=== PATIENT | female | born 1950 | race Caucasian/White ===

== ENCOUNTER 2017-06-04 11:28 | Emergency (ER) | payer OTHER ==
[2017-06-04] MEDS ORDERED: LIDOCAINE 1% MPF 5 ML VIAL ONE (12:17)
[2017-06-04] MEDS ORDERED: TETANUS & DIPHTHERIA TOX,ADULT 0.5 ML VIAL ONE (12:18)
--- NOTE | 2017-06-04 12:42 | RAD REPORT ---
EXAM DESCRIPTION: RAD - Foot Right 3 View - 06/04/2017 12:28 pm CLINICAL HISTORY: Smash injury to toes COMPARISON: None. FINDINGS: Comminuted tuft fractures involving the distal first and second toe noted.
--- NOTE | 2017-06-04 14:50 | EDPHYS ---
Physician Documentation [facility] Name: Ana Victor Age: 67 yrs Sex: Female : 1950 Arrival Date: 06/04/2017 Time: 11:29 Bed 13 Private MD: Falguni Rashid H ED Physician Cece Hameed HPI: 06/04 14:20 This 67 yrs old Female presents to ER via Ambulatory with complaints of Right pm1 great toe injury. 14:20 The patient presents with a laceration, pain. The complaints affect the right first pm1 toe. Context: The problem was sustained at home, resulted from a heavy object falling, quartz slab. Onset: The symptoms/episode began/occurred just prior to arrival. Modifying factors: The symptoms are alleviated by pressure. Associated signs and symptoms: Pertinent positives: swelling, Pertinent negatives: calf tenderness. The patient has not experienced similar symptoms in the past. The patient has not recently seen a physician, the patient's primary care provider is Dr. Rashid. Historical: - Allergies: 11:32 Iodinated Contrast Media - IV Dye; tl3 - Immunization history:: Adult Immunizations up to date. - Social history:: Smoking status: . ROS: 14:20 MS/extremity: Positive for laceration pain, of the right first toe. pm1 14:20 Constitutional: Negative for fever, chills, and weight loss, Cardiovascular: Negative for chest pain, palpitations, and edema, Respiratory: Negative for shortness of breath, cough, wheezing, and pleuritic chest pain, Abdomen/GI: Negative for abdominal pain, nausea, vomiting, diarrhea, and constipation, Back: Negative for injury and pain. 14:20 Skin: Positive for laceration(s), of the right first toe. Exam: 14:20 Constitutional: This is a well developed, well nourished patient who is awake, alert, pm1 and in no acute distress. Chest/axilla: Normal chest wall appearance and motion. Nontender with no deformity. No lesions are appreciated. Cardiovascular: Regular rate and rhythm with a normal S1 and S2. No gallops, murmurs, or rubs. Normal PMI, no JVD. No pulse deficits. Respiratory: Lungs have equal breath sounds bilaterally, clear to auscultation and percussion. No rales, rhonchi or wheezes noted. No increased work of breathing, no retractions or nasal flaring. Back: No spinal tenderness. No costovertebral tenderness. Full range of motion. 14:20 Musculoskeletal/extremity: Extremities: grossly normal except: noted in the right first toe: tenderness, noted in the right second toe distal aspect, no nail injury: tenderness. 14:20 Skin: Appearance: normal except for affected area, injury, laceration(s), the wound is approximately 5 cm(s), with a depth of 0.5 cm(s), of the right first toe, 3 cm linear laceration across the dorsal aspect of right great toe just proximal to cuticle. 2 cm irregular laceration to right great toe planter distal aspect . 14:20 Neuro: Orientation: is normal, Motor: is normal, moves all fours, strength is normal, strength is 5/5 in all extremities, Sensation: is normal, no obvious gross deficits. Vital Signs: 11:32 BP 96 / 81; Pulse 80; Resp 18; Temp 97.8(O); Pulse Ox 100% on R/A; tl3 12:30 BP 128 / 91; Pulse 70; Resp 16 S; Pulse Ox 96% on R/A; Pain 5/10; jtb 13:30 BP 148 / 71; Pulse 69; Resp 16 S; Pulse Ox 98% on R/A; Pain 5/10; jtb 14:30 BP 156 / 71; Pulse 76; Resp 16 S; Pulse Ox 98% on R/A; Pain 0/10; jtb Laceration: 14:20 Wound Repair of 5cm ( 2.0in ) subcutaneous laceration to right first toe. Distal pm1 neuro/vascular/tendon intact. Anesthesia: Digital block administered with 2 mls of 1% lidocaine. Wound prep: Extensive cleansing by me, Wound irrigation by me, Wound explored extensively, Copious irrigation. Skin closed with 8 4-0 Prolene using simple sutures and sterile technique. Skin closed with 1-0 Prolene using nail bed secured with figure 8 suture. Dressed with 4x4's. Patient tolerated well. MDM: 11:47 Patient medically screened. pm1 14:24 Data reviewed: vital signs. Data interpreted: Pulse oximetry: on room air is 98 %. pm1 Interpretation: normal. Counseling: I had a detailed discussion with the patient and/or guardian regarding: the historical points, exam findings, and any diagnostic results supporting the discharge/admit diagnosis, radiology results, the need for outpatient follow up, to return to the emergency department if symptoms worsen or persist or if there are any questions or concerns that arise at home. 06/04 11:53 Order name: Foot Right 3 View XRAY pm1 06/04 12:44 Order name: RAD; Complete Time: 12:48 EDMS 06/04 11:53 Order name: Prolene, Sutures; Complete Time: 12:13 pm1 06/04 11:53 Order name: Dressing - Wound; Complete Time: 14:59 pm1 06/04 11:53 Order name: Gloves, Sterile; Complete Time: 12:13 pm1 06/04 11:53 Order name: Setup Suture Tray; Complete Time: 11:56 pm1 06/04 14:57 Order name: Post-op shoe; Complete Time: 14:59 pm1 Administered Medications: 12:04 Drug: Tetanus-Diphtheria Toxoid Adult 0.5 ml {3D Specialist: [employer]. Exp: jl7 12/16/2018. Lot #: [id number]. } Route: IM; Site: right deltoid; 14:36 Follow up: Response: No adverse reaction [facility] 14:00 Drug: Lidocaine (1 %) 5 ml {Note: Administered by Glenroy Brown NP.} Volume: 5 ml; jl7 Route: Infiltration; 14:36 Follow up: Response: No adverse reaction jl7 Disposition: 06/05 07:13 Co-signature as Attending Physician, Cece Hameed MD. ma2 Disposition: 06/04/17 14:27 Discharged to Home. Impression: Laceration without foreign body of right great toe with damage to nail, Nondisplaced fracture of distal phalanx of right great toe - distal tuft fracture, Nondisplaced fracture of distal phalanx of right lesser toe(s) - distal tuft fracture right 2nd toe. - Condition is Stable. - Discharge Instructions: Laceration Care, Adult, Nail Bed Laceration. - Prescriptions for Keflex 500 mg Oral Capsule - take 1 capsule by ORAL route every 12 hours for 10 days; 20 capsule. Tylenol- Codeine #3 300-30 mg Oral Tablet - take 2 tablets by ORAL route every 6 hours As needed; 20 tablet. Bactrim DS 800- 160 mg Oral Tablet - take 1 tablet by ORAL route every 12 hours for 10 days; 20 tablet. - Medication Reconciliation Form, Thank You Letter, Antibiotic Education, Prescription Opioid Use form. - Follow up: Emergency Department; When: As needed; Reason: Worsening of condition. Follow up: Falguni Rashid DO; When: 2 - 3 days; Reason: Wound Recheck, Recheck today's complaints, Continuance of care, Re-evaluation by your physician. Follow up: Derick Cox DPM; When: 2 - 3 days; Reason: Wound Recheck, Recheck today's complaints, Continuance of care, Re-evaluation by your physician. Follow up: Private Physician; When: 7 - 10 days; Reason: Wound Recheck, Staple/Suture removal. - Problem is new. - Symptoms have improved. Signatures: Dispatcher [employer] EDMS Glenroy Brown, [employer] TECHNICAL OFFICER pm1 Vivian Alegre RN RN jl7 Cece Hameed MD MD ma2 [place] Lovell RN RN tl3 Luis Alvarez j
--- NOTE | 2017-06-04 14:50 | ER ---
Nurse's Notes [facility] Name: Ana Victor Age: 67 yrs Sex: Female : 1950 Arrival Date: 06/04/2017 Time: 11:29 Bed 13 Private MD: Falguni Rashid H Diagnosis: Laceration without foreign body of right great toe with damage to nail;Nondisplaced fracture of distal phalanx of right great toe-distal tuft fracture;Nondisplaced fracture of distal phalanx of right lesser toe(s)-distal tuft fracture right 2nd toe Presentation: 06/04 11:30 Presenting complaint: Patient states: dropped 50 pound weight on right great toe, tl3 happened one hour ago. Transition of care: patient was not received from another setting of care. Onset of symptoms was June 04, 2017. 11:30 Method Of Arrival: Ambulatory tl3 11:30 Acuity: OPHELIA 4 tl3 14:37 Care prior to arrival: None. jl7 Triage Assessment: 11:32 General: Appears in no apparent distress. uncomfortable, well groomed, well developed, tl3 well nourished, Behavior is calm, cooperative, appropriate for age. Pain: Pain currently is 3 out of 10 on a pain scale. Historical: - Allergies: 11:32 Iodinated Contrast Media - IV Dye; tl3 - Immunization history:: Adult Immunizations up to date. - Social history:: Smoking status: . Screenin:45 Abuse screen: Denies threats or abuse. Denies injuries from another. Nutritional jtb screening: No deficits noted. Tuberculosis screening: No symptoms or risk factors identified. Fall Risk None identified. Assessment: 11:45 General: Appears in no apparent distress. uncomfortable, Behavior is calm, cooperative, jtb appropriate for age. Pain: Complains of pain in left first toe and Left first toenail Pain does not radiate. Pain currently is 4 out of 10 on a pain scale. at worst was 6 out of 10 on a pain scale. Quality of pain is described as aching, Pain began 2 hours ago. Is continuous. Neuro: Level of Consciousness is awake, alert, obeys commands, Oriented to person, place, time, situation. Cardiovascular: Patient's skin is warm and dry. Respiratory: Airway is patent Respiratory effort is even, unlabored, Respiratory pattern is regular, symmetrical. GI: No signs and/or symptoms were reported involving the gastrointestinal system. : No signs and/or symptoms were reported regarding the genitourinary system. EENT: No signs and/or symptoms were reported regarding the EENT system. Derm: Skin is pink, warm \T\ dry. Musculoskeletal: Reports having neuropathy in both feet. Injury Description: Laceration sustained to plantar aspect of left first toe and Left first toenail is 0.5 to 2.5 cm long, bleeding moderately. 12:36 Reassessment: No changes from previously documented assessment. Patient and/or family jtb updated on plan of care and expected duration. Pain level reassessed. Patient is alert, oriented x 3, equal unlabored respirations, skin warm/dry/pink. guest is at the bedside. 13:49 Reassessment: No changes from previously documented assessment. Patient and/or family jtb updated on plan of care and expected duration. Pain level reassessed. Patient is alert, oriented x 3, equal unlabored respirations, skin warm/dry/pink. 14:20 Reassessment: No changes from previously documented assessment. Patient and/or family jtb updated on plan of care and expected duration. Pain level reassessed. Patient is alert, oriented x 3, equal unlabored respirations, skin warm/dry/pink. Provider at the bedside performing laceration repair. Vital Signs: 11:32 BP 96 / 81; Pulse 80; Resp 18; Temp 97.8(O); Pulse Ox 100% on R/A; tl3 12:30 BP 128 / 91; Pulse 70; Resp 16 S; Pulse Ox 96% on R/A; Pain 5/10; jtb 13:30 BP 148 / 71; Pulse 69; Resp 16 S; Pulse Ox 98% on R/A; Pain 5/10; jtb 14:30 BP 156 / 71; Pulse 76; Resp 16 S; Pulse Ox 98% on R/A; Pain 0/10; jtb ED Course: 11:29 Patient arrived in ED. rg4 11:30 Falguni Rashid DO is Private Physician. rg4 11:31 Triage completed. tl3 11:45 Glenroy Brown NP is PHCP. pm1 11:45 Cece Hameed MD is Attending Physician. pm1 11:45 Patient has correct armband on for positive identification. Bed in low position. Call jtb light in reach. Side rails up X 1. Pulse ox on. NIBP on. 11:46 Vivian Alegre RN is Primary Nurse. jl7 14:27 Falguni Rashid DO is Referral Physician. pm1 14:28 Derick Cox DPM is Referral Physician. pm1 14:30 Assist provider with laceration repair on ball of left foot and Left first toenail that jtb was 2.5 cm. or less using sutures. Patient tolerated well. Patient did not have IV access during this emergency room visit. 14:36 Arm band placed on right wrist. jl7 Administered Medications: 12:04 Drug: Tetanus-Diphtheria Toxoid Adult 0.5 ml {Lacquer Sprayer: [employer]. Exp: jl7 12/16/2018. Lot #: [id number]. } Route: IM; Site: right deltoid; 14:36 Follow up: Response: No adverse reaction jl7 14:00 Drug: Lidocaine (1 %) 5 ml {Note: Administered by Glenroy Brown NP.} Volume: 5 ml; jl7 Route: Infiltration; 14:36 Follow up: Response: No adverse reaction jl7 Outcome: 14:27 Discharge ordered by MD. pm1 14:40 Discharged to home ambulatory. jtb 14:40 Condition: stable 14:40 Discharge instructions given to patient, Instructed on discharge instructions, follow up and referral plans. medication usage, wound care, Demonstrated understanding of instructions, follow-up care, medications, wound care, Prescriptions given X 3. 15:01 Attestation : I agree with everything documented by Luis Alvarez, Student Nurse. [facility] 15:02 Patient left the ED. jtb Signatures: Glenroy Brown NP DESIGN STUDIO CONSULTANT pm1 Ignacia Flores rg4 Vivian Alegre RN RN sharon7 [place] Lovell RN RN tl3 Luis Alvarez jedd Corrections: (The following items were deleted from the chart) 12:13 12:04 Tetanus-Diphtheria Toxoid Adult 0.5 ml IM in right deltoid Lacquer Sprayer: [employer] jl7 Biologic Lot: [id number] Exp: 07/30/2019 jl7 12:36 11:45 BP 128 / 91; Pulse 70bpm; Resp 16bpm; Spontaneous; Pulse Ox 96% RA; Pain 5/10; jtbjtb 14:36 14:00 Lidocaine (1 %) 5 ml 5 ml Infiltration 5 ml jl7 jl7
[2017-06-04 15:14] VITALS: TEMP 97.8
[2017-06-04 15:16] VITALS: BP 148/71; O2SAT 98
== END 2017-06-04 15:02 | disposition home or self-care (01) ==
LOC: ER 11:28
PROC: 0JQQ0ZZ Repair Right Foot Subcutaneous Tissue and Fascia, Open Approach (ICD-10-PCS; principal; 2017-06-04)
DX: S91.211A Laceration without foreign body of right great toe with damage to nail, initial encounter (principal); S92.424A Nondisplaced fracture of distal phalanx of right great toe, initial encounter for closed fracture; S92.534A Nondisplaced fracture of distal phalanx of right lesser toe(s), initial encounter for closed fracture; W22.8XXA Striking against or struck by other objects, initial encounter; Y93.9 Activity, unspecified; Y92.009 Unspecified place in unspecified non-institutional (private) residence as the place of occurrence of the external cause; Z91.041 Radiographic dye allergy status; Z23 Encounter for immunization
CPT/HCPCS: 90714; 99284

== ENCOUNTER 2018-02-28 15:31 | Emergency (ER) | payer OTHER ==
--- OUTSIDE RECORDS SUMMARY | 2018-02-28 15:37 | XMS REPORT | Continuity of Care Document ---
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[facility] PARALYSIS [address] [place] [address] SCAN Active 12/06/[address] [place] 7 PALSY, Active 12/06/19 [facility] DYSPHAGIA [address] [place] [address] SEPSIS Active 11/25/[address] LANCE Active 11/25/19 [facility] BILLING [address] [place] [address] SIALADENITIS Active 11/25/[address] Hep C w/o coma, Resolved Problem 05/09/2016 [facility], [place],[facility] Liver cirrhosis Active Problem 05/09/2016 [facility] Cirrhosis Resolved Problem 05/09/2016 [facility] Colon polyps Resolved Problem 05/09/2016 [facility] SIALOADENITIS, Active [facility] OTHER DISORDERS Active [facility] FACIAL NERVE [facility] DYSPHAGIA, Active UNSPECIFIED [place] DYSPHONIA Active 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 predniSONE 5 mg/5 20 mg, 20 mL, No Longer [place] mL oral solution Route: PEG, Active 2015 Medical Drug form: Center SOLN, Daily, Start date: 12/20/15 9:00:00 CDT, Duration: 1 doses or times, Stop date: 12/20/15 9:00:00 CDTNotes: (Same as: Liquid Pred.) Take with food. Prednisone 1 MG/ML 10 mg=10 mL, No Longer [place] Oral Solution PEG, Daily, X 1 Active 2015, # 10 mL, 0 Center Refill(s) ursodiol 300 mg 900 mg=3 cap, Active [facility] oral capsule PO, Daily, # 2016 Medical 120 cap, 3 Center Refill(s) levothyroxine 100 100 microgram=1 Active [place] mcg (0.1 mg) oral tab, PEG, 2015 Medical tablet Q630AM, # 30 Center tab, 3 Refill(s) Alprazolam 0.5 MG 0.5 mg=1 tab, Active [place] Oral Tablet [Xanax] PO, Bedtime, 2016 Medical PRN Sleep, X 14 Center day, # 14 tab, 0 Refill(s) valACYclovir 500 mg 1,000 mg=2 tab, Active [place] oral tablet PEG, Q12H, X 6 2015 Medical day, # 24 tab, Center 0 Refill(s) tramadol 50 mg=1 tab, Active [place] hydrochloride 50 MG PEG, Q12H, PRN 2016 Medical Oral Tablet Pain Score 1-3, Center X 30 day, # 60 tab, 0 Refill(s) propranolol 20 mg 20 mg=1 tab, Active [place] oral tablet PEG, Q12H, # 60 2016 Medical tab, 3 Center Refill(s) diphenhydrAMINE 50 50 mg=1 cap, Active [facility] mg oral capsule PO, TID, PRN 2016 Medical Itching, X 14 Center day, # 42 cap, 3 Refill(s) ocular lubricant 1 drp, Each Active [facility] solution Affected Eye, 2016 Medical QID, # 36 ea, 3 Center Refill(s) lansoprazole 3 30 mg=10 mL, Active [facility] mg/mL oral PEG, Before 2015 Medical suspension Breakfast, # 30 [place] mL, 3 Refill(s) OXcarbazepine 300 150 mg=2.5 mL, Active [facility] mg/5 mL oral PEG, BID, # 150 2015 Medical suspension mL, 3 Refill(s) [place] predniSONE 5 mg/5 30 mg, 30 mL, Inactive [facility] mL oral solution Route: PO, Drug 2015 Medical form: SOLN, [place] Daily, Start date: 12/19/15 9:00:00 CDT, Duration: 1 doses or times, Stop date: 12/19/15 9:00:00 CDTNotes: (Same as: Liquid Pred.) Take with food. Potassium Chloride 40 mEq, 30 mL, Inactive [place] 1.33 MEQ/ML Oral Route: PEG, 2015 Medical Solution Drug form: LIQ, [place] ONCE, Dosing Weight 68.182, kg, Start date: 12/19/15 5:26:00 CDT, Stop date: 12/19/15 5:26:00 CDTNotes: (Same as: Potassium Chloride) Famotidine 20 MG 20 mg, 2 tab, Inactive [facility] Oral Tablet Route: PO, Drug 2015 Medical form: TAB, [place] ONCE, Dosing Weight 68.182, kg, Priority: NOW, Start date: 12/18/15 15:57:00 CDT, Stop date: 12/18/15 15:57:00 CDTNotes: (Same as: Pepcid AC) Ursodeoxycholate 900 mg, 15 mL, No Longer [facility] Route: PEG, Active 2015 Medical Drug form: Center SUSP, Daily, Dosing Weight 68.182, kg, Start date: 12/18/15 9:00:00 CDT, Duration: 30 day, Stop date: 01/16/16 9:00:00 CDTNotes: Ursodil (actigall) 300mg caps #5. Refrigerate - Shake Well Before Use. Compounded Product - formulation not commercially available predniSONE 5 mg/5 40 mg, 40 mL, Inactive [facility] mL oral solution Route: PO, Drug 2015 Medical form: SOLN, [place] Daily, Start date: 12/18/15 9:00:00 CDT, Duration: 1 doses or times, Stop date: 12/18/15 9:00:00 CDTNotes: (Same as: Liquid Pred.) Take with food. prednisolone 60 mg, Route: No Longer [facility] PEG, Drug form: Active 2015 Medical SOLN, Daily, Center Dosing Weight 68.182, kg, Start date: 12/18/15 9:00:00 CDT, Stop date: 12/21/15 9:00:00 CDT lansoprazole 30 mg, 10 mL, No Longer [facility] Route: PEG, Active 2015 Medical Drug form: Center SUSP, Before Breakfast, Dosing Weight 68.182, kg, Start date: 12/18/15 7:30:00 CDT, Duration: 30 day, Stop date: 01/16/16 7:30:00 CDTNotes: Take 1 hour before or 2 hours after meal; Expires in 14 days. Shake well before use. (Same as:Prevacid) Compounded Product - formulation not commercially available levothyroxine 100 microgram, No Longer [facility] 1 tab, Route: Active 2015 Medical PEG, Drug form: Center TAB, Q630AM, Start date: 12/18/15 6:30:00 CDT, Duration: 30 day, Stop date: 01/16/16 6:30:00 CDTNotes: Take 1 hour before or 2 hours after meal; Enteral feeds may interefere with the absorption of this medication. (Same as:Levothroid, Synthroid) Propranolol 20 mg, 1 tab, No Longer [facility] Route: PEG, Active 2015 Medical Drug form: TAB, Center Q12H, Dosing Weight 68.182, kg, Start date: 12/17/15 21:00:00 CDT, Duration: 30 day, Stop date: 01/16/16 9:00:00 CDTNotes: Give with food. (Same as: Inderal) Trileptal 150 mg, 2.5 mL, No Longer [facility] Route: PEG, Active 2015 Medical Drug form: LIQ, Center BID, Dosing Weight 68.182, kg, Start date: 12/17/15 21:00:00 CDT, Duration: 30 day, Stop date: 01/16/16 9:00:00 CDTNotes: (Same as: Trileptal) Valtrex 1,000 mg, Inactive [place] Route: PO, Drug 2015 Medical form: TAB, Center Q12H, Dosing Weight 68.182, kg, Start date: 12/17/15 21:00:00 CDT, Stop date: 12/25/15 9:00:00 CDT Valtrex 1,000 mg, 2 No Longer [place] tab, Route: Active 2016 Medical PEG, Drug form: Center TAB, Q12H, Dosing Weight 68.182, kg, Start date: 12/17/15 20:00:00 CDT, Stop date: 01/16/16 8:00:00 CDTNotes: (Same As: Valtrex) predniSONE 5 mg/5 50 mg, 50 mL, Inactive [place] mL oral solution Route: PEG, 2015 Medical Drug form: Center SOLN, ONCE, Start date: 12/17/15 18:00:00 CDT, Stop date: 12/17/15 18:00:00 CDTNotes: (Same as: Liquid Pred.) Take with food. tramadol 50 mg, 1 tab, No Longer [place] hydrochloride 50 MG Route: PEG, Active 2015 Medical Oral Tablet Drug form: TAB, Center Q12H, Dosing Weight 68.182, kg, PRN Pain Score 1-3, Start date: 12/17/15 16:36:00 CDT, Duration: 30 day, Stop date: 01/16/16 16:35:00 CDTNotes: Not to exceed 400mg/day. (Same As: Ultram) Acetaminophen 325 1 tab, Route: No Longer [facility] MG / Hydrocodone PEG, Drug Form: Active 2016 Medical Bitartrate 5 MG TAB, Dosing Center Oral Tablet [[place]lin Weight 68.182, 5/325] kg, Q6H, PRN Pain Score 4-6, Start date: 12/17/15 16:35:00 CDT, Duration: 30 day, Stop date: 01/16/16 16:34:00 CDTNotes: (Same as: [place] 325/5) Do not exceed 4gm/day of acetaminophen. Neutra-Phos 2 pkt, Route: Inactive [facility] PEG, Drug Form: 2016 Medical PDR/REC, Dosing Center Weight 68.182, kg, ONCE, Start date: 12/17/15 16:33:00 CDT, Stop date: 12/17/15 16:33:00 CDTNotes: (Same as: Neutra-Phos) Each 1.25 gm pkt has 250mg phosphorous. Mix w/2.5oz water and stir. Zofran 4 mg, 2 mL, Inactive [facility] Route: IVP, 2015 Medical Drug form: INJ, Center Q8H, Dosing Weight 68.182, kg, PRN Nausea, Start date: 12/17/15 15:11:00 CDT, Duration: 30 day, Stop date: 01/16/16 15:10:00 CDTNotes: (Same as: Zofran) MEDICATION WASTE Product Size: 4 mg Product Wasted: ___ mg Ondansetron 4 mg, Route: Inactive [facility] IVP, ONCE, 2015 Medical Dosing Weight Center 68.182, kg, PRN Nausea & Vomiting, Start date: 12/17/15 10:54:00 CDT Naloxone 0.4 mg, Route: Inactive [facility] IVP, Q2MIN, 2015 Medical Dosing Weight Center 68.182, kg, PRN Narcotic Reversal, Start date: 12/17/15 10:54:00 CDT, Duration: 8 doses or times, Stop date: Limited # of times Labetalol 10 mg, Route: Inactive 12/16[facility] IVP, Q5Min, 2015 Medical Dosing Weight Center 68.182, kg, PRN Elevated BP, Start date: 12/17/15 10:54:00 CDT, Duration: 5 doses or times, Stop date: Limited # of times Morphine 2 mg, Route: Inactive 12/16[facility] IVP, Q5Min, 2015 Medical Dosing Weight Center 68.182, kg, PRN Pain Score 4-6, Start date: 12/17/15 10:54:00 CDT, Duration: 5 doses or times, Stop date: Limited # of times Hydralazine 10 mg, Route: Inactive 12/16[facility] IVP, Q20Min, 2016 Medical Dosing Weight Center 68.182, kg, PRN Elevated BP, Start date: 12/17/15 10:54:00 CDT, Duration: 2 doses or times, Stop date: Limited # of times Flumazenil 0.2 mg, Route: Inactive [facility] IVP, PRN, 2016 Medical Dosing Weight Center 68.182, kg, PRN Benzodiazepine Reversal, Initial dose, Start date: 12/17/15 10:54:00 CDT, Duration: 30 day, Stop date: 01/16/16 10:53:00 CDT Hydromorphone 0.5 mg, Route: Inactive [facility] IVP, Q5Min, 2015 Medical Dosing Weight Center 68.182, kg, PRN Pain Score 7-10, Start date: 12/17/15 10:54:00 CDT, Duration: 4 doses or times, Stop date: Limited # of times Neutra-Phos 2 pkt, Route: Inactive [facility] NG, Drug Form: 2016 Medical PDR/REC, Dosing Center Weight 68.182, kg, ONCE, NOW, Start date: 12/17/15 10:33:00 CDT, Stop date: 12/17/15 10:33:00 CDTNotes: (Same as: Neutra-Phos) Each 1.25 gm pkt has 250mg phosphorous. Mix w/2.5oz water and stir. potassium phosphate 30 mmol, Route: Inactive [facility] IVPB, ONCE, 2015 Medical Dosing Weight Center 68.182, kg, Priority: NOW, Start date: 12/17/15 9:56:00 CDT, Stop date: 12/17/15 9:56:00 CDT potassium chloride 40 mEq, 30 mL, Inactive [facility] Route: NG, Drug 2016 Medical form: LIQ, Center ONCE, Dosing Weight 68.182, kg, Priority: NOW, Start date: 12/17/15 9:33:00 CDT, Stop date: 12/17/15 9:33:00 CDTNotes: (Same as: Potassium Chloride) Potassium Chloride 40 mEq, 30 mL, Inactive [place] 1.33 MEQ/ML Oral Route: PO, Drug 2015 Medical Solution form: LIQ, Center ONCE, Dosing Weight 68.182, kg, via NGT, Start date: 12/14/15 18:53:00 CDT, Stop date: 12/14/15 18:53:00 CDTNotes: (Same as: Potassium Chloride) prednisolone 60 mg, 20 mL, No Longer [place] Route: NG, Drug Active 2015 Medical form: SOLN, Center Daily, Dosing Weight 68.182, kg, Start date: 12/14/15 9:00:00 CDT, Duration: 30 day, Stop date: 01/12/16 9:00:00 CDTNotes: (Same as: Prelone) With food. methylPREDNISolone 48 mg, 1.2 mL, No Longer [place] SODium SUCCinate Route: IV, Drug Active 2015 Medical form: INJ, Center Daily, Dosing Weight 68.182, kg, Start date: 12/13/15 13:00:00 CDT, Stop date: 12/17/15 9:00:00 CDTNotes: (Same as:Solu-MEDROL, A-Methapred) Trileptal 150 mg, 1 tab, No Longer [place] Route: PO, Drug Active 2015 Medical form: TAB, BID, Center Dosing Weight 68.182, kg, Start date: 12/13/15 9:00:00 CDT, Duration: 30 day, Stop date: 01/11/16 17:00:00 CDTNotes: Do not crush or chew. (Same as: Trileptal) iodixanol 100 mL, Route: No Longer [place] IVP, Drug Form: Active 2015 Medical SOLN, Dosing Center Weight 68.182, kg, ONCALL, STAT, Start date: 12/12/15 9:36:00 CDT, Duration: 1 doses or times, Dose=2.2ml/kg, Max [id number] -- "To be infused by Radiology Staff ONLY"Notes: (Same as: Ezra). WASTE: F/P - Black; E - Municipal Trash Bin Acyclovir 640 mg, Route: No Longer [place] IVPB, ABXQ8H, Active 2015 Medical Dosing Weight Center 68.182, kg, Start date: 12/11/15 18:00:00 CDT, Stop date: 01/10/16 10:00:00 CDT, CrCl > 50 mL / minNotes: (Same as: Zovirax) MEDICATION WASTE Product Size: 500 mg Product Wasted: ___ mg Azithromycin 500 mg, Route: No Longer [place] IVPB, Drug Active 2015 Medical form: PDR/INJ, Center [id number], Dosing Weight 68.182, kg, Start date: 12/11/15 18:00:00 CDT, Duration: 30 day, Stop date: 01/09/16 18:00:00 CDTNotes: (Same As: Zithromax IV) valacyclovir 1,000 mg, 2 Inactive [place] tab, Route: 2015 Medical Drug form: TAB, Center Q8H, Dosing Weight 68.182, kg, Start date: 12/11/15 16:09:00 CDT, Duration: 7 day, Stop date: 12/18/15 16:00:00 CDTNotes: (Same As: Valtrex) prednisolone 60 mg, 20 mL, No Longer [place] Route: NG, Drug Active 2015 Medical form: SOLN, [place] Daily, Dosing Weight 68.182, kg, Start date: 12/11/15 16:08:00 CDT, Duration: 7 day, Stop date: 12/18/15 9:00:00 CDTNotes: (Same as: Prelone) With food. albuterol 0.083% 2.49 mg, 3 mL, No Longer [place] inhalation solution Route: [facility], 2015 Medical Drug form: [place] SOLN, RBID, Start date: 12/10/15 13:29:00 CDT, Duration: 2 day, Stop date: 12/12/15 8:00:00 CDTNotes: SEE RT DOCUMENTATION (Same as: Proventil) Acetylcysteine 100 200 mg, 2 ml, No Longer [place] MG/ML Inhalant Route: [facility], Active 2015 Medical Solution Drug Form: [place] SOLN, Dosing Weight 68.182, kg, RBID, Start date: 12/10/15 13:28:00 CDT, Duration: 2 day, Stop date: 12/12/15 8:00:00 CDTNotes: WASTE: F/P - Black; E - Municipal Trash Bin Acetylcysteine 100 2 ml, Route: Inactive [place] MG/ML Inhalant NEB, Drug Form: 2015 Medical Solution SOLN, Dosing Center Weight 68.182, kg, RBID, NOW, Start date: 12/10/15 11:49:00 CDT, Duration: 2 day, Stop date: 12/12/15 8:00:00 CDT Propranolol 20 mg, 1 tab, No Longer [place] Route: PO, Drug Active 2015 Medical form: TAB, Center Q12H, Dosing Weight 68.182, kg, Start date: 12/10/15 9:00:00 CDT, Duration: 30 day, Stop date: 01/08/16 21:00:00 CDTNotes: Give with food. (Same as: Inderal) pantoprazole 40 mg, Route: No Longer [place] IVP, Drug form: Active 2015 Medical INJ, Before Center Breakfast, Dosing Weight 68.182, kg, Start date: 12/10/15 7:30:00 CDT, Duration: 30 day, Stop date: 01/08/16 7:30:00 CDTNotes: For IV push reconstitute with 10 ml 0.9% sodium chloride and push over 2 minutes. (Same as: Protonix) levothyroxine 50 microgram, No Longer [place] Route: IV, Drug Active 2015 Medical form: INJ, Center Q630AM, Start date: 12/10/15 6:30:00 CDT, Duration: 30 day, Stop date: 01/08/16 6:30:00 CDTNotes: (Same as: Synthroid) Reconstitute with 5ml of NS. Final concentration=2 0 micrograms/ml. Use immediately after reconstitution and discard remaining solution. Unasyn 3 gm, 1 ea, No Longer [place] Route: IVPB, Active 2015 Medical Drug form: Center PDR/INJ, ABXQ6H, Start date: 12/09/15 21:00:00 CDT, Duration: 30 day, Stop date: 01/08/16 15:00:00 CDTNotes: Dosing based on Ampicillin component (Same as: Unasyn) Acetaminophen 325 1 tab, Route: No Longer [place] MG / Hydrocodone PO, Drug Form: Active 2015 Medical Bitartrate 5 MG TAB, Dosing Center Oral Tablet [[place] Weight 68.182, 5/325] kg, Q6H, PRN Pain Score 4-6, Start date: 12/09/15 20:47:00 CDT, Duration: 30 day, Stop date: 01/08/16 20:46:00 CDTNotes: (Same as: [place] 325/5) Do not exceed 4gm/day of acetaminophen. Lacri-Lube 1 appl, Route: No Longer [place] Each Affected Active 2015 Medical Eye, QID, Drug Center form: OINT, PRN Dry Eyes, Start date: 12/09/15 15:53:00 CDT, Duration: 30 day, Stop date: 01/08/16 15:52:00 CDTNotes: (Same as: Duratears Naturale and Artificial Tears, Tears Again ) Ketorolac 15 mg, 1 mL, No Longer [facility] Route: IV, Drug Active 2015 Medical form: INJ, Q6H, Center Dosing Weight 68.182, kg, PRN Pain Score 4-6, Start date: 12/09/15 14:44:00 CDT, Duration: 4 day, Stop date: 12/13/15 14:43:00 CDTNotes: (Same as:Toradol) IV bolus must be given >15 seconds. Give IM administration slowly and deeply into the muscle. Not for use > 4 days. Diflucan 400 mg, 200 mL, No Longer [place] Route: IVPB, Active 2015 Medical Drug form: INJ, Center [id number], Start date: 12/09/15 14:30:00 CDT, Duration: 30 day, Stop date: 01/07/16 14:30:00 CDTNotes: (Same as: Diflucan) Benadryl 50 mg, 1 cap, No Longer [facility] Route: PO, Drug Active 2015 Medical form: CAP, TID, Center Dosing Weight 68.182, kg, PRN Itching, Start date: 12/09/15 13:28:00 CDT, Stop date: 01/08/16 13:27:00 CDTNotes: (Same as: Benadryl) Lubricant Eye Drops 1 drp, Route: No Longer [place] Each Affected Active 2015 Medical Eye, QID, Drug Center form: SOLN, Start date: 12/09/15 11:49:00 CDT, Duration: 30 day, Stop date: 01/08/16 13:00:00 CDT Naproxen 250 mg, 1 tab, Inactive [place] Route: PO, Drug 2015 Medical form: TAB, Center ONCE, Dosing Weight 68.182, kg, Start date: 12/09/15 0:24:00 CDT, Stop date: 12/09/15 0:24:00 CDTNotes: (Same as: Naprosyn) Take with food. Phenergan 12.5 mg, Route: Inactive [place] IVPB, Q6H, 2016 Medical Dosing Weight Center 68.182, kg, PRN Nausea & Vomiting, Priority: NOW, Start date: 12/08/15 20:33:00 CDT, Duration: 30 day, Stop date: 01/07/16 20:32:00 CDT Sodium Chloride 1,000 mL, Rate: Inactive [place] 0.9% IV 1000 mL 75 ml/hr, 2016 Medical Infuse over: Center 13.3 hr, Route: IV, Dosing Weight 68.182 kg, Total Volume: 1,000, Start date: 12/08/15 18:30:00 CDT, Duration: 30 day, Stop date: 01/07/16 18:29:00 CDT Zofran 4 mg, 2 mL, No Longer [place] Route: IVP, Active 2015 Medical Drug form: INJ, Center Q8H, Dosing Weight 68.182, kg, Priority: NOW, Start date: 12/08/15 8:28:00 CDT, Duration: 1 day, Stop date: 12/09/15 8:00:00 CDTNotes: (Same as: Zofran) MEDICATION WASTE Product Size: 4 mg Product Wasted: ___ mg Prochlorperazine 5 mg, 1 mL, No Longer [place] Route: IVP, Active 2015 Medical Drug form: INJ, Center Q6H, Dosing Weight 68.182, kg, PRN Nausea & Vomiting, Start date: 12/08/15 0:31:00 CDT, Duration: 30 day, Stop date: 01/07/16 0:30:00 CDT, ..Notes: (Same as: Compazine) Prochlorperazine 5 mg, 1 tab, No Longer [place] Route: PO, Drug Active 2015 Medical form: TAB, Q6H, Center Dosing Weight 68.182, kg, PRN Nausea & Vomiting, Start date: 12/07/15 23:17:00 CDT, Duration: 30 day, Stop date: 01/06/16 23:16:00 CDT, ..Notes: (Same as: Compazine) Diphenhydramine 1 appl, Route: No Longer [place] Hydrochloride 20 TOP, Q6H, Drug Active 2015 Medical MG/ML Topical Cream form: CRM, PRN Center [Benadryl] Allergic reaction, Start date: 12/07/15 14:00:00 CDT, Stop date: 01/06/16 12:00:00 CDT tramadol 50 mg, 1 tab, No Longer [place] hydrochloride 50 MG Route: PO, Drug Active 2015 Medical Oral Tablet form: TAB, Center Q12H, Dosing Weight 68.182, kg, PRN Pain Score 1-3, Start date: 12/07/15 9:08:00 CDT, Duration: 30 day, Stop date: 01/06/16 9:07:00 CDTNotes: Not to exceed 400mg/day. (Same As: Ultram) Tylenol 650 mg, Route: Inactive [place] PO, Drug form: 2015 Medical TAB, Q6H, Center Dosing Weight 68.182, kg, PRN For Temp > 100.4 F, Start date: 12/07/15 9:05:00 CDT, Duration: 30 day, Stop date: 01/06/16 9:04:00 CDT Ursodeoxycholate 900 mg, 3 cap, No Longer [place] Route: PO, Drug Active 2015 Medical form: CAP, Center Daily, Dosing Weight 68.182, kg, Start date: 12/07/15 9:00:00 CDT, Duration: 30 day, Stop date: 01/05/16 9:00:00 CDTNotes: (Same As: Actigall) Fluconazole 400 mg, 2 tab, No Longer [place] Route: PO, Drug Active 2015 Medical form: TAB, Center Daily, Dosing Weight 68.182, kg, Start date: 12/07/15 9:00:00 CDT, Duration: 9 day, Stop date: 12/15/15 9:00:00 CDTNotes: (Same as: Diflucan) Amoxicillin 875 MG 1 tab, Route: No Longer [place] / Clavulanate 125 PO, Drug Form: Active 2016 Medical MG Oral Tablet TAB, Dosing Center [Augmentin 875-mg] Weight 68.182, kg, Q12H, Start date: 12/07/15 9:00:00 CDT, Stop date: 12/15/15 21:00:00 CDTNotes: With food. (Same as: Augmentin 875) Streptococcus 0.5 mL, Route: Inactive [place] pneumoniae serotype IM, Drug Form: 2015 Medical 1 capsular antigen INJ, Daily, Center diphtheria [id number] Start date: protein conjugate 12/07/15 vaccine / 9:00:00 CDT, Streptococcus Duration: 1 pneumoniae serotype doses or times, 14 capsular antigen Stop date: diphtheria [id number] 12/07/15 protein conjugate 9:00:00 vaccine / CDTNotes: Streptococcus Lightly roll pneumoniae serotype vial (DO NOT 18C capsular SHAKE) before antigen d administration. (Same as: Prevnar 13) Thyroxine 100 microgram, No Longer [place] 1 tab, Route: Active 2015 Medical PO, Drug form: Center TAB, Q630AM, Dosing Weight 68.182, kg, Start date: 12/07/15 6:30:00 CDT, Duration: 30 day, Stop date: 01/05/16 6:30:00 CDTNotes: Take 1 hour before or 2 hours after meal; Enteral feeds may interefere with the absorption of this medication. (Same as:Levothroid, Synthroid) Lovenox 40 mg, 0.4 mL, No Longer [place] Route: SUB-Q, Active 2015 Medical Drug form: INJ, Center [id number], Dosing Weight 68.182, kg, Start date: 12/07/15 5:00:00 CDT, Duration: 30 day, Stop date: 01/05/16 5:00:00 CDTNotes: (Same as: Lovenox) Alprazolam 0.5 MG 0.5 mg, 1 tab, No Longer [place] Oral Tablet [Xanax] Route: PO, Drug Active 2015 Medical form: TAB, Center Bedtime, Dosing Weight 68.182, kg, PRN Sleep, Start date: 12/06/15 23:52:00 CDT, Duration: 30 day, Stop date: 01/05/16 23:51:00 CDTNotes: With food or milk (Same as: Xanax) sodium chloride 1,000 mL, Rate: No Longer [place] 0.9% 1000 ml INJ 150 ml/hr, Active 2015 Medical 1,000 mL Infuse over: Center 6.7 hr, Route: IV, Dosing Weight 68.182 kg, Total Volume: 1,000, Start date: 12/06/15 21:36:00 CDT, Stop date: 01/05/16 21:35:00 CDT Ondansetron 4 mg, 2 mL, No Longer [place] Route: IVP, Active 2015 Medical Drug form: INJ, Center Q6H, Dosing Weight 68.182, kg, PRN Nausea & Vomiting, Start date: 12/06/15 21:08:00 CDT, Duration: 30 day, Stop date: 01/05/16 21:07:00 CDTNotes: (Same as: Zofran) MEDICATION WASTE Product Size: 4 mg Product Wasted: 0mg Iohexol 95 mL, Route: Inactive [place] IVP, Drug Form: 2015 Medical SOLN, Dosing Center Weight 68.182, kg, ONCALL, STAT, Start date: 12/06/15 18:24:00 CDT, Duration: 1 doses or times, Dose=2.2ml/kg, Max [id number] -- "To be infused by Radiology Staff ONLY" Amoxicillin 875 MG 875 mg=1 tab, Active [place] / Clavulanate 125 PO, BID, X 10 2015 Medical MG Oral Tablet day, # 20 tab, Center [Augmentin 875-mg] 0 Refill(s) fluconazole 200 mg 400 mg=2 tab, Active [place] oral tablet PO, Daily, X 10 2015 day, # 20 tab, Center 0 Refill(s) Naproxen 250 mg, 1 tab, Inactive [place] Route: PO, Drug 2015 Medical form: TAB, BID, Center Dosing Weight 69.1, kg, PRN Pain Score 1-3, Start date: 12/01/15 12:11:00 CDT, Duration: 30 day, Stop date: 12/31/15 12:10:00 CDTNotes: (Same as: Naprosyn) Take with food. Ativan 1 mg, 0.5 mL, Inactive [place] Route: IVP, 2015 Medical Drug form: INJ, Center ONCE, Dosing Weight 69.1, kg, PRN Anxiety, Priority: STAT, Start date: 11/30/15 7:40:00 CDTNotes: (Same as: Ativan) vancomycin 1 gm, Route: No Longer [facility] IVPB, Drug Active 2015 Medical form: INJ, Center [id number], Start date: 11/30/15 0:00:00 CDT, Duration: 30 day, Stop date: 12/29/15 12:00:00 CDTNotes: TIME CRITICAL MEDICATION (Same As: Vancocin) Infusion rate 2001 mg: infuse over 2.5 hours MEDICATION WASTE Product Size: 1000 mg Product Wasted: ___ mg Ciprofloxacin 400 mg, 200 mL, No Longer [place] Route: IVPB, Active 2015 Medical Drug form: INJ, Center [id number], Dosing Weight 69.1, kg, Start date: 11/28/15 16:00:00 CDT, Duration: 30 day, Stop date: 12/28/15 4:00:00 CDTNotes: Do not refrigerate Iohexol 80 mL, Route: Inactive [facility] IVP, Drug Form: 2015 Medical SOLN, Dosing Center Weight 69.1, kg, ONCALL, STAT, Start date: 11/27/15 21:11:00 CDT, Duration: 1 doses or times, Dose=2.2ml/kg, Max [id number] -- "To be infused by Radiology Staff ONLY" Unasyn 3 gm, 1 ea, No Longer [place] Route: IVPB, Active 2015 Medical Drug form: Center PDR/INJ, [id number], Dosing Weight 69.1, kg, Start date: 11/27/15 20:00:00 CDT, Duration: 30 day, Stop date: 12/27/15 14:30:00 CDTNotes: Dosing based on Ampicillin component (Same as: Unasyn) vancomycin + sodium 1,250 mg, No Longer [place] chloride 0.9% INJ Route: IVPB, Active 2015 Medical 250 mL [id number], Start Center date: 11/27/15 18:00:00 CDT, Stop date: 12/27/15 11:00:00 CDTNotes: TIME CRITICAL MEDICATION (Same As: Vancocin) Infusion rate 2001 mg: infuse over 2.5 hours MEDICATION WASTE Product Size: 1000 mg Product Wasted: ___ mg Fluconazole 400 mg, 200 mL, No Longer [place] Route: IV, Drug Active 2015 Medical form: INJ, Center [id number], Dosing Weight 69.1, kg, Start date: 11/27/15 18:00:00 CDT, Duration: 30 day, Stop date: 12/26/15 18:00:00 CDTNotes: (Same as: Diflucan) Cleocin HCl 600 mg, 4 mL, Inactive [place] Route: IV, Drug 2015 Medical form: INJ, Center [id number], Start date: 11/27/15 16:00:00 CDT, Duration: 30 day, Stop date: 12/27/15 8:00:00 CDTNotes: (clindamycin 150 mg/1 ml (600 mg/4 ml VL) INJ) (Same As: Cleocin) Cipro 400 mg, 200 mL, Inactive [facility] Route: IV, Drug 2015 Medical form: INJ, Center [id number], Dosing Weight 69.1, kg, Start date: 11/27/15 16:00:00 CDT, Duration: 30 day, Stop date: 12/27/15 4:00:00 CDTNotes: Do not refrigerate sugammadex 200 mg, 2 mL, No Longer [place] Route: IV, Drug Active 2016 Medical form: SOLN, Center ONCALL, Start date: 11/27/15 11:00:00 CDT, Duration: 1 doses or times, Stop date: 11/28/15 0:00:00 CDTNotes: (Same as: Bridion) Hydromorphone 0.5 mg, Route: Inactive [facility] IVP, Q5Min, 2016 Medical Dosing Weight Center 69.1, kg, PRN Pain Score 7-10, Start date: 11/27/15 10:48:00 CDT, Duration: 4 doses or times, Stop date: Limited # of times Naloxone 0.4 mg, Route: Inactive [facility] IVP, Q2MIN, 2016 Medical Dosing Weight Center 69.1, kg, PRN Narcotic Reversal, Start date: 11/27/15 10:48:00 CDT, Duration: 8 doses or times, Stop date: Limited # of times Flumazenil 0.2 mg, Route: Inactive [facility] IVP, PRN, 2016 Medical Dosing Weight Center 69.1, kg, PRN Benzodiazepine Reversal, Initial dose, Start date: 11/27/15 10:48:00 CDT, Duration: 30 day, Stop date: 12/27/15 10:47:00 CDT Oxycodone 5 mg, Route: Inactive [facility] PO, Drug form: 2016 Medical TAB, Q4H, Center Dosing Weight 69.1, kg, PRN Pain Score 4-6, Start date: 11/27/15 10:48:00 CDT, Duration: 30 day, Stop date: 12/27/15 10:47:00 CDT Ondansetron 4 mg, Route: Inactive [facility] IVP, ONCE, 2016 Medical Dosing Weight Center 69.1, kg, PRN Nausea & Vomiting, Start date: 11/27/15 10:48:00 CDT 72 HR Scopolamine 1 patch, Route: No Longer [facility] 0.0139 MG/HR TOP, Drug Form: Active 2016 Medical Transdermal Patch [id number], Dosing Center Weight 69.1, kg, PRE OP, Start date: 11/27/15 10:00:00 CDT, Duration: 30 day, Stop date: 12/27/15 9:59:00 CDTNotes: Change patch every 72 hours (Same as: Transderm-Scop) vancomycin + sodium 750 mg, Route: Inactive [place] chloride 0.9% INJ IVPB, Drug 2015 Medical 250 mL form: INJ, Center [id number], Start date: 11/26/15 18:00:00 CDT, Duration: 30 day, Stop date: 12/26/15 6:00:00 CDTNotes: TIME CRITICAL MEDICATION (Same As: Vancocin) Infusion rate 2001 mg: infuse over 2.5 hours MEDICATION WASTE Product Size: 1000 mg Product Wasted: ___ mg vancomycin 1 gm, Route: Inactive [place] IVPB, Drug 2015 Medical form: INJ, Center [id number], Start date: 11/26/15 17:00:00 CDT, Duration: 30 day, Stop date: 12/26/15 5:00:00 CDTNotes: TIME CRITICAL MEDICATION (Same As: Vancocin) Infusion rate 2001 mg: infuse over 2.5 hours MEDICATION WASTE Product Size: 1000 mg Product Wasted: ___ mg Clindamycin 450 mg, Route: Inactive [place] PO, Q8H, Dosing 2015 Medical Weight 69.1, Center kg, Start date: 11/26/15 16:00:00 CDT, Duration: 30 day, Stop date: 12/26/15 8:00:00 CDT Cleocin HCl 450 mg, 3 cap, No Longer [facility] Route: PO, Drug Active 2015 Medical form: CAP, Center [id number], Start date: 11/26/15 12:00:00 CDT, Duration: 30 day, Stop date: 12/26/15 6:00:00 CDTNotes: (Same As: Cleocin) Fluconazole 100 mg, 50 mL, No Longer [facility] Route: IV, Drug Active 2015 Medical form: INJ, Center [id number], Dosing Weight 69.1, kg, Start date: 11/26/15 12:00:00 CDT, Stop date: 12/25/15 12:00:00 CDTNotes: (Same as: Diflucan) Do not refrigerate. Cipro 500 mg, 1 tab, No Longer [facility] Route: PO, Drug Active 2015 Medical form: TAB, Center [id number], Dosing Weight 69.1, kg, Start date: 11/26/15 12:00:00 CDT, Duration: 30 day, Stop date: 12/26/15 0:00:00 CDTNotes: May interfere w/enteral feedings - Take 1 hr before or 2 hrs after antacids, dairy pdt & minerals. On empty stomach. Alprazolam 0.5 MG 0.5 mg, 1 tab, No Longer [place] Oral Tablet [Xanax] Route: PO, Drug Active 2015 Medical form: TAB, BID, Center Dosing Weight 69.1, kg, PRN Anxiety, Start date: 11/26/15 9:42:00 CDT, Duration: 30 day, Stop date: 12/26/15 9:41:00 CDTNotes: With food or milk (Same as: Xanax) Ursodeoxycholate 900 mg, 3 cap, No Longer [facility] Route: PO, Drug Active 2015 Medical form: CAP, Center Daily, Dosing Weight 68.182, kg, Start date: 11/26/15 9:00:00 CDT, Duration: 30 day, Stop date: 12/25/15 9:00:00 CDTNotes: (Same As: Actigall) Nystatin [id number] 500,000 unit, 5 No Longer [place] UNT/ML Oral mL, Route: Active 2015 Medical Suspension S&SWALLOW, Drug Center form: SUSP, TID, Dosing Weight 68.182, kg, Start date: 11/26/15 9:00:00 CDT, Duration: 30 day, Stop date: 12/25/15 17:00:00 CDTNotes: (Same as:Mycostatin) Shake well. Alprazolam 0.5 MG 0.5 mg, 1 tab, Inactive [place] Oral Tablet [Xanax] Route: PO, Drug 2015 Medical form: TAB, Center Bedtime, Dosing Weight 69.1, kg, PRN Anxiety, Start date: 11/26/15 8:18:00 CDT, Duration: 30 day, Stop date: 12/26/15 8:17:00 CDTNotes: With food or milk (Same as: Xanax) heparin 5,000 unit, 1 No Longer [place] mL, Route: Active 2015 Medical SUB-Q, Drug Center form: INJ, Q8H, Dosing Weight 69.1, kg, Start date: 11/26/15 8:00:00 CDT, Duration: 30 day, Stop date: 12/26/15 0:00:00 CDTNotes: porcine heparin Dexamethasone 8 mg, 2 mL, No Longer [facility] Route: IVP, Active 2015 Medical Drug form: INJ, Center Q8H, Dosing Weight 69.1, kg, Start date: 11/26/15 8:00:00 CDT, Duration: 1 day, Stop date: 11/27/15 8:00:00 CDTNotes: Concentration: 4mg/ml Thyroxine 100 microgram, No Longer [facility] 1 tab, Route: Active 2015 Medical PO, Drug form: [place] TAB, [id number], Dosing Weight 68.182, kg, Start date: 11/26/15 6:30:00 CDT, Duration: 30 day, Stop date: 12/25/15 6:30:00 CDTNotes: Take 1 hour before or 2 hours after meal; Enteral feeds may interefere with the absorption of this medication. (Same as:Levothroid, Synthroid) Sodium Chloride 500 mL, 500 Inactive [place] 0.154 MEQ/ML ml/hr, Infuse 2015 Medical Injectable Solution Over: 1 hr, [place] Route: IV, 500, Drug form: INJ, ONCE, Priority: STAT, Dosing Weight 69.1 kg, Start date: 11/26/15 6:15:00 CDT, Duration: 1 doses or times, Stop date: 11/26/15 6:15:00 CDT Zosyn 3.375 gm, Inactive [facility] Route: IVPB, 2015 Medical Drug form: [place] PDR/INJ, [id number], Dosing Weight 68.182, kg, CrCl >=20 ml/min infuse over 4 hours, Start date: 11/26/15 4:00:00 CDT, Duration: 30 day, Stop date: 12/25/15 20:00:00 CDTNotes: (Same as: Zosyn) Dosing based on Piperacillin component MEDICATION WASTE Product Size: 3375 mg Product Wasted: __0_ mg Vancomycin 1,500 mg, 250 Inactive [place] mL, Route: 2016 Medical IVPB, Drug Center form: INJ, ONCE, Dosing Weight 69.1, kg, Start date: 11/26/15 3:27:00 CDT, Stop date: 11/26/15 3:27:00 CDTNotes: TIME CRITICAL MEDICATION Same as: Vancocin-NS (premixed) Infusion rate 2001 mg: infuse over 2.5 hours Morphine 2 mg, 1 mL, No Longer [place] Route: IVP, Active 2015 Medical Drug form: INJ, Center Q4H, Dosing Weight 69.1, kg, PRN Pain Score 7-10, Start date: 11/26/15 2:45:00 CDT, Duration: 30 day, Stop date: 12/26/15 2:44:00 CDTNotes: (Same as:MORPhine Sulfate) sodium chloride 1,000 mL, Rate: No Longer [place] 0.9% 1000 ml INJ 100 ml/hr, Active 2015 Medical 1,000 mL Infuse over: 10 Center hr, Route: IV, Dosing Weight 68.182 kg, Total Volume: 1,000, Start date: 11/26/15 2:05:00 CDT, Duration: 30 day, Stop date: 12/26/15 2:04:00 CDT Albuterol 0.833 3 ml, Route: No Longer [facility] MG/ML / Ipratropium NEB, Drug Form: Active 2015 Medical [place] 0.167 MG/ML SOLN, Dosing Center Inhalant Solution Weight 68.182, [DuoNeb] kg, PRN, PRN Respiratory Protocol, Start date: 11/26/15 1:21:00 CDT, Duration: 30 day, Stop date: 12/26/15 1:20:00 CDTNotes: (Same as: Duoneb) Hydroxyzine 25 mg, 1 tab, Inactive [place] Route: PO, Drug 2015 Medical form: TAB, QID, Center Dosing Weight 68.182, kg, PRN Anxiety, Start date: 11/26/15 0:39:00 CDT, Duration: 30 day, Stop date: 12/26/15 0:38:00 CDTNotes: (Same as: Atarax) Avoid alcohol. levothyroxine 100 100 microgram=1 Active [facility] mcg (0.1 mg) oral tab, PO, Daily, 2015 Medical tablet # 30 tab, 0 Center Refill(s) Alprazolam 0.5 MG 0.5 mg=1 tab, Active [facility] Oral Tablet [Xanax] PO, Bedtime, 0 2015 Medical Refill(s) [place] ursodiol 300 mg 900 mg=3 cap, Active [facility] oral capsule PO, Daily, 0 2015 Medical Refill(s) [place] Ondansetron 4 mg, 2 mL, No Longer [facility] Route: IVP, Active 2015 Medical Drug form: INJ, Center Q6H, Dosing Weight 68.182, kg, PRN Nausea & Vomiting, Start date: 11/26/15 0:32:00 CDT, Duration: 30 day, Stop date: 12/26/15 0:31:00 CDTNotes: (Same as: Zofran) MEDICATION WASTE Product Size: 4 mg Product Wasted: ___ mg Docusate 100 mg, 1 cap, No Longer [facility] Route: PO, Drug Active 2015 Medical form: CAP, BID, Center Dosing Weight 68.182, kg, PRN Constipation, Start date: 11/26/15 0:32:00 CDT, Duration: 30 day, Stop date: 12/26/15 0:31:00 CDTNotes: (Same as: Colace) (Do Not Crush) Alprazolam 0.5 MG 0.5 mg, 1 tab, Inactive [facility] Oral Tablet [Xanax] Route: PO, Drug 2015 Medical form: TAB, Center ONCE, Dosing Weight 68.182, kg, Start date: 11/26/15 0:28:00 CDT, Stop date: 11/26/15 0:28:00 CDTNotes: With food or milk (Same as: Xanax) Sodium Chloride 1,000 mL, 2,000 Inactive [facility] 0.154 MEQ/ML ml/hr, Infuse 2015 Medical Injectable Solution Over: 30 Center minutes, Route: IV, ONCE, Priority: STAT, Dosing Weight 68.182 kg, Start date: 11/25/15 20:21:00 CDT, Duration: 1 doses or times, Stop date: 11/25/15 20:21:00 CDT Allergies, Adverse Reactions, Alerts Substance Category Reaction Severity Reaction Status Date Comments Source type Reported Immunizations Immunization Date Given Site Status Last Updated Comments Source pneumococcal 12/09/2015 Not Given [address],[facility] Results Order Name Results Value Reference Date Interpretation Comments Source Range Esophagus Esophagus BA Patient Name: ROCIO CALDERÓN 04/23 - BA swallow swallow /2016 - [facility] function function : 1950; Age: 66 years Female video DX video DX MR: [id number] Read by: Jonah Leggett MD Dictated Date/time: 04/23/16 15:39 Electronically Signed by: Jonah Leggett MD 04/23/16 15:43 FINAL REPORT Study: Esophagus BA swallow function video DX Order Time: 04/23/2016 1:[address] Clinical Indication: Dysphagia. fl time 1 min, dose 1.47 mGy, dap .[address] Rg COMPARISON: None. TECHNIQUE: Fluoroscopic assistance was provided for the speech pathologist for modified barium swallow examination. Varying consistencies of barium were administered po. FINDINGS: Thin consistency barium: No aspiration or any significant laryngeal penetration. [place]ager consistency barium: No aspiration or any significant laryngeal penetration. Pudding coated barium: No aspiration or any significant laryngeal penetration. Barium with cracker preparation: No aspiration or any significant laryngeal penetration. With the thinner consistencies there is mild residual coating of the vallecula and piriform sinuses. IMPRESSION: 1. No aspiration or penetration. 2. Mild residual coating of the vallecula and piriform sinuses with the thinner consistencies. SL: [id number] Esophagus Esophagus BA Esophagus BA swallow function video DX Modified barium swallow: 02/25 - BA swallow swallow - [facility] function function video DX video DX CLINICAL HISTORY:Dysphagia, unspecified type(787.20)(R13.10), Vocal cord paralysis, unilateral complete(478.32)(J38.01) . Read by: Graeme Chong MD Dictated Date/time: 02/26/16 17:05 Electronically Signed by: Graeme Chong MD 02/26/16 17:07 FINAL REPORT TECHNIQUE: Fluoroscopic assistance was provided for the speech pathologist for modified barium swallow examination. Varying consistencies of barium were administered po. FINDINGS: No significant oral delay is noted with liquid barium and barium with solids. Trace laryngeal penetration is noted with nectar consistency barium but this was eliminated by double swallow technique. Laryngeal penetration is noted with thin consistency barium. No evidence for aspiration or any significant laryngeal penetration with pudding consistency barium and barium with cracker preparations. Please, see detailed report by speech pathologist, same date. IMPRESSION: Persistent laryngeal penetration with thin consistency barium. FT: 1.5 minutes SL: [id number] CHEM PANEL Magnesium 1.9 mg/dL 1.8 - 2.4 12/18 [facility] /2015 [facility] CHEM PANEL Phosphorus 2.4 mg/dL 2.5 - 4.5 12/[address] ELECTROLYT Chloride Lvl 102 meq/L 95 - 109 12/18 [facility]2015 [facility] ELECTROLYT Potassium 3.1 meq/L 3.5 - 5.1 12/18 [facility] ELECTROLYT CO2 30 meq/L 24 - 32 12/[address] ELECTROLYT Calcium Lvl 8.3 mg/dL 8.5 - 10.5 12/[address] ELECTROLYT eGFR 97 12/18 Result Comment: The eGFR is calculated using the CKD-EPI formula. In most young, healthy individuals the eGFR will be >90 mL/ min/1.73m2. The eGFR declines with age. An eGFR of 60-89 may be normal in [facility] ES mL/min/1. some populations, particularly the elderly, for whom the CKD-EPI formula has not been extensively validated. Use of the eGFR is not recommended in the following populations: [address] Individuals with unstable creatinine concentrations, including patients and those with serious co-morbid conditions. Patients with extremes in muscle mass or diet. The data above are obtained from the National Kidney Disease Education Program (NKDEP) which additionally recommends that when the eGFR is used in patients with extremes of body mass index for purposes of drug dosing, the eGFR should be multiplied by the estimated BMI. ELECTROLYT Creatinine 0.57 mg/dL 0.50 - 12/18 [facility] Lvl 1.40 [facility] ELECTROLYT Sodium Lvl 141 meq/L 135 - 145 12/18 [facility] ELECTROLYT Glucose Lvl 104 mg/dL 70 - 99 12/18 [facility] ELECTROLYT BUN 5 mg/dL 7 - 22 12/18 [facility] ELECTROLYT AGAP 12.1 meq/L 10.0 - 12/18 [facility] ES 20.0 [facility] HEMATOLOGY RBC 4.35 M/CMM 4.20 - 12/18 5.40 [facility] HEMATOLOGY MCH 33.6 pg 27.0 - 12/18 31.0 [facility] HEMATOLOGY MCV 100.0 fL 80.0 - 12/18 98.0 [facility] HEMATOLOGY Hct 43.5 % 36.0 - 12/18 48.0 [facility] HEMATOLOGY Hgb 14.6 g/dL 12.0 - 12/18 16.0 [facility] HEMATOLOGY RDW 13.9 % 11.5 - 12/18 14. [facility] HEMATOLOGY MCHC 33.6 g/dL 32.0 - 12/18 36.0 [facility] HEMATOLOGY MPV 12.4 fL 7.4 - 10.4 12/18 [facility] HEMATOLOGY Platelet 154 K/CMM 133 - 450 12/18 [facility] HEMATOLOGY WBC 9.8 K/CMM 3.7 - 10.4 12/18 [facility] HEMATOLOGY Segs 63.8 % 45.0 - 12/18 75.0 [facility] HEMATOLOGY Segs-Bands # 6.3 K/CMM 1.5 - 8.1 12/18 [facility] HEMATOLOGY Monocytes 17.9 % 2.0 - 12.0 12/18 [facility] HEMATOLOGY Lymphocytes 17.2 % 20.0 - 12/18 40.0 [facility] HEMATOLOGY Basophils 0.2 % 0.0 - 1.0 12/18 [facility] HEMATOLOGY Eosinophils 0.9 % 0.0 - 4.0 12/18 [facility] HEMATOLOGY Eosinophils 0.1 K/CMM 0.0 - 0.5 12/18 # [facility] HEMATOLOGY Monocytes # 1.8 K/CMM 0.0 - 0.8 12/18 [facility] HEMATOLOGY Lymphocytes 1.7 K/CMM 1.0 - 5.5 12/18 [facility] # [facility] PARATHYROI Ca Norm WB 1.14 1.05 - 12/18 [facility] D PROFILE mMol/L 1. [facility] PARATHYROI Ca Ion WB 1.11 1. - 12/18 [facility] D PROFILE mMol/L 1. [facility] ANEMIA Folate Lvl 5.4 ng/mL >=3.0 12/17 [facility] STUDY ng/mL [facility] ANEMIA Vitamin B12 809 pg/mL 254 - 1320 12/17 [facility] STUDY l [facility] CHEM PANEL Phosphorus 2.6 mg/dL 2.5 - 4.5 12/17 [facility] CHEM PANEL Magnesium 1.9 mg/dL 1.8 - 2.4 12/17 [facility] ELECTROLYT AGAP 15.9 meq/L 10.0 - 12/17 [facility] . [facility] ELECTROLYT eGFR 89 12/17 Result Comment: The eGFR is calculated using the CKD-EPI formula. In most young, healthy individuals the eGFR will be >90 mL/ min/1.73m2. The eGFR declines with age. An eGFR of 60-89 may be normal in [facility] mL/min/1. some populations, particularly the elderly, for whom the CKD-EPI formula has not been extensively validated. Use of the eGFR is not recommended in the following populations: [address] Individuals with unstable creatinine concentrations, including patients and those with serious co-morbid conditions. Patients with extremes in muscle mass or diet. The data above are obtained from the National Kidney Disease Education Program (NKDEP) which additionally recommends that when the eGFR is used in patients with extremes of body mass index for purposes of drug dosing, the eGFR should be multiplied by the estimated BMI. ELECTROLYT Chloride Lvl 101 meq/L 95 - 109 12/17 [facility] ELECTROLYT Glucose Lvl 115 mg/dL 70 - 99 12/17 [facility] ELECTROLYT BUN 5 mg/dL 7 - 22 12/17 [facility] ELECTROLYT Creatinine 0.71 mg/dL 0.50 - 12/17 [facility] Lvl 1.40 /2016 [facility] ELECTROLYT Calcium Lvl 8.2 mg/dL 8.5 - 10.5 12/17 [facility] ELECTROLYT Potassium 3.9 meq/L 3.5 - 5.1 12/17 Result [facility] Lvl /2015 Comment: [facility] Slightly Hemolyzed. ELECTROLYT Sodium Lvl 141 meq/L 135 - 145 12/17 [facility] ELECTROLYT CO2 28 meq/L 24 - 32 12/17 [facility] HEMATOLOGY Monocytes # 0.8 K/CMM 0.0 - 0.8 12/17 [facility] HEMATOLOGY Large Plt Moderate None [facility]en 12[facility]18[facility]15 5:48 AM[facility] HEMATOLOGY Eosinophils 0.1 % 0.0 - 4.0 12/17 [facility] HEMATOLOGY Lymphocytes 0.6 K/CMM 1.0 - 5.5 12/17 [facility] HEMATOLOGY Segs-Bands # 8.3 K/CMM 1.5 - 8.1 12/17 [facility] HEMATOLOGY Basophils 0.2 % 0.0 - 1.0 12/17 [facility] HEMATOLOGY RBC Morph Normal 12/17 [facility] (12/18/15 5:48 AM) [place] HEMATOLOGY Monocytes 8.0 % 2.0 - 12.0 12/17 [facility] HEMATOLOGY Lymphocytes 6.3 % 20.0 - 12/17 40.0 [facility] HEMATOLOGY Segs 85.4 % 45.0 - 12/17 [facility] 75.0 [facility] HEMATOLOGY MPV 12.4 fL 7.4 - 10.4 12/17 [facility] HEMATOLOGY Platelet 149 K/CMM 133 - 450 12/17 [facility] HEMATOLOGY Hgb 15.5 g/dL 12.0 - 12/17 [facility] 16.0 [facility] HEMATOLOGY RBC 4.60 M/CMM 4.20 - 12/17 [place] 5.40 [facility] HEMATOLOGY WBC 9.7 K/CMM 3.7 - 10.4 12/17 [facility] HEMATOLOGY RDW 14.8 % 11.5 - 12/17 [facility] 14. [facility] HEMATOLOGY Hct 45.5 % 36.0 - 12/17 [facility] 48.0 [facility] HEMATOLOGY MCV 98.9 fL 80.0 - 12/17 [facility] 98.0 [facility] HEMATOLOGY MCH 33.8 pg 27.0 - 12/17 [facility] 31.0 [facility] HEMATOLOGY MCHC 34.1 g/dL 32.0 - 12/17 36.0 [facility] PARATHYROI Ca Ion WB 1.03 1. - 12/17 [facility] D PROFILE mMol/L 1. [facility] PARATHYROI Ca Norm WB 1.05 1. - 12/17 [facility] D PROFILE mMol/L 1. [facility] CHEM PANEL Phosphorus 2.1 mg/dL 2.5 - 4.5 12/16 [facility] CHEM PANEL Magnesium 2.1 mg/dL 1.8 - 2.4 12/16 [facility] [facility] CHEM PANEL A/G Ratio 0.7 0.7 - 1.6 12/16 [facility] CHEM PANEL Globulin 3.6 g/dL 2.7 - 4.2 12/16 [facility] CHEM PANEL B/C Ratio 11 6 - 25 12/16 [facility] CHEM PANEL AGAP 12.3 meq/L 10.0 - 12/16 [facility] 20. [facility] CHEM PANEL eGFR 93 12/16 Result Comment: The eGFR is calculated using the CKD-EPI formula. In most young, healthy individuals the eGFR will be >90 mL/ min/1.73m2. The eGFR declines with age. An eGFR of 60-89 may be normal in [facility] mL/min/1.7 some populations, particularly the elderly, for whom the CKD-EPI formula has not been extensively validated. Use of the eGFR is not recommended in the following populations: [address] Individuals with unstable creatinine concentrations, including patients and those with serious co-morbid conditions. Patients with extremes in muscle mass or diet. The data above are obtained from the National Kidney Disease Education Program (NKDEP) which additionally recommends that when the eGFR is used in patients with extremes of body mass index for purposes of drug dosing, the eGFR should be multiplied by the estimated BMI. CHEM PANEL Glucose Lvl 95 mg/dL 70 - 99 12/16 [facility] CHEM PANEL BUN 7 mg/dL 7 - 22 12/16 [facility] CHEM PANEL CO2 28 meq/L 24 - 32 12/16 [facility] CHEM PANEL Chloride Lvl 105 meq/L 95 - 109 12/16 [facility] CHEM PANEL Sodium Lvl 142 meq/L 135 - 145 12/16 [facility] CHEM PANEL Creatinine 0.64 mg/dL 0.50 - 12/16 [facility] Lvl 1.40 [facility] CHEM PANEL Potassium 3.3 meq/L 3.5 - 5.1 12/16 [facility] CHEM PANEL Calcium Lvl 8.3 mg/dL 8.5 - 10.5 12/16 [facility] CHEM PANEL AST 33 unit/L 0 - 37 12/16 [facility] CHEM PANEL Albumin Lvl 2.5 g/dL 3.5 - 5.0 12/16 [facility] CHEM PANEL Total 6.1 g/dL 6.4 - 8.4 12/16 [facility] CHEM PANEL ALT 38 unit/L 0 - 65 12/16 [facility] CHEM PANEL Bili Total 0.4 mg/dL 0.2 - 1.3 12/16 [facility] CHEM PANEL Alk Phos 104 unit/L 39 - 136 12/16 [facility] HEMATOLOGY Segs-Bands # 7.5 K/CMM 1.5 - 8.1 12/16 [facility] HEMATOLOGY Basophils 0.3 % 0.0 - 1.0 12/16 [facility] HEMATOLOGY Monocytes # 1.2 K/CMM 0.0 - 0.8 12/16 [facility] HEMATOLOGY Lymphocytes 1.5 K/CMM 1.0 - 5.5 12/16 [facility] HEMATOLOGY Eosinophils 0.8 % 0.0 - 4.0 12/16 [facility] HEMATOLOGY Lymphocytes 14.2 % 20.0 - 12/16 [place] 40.0 [facility] HEMATOLOGY Monocytes 11.9 % 2.0 - 12.0 12/16 [facility] HEMATOLOGY Segs 72.8 % 45.0 - 12/16 [place] 75.0 [facility] HEMATOLOGY Macrocyte 1+ None Seen 12/16 [facility] (12/17/15 6:48 AM) HEMATOLOGY Eosinophils 0.1 K/CMM 0.0 - 0.5 12/16 [facility] # /2015 [facility] HEMATOLOGY PT 15.2 s 12.0 - 12/16 [facility] 14.7 /2015 [facility] HEMATOLOGY INR 1.17 0.85 - 12/16 [facility] 1.17 /2015 [facility] HEMATOLOGY PTT 24.6 s 22.9 - 12/16 [facility] 35.8 /2015 [facility] HEMATOLOGY RBC 4.43 M/CMM 4.20 - 12/16 [facility] 5.40 /2015 [facility] HEMATOLOGY Hct 44.5 % 36.0 - 12/16 [facility] 48.0 /2015 [facility] HEMATOLOGY Hgb 15.0 g/dL 12.0 - 12/16 16.0 [facility] HEMATOLOGY MCH 33.9 pg 27.0 - 12/16 [facility] 31.0 [facility] HEMATOLOGY MCV 100.4 fL 80.0 - 12/16 [facility] 98.0 /2015 [facility] HEMATOLOGY MCHC 33.7 g/dL 32.0 - 12/16 [facility] 36.0 /2015 [facility] HEMATOLOGY RDW 14.5 % 11.5 - 12/16 [facility] 14.5 [facility] HEMATOLOGY WBC 10.3 K/CMM 3.7 - 10.4 12/16 [facility] HEMATOLOGY MPV 12.2 fL 7.4 - 10.4 12/16 [facility] HEMATOLOGY Platelet 172 K/CMM 133 - 450 12/16 [facility] Esophagus Esophagus BA EXAM: FLUOROSCOPY MODIFIED BARIUM SWALLOW 12/15 - [facility] BA swallow swallow - Medical function function This report was dictated by a Duty Manager/ Fellow. I have personally reviewed the images as Center video DX video DX well as the Resident's interpretation and agree with the findings. DATE: 12/16/2015 at 0908 hours Read by: Shun Ye MD Resident: Shun Ye MD Dictated Date/time: 12/16/15 10:01 Electronically Signed by: Carlos Rivers MD 12/16/15 12:27 FINAL REPORT INDICATION: Dysphagia. ADDITIONAL INFORMATION: None. COMPARISON: 12/10/2015 at 0855 hours TECHNIQUE: Oral barium contrast of thin, nectar, and pudding consistency was given to the patient with teaspoon and sips from a cup. The patient completed 3 second bolus hold prior to swallowing. FLUOROSCOPY TIME: 138 seconds ACCUMULATED SKIN DOSE: 4.05 mGy DISCUSSION: Deep penetration with aspiration was seen with nectar, thin, and pudding consistency barium. Severe residue seen in the vallecula and piriforms with pudding consistency barium. Patient was unable to clear the residue with cough. IMPRESSION: 1. Deep penetration and aspiration with all consistencies of barium. 2. Please also see detailed chart note by speech pathology. IMMUNOLOGY Varicella null <=0.8 AI 12/12 [facility] IgG /2015 [facility] Abdomen AP Abdomen AP EXAM: XR ABDOMEN 1 VIEW 12/12 - [facility] DX DX /2015 - [facility] DATE: 12/13/2015 9:25 PM CDT Read by: Joel Dalton MD Dictated Date/time: 12/14/15 09:20 Electronically Signed by: Joel Dalton MD 12/14/15 09:21 FINAL REPORT INDICATION: Tube placement/removal/reposition COMPARISON: 12/11/2015 TECHNIQUE: Single AP view of the abdomen. 1 image obtained. FINDINGS: Lines and tubes: Nasogastric tube side port and tip project over the proximal stomach. Lower thorax: Unremarkable where visualized. Bowel: Nonobstructive bowel gas pattern. Contrast material seen in the colon. Solid organs: No abnormal mass or organomegaly seen. Calcifications: No abnormal calcifications found. Bones: No acute abnormality. IMPRESSION: 1. Tubes, as above. 2. Nonobstructive bowel gas pattern. BODY Segs CSF 7 % 0 - 6 12/12 [facility] /2015 [facility] BODY Monocyte CSF 2 % 15 - 45 12/12 [facility] /2016 [facility] BODY Lymph CSF 91 % 40 - 80 12/12 [facility] /2015 [facility] BODY WBC CSF 30 /mm3 0 - 53 12/12 [facility] /2015 [facility] BODY RBC CSF 10 /mm3 0 - 03 12/12 [facility] /2016 [facility] BODY Supernat CSF Colorless Colorless 12/12 [facility] FLUIDS /2015 Medical (12/13/15 3:38 PM) Center BODY Color CSF Colorless Colorless 12/12 [facility] /2015 [facility] (12/13/15 3:38 PM) Center BODY Tube Num CSF 4 12/12 [facility] FLUIDS [facility] BODY Clarity CSF Clear Clear 12/12 [facility] FLUIDS Medical (12/13/15 3:38 PM) [facility] CHEM PANEL HSV 1 IgM NEGATIVE 12/12 [facility] CHEM PANEL HSV 2 IgM POSITIVE 12/12 Result Comment: REFERENCE RANGE: NEGATIVE Medical The IFA procedure for measuring IgM antibodies to [facility] HSV 1 and HSV 2 detects both type-common and type- specific HSV antibodies. Thus, IgM reactivity to both HSV 1 and HSV 2 may represent crossreactive HSV antibodies rather than exposure to both HSV 1 and HSV 2. This test was developed and its analytical performance characteristics have been determined by [employer]. It has not been cleared or approved by FDA. This assay has been validated pursuant to the CLIA regulations and is used for clinical purposes. Test Performed at: [facility] [address] [place] [phone] Vangie Malagon MD CHEM PANEL HSV 2 IgM 1:20 12/12 Result Comment: REFERENCE RANGE: <1:20 [facility] Ttr Medical Test Performed at: [facility] [address] [place] [phone] Vangie Malagon MD FUNGAL - Histoplasma NONE 12/12 Result Comment: REF. RANGE: NONE DETECTED [facility] SEROLOGY Ag DETECTED INTERPRETATION: NEGATIVE [facility] TESTING PERFORMED AT [facility] IMMUNOLOGY Aspergillus NEGATIVE 12/12 Result Comment: REFERENCE RANGE: NEGATIVE [facility] fumigatus Medical INTERPRETIVE CRITERIA: Center Negative: Antibody not detected Positive: Antibody detected A positive result is represented by 1 or more precipitin bands, and may indicate fungus ball, allergic bronchopulmonary aspergillosis (KARLEY) or invasive aspergillosis. Generally, the appearance of 3-4 bands indicates either fungus ball or KARLEY. Test Performed at: [facility] [address] [place] [phone] Vangie Malagon MD IMMUNOLOGY Aspergillus NEGATIVE 12/12 [facility] flavus [facility] IMMUNOLOGY Aspergillus NEGATIVE 12/12 [facility] niger [facility] IMMUNOLOGY IgG Lvl 1030 mg/dL 694 - 1618 12/12 [facility] IMMUNOLOGY SCL- 70 Ab null <=0.9 AI 12/12 [facility] IMMUNOLOGY HSV 2 IgG 0.9 AI <=0.8 AI 12/12 [facility] IMMUNOLOGY HSV 1 IgG null <=0.8 AI 12/12 [facility] BODY Protein CSF 32 mg/dL 15 - 45 12/11 [facility] FLUIDS /2015 [facility] BODY Glucose CSF 77 mg/dL 45 - 80 12/11 [facility] FLUIDS [facility] IMMUNOLOGY Source CEREBROSPI 12/11 [facility] FLUID [facility] IMMUNOLOGY VZV PCR NOT 12/11 Result Comment: REFERENCE RANGE: NOT DETECTED [facility] DETECTED [facility] This test was developed and its analytical Center performance characteristics have been determined by [employer]. It has not been cleared or approved by FDA. This assay has been validated pursuant to the CLIA regulations and is used for clinical purposes. Test Performed at: [facility] [address] [place] [phone] Vangie Malagon MD IMMUNOLOGY Source CEREBROSPI 12/11 [facility] FLUID [facility] IMMUNOLOGY EBV PCR Ql NOT 12/11 Result Comment: REFERENCE RANGE: NOT DETECTED [facility] DETECTED [facility] This test was developed and its analytical Center performance characteristics have been determined by [employer]. It has not been cleared or approved by the U.S. Food and Drug Administration. The FDA has determined that such clearance or approval is not necessary. This assay has been validated pursuant to the CLIA regulations and is used for clinical purposes. Test Performed at: [facility] [address] [place] [phone] Vangie Malagon MD IMMUNOLOGY IgG Lvl CSF 3.0 mg/dL 2.0 - 4.0 12/11 [facility] IMMUNOLOGY Description The gel 12/11 [facility] CSF demonstrat [facility] appropriat e resolution of the main protein bands. The gamma region shows continuous distributi on of proteins both in the CSF and in the serum. No oligoclona l bands are detected. IMMUNOLOGY PE Interp CSF 12/[address] [facility] protein /2015 [facility] electropho Center resis did not reveal evidence of an oligoclona l process in the [employer]. The CSF IgG index is within the reference range indicating that there is no elevation in intracereb ral IgG synthesis. There is also no evidence of increased permeabili ty of the blood brain barrier based on the CSF/serum albumin ratio.The electronic medical record has been reviewed for relevant history.I have personally reviewed the test results and concur with the resident's interpreta tion.CPT: 47523-FS IMMUNOLOGY IgG (CPE) 1000 mg/dL 694 - 1618 12/11 [facility] IMMUNOLOGY IgG Lvl CSF 3.0 mg/dL 2.0 - 4.0 12/11 [facility] IMMUNOLOGY IgG Index 0.7 mg/dL 0.3 - 0.7 12/11 [facility] IMMUNOLOGY Alb (CPE) 2800.0 3400.0 - 12/11 [place] mg/dL 5000. [facility] IMMUNOLOGY Alb CSF 12.2 mg/dL 14.0 - 12/11 [facility] (CPE) 25.0 [facility] MOLECULAR HSV 2 by PCR Negative 2 Negative 12/11 Result Comment: This sample was NON DETECTED or BELOW THE LOWER LIMITS OF DETECTION [facility] for HSV 1/2 DNA by real-time PCR using hybridization probe and Medical (12/12/15 5:00 PM) melting curve analysis. [facility] MOLECULAR HSV 1 by PCR Negative 1 Negative 12/11 Result Comment: This sample was NON DETECTED or BELOW THE LOWER LIMITS OF DETECTION [facility] for HSV 1/2 DNA by real-time PCR using hybridization probe and Medical (12/12/15 5:00 PM) melting curve analysis. [facility] MOLECULAR Source HSV Cerebral 12/11 [facility] DIAGNOSTIC Spinal /2015 [facility] Fluid [facility] Spine Spine lumbar EXAM: Lumbar Puncture with fluoroscopic guidance. - [facility] lumbar puncture w - Medical puncture w fluoro DX This report was dictated by a Duty Manager /Fellow. I have personally reviewed the images as Center fluoro DX well as the Resident's interpretation and agree with the findings. DATE: 12/11/2015 5:39 PM CDT Read by: Jonah Beckett MD Resident: Jonah Beckett MD Dictated Date/time: 12/12/15 16:52 Electronically Signed by: Moisés Robertson 12/13/15 12:00 FINAL REPORT INDICATION: Concern for central nervous system infection. TECHNIQUE Informed consent was obtained from the patient. Following the time out procedure, the lower back was prepped and draped in sterile fashion. Under fluoroscopic guidance and with the patient in the prone position a 24 gauge spinal Nahun needle was advanced into the thecal sac at the L2-L3 level. A total amount of 10 mL of clear spinal fluid was collected. COMPLICATIONS: None FINDINGS: The opening pressure was less than 10 cm water in the prone position. FLUOROSCOPY TIME: 6 seconds with a DAP of 0.2500 Gycm2 IMPRESSION: 1. Successful LP. 2. Clear CSF. 3. Opening pressure less than 10 cm of water prone. FUNGAL - Crypto Ag Negative Negative 12/11 [facility] SEROLOGY CSF /2015 Medical (12/12/15 10:38 AM) [facility] Neck soft Neck soft EXAM: CT NECK WITH CONTRAST 12/11 - [facility] tissue w tissue w - [facility] contrast contrast CT This report was dictated by a Duty Manager /Fellow. I have personally reviewed the images as [facility] CT well as the Resident's interpretation and agree with the findings. DATE: 12/12/2015 at 1050 hrs. Read by: Usman Anthony MD Resident: Usman Anthony MD Dictated Date/time: 12/12/15 11:18 Electronically Signed by: Charo Spear 12/13/15 16:07 FINAL REPORT INDICATION: Left tongue base and pharyngeal lesion on follow up. COMPARISON: Previous CT neck with contrast dated 12/06/2015. TECHNIQUE: Axial CT images of the neck were obtained after intravenous contrast. Reformatted images in the sagittal and coronal plane were included. IV contrast: 74.8 ml of Omnipaque 350 DLP: 742 mGy-cm FINDINGS: There is significant reduction of the mucosal thickening and enhancement in the tongue base on the left, the palatine tonsil and the aryepiglottic fold. The remaining nasopharynx, oropharynx and oral c avity are normal. The larynx, hypopharynx and thyroid gland are normal. The salivary glands including the parotid and submandibular glands are normal. Imaged portions of the paranasal sinuses and mastoid air cells are clear. Imaged portions of the brain and orbits are unremarkable. No pathologically enlarged lymph nodes are identified. Osseous structures are normal. The lung apices are clear. IMPRESSION: Significant reduction of the mucosal thickening and enhancement in the tongue base on the left, the palatine tonsil and the aryepiglottic fold as compared to the previous CT dated 12/06/2015. No new significant finding has appeared. IMMUNOLOGY Treponemal Non Reactive Non 12/11 [facility] Scr Reactive Medical *NA* Center (12/11/15 11:15 PM) IMMUNOLOGY HSV 2 IgG 0.7 AI <=0.8 AI 12/11 [facility] IMMUNOLOGY HSV 1 IgG null <=0.8 AI 12/11 [facility] MOLECULAR CMV PCR Qnt null 12/11 [facility] DIAGNOSTIC (log) [facility] MOLECULAR CMV PCR Qnt Not Detected 12/11 [facility] DIAGNOSTIC /2015 [facility] (12/11/15 11:15 PM) Center MOLECULAR EBV PCR Qnt null 12/11 [facility] DIAGNOSTIC (log) [facility] MOLECULAR EBV PCR Qnt Not Detected 12/11 [facility] DIAGNOSTIC [facility] (12/11/15 11:15 PM) [facility] Abdomen AP Abdomen AP EXAM: XR ABDOMEN 1 VIEW 12/10 - [facility] DX DX /2015 - [facility] DATE: 12/11/2015 1:14 PM CDT Read by: Joel Dalton MD Dictated Date/time: 12/11/15 15:12 Electronically Signed by: Joel Dalton MD 12/11/15 15:13 FINAL REPORT INDICATION: Tube placement/removal/reposition ADDITIONAL INFORMATION: None. COMPARISON: None. TECHNIQUE: Limited AP view of the abdomen for tube placement assessment. Number of images: 1 FINDINGS: Transesophageal feeding tube: None. Transesophageal suction tube: Side port and tip project over the gastric cardia and fundus respectively. Other tubes, lines and hardware: None. Contrast material seen in the colon. IMPRESSION: 1. Tube positions as above. ANEMIA Ferritin Lvl 88 ng/mL 5 - 204 12/10 [facility] STUDY [facility] ANEMIA % Satur Fe 31 % 12 - 57 12/10 [facility] STUDY /2015 [facility] ANEMIA UIBC 198 ug/dl 110 - 370 12/10 [facility] ANEMIA TIBC 288 ug/dl 228 - 428 12/10 [facility] STUDY /2015 [facility] ANEMIA Iron 90 ug/dl 30 - 160 12/10 [facility] /2015 [facility] TUMOR AFP TM 1.4 ng/mL 0.0 - 11.0 12/10 [facility] Brain w/wo Brain w/wo EXAM: MRI OF THE BRAIN WITH AND WITHOUT CONTRAST - [facility] contrast contrast MRI /2016 - Medical MRI EXAM: MRI OF THE IAC WITH AND WITHOUT CONTRAST This report was dictated by a Duty Manager/Fellow. I have personally reviewed the images as Center well as the Resident's interpretation and agree with the findings. Read by: Vidhya Child MD Resident: Vidhya Child MD Dictated Date/time: 12/11/15 08:10 DATE: 12/10/2015 at 1841 hours Electronically Signed by: Bubba Benito MD 12/12/15 08:45 FINAL REPORT CLINICAL HISTORY: Left facial weakness TECHNIQUE: MRI OF THE BRAIN WITH AND WITHOUT CONTRAST: Multiplanar multisequence MRI of the brain was performed before and after administration of intravenous contrast. MRI OF THE IAC WITH AND WITHOUT CONTRAST: Heavily T2-weighted high- resolution axial images as well as axial and coronal pre- and postcontrast T1- weighted images were obtained through the IAC. Contrast: 10cc Dotarem COMPARISON: MRI brain without contrast 12/07/2015 FINDINGS: RIGHT TEMPORAL BONE AND MEMBRANOUS LABYRINTH: The internal auditory canal is normal in size. There is minimal enhancement of the geniculate ganglion. The cochlea is normally formed. The vestibule is nor aruna formed. The semicircular canals appear unremarkable. There is no enlargement of the endolymphatic duct sac. The middle ear cavities and mastoid air cells are normally aerated. LEFT TEMPORAL BONE AND MEMBRANOUS LABYRINTH: The internal auditory canal is normal in size. Contrast enhancement at the geniculate ganglion extends proximally into the distal intracanalicular segment of the facial nerve in the IAC (series 14, image 8 and series 15, image 18). The cochlea is normally formed. The vestibule is normally formed. The semicircular canals appear unremarkable. There is no enla rgement of the endolymphatic duct sac. The middle ear cavities and mastoid air cells are normally aerated. BRAIN: Diffusion-weighted images do not demonstrate any evidence of abnormal restricted diffusion to suggest acute infarct. Scattered and confluent T2 hyperintensities in the pablo radiata, centrum semiovale and extending into the amanda are nonspecific but likely reflect sequela of chronic microvascular ischemic change. 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 There is no mass effect or midline shift. No evidence of intracranial hemorrhage is seen. Ventricles are normal in size and configuration. No pathological extra- axial fluid collection is identified. Cerebral sulci and basal cisterns are well preserved. There is poor contrast enhancement intracranially due to technical factors. Postcontrast images reveal no abnormal parenchymal or leptomeningeal enhancement. Normal signal voids are maintained in the visualized major intracranial vasculatures. Visualized paranasal sinuses are clear. Visualized orbits appear grossly unremarkable. IMPRESSION: 1. Subtle enhancement of the left facial nerve in the distal IAC, labyrinthine segment. 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 2. Otherwise no definite acute intracranial abnormality. Int Int Auditory EXAM: MRI OF THE BRAIN WITH AND WITHOUT CONTRAST 12/09 - [place] Auditory Canal w/ - Medical Canal w/wo contrast MRI EXAM: MRI OF THE IAC WITH AND WITHOUT CONTRAST This report was dictated by a Duty Manager/Fellow. I have personally reviewed the images as Center contrast well as the Resident's interpretation and agree with the findings. MRI Read by: Vidhya Child MD Resident: Vidhya Child MD Dictated Date/time: 12/11/15 08:10 DATE: 12/10/2015 at 1841 hours Electronically Signed by: Bubba Benito MD 12/12/15 08:45 FINAL REPORT CLINICAL HISTORY: Left facial weakness TECHNIQUE: MRI OF THE BRAIN WITH AND WITHOUT CONTRAST: Multiplanar multisequence MRI of the brain was performed before and after administration of intravenous contrast. MRI OF THE IAC WITH AND WITHOUT CONTRAST: Heavily T2-weighted high- resolution axial images as well as axial and coronal pre- and postcontrast T1- weighted images were obtained through the IAC. Contrast: 10cc Dotarem COMPARISON: MRI brain without contrast 12/07/2015 FINDINGS: RIGHT TEMPORAL BONE AND MEMBRANOUS LABYRINTH: The internal auditory canal is normal in size. There is minimal enhancement of the geniculate ganglion. The cochlea is normally formed. The vestibule is nor aruna formed. The semicircular canals appear unremarkable. There is no enlargement of the endolymphatic duct sac. The middle ear cavities and mastoid air cells are normally aerated. LEFT TEMPORAL BONE AND MEMBRANOUS LABYRINTH: The internal auditory canal is normal in size. Contrast enhancement at the geniculate ganglion extends proximally into the distal intracanalicular segment of the facial nerve in the IAC (series 14, image 8 and series 15, image 18). The cochlea is normally formed. The vestibule is normally formed. The semicircular canals appear unremarkable. There is no enla rgement of the endolymphatic duct sac. The middle ear cavities and mastoid air cells are normally aerated. BRAIN: Diffusion-weighted images do not demonstrate any evidence of abnormal restricted diffusion to suggest acute infarct. Scattered and confluent T2 hyperintensities in the pablo radiata, centrum semiovale and extending into the amanda are nonspecific but likely reflect sequela of chronic microvascular ischemic change. 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 There is no mass effect or midline shift. No evidence of intracranial hemorrhage is seen. Ventricles are normal in size and configuration. No pathological extra- axial fluid collection is identified. Cerebral sulci and basal cisterns are well preserved. There is poor contrast enhancement intracranially due to technical factors. Postcontrast images reveal no abnormal parenchymal or leptomeningeal enhancement. Normal signal voids are maintained in the visualized major intracranial vasculatures. Visualized paranasal sinuses are clear. Visualized orbits appear grossly unremarkable. IMPRESSION: 1. Subtle enhancement of the left facial nerve in the distal IAC, labyrinthine segment. 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 2. Otherwise no definite acute intracranial abnormality. HEMATOLOGY Macrocyte 1+ None Seen 12/09 [facility] *ABN* [place] (12/10/15 5:47 AM) IMMUNOLOGY PRODUCTION GENERALIST Ab 0.5 AI <=0.9 AI 12/09 [facility] IMMUNOLOGY Sm Ab null <=0.9 AI 12/09 [facility] IMMUNOLOGY JANET Interp Pattern 12/09 [facility]led[facility] Center toplasmic staining present IMMUNOLOGY JANET Titer 1:40 Negative 12/09 [facility] *ABN* [place] (12/10/15 5:47 AM) IMMUNOLOGY C-ANCA Negative Negative 12/09 [facility] (12/10/15 5:47 AM) Center IMMUNOLOGY P-ANCA Negative Negative 12/09 [facility] (12/10/15 5:47 AM) Center IMMUNOLOGY C4 29 mg/dL 16 - 47 12/09 [facility] IMMUNOLOGY C3 112 mg/dL 88 - 201 12/09 [facility] IMMUNOLOGY SS-B (La) Ab null <=0.9 AI 12/09 [facility] IMMUNOLOGY SS-A (Ro) Ab 0.8 AI <=0.9 AI 12/09 [facility] IMMUNOLOGY DNA Ab (DS) Negative Negative 12/09 [facility] (12/10/15 5:47 AM) [place] IMMUNOLOGY JANET Positive Negative 12/09 [facility] (12/10/15 5:47 AM) IMMUNOLOGY JANET Positive Negative 12/09 [facility] (12/10/15 5:47 AM) IMMUNOLOGY AMA Ab Titer 1:40 Negative 12/09 [facility] (12/10/15 5:47 AM) IMMUNOLOGY SMA Screen Negative Negative 12/09 [facility] (12/10/15 5:47 AM) [place] IMMUNOLOGY AMA Ab Scr Positive Negative 12/09 [facility] (12/10/15 5:47 AM) IMMUNOLOGY IgG Lvl 1060 mg/dL 694 - 1618 12/09 [facility] IMMUNOLOGY PRODUCTION GENERALIST Ab 0.5 AI <=0.9 AI 12/09 [facility] IMMUNOLOGY Sm Ab null <=0.9 AI 12/09 [facility] SPECIAL ALL 27 unit/L 8 - 52 12/09 [facility] CHEMISTRY [facility] Esophagus Esophagus BA EXAM: FLUOROSCOPY MODIFIED BARIUM SWALLOW 12/09 - [facility] swallow swallow - Medical function function This report was dictated by a Duty Manager/ Fellow. I have personally reviewed the images as Center video DX video DX well as the Resident's interpretation and agree with the findings. DATE: 12/10/2015 at 0855 hours Read by: Edwar Mustafa MD Resident: Edwar Mustafa MD Dictated Date/time: 12/10/15 13:14 Electronically Signed by: Gloria Waite MD 12/10/15 17:26 FINAL REPORT INDICATION: Feeding intolerance. ADDITIONAL INFORMATION: History of left-sided vocal cord paralysis. COMPARISON: None. TECHNIQUE: Oral barium contrast of differing consistencies was given to the patient to assess swallowing mechanism. The study was performed in conjunction with speech pathology. FLUOROSCOPY TIME: 1 minute and 56 seconds SKIN DOSE: 3.95 mGy DISCUSSION: The patient was given barium contrast of different consistencies. Thin barium: Deep penetration and symptomatic aspiration was seen with contrast given by spoon repeatedly. Aspiration was again seen with the patient' s chin tucked and with the patient's head turned to the left. [place] barium: Asymptomatic aspiration was seen with contrast given by spoon. Aspiration was again seen with the patient's chin tuck and when patient' s head turned to the left. Pudding barium: Severe residue to the valleculae was seen, but there was no penetration or aspiration. IMPRESSION: 1. Deep penetration and symptomatic aspiration with thin barium 2. Asymptomatic aspiration with nectar barium. Please see detailed chart note by speech pathology for further clinical treatment recommendations. Liver w Liver w EXAM: US LIVER WITH LIVER VESSELS DOPPLER 12/08 - [facility] Liver Liver /2015 - Medical vessels vessels This report was dictated by a Duty Manager/ Fellow. I have personally reviewed the images as Center Doppler US Doppler US well as the Resident's interpretation and agree with the findings. DATE: 12/09/2015 4:49 PM CDT Read by: Alejo Little MD Resident: Alejo Little MD Dictated Date/time: 12/10/15 08:30 Electronically Signed by: Jonah Macias MD 12/10/15 10:44 FINAL REPORT INDICATION: 65-year-old woman with cirrhosis and vomiting. COMPARISON: CT neck/chest with contrast from an outside facility on 2015. TECHNIQUE: Multiplanar grayscale, color Doppler and spectral Doppler ultrasound of the liver. FINDINGS: Liver: Craniocaudal length: 14.0 cm. Echogenicity: Coarsened Surface nodularity: Nodular, in keeping with cirrhosis. Mass (size and location): None. Hepatic and portal vasculature: Hepatic artery: Patent with antegrade pulsatile flow. Resistive index: 0.9 Portal veins: Patent with normal hepatopetal monophasic flow. Hepatic veins: Patent with normal hepatofugal multiphasic flow. Splenic artery: Not clearly identified. Splenic vein: Not clearly identified. Bile ducts: Common bile duct diameter: 0.5 cm. Intrahepatic ducts: Normal. Gallbladder: Gallstones: Few. Gallbladder sludge: None. Gallbladder wall: 0.2 cm. Pericholecystic fluid: None. Sonographic Lee sign: Absent. Pancreas: Head and uncinate process: Normal. Body and tail: Not seen. Spleen: Status post splenectomy. Aorta/IVC: The visible portions are normal. Ascites: Trace. IMPRESSION: 1. Cirrhotic liver with trace ascites. No Doppler/flow abnormalities. 2. Cholelithiasis without evidence of acute cholecystitis. 3. Status post splenectomy. ANEMIA Vitamin B12 1132 pg/mL 254 - 1320 12/07 [facility] STUDY Lvl /2015 [facility] ANEMIA Vitamin B12 1171 pg/mL 254 - 1320 12/06 [facility] /2015 [facility] ANEMIA Folate Lvl 10.8 ng/mL >=3.0 12/06 [facility] ng/mL /2015 [facility] HEMATOLOGY Sed Rate 52 mm/h 0 - 20 12/06 [facility]2015 [facility] CHEM PANEL Alk Phos 134 unit/L 39 - 136 12/[address] CHEM PANEL Bili Total 0.6 mg/dL 0.2 - 1.3 12/[address] CHEM PANEL B/C Ratio 17 6 - 25 12/[address] CHEM PANEL A/G Ratio 0.6 0.7 - 1.6 12/[address] CHEM PANEL Globulin 4.5 g/dL 2.7 - 4.2 12/[address] CHEM PANEL AST 26 unit/L 0 - 37 12/[address] CHEM PANEL Albumin Lvl 2.8 g/dL 3.5 - 5.0 12/[address] CHEM PANEL ALT 22 unit/L 0 - 65 12/[address] CHEM PANEL Total 7.3 g/dL 6.4 - 8.4 12/06 [facility] Protein [facility] IMMUNOLOGY Hep Bs Ag Negative Negative 12/06 [facility] (12/07/15 3:56 AM) [place] IMMUNOLOGY Hep C Ab Negative [facility] [place] (12/07/15 3:56 AM) IMMUNOLOGY Hep A IgM Negative Negative 12/06 [facility] [place] (12/07/15 3:56 AM) IMMUNOLOGY Hep B Core Negative Negative 12/06 [facility] IgM /2015 [facility] [place] (12/07/15 3:56 AM) Brain wo Brain wo EXAM: MRI BRAIN WITHOUT CONTRAST 12/06 - [facility] contrast contrast MRI /2016 [facility] DATE: 12/07/2015 07:00 AM CDT Read by: Charo Spear Dictated Date/time: 12/07/15 08:47 Electronically Signed by: Charo Spear 12/07/15 08:58 FINAL REPORT INDICATION: Weakness COMPARISON: Brain CT dated 12/06/2015 TECHNIQUE: Multiplanar, multisequence MRI of the brain without contrast. IV contrast: None. FINDINGS: Diffusion-weighted images fail demonstrate any recent ischemic change. Multiple areas of high T2 signal in the periventricular and subcortical white matter, consistent with chronic microvascular ischemic changes are identified. There are no hemosiderin deposits in the gradient echo images. The vascular flow voids are normal. The ventricles are normal in size. The peripheral sulci are slightly prominent as a result of volume loss, expected for the patient's age. IMPRESSION: 1. No acute infarct or hemorrhage. 2. Microvascular ischemic changes and volume loss. HEMATOLOGY Eosinophils 0.2 K/CMM 0.0 - 0.5 12/06 [facility]2016 [facility] CHEM PANEL Lactic Acid 1.2 mmol/L 0.5 - 2.2 12/[address] HEMATOLOGY Macrocyte 1+ None Seen 12/05 [facility] /[address] [place], [place] [address]ABN* Center (12/06/15 6:30 PM) HEMATOLOGY Basophils # 0.1 K/CMM 0.0 - 0.2 12/[address] Brain wo Brain wo EXAM: CT BRAIN WITHOUT CONTRAST 12/05 [facility] contrast contrast CT /2015 - [facility] CT [place] DATE: 12/06/2015 Read by: Lit Garnett MD Dictated Date/time: 12/06/15 19:53 Electronically Signed by: Lit Garnett MD 12/06/15 19:58 FINAL REPORT INDICATION: Cranial nerve palsy/palsies COMPARISON: None available TECHNIQUE: Routine axial images of the brain were obtained. IV contrast: None DISCUSSION: No edema, mass lesion, or extra-axial collection is shown. There is no hemorrhage or recent large territory ischemia. There are chronic microvascular ischemic changes in the periventricular/deep white m atter. Mild diffuse cortical volume loss with bifrontal preponderance is unremarkable for the patient's stated chronologic age. The ventricles and basal cisterns are normal. The ventricles and basal cisterns are normal. The mastoid air cells, visible paranasal sinuses, and right orbital globe are unremarkable. The left orbital globe is aphakic. IMPRESSION: No acute intracranial abnormality. No hemorrhage, mass lesion, or extra- axial collection shown Chest w Chest w EXAM: CT CHEST WITH CONTRAST 12/05 [facility] contrast contrast CT /2015 - [facility] CT Center DATE: 12/06/2015 Read by: Danica Murillo MD Dictated Date/time: 12/07/15 07:20 Electronically Signed by: Danica Murillo MD 12/07/15 07:41 FINAL REPORT INDICATION: Mass TECHNIQUE: Volumetric CT acquisition of the chest, following intravenous contrast. Axial, sagittal and coronal reconstructions. Axial MIP images were reformatted at the scanner workstation. IV Contrast: 140 mL of Omnipaque 350. DLP: 2642 mGy-cm COMPARISON: Outside chest CT dated 11/25/2015 FINDINGS: The esophagus is distended mostly with fluid throughout its intrathoracic course this may make the patient prone to aspiration. Lines and Tubes: None. Heart and Great Vessels: Despite a left antecubital vein injection of contrast, there are numerous collaterals about the left shoulder and anterior chest wall before we see reconstitution of the left brachiocephalic vein. Cardiothoracic ratio measures 11.7/25 cm. There is no pericardial effusion. There is mild atherosclerotic calcification of the thoracic aorta. Lymph Nodes: There is a 7 mm anterior diaphragmatic node on axial image 146 which is unchanged since November 24. No hilar, mediastinal, axillary or internal mammary lymphadenopathy. Lungs: Linear atelectasis is noted in the right middle lobe, left upper lobe, and right lower lobe. 3 tiny adjacent nodules are noted peripherally in the left upper lobe on axial image 65, sagittal images 190 -- 192. There is enhancing linear atelectasis in the left upper lobe hugging the left side of the mediastinum unchanged since November [address] Linear and groundglass opacities are noted in the basilar segments of the left lower lobe new since 11 days ago and likely representing gravity dependent atelectasis in this supine patient. Trachea and central bronchi are unremarkable. Pleura: No significant pleural effusion. No pneumothorax. . Abdomen: There is a nodular left lobe of the liver suspicious for cirrhosis. The gallbladder is dilated. No spleen is identified. Bones and Soft Tissues: Mild degenerative changes of the thoracic spine are noted with osteophytes. No destructive skeletal lesion identified. IMPRESSION: 1. The esophagus is distended mostly with fluid throughout its intrathoracic course this may make the patient prone to aspiration. 2. numerous collaterals about the left shoulder and anterior chest wall before we see reconstitution of the left brachiocephalic vein. 3. Mild atherosclerotic calcification of the thoracic aorta. 4. A 7 mm anterior diaphragmatic node on axial image 146 which is unchanged since November 24. 5. Three tiny adjacent nodules are noted peripherally in the left upper lobe on axial image 65, sagittal images 190 -- 192. Unchanged from 11/25/2015. Serial chest CT follow-up is recommended to ensure stability. 6. There is enhancing linear atelectasis in the left upper lobe hugging the left side of the mediastinum unchanged since November [address] 7. A nodular left lobe of the liver suspicious for cirrhosis. The gallbladder is dilated. No spleen is identified. This agrees with the preliminary report issued by the regional vice president life sales process control supervisor when this examination was performed, Dr. Amparo Craig. Neck soft Neck soft EXAM: CT OF THE NECK WITH CONTRAST 12/05 - [facility] tissue w tissue - [facility] contrast contrast CT Center CT DATE: 12/06/2015 6:18 PM CDT Read by: Elmer Allen MD Dictated Date/time: 12/06/15 22:32 Electronically Signed by: Elmer Allen MD 12/06/15 22:53 FINAL REPORT INDICATION: Mass COMPARISON: 11/27/2015, MRI with and without contrast 11/30/2015. TECHNIQUE: Axial images of the neck were obtained after intravenous contrast. Reformatted images in the sagittal and coronal plane were included. IV contrast: 140 cc of Omnipaque 350. DLP: 1796 mGy-cm. FINDINGS: There is mucosal thickening and mild enhancement within the pharyngeal mucosal space beginning at the level of the palatine tonsil extending into the left tongue base, and along the left aryepiglottic f old with partial effacement of the left piriform sinus. These findings are similar to the MRI study of 6 days earlier, and by biopsy is an infectious process. There are no other intrinsic abnormalities of the upper aerodigestive tract. There are no neck masses or lymphadenopathy. The salivary glands including the parotid and submandibular glands are normal. The thyroid gland is normal. There is some fluid layering dependently within the thoracic esophagus. Imaged portions of the paranasal sinuses and mastoid air cells are clear. Imaged portions of the brain are unremarkable. A prosthetic lens is noted within the left lobe consistent with prior cataract surgery. Osseous structures are normal. Atherosclerotic calcification is noted within the bilateral carotid bulbs without hemodynamically significant stenosis. The lung apices are clear. IMPRESSION: 1. Mucosal thickening and enhancement involving the left tongue base, palatine tonsil, left aryepiglottic fold and piriform sinus, similar to the prior MRI and CT studies. This lesion is concerning for a possible neoplasm however biopsy has been performed and has confirmed an infectious process. 2. Air-fluid level within the esophagus, possible GE reflux. Resident preliminary report by Dr. Amparo Craig: -Mucosal enhancement of the left larynx, the piriform sinus and extending into the palatine tonsil, in keeping with the findings from prior MRI. This ag ain can be infectious/inflammatory. Please correlate with exam. Air fluid level in the esophagus indicates that the patient may have reflux and be at high risk for aspiration. -Carotid bulb calcifications. TOXICOLOGY Vanco Tr 15.3 ug/ml 11/30 [facility] TOXICOLOGY Vanco Tr TND 1130 11/30 [facility] ELECTROLYT AGAP 10.8 meq/L 10.0 - 11/29 [facility] 20.0 [facility] ELECTROLYT Calcium Lvl 7.7 mg/dL 8.5 - 10.5 11/29 [facility] ELECTROLYT CO2 24 meq/L 24 - 32 11/29 [facility] ELECTROLYT eGFR 95 11/29 Result Comment: The eGFR is calculated using the CKD-EPI formula. In most young, healthy individuals the eGFR will be >90 mL/ min/1.73m2. The eGFR declines with age. An eGFR of 60-89 may be normal in [facility] mL/min/1. /2015 some populations, particularly the elderly, for whom the CKD-EPI formula has not been extensively validated. Use of the eGFR is not recommended in the following populations: [place] [address] Center Individuals with unstable creatinine concentrations, including patients and those with serious co-morbid conditions. Patients with extremes in muscle mass or diet. The data above are obtained from the National Kidney Disease Education Program (NKDEP) which additionally recommends that when the eGFR is used in patients with extremes of body mass index for purposes of drug dosing, the eGFR should be multiplied by the estimated BMI. ELECTROLYT Chloride Lvl 107 meq/L 95 - 109 11/29 [facility] ELECTROLYT Potassium 3.8 meq/L 3.5 - 5.1 11/29 [facility] Lvl [facility] ELECTROLYT Sodium Lvl 138 meq/L 135 - 145 11/29 [facility] ELECTROLYT Creatinine 0.61 mg/dL 0.50 - 11/29 [facility] Lvl 1.40 [facility] ELECTROLYT BUN 10 mg/dL 7 - 22 11/29 [facility] ELECTROLYT Glucose Lvl 83 mg/dL 70 - 99 11/29 [facility] HEMATOLOGY RDW 13.8 % 11.5 - 11/29 [facility] 14.5 [facility] HEMATOLOGY MCHC 34.0 g/dL 32.0 - 11/29 [facility] 36.0 [facility] HEMATOLOGY Hct 44.7 % 36.0 - 11/29 [place] 48.0 [facility] HEMATOLOGY MCH 33.4 pg 27.0 - 11/29 [place] 31.0 [facility] HEMATOLOGY MCV 98.0 fL 80.0 - 11/29 [facility] 98.0 /2015 [facility] HEMATOLOGY MPV 9.4 fL 7.4 - 10.4 11/29 [facility] HEMATOLOGY Platelet 260 K/CMM 133 - 450 11/29 [facility] HEMATOLOGY RBC 4.56 M/CMM 4.20 - 09 [place] 5.40 [facility] HEMATOLOGY Hgb 15.2 g/dL 12.0 - 11/29 [place] 16.0 [facility] HEMATOLOGY WBC 11.0 K/CMM 3.7 - 10.4 11/29 [facility] HEMATOLOGY Eosinophils 0.2 K/CMM 0.0 - 0.5 11/29 [place] # /2015 [facility] HEMATOLOGY Basophils # 0.1 K/CMM 0.0 - 0.2 11/29 [facility] HEMATOLOGY Segs-Bands # 6.2 K/CMM 1.5 - 8.1 11/29 [facility] HEMATOLOGY Monocytes # 1.9 K/CMM 0.0 - 0.8 11/29 [facility] HEMATOLOGY Lymphocytes 2.5 K/CMM 1.0 - 5.5 11/29 [facility] # [facility] HEMATOLOGY Segs 57.0 % 45.0 - 11/29 75.0 /2015 [facility] HEMATOLOGY Lymphocytes 23.2 % 20.0 - 11/29 [facility] 40.0 [facility] HEMATOLOGY Basophils 0.7 % 0.0 - 1.0 11/29 [facility] HEMATOLOGY Monocytes 17.4 % 2.0 - 12.0 11/29 [facility] HEMATOLOGY Eosinophils 1.7 % 0.0 - 4.0 11/29 [facility] Neck w/wo Neck w/wo EXAM: MRI OF THE NECK WITH CONTRAST 11/29 - [facility] contrast contrast - [facility] DATE: 11/29/2015 9:37 PM CDT Read by: Luke Rojas MD Dictated Date/time: 11/30/15 12:07 Electronically Signed by: Luke Rojas MD 11/30/15 12:28 FINAL REPORT INDICATION: Mass. COMPARISON: CT neck 11/27/2015 TECHNIQUE: Multiplanar imaging of the neck was obtained before and after the intravenous administration of gadolinium. FINDINGS: Limited motion degraded exam. Redemonstration of T2 hyperintense lesion involving the left aspect of the larynx resulting in thickening of the left aryepiglottic fold and prominence of the left paraglot tic space with associated enhancement on postcontrast sequences. There is T2 hyperintensity involving the left aspect of the base of tongue as well as left palatine tonsil including the uvula with assoc iated enhancement. Redemonstration of scattered left-sided left level 2-4 lymph nodes may be reactive. IMPRESSION: Limited motion degraded exam. T2 hyperintensity involving the left aspect of the larynx resulting in thickening of the left vocal cords, left aryepiglottic fold and left paraglottic space with extension superiorly into the left palatine tonsil and left tongue base including the uvula. The findings are overall concerning for underlying infectious process. Continued imaging follow-up to resolution is re commended to rule out possible underlying lesion. TOXICOLOGY Vanco Tr TND 1100 11/28 [facility] TOXICOLOGY Vanco Tr 23.9 ug/ml 11/28 [facility] HEMATOLOGY Hct 45.8 % 36.0 - 11/28 [place] 48.0 /2015 [facility] HEMATOLOGY MCV 99.4 fL 80.0 - 11/28 98.0 /2015 [facility] HEMATOLOGY Hgb 15.5 g/dL 12.0 - 11/28 [place] 16.0 /2015 [facility] HEMATOLOGY RBC 4.61 M/CMM 4.20 - 11/28 [place] 5.40 /2015 [facility] HEMATOLOGY WBC 11.3 K/CMM 3.7 - 10.4 11/28 [facility] HEMATOLOGY MPV 10.0 fL 7.4 - 10.4 11/28 [facility] HEMATOLOGY Platelet 247 K/CMM 133 - 450 11/28 [facility] HEMATOLOGY RDW 14.1 % 11.5 - 11/28 14.5 [facility] HEMATOLOGY MCHC 33.9 g/dL 32.0 - 11/28 36.0 [facility] HEMATOLOGY MCH 33.7 pg 27.0 - 11/28 31.0 [facility] HEMATOLOGY Lymphocytes 18.5 % 20.0 - 11/28 [place] 40.0 [facility] HEMATOLOGY Eosinophils 0.1 % 0.0 - 4.0 11/28 [facility] HEMATOLOGY Monocytes 12.7 % 2.0 - 12.0 11/28 [facility] HEMATOLOGY Basophils 0.3 % 0.0 - 1.0 11/28 [facility] HEMATOLOGY Segs-Bands # 7.7 K/CMM 1.5 - 8.1 11/28 [facility] HEMATOLOGY Monocytes # 1.4 K/CMM 0.0 - 0.8 11/28 [facility] HEMATOLOGY Lymphocytes 2.1 K/CMM 1.0 - 5.5 11/28 [place] # /2015 [facility] HEMATOLOGY Segs 68.4 % 45.0 - 11/28 [facility] 75.0 [facility] Ext Upper Ext Upper Correction: Exam is of the left upper extremity 11/27 - [facility] Venous Venous /2015 - Medical Doppler Doppler EXAM: US RIGHT UPPER EXTREMITY VENOUS DOPPLER This report was dictated by a Duty Manager/Fellow. I have personally reviewed the images as Center Unilat US Unilat US well as the Resident's interpretation and agree with the findings. Read by: Rodri Cervantes MD Resident: Rodri Cervantes MD Dictated Date/time: 11/29/15 09:43 DATE: 11/28/2015 3:48 PM CDT Electronically Signed by: Urban Black MD 11/29/15 10:07 FINAL REPORT - - INDICATION: Pain and swelling Read by: Urban Black MD Dictated Date/time: 11/29/15 07:43 ADDITIONAL INFORMATION: None. Electronically Signed by: Urban Black MD 11/29/15 07:44 FINAL REPORT COMPARISON: None. TECHNIQUE: Multiplanar grayscale, color Doppler and spectral Doppler ultrasound of the upper extremity veins. DISCUSSION: Right Upper Extremity Veins: Internal Jugular: Patent. Subclavian: Patent. Axillary: Patent. Brachial: Patent. Basilic: Patent. Cephalic: Patent. IMPRESSION: 1. Normal. No deep venous thrombosis (DVT). TOXICOLOGY Vanco Tr TND 2300 11/27 [facility] TOXICOLOGY Vanco Tr 10.4 ug/ml 11/27 Result Comment: [facility] Moderately Hemolyzed. CHEM PANEL Calcium Lvl 8.1 mg/dL 8.5 - 10.5 11/27 2015 [facility] CHEM PANEL CO2 25 meq/L 24 - 32 11/27 2015 [facility] CHEM PANEL Chloride Lvl 110 meq/L 95 - 109 11/27 [facility]2015 [facility] CHEM PANEL Potassium 3.8 meq/L 3.5 - 5.1 11/27 [facility] [place] [facility] CHEM PANEL eGFR 93 11/27 Result Comment: The eGFR is calculated using the CKD-EPI formula. In most young, healthy individuals the eGFR will be >90 mL/ min/1.73m2. The eGFR declines with age. An eGFR of 60-89 may be normal in [facility] mL/min/1. some populations, particularly the elderly, for whom the CKD-EPI formula has not been extensively validated. Use of the eGFR is not recommended in the following populations: [address] Individuals with unstable creatinine concentrations, including patients and those with serious co-morbid conditions. Patients with extremes in muscle mass or diet. The data above are obtained from the National Kidney Disease Education Program (NKDEP) which additionally recommends that when the eGFR is used in patients with extremes of body mass index for purposes of drug dosing, the eGFR should be multiplied by the estimated BMI. CHEM PANEL BUN 21 mg/dL 7 - 22 11/27 [facility] CHEM PANEL Sodium Lvl 144 meq/L 135 - 145 11/27 [facility] CHEM PANEL Creatinine 0.66 mg/dL 0.50 - 09 [place] Lvl 1.40 [facility] CHEM PANEL Glucose Lvl 115 mg/dL 70 - 99 09 [facility] CHEM PANEL AGAP 12.8 meq/L 10.0 - 09 [place] 20.0 [facility] HEMATOLOGY MPV 9.9 fL 7.4 - 10.4 11/27 [facility] HEMATOLOGY Platelet 242 K/CMM 133 - 450 11/27 [facility] HEMATOLOGY RDW 13.5 % 11.5 - 09 14.5 [facility] HEMATOLOGY MCH 33.0 pg 27.0 - 11/27 31.0 [facility] HEMATOLOGY MCHC 33.2 g/dL 32.0 - 11/27 [place] 36.0 [facility] HEMATOLOGY MCV 99.2 fL 80.0 - 11/27 [facility] 98.0 /2015 [facility] HEMATOLOGY Hct 42.9 % 36.0 - 11/27 48.0 [facility] HEMATOLOGY RBC 4.33 M/CMM 4.20 - 09 [place] 5.40 [facility] HEMATOLOGY Hgb 14.3 g/dL 12.0 - 11/27 16.0 [facility] HEMATOLOGY WBC 16.9 K/CMM 3.7 - 10.4 11/27 [facility] HEMATOLOGY Lymphocytes 1.5 K/CMM 1.0 - 5.5 11/27 [place] # /2015 [facility] HEMATOLOGY Basophils # 0.1 K/CMM 0.0 - 0.2 11/27 [facility] HEMATOLOGY Monocytes # 1.7 K/CMM 0.0 - 0.8 11/27 [facility] HEMATOLOGY Segs-Bands # 13.7 K/CMM 1.5 - 8.1 11/27 [facility] HEMATOLOGY Monocytes 10.0 % 2.0 - 12.0 11/27 [facility] HEMATOLOGY Segs 80.7 % 45.0 - 11/27 [facility] 75.0 [facility] HEMATOLOGY Basophils 0.4 % 0.0 - 1.0 11/27 [facility] HEMATOLOGY Lymphocytes 8.9 % 20.0 - 11/27 [facility] 40.0 [facility] Neck soft Neck soft EXAM: CT NECK WITH CONTRAST 11/26 - [facility] tissue w tissue - [facility] contrast contrast CT Center CT DATE: 11/27/2015 5:26 PM CDT Read by: Luke Rojas MD Dictated Date/time: 11/28/15 08:00 Electronically Signed by: Luke Rojas MD 11/28/15 08:15 FINAL REPORT INDICATION: 65 years old Female patient with of Dysphagia. 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 TECHNIQUE: Axial CT images of the neck were obtained after intravenous contrast. Reformatted images in the sagittal and coronal plane were included. FINDINGS: There is prominence of the left aryepiglottic fold compared to the right and mild fullness of the left periepiglottic space. There is partial effacement of the left piriform sinus. Streak metallic artifact from dental fillings limit evaluation of oral cavity and left aspect of the face. The parotid and submandibular glands are unremarkable. No enlarged neck lymphadenopathy is identified. Dense calcification of the origins of bilateral internal carotid arteries and carotid bulbs resulting in about 50% stenosis at the origins of bilateral ICAs. Prior left lens extraction surgery. Visualized paranasal sinuses are clear. No mastoid effusion is identified. Limited views of the intracranial contents are unremarkable. There is asymmetric hypertroph y of the left skeletal muscles compared to the right. Small airspace opacity in the right lung apex. IMPRESSION: 1. Asymmetric prominence of the left aryepiglottic folds and left paraglottic space may represent residual disease however underlying mass/ malignancy cannot be ruled out. No residual abscess or infectio n is seen in the region of submandibular area or oral cavity. However evaluation of oral cavity is limited due to streak metallic artifact from dental filling. MRI of the neck with contrast is recommend ed for better evaluation to rule out laryngeal cancer. 2. Dense calcific atherosclerotic disease at the origins of bilateral internal carotid arteries resulting in at least 50% stenosis. 3. Small airspace opacity at the right lung apex may represent infectious/ inflammatory changes. CT thorax is recommended for better evaluation. IMMUNOLOGY HIV 1/2 Ab Negative Negative 11/26 [facility] (11/27/15 2:22 PM) CHEM PANEL eGFR 94 11/26 Result Comment: The eGFR is calculated using the CKD-EPI formula. In most young, healthy individuals the eGFR will be >90 mL/ min/1.73m2. The eGFR declines with age. An eGFR of 60-89 may be normal in [facility] mL/min/1. some populations, particularly the elderly, for whom the CKD-EPI formula has not been extensively validated. Use of the eGFR is not recommended in the following populations: [address] Individuals with unstable creatinine concentrations, including patients and those with serious co-morbid conditions. Patients with extremes in muscle mass or diet. The data above are obtained from the National Kidney Disease Education Program (NKDEP) which additionally recommends that when the eGFR is used in patients with extremes of body mass index for purposes of drug dosing, the eGFR should be multiplied by the estimated BMI. CHEM PANEL Chloride Lvl 110 meq/L 95 - 109 11/26 [facility] CHEM PANEL CO2 24 meq/L 24 - 32 11/[address] CHEM PANEL Calcium Lvl 8.6 mg/dL 8.5 - 10.5 11/[address] CHEM PANEL Creatinine 0.62 mg/dL 0.50 - 11/26 [facility] 1.40 [facility] CHEM PANEL Sodium Lvl 142 meq/L 135 - 145 11/26 [facility]2015 [facility] CHEM PANEL Potassium 3.8 meq/L 3.5 - 5.1 11/26 [facility] CHEM PANEL Glucose Lvl 139 mg/dL 70 - 99 11/26 [facility]2015 [facility] CHEM PANEL BUN 13 mg/dL 7 - 22 11/26 [facility]2015 [facility] CHEM PANEL AGAP 11.8 meq/L 10.0 - 11/26 [facility] .0 [facility] CHEM PANEL Magnesium 2.1 mg/dL 1.8 - 2.4 11/26 [facility]2015 [facility] CHEM PANEL Phosphorus 3.2 mg/dL 2.5 - 4.5 11/26 [facility]2015 [facility] CHEM PANEL Lactic Acid 1.4 mMol/L 0.5 - 2.2 11/25 [facility] Lvl /2015 [facility] CHEM PANEL Lactic Acid 2.5 mMol/L 0.5 - 2.2 11/25 [facility] Lvl /2015 [facility] HEMATOLOGY Eosinophils 0.9 % 0.0 - 4.0 11/25 [place] /2015 [facility] HEMATOLOGY Basophils # 0.1 K/CMM 0.0 - 0.2 11/25 /2015 [facility] HEMATOLOGY Eosinophils 0.1 K/CMM 0.0 - 0.5 11/25 [facility] # /2015 [facility] TOXICOLOGY Vanco Lvl 3.8 ug/ml 11/25 [facility] /2015 [facility] Chest 2 Chest 2 EXAM: XR CHEST 2 VIEWS 11/25 - [facility] views DX views DX - [facility] This report was dictated by a Duty Manager/Fellow. I have personally reviewed the images as Center well as the Resident's interpretation and agree with the findings. DATE: 11/26/2015 1:13 AM CDT Read by: Deep Gibson (Fellow) Resident: Deep Gibson (Fellow) Dictated Date/time: 11/26/15 08:37 Electronically Signed by: Verito Fields MD 11/26/15 11:19 FINAL REPORT INDICATION: Coughing COMPARISON: Outside CT and radiograph from 11/25/2015 FINDINGS: The cardiomediastinal silhouette is not enlarged. While evaluation is limited given semi-erect positioning, no distinct pneumothorax is identified. Aortic atherosclerotic changes are present. Ill-defin ed opacity partially obscures the left heart border. Costophrenic sulci are sharp. IMPRESSION: Ill-defined opacity partially during the left heart border corresponds with lingular atelectasis on outside CT. Superimposed infectious process not excluded. BLOOD BANK ABO/Rh O POS 11/25 [facility] RESULTS /2015 [facility] BLOOD BANK Antibody Negative 11/25 [facility] RESULTS [facility] (11/25/15 8:24 PM) Center CHEM PANEL Lactic Acid 3.5 mMol/L 0.5 - 2.2 11/25 [facility] Lvl /2015 [facility] HEMATOLOGY PT 14.9 s 12.0 - 11/25 [place] 14.7 /2015 [facility] HEMATOLOGY INR 1.14 0.85 - 11/25 [facility] 1.17 2016 [facility] HEMATOLOGY PTT 27.7 s 22.9 - 09 [facility] 35.8 /2016 [facility] Vital Signs Vital Sign Value Date Comments Source BMI Calculated 19.81 05/06/2016 [facility] Weight 59.091 05/06/2016 [facility] Height 172.72 cm 05/06/2016 [facility] Systolic (mm Hg) 143 05/06/2016 [facility] Diastolic (mm Hg) 67 05/06/2016 [facility] Heart Rate 63 05/06/2016 [facility] Temperature Oral (F) 98 F 12/19/2015 [facility] Respitory Rate 18 12/19/2015 [facility] Heart Rate 69 12/19/2015 [facility] Systolic (mm Hg) 129 12/19/2015 [facility] Diastolic (mm Hg) 72 12/19/2015 [facility] [place] [facility] Heart Rate 60 12/19/2015 [facility] Temperature Oral (F) 98.2 F 12/19/2015 [facility] [place] [facility] Respitory Rate 18 12/19/2015 [facility] [place] [facility] Systolic (mm Hg) 138 12/19/2015 [facility] Diastolic (mm Hg) 75 12/19/2015 [facility] [place] [facility] Systolic (mm Hg) 106 12/19/2015 [facility] Diastolic (mm Hg) 78 12/19/2015 [facility] Respitory Rate 18 12/19/2015 [facility] Heart Rate 63 12/19/2015 [facility] Temperature Oral (F) 97.9 F 12/19/2015 [facility] Weight 68.182 12/07/2015 [facility] Height 172.72 cm 12/07/2015 [facility] BMI Calculated 22.86 12/07/2015 [facility] [place] [facility] Weight 68.182 12/06/2015 [facility] BMI Calculated 22.86 12/06/2015 [facility] Height 172.72 cm 12/06/2015 [facility] Temperature Oral (F) 98.2 F 12/01/2015 [facility] Heart Rate 76 12/01/2015 [facility] Respitory Rate 18 12/01/2015 [facility] [place] [facility] Systolic (mm Hg) 133 12/01/2015 [facility] Diastolic (mm Hg) 78 12/01/2015 [facility] [place] [facility] Respitory Rate 18 12/01/2015 [facility] [place] [facility] Systolic (mm Hg) 112 12/01/2015 [facility] [place] [facility] Diastolic (mm Hg) 75 12/01/2015 [facility] [place] [facility] Heart Rate 91 12/01/2015 [facility] [place] [facility] Temperature Oral (F) 98.1 F 12/01/2015 [facility] [place] [facility] Heart Rate 78 12/01/2015 [facility] [place] [facility] Temperature Oral (F) 98.2 F 12/01/2015 [facility] [place] [facility] Systolic (mm Hg) 125 12/01/2015 [facility] [place] [facility] Diastolic (mm Hg) 72 12/01/2015 [facility] [place] [facility] Respitory Rate 18 12/01/2015 [facility] [place] [facility] Height 172.72 cm 11/28/2015 [facility] [place] [facility] BMI Calculated 23.16 11/28/2015 [facility] Weight 69.1 11/28/2015 [facility] [place] [facility] Height 172.72 cm 11/27/2015 [facility] [place] [facility] Weight 69.1 11/27/2015 [facility] Weight 69.1 11/26/2015 [facility] Height 172.72 cm 11/26/2015 [facility] [place] [facility] BMI Calculated 23.16 11/26/2015 [facility] BMI Calculated 22.86 11/26/2015 [facility] Encounters Location Location Encounter Encounter Reason Attending ADM DC Status Source Details Type Number For Provider Date Date Visit [facility] [id number] Andrea 11/25 11/30 [facility] Alexander /2015 [facility] Inpatient [id number] Myla 12/05 12/18 [facility] Delma /2015 [facility] Outpatient [id number] Michelle 02/19 02/20 [facility] Bud Lucas /2015 [facility] Outpatient [id number] Michelle 02/25 02/26 Bud Lance /2015 [facility] OP Therapy [id number] Michelle 03/05 03/21 [facility] Therapy [id number] Michelle 03/26 04/25 [facility] Outpatient [id number] Michelle 04/23 04/24 Bud Lucas /[address] [facility] Bedded [id number] Michelle 05/06 05/06 [facility] Outpatient /2016 [facility] Procedures Procedure Code Date Perfomer Comments Source Spinal puncture, [address]67 12/12/2015 [id number] [facility] Biopsy of vocal [id number] [facility] Splenectomy [id number] [facility] Appendectomy [id number] [facility] Biopsy of vocal [id number] [facility] Splenectomy [id number] [facility] Appendectomy [id number] [facility] Biopsy of vocal [id number] [facility] Splenectomy [id number] [facility]
--- OUTSIDE RECORDS SUMMARY | 2018-02-28 15:39 | XMS REPORT | Summary of Care ---
:1950 Author Organization [facility] Address [address], [place] [address]- Encounter HQ Isra_april(FIN) [id number] Date(s): 02/20/16 - 02/20/16 [facility] [address], [place] [address]- [place] Discharge Disposition: Home or Self Care Attending Physician: Michelle Lucas MD Referring Physician: Michelle Lucas MD Vital Signs No data available for this section Problem List Condition Effective Dates Status Health Status Informant Hep C w/o coma, chronic(Confirmed) Resolved Liver cirrhosis(Confirmed) Active Cirrhosis(Confirmed) Resolved Colon polyps(Confirmed) Resolved Allergies, Adverse Reactions, Alerts Substance Reaction Severity Status NKDA Active Medications No data available for this section Results No data available for this section Immunizations Not Given Vaccine Date Status Refusal Reason pneumococcal 13-valent vaccine 12/09/15 Not Given Patient Refuses Procedures Procedure Date Related Diagnosis Body Site Appendectomy Biopsy of vocal cord Splenectomy Social History Social History Type Response Smoking Status Current every day smoker; Type: Cigarettes; Exposure to Tobacco Smoke None; Cigarette Smoking Last 365 Days Yes; Reg Smoking Cessation Counseling Yes Assessment and Plan No data available for this section
--- OUTSIDE RECORDS SUMMARY | 2018-02-28 15:39 | XMS REPORT | Summary of Care ---
:1950 Author Organization [facility] Address [address] [place], [place] [address]- Encounter HQ Isra_april(RONDA) [id number] Date(s): 02/26/16 - 02/26/16 [facility] [address] [place] [address]- Discharge Disposition: Home or Self Care Attending [...]
--- OUTSIDE RECORDS SUMMARY | 2018-02-28 15:39 | XMS REPORT | Summary of Care ---
:1950 Author Organization [facility] Encounter HQ Isra_april(RONDA) [id number] Date(s): 03/05/16 - 03/21/16 [facility] Discharge Disposition: Home or Self Care Attending Physician: Michelle Lucas MD Vital Signs No [...]
--- OUTSIDE RECORDS SUMMARY | 2018-02-28 15:39 | XMS REPORT | Summary of Care ---
:1950 Author Organization [facility] Address [address] [place], [place] [address]- Encounter HQ Isra_april(RONDA) [id number] Date(s): 04/23/16 - 04/23/16 [facility] [address] [place] [address]- Discharge Disposition: Home or Self Care Attending [...]
--- OUTSIDE RECORDS SUMMARY | 2018-02-28 15:39 | XMS REPORT | Summary of Care ---
:1950 Author Organization [facility] Address [address], [place] [address]- Encounter HQ Isra_april(FIN) [id number] Date(s): 05/06/16 - 05/06/16 [facility] [address] [place], [place] [address]- [place] Discharge Disposition: Home or Self Care Attending Physician: Michelle Lucas MD Referring Physician: Michelle Lucas MD Vital Signs Most recent to oldest [Reference Range]: 1 Height 172.72 cm (05/06/16 8:56 AM) Blood Pressure [90-140/60-90 mmHg] 143/67 mmHg *HI* (05/06/16 8:10 AM) Peripheral Pulse Rate [60-100 bpm] 63 bpm (05/06/16 8:10 AM) Weight 59.091 kg (05/06/16 8:56 AM) Body Mass Index 19.81 m2 (05/06/16 8:56 AM) Problem List Condition Effective Dates Status Health [...]
--- OUTSIDE RECORDS SUMMARY | 2018-02-28 15:39 | XMS REPORT | Summary of Care ---
:1950 Author Organization [facility] Address [address] [place], [place] [address]- Encounter HQ Encntr_alias(RONDA) [id number] Date(s): 11/25/15 - 12/01/15 [facility] [address] [place] [address] Professional Services provided by [facility] [place] [address]- Discharge Disposition: Home or Self Care Attending Physician: Andrea Munoz MD Admitting Physician: Andrea Munoz MD Vital Signs Most recent to oldest 1 2 3 [Reference Range]: Height 172.72 cm 172.72 cm 172.72 cm (11/28/15 12:01 PM) (11/27/15 5:31 PM) (11/26/15 3:27 AM) Temperature Oral [96.4-99.1 98.2 DegF 98.1 DegF 98.2 DegF DegF] (12/01/15 11:33 AM) (12/01/15 8:32 AM) (12/01/15 5:14 AM) Blood Pressure [90-140/60-90 133/78 mmHg 112/75 mmHg 125/72 mmHg mmHg] (12/01/15 11:33 AM) (12/01/15 8:32 AM) (12/01/15 5:14 AM) Respiratory Rate [14-20 BRMIN] 18 BRMIN 18 BRMIN 18 BRMIN (12/01/15 11:33 AM) (12/01/15 8:32 AM) (12/01/15 5:14 AM) Peripheral Pulse Rate [60-100 76 bpm 91 bpm 78 bpm bpm] (12/01/15 11:33 AM) (12/01/15 8:32 AM) (12/01/15 5:14 AM) Weight 69.1 kg 69.1 kg 69.1 kg (11/28/15 12:01 PM) (11/27/15 5:31 PM) (11/26/15 3:27 AM) Body Mass Index 23.16 m2 23.16 m2 22.86 m2 (11/28/15 12:01 PM) (11/26/15 2:28 AM) (11/25/15 8:10 PM) Problem List Condition Effective Dates Status Health Status Informant Cirrhosis(Confirmed) Resolved Colon polyps(Confirmed) Resolved Allergies, Adverse Reactions, Alerts No data available for this section Medications ANES flumazenil 0.2 mg, Route: IVP, PRN, Dosing Weight 69.1, kg, PRN Benzodiazepine Reversal, Initial dose, Start date: 11/27/15 10:48:00 CDT, Duration: 30 day, Stop date: 10:47:00 CDT Start Date: 11/27/15 Stop Date: 11/27/15 Status: DiscontinuedANES HYDROmorphone 0.5 mg, Route: IVP, Q5Min, Dosing Weight 69.1, kg, PRN Pain Score 7-10, Start date: 11/27/15 10:48:00 CDT, Duration: 4 doses or times, Stop date: Limited # of times Start Date: 11/27/15 Stop Date: 11/27/15 Status: DiscontinuedANES naloxone 0.4 mg, Route: IVP, Q2MIN, Dosing Weight 69.1, kg, PRN Narcotic Reversal, Start date: 11/27/15 10:48:00 CDT, Duration: 8 doses or times, Stop date: Limited # of times Start Date: 11/27/15 Stop Date: 11/27/15 Status: DiscontinuedANES ondansetron 4 mg, Route: IVP, ONCE, Dosing Weight 69.1, kg, PRN Nausea & Vomiting, Start date: 11/27/15 10:48:00 CDT Start Date: 11/27/15 Stop Date: 11/27/15 Status: CompletedANES oxyCODONE 5 mg, Route: PO, Drug form: TAB, Q4H, Dosing Weight 69.1, kg, PRN Pain Score 4-6 , Start date: 11/27/15 10:48:00 CDT, Duration: 30 day, Stop date: 12/27/15 10:47 :00 CDT Start Date: 11/27/15 Stop Date: 11/27/15 Status: DiscontinuedAtivan 1 mg, 0.5 mL, Route: IVP, Drug form: INJ, ONCE, Dosing Weight 69.1, kg, PRN Anxiety, Priority: STAT,Start date: 11/30/15 7:40:00 CDT Notes: (Same as: Ativan) Start Date: 11/30/15 Stop Date: 11/30/15 Status: CompletedAugmentin 875 mg oral tablet 875 mg=1 tab, PO, BID, X 10 day, # 20 tab, 0 Refill(s) Start Date: 12/01/15 Stop Date: 12/11/15 Status: OrderedCipro 400 mg, 200 mL, Route: IV, Drug form: INJ, [id number], Dosing Weight 69.1, kg, Start date: 11/27/15 16:00:00 CDT, Duration: 30 day, Stop date: 12/27/15 4:00: 00 CDT Notes: Do not refrigerate Start Date: 11/27/15 Stop Date: 11/27/15 Status: DiscontinuedCipro 500 mg, 1 tab, Route: PO, Drug form: TAB, [id number], Dosing Weight 69.1, kg, Start date: 11/26/15 12:00:00 CDT, Duration: 30 day, Stop date: 12/26/15 0:00: 00 CDT Notes: May interfere w/enteral feedings - Take 1 hr before or 2 hrs after antacids, dairy pdt & minerals. On empty stomach. Start Date: 11/26/15 Stop Date: 11/27/15 Status: Discontinuedciprofloxacin 400 mg, 200 mL, Route: IVPB, Drug form: INJ, [id number], Dosing Weight 69.1, kg, Start date: 11/28/15 16:00:00 CDT, Duration: 30 day, Stop date: 12/28/15 4:00: 00 CDT Notes: Do not refrigerate Start Date: 11/28/15 Stop Date: 11/29/15 Status: DiscontinuedCleocin HCl 450 mg, 3 cap, Route: PO, Drug form: CAP, [id number], Start date: 11/26/15 12:00:00 CDT, Duration: 30 day, Stop date: 12/26/15 6:00:00 CDT Notes: (Same As: Cleocin) Start Date: 11/26/15 Stop Date: 11/27/15 Status: DiscontinuedCleocin HCl 600 mg, 4 mL, Route: IV, Drug form: INJ, [id number], Start date: 11/27/15 16:00:00 CDT, Duration: 30 day, Stop date: 12/27/15 8:00:00 CDT Notes: (clindamycin 150 mg/1 ml (600 mg/4 ml VL) INJ) (Same As: Cleocin) Start Date: 11/27/15 Stop Date: 11/27/15 Status: Discontinuedclindamycin 450 mg, Route: PO, Q8H, Dosing Weight 69.1, kg, Start date: 11/26/15 16:00:00 CDT, Duration: 30 day,Stop date: 12/26/15 8:00:00 CDT Start Date: 11/26/15 Stop Date: 11/26/15 Status: Canceleddexamethasone 8 mg, 2 mL, Route: IVP, Drug form: INJ, Q8H, Dosing Weight 69.1, kg, Start date : 11/26/15 8:00:00 CDT, Duration: 1 day, Stop date: 11/27/15 8:00:00 CDT Notes: Concentration: 4mg/ml Start Date: 11/26/15 Stop Date: 11/27/15 Status: Completeddocusate 100 mg, 1 cap, Route: PO, Drug form: CAP, BID, Dosing Weight 68.182, kg, PRN Constipation, Start date: 11/26/15 0:32:00 CDT, Duration: 30 day, Stop date: 09/04 0:31:00 CDT Notes: (Same as: Colace) (Do Not Crush) Start Date: 11/26/15 Stop Date: 12/01/15 Status: DiscontinuedDuoNeb inhalation solution 3 ml, Route: NEB, Drug Form: SOLN, Dosing Weight 68.182, kg, PRN, PRN Respiratory Protocol, Start date: 11/26/15 1:21:00 CDT, Duration: 30 day, Stop date: 12/26/15 1:20:00 CDT Notes: (Same as: Duoneb) Start Date: 11/26/15 Stop Date: 12/01/15 Status: Discontinuedfluconazole 400 mg, 200 mL, Route: IV, Drug form: INJ, [id number], Dosing Weight 69.1, kg, Start date: 11/27/15 18:00:00 CDT, Duration: 30 day, Stop date: 12/26/15 18:00: 00 CDT Notes: (Same as: Diflucan) Start Date: 11/27/15 Stop Date: 12/01/15 Status: Discontinuedfluconazole 100 mg, 50 mL, Route: IV, Drug form: INJ, [id number], Dosing Weight 69.1, kg, Start date: 11/26/15 12:00:00 CDT, Stop date: 12/25/15 12:00:00 CDT Notes: (Same as: Diflucan) Do not refrigerate. Start Date: 11/26/15 Stop Date: 11/27/15 Status: Discontinuedfluconazole 200 mg oral tablet 400 mg=2 tab, PO, Daily, X 10 day, # 20 tab, 0 Refill(s) Start Date: 12/01/15 Stop Date: 12/11/15 Status: Orderedheparin 5,000 unit, 1 mL, Route: SUB-Q, Drug form: INJ, Q8H, Dosing Weight 69.1, kg, Start date: 11/26/15 8:00:00 CDT, Duration: 30 day, Stop date: 12/26/15 0:00:00 CDT Notes: porcine heparin Start Date: 11/26/15 Stop Date: 12/01/15 Status: DiscontinuedhydrOXYzine 25 mg, 1 tab, Route: PO, Drug form: TAB, QID, Dosing Weight 68.182, kg, PRN Anxiety, Start date: 11/26/15 0:39:00 CDT, Duration: 30 day, Stop date: 0:38:00 CDT Notes: (Same as: Atarax) Avoid alcohol. Start Date: 11/26/15 Stop Date: 11/26/15 Status: Discontinuedlevothyroxine 100 microgram, 1 tab, Route: PO, Drug form: TAB, [id number], Dosing Weight 68.182, kg, Start date: 11/26/15 6:30:00 CDT, Duration: 30 day, Stop date: 12/25/15 6:30 :00 CDT Notes: Take 1 hour before or 2 hours after meal; Enteral feeds may interefere with the absorption ofthis medication. (Same as:Levothroid, Synthroid) Start Date: 11/26/15 Stop Date: 12/01/15 Status: Discontinuedlevothyroxine 100 mcg (0.1 mg) oral tablet 100 microgram=1 tab, PO, Daily, # 30 tab, 0 Refill(s) Start Date: 11/26/15 Status: Orderedmorphine Sulfate 2 mg, 1 mL, Route: IVP, Drug form: INJ, Q4H, Dosing Weight 69.1, kg, PRN Pain Score 7-10, Start date: 11/26/15 2:45:00 CDT, Duration: 30 day, Stop date: 12/25 2:44:00 CDT Notes: (Same as:MORPhine Sulfate) Start Date: 11/26/15 Stop Date: 12/01/15 Status: Discontinuednaproxen 250 mg, 1 tab, Route: PO, Drug form: TAB, BID, Dosing Weight 69.1, kg, PRN Pain Score 1-3, Start date: 12/01/15 12:11:00 CDT, Duration: 30 day, Stop date: 12/30 12:10:00 CDT Notes: (Same as: Naprosyn) Take with food. Start Date: 12/01/15 Stop Date: 12/01/15 Status: DiscontinuedNS (Bolus) IV 500 mL, 500 ml/hr, Infuse Over: 1 hr, Route: IV, 500, Drug form: INJ, ONCE, Priority: STAT, Dosing Weight 69.1 kg, Start date: 11/26/15 6:15:00 CDT, Duration: 1 doses or times, Stop date: 11/26/15 6:15:00 CDT Start Date: 11/26/15 Stop Date: 11/26/15 Status: Completednystatin 100,000 units/mL oral suspension 500,000 unit, 5 mL, Route: S&SWALLOW, Drug form: SUSP, TID, Dosing Weight 68.182, kg, Start date: 11/26/15 9:00:00 CDT, Duration: 30 day, Stop date: 12/24 17:00:00 CDT Notes: (Same as:Mycostatin) Shake well. Start Date: 11/26/15 Stop Date: 11/29/15 Status: Discontinuednystatin 100,000 units/mL oral suspension 500,000 unit, Route: S&SPIT, Drug form: SUSP, TID, Dosing Weight 68.182, kg , Start date: 11/26/15 9:00:00 CDT, Duration: 30 day, Stop date: 12/25/15 17:00: 00 CDT Start Date: 11/26/15 Stop Date: 11/26/15 Status: CanceledOmnipaque 350mg/ml 80 mL, Route: IVP, Drug Form: SOLN, Dosing Weight 69.1, kg, ONCALL, STAT, Start date: 11/27/15 21:11:00 CDT, Duration: 1 doses or times, Dose=2.2ml/kg, Max lbdr=712pd -- "To be infused by Radiology Staff ONLY" Start Date: 11/27/15 Stop Date: 11/27/15 Status: Completedondansetron 4 mg, 2 mL, Route: IVP, Drug form: INJ, Q6H, Dosing Weight 68.182, kg, PRN Nausea & Vomiting, Start date: 11/26/15 0:32:00 CDT, Duration: 30 day, Stop date: 12/26/15 0:31:00 CDT Notes: (Same as: Nancy) MEDICATION WASTE Product Size: 4 mgProduct Wasted: ___ mg Start Date: 11/26/15 Stop Date: 12/01/15 Status: Discontinuedscopolamine 1.5 mg transdermal film 1 patch, Route: TOP, Drug Form: ERFILM, Dosing Weight 69.1, kg, PRE OP, Start date: 11/27/15 10:00:00 CDT, Duration: 30 day, Stop date: 12/27/15 9:59:00 CDT Notes: Change patch every 72 hours (Same as: Transderm-Scop) Start Date: 11/27/15 Stop Date: 12/01/15 Status: DiscontinuedSodium Chloride 0.9% (Bolus) IV 1,000 mL, 2,000 ml/hr, Infuse Over: 30 minutes, Route: IV, ONCE, Priority: STAT , Dosing Weight 68.182 kg, Start date: 11/25/15 20:21:00 CDT, Duration: 1 doses or times, Stop date: 11/25/15 20:21:00 CDT Start Date: 11/25/15 Stop Date: 11/25/15 Status: Completedsodium chloride 0.9% 1000 ml INJ 1,000 mL 1,000 mL, Rate: 100 ml/hr, Infuse over: 10 hr, Route: IV, Dosing Weight 68.182 kg, Total Volume: 1,000, Start date: 11/26/15 2:05:00 CDT, Duration: 30 day, Stop date: 12/26/15 2:04:00 CDT Start Date: 11/26/15 Stop Date: 12/01/15 Status: Discontinuedsodium chloride 0.9% 1000 ml INJ 1,000 mL 1,000 mL, Rate: 75 ml/hr, Infuse over: 13.3 hr, Route: IV, Dosing Weight 68.182 kg, Total Volume: 1,000, Priority: STAT, Start date: 11/25/15 20:21:00 CDT, Duration: 1 doses or times, Stop date: 11/26/15 9:38:00 CDT Start Date: 11/25/15 Stop Date: 11/26/15 Status: Completedsugammadex 200 mg, 2 mL, Route: IV, Drug form: SOLN ONCKATE, Start date: 11/27/15 11:00:00 CDT, Duration: 1 doses or times, Stop date: 11/28/15 0:00:00 CDT Notes: (Same as: Bridion) Start Date: 11/27/15 Stop Date: 12/01/15 Status: DiscontinuedUnasyn 3 gm, 1 ea, Route: IVPB, Drug form: PDR/INJ, [id number], Dosing Weight 69.1, kg, Start date: 11/27/15 20:00:00 CDT, Duration: 30 day, Stop date: 12/27/15 14:30: 00 CDT Notes: Dosing based on Ampicillin component (Same as: Unasyn) Start Date: 11/27/15 Stop Date: 12/01/15 Status: Discontinuedursodiol 900 mg, 3 cap, Route: PO, Drug form: CAP, Daily, Dosing Weight 68.182, kg, Start date: 11/26/15 9:00:00 CDT, Duration: 30 day, Stop date: 12/25/15 9:00:00 CDT Notes: (Same As: Actigall) Start Date: 11/26/15 Stop Date: 12/01/15 Status: Discontinuedursodiol 300 mg oral capsule 900 mg=3 cap, PO, Daily, 0 Refill(s) Start Date: 11/26/15 Status: Orderedvancomycin 1 gm, Route: IVPB, Drug form: INJ, [id number], Start date: 11/26/15 17:00:00 CDT, Duration: 30 day, Stop date: 12/26/15 5:00:00 CDT Notes: TIME CRITICAL MEDICATION(Same As: Vancocin)Infusion rate< 1000 mg: infuse over 1 [id number] - 1500 mg: infuse over 1.5 [id number] - 2000 mg: infuse over 2 hours> 2001 mg: infuse over 2.5 hours MEDICATION WASTE Product Size: 1000 mgProduct Wasted: ___ mg Start Date: 11/26/15 Stop Date: 11/26/15 Status: Canceledvancomycin 1,500 mg, 250 mL, Route: IVPB, Drug form: INJ, ONCE, Dosing Weight 69.1, kg, Start date: 11/26/15 3:27:00 CDT, Stop date: 11/26/15 3:27:00 CDT Notes: TIME CRITICAL MEDICATIONSame as: Vancocin-NS (premixed)Infusion rate< 1000 mg: infuse over1 [id number] - 1500 mg: infuse over 1.5 [id number] - 2000 mg: infuse over 2 hours> 2001 mg: infuse over 2.5 hours Start Date: 11/26/15 Stop Date: 11/26/15 Status: Completedvancomycin 1 gm, Route: IVPB, Drug form: INJ, [id number], Start date: 11/30/15 0:00:00 CDT, Duration: 30 day, Stopdate: 12/29/15 12:00:00 CDT Notes: TIME CRITICAL MEDICATION(Same As: Vancocin)Infusion rate< 1000 mg: infuse over 1 [id number] - 1500 mg: infuse over 1.5 [id number] - 2000 mg: infuse over 2 hours> 2001 mg: infuse over 2.5 hours MEDICATION WASTE Product Size: 1000 mgProduct Wasted: ___ mg Start Date: 11/30/15 Stop Date: 12/01/15 Status: Discontinuedvancomycin + sodium chloride 0.9% INJ 250 mL 750 mg, Route: IVPB, Drug form: INJ, [id number], Start date: 11/26/15 18:00:00 CDT , Duration: 30 day, Stop date: 12/26/15 6:00:00 CDT Notes: TIME CRITICAL MEDICATION(Same As: Vancocin)Infusion rate< 1000 mg: infuse over 1 [id number] - 1500 mg: infuse over 1.5 hoursVancomycin FOR IV SET [id number] - 2000 mg: infuse over 2 hours> 2001 mg: infuse over 2.5 hours MEDICATION WASTE Product Size: 1000 mgProduct Wasted: ___ mg Start Date: 11/26/15 Stop Date: 11/26/15 Status: Canceledvancomycin + sodium chloride 0.9% INJ 250 mL 1,250 mg, Route: IVPB, [id number], Start date: 11/27/15 18:00:00 CDT, Stop date: 11:00:00 CDT Notes: TIME CRITICAL MEDICATION(Same As: Vancocin)Infusion rate< 1000 mg: infuse over 1 [id number] - 1500 mg: infuse over 1.5 hoursVancomycin FOR IV SET [id number] - 2000 mg: infuse over 2 hours> 2001 mg: infuse over 2.5 hours MEDICATION WASTE Product Size: 1000 mgProduct Wasted: ___ mg Start Date: 11/27/15 Stop Date: 11/29/15 Status: DiscontinuedXanax 0.5 mg oral tablet 0.5 mg, 1 tab, Route: PO, Drug form: TAB, BID, Dosing Weight 69.1, kg, PRN Anxiety, Start date: 11/26/15 9:42:00 CDT, Duration: 30 day, Stop date: 9:41:00 CDT Notes: With food or milk(Same as: Xanax) Start Date: 11/26/15 Stop Date: 12/01/15 Status: DiscontinuedXanax 0.5 mg oral tablet 0.5 mg, 1 tab, Route: PO, Drug form: TAB, Bedtime, Dosing Weight 69.1, kg, PRN Anxiety, Start date: 11/26/15 8:18:00 CDT, Duration: 30 day, Stop date: 8:17:00 CDT Notes: With food or milk(Same as: Xanax) Start Date: 11/26/15 Stop Date: 11/26/15 Status: DiscontinuedXanax 0.5 mg oral tablet 0.5 mg, 1 tab, Route: PO, Drug form: TAB, ONCE, Dosing Weight 68.182, kg, Start date: 11/26/15 0:28:00 CDT, Stop date: 11/26/15 0:28:00 CDT Notes: With food or milk(Same as: Xanax) Start Date: 11/26/15 Stop Date: 11/26/15 Status: CompletedXanax 0.5 mg oral tablet 0.5 mg=1 tab, PO, Bedtime, 0 Refill(s) Start Date: 11/26/15 Status: OrderedZosyn 3.375 gm, Route: IVPB, Drug form: PDR/INJ, [id number], Dosing Weight 68.182, kg, CrCl >=20 ml/min infuse over 4 hours, Start date: 11/26/15 4:00:00 CDT, Duration : 30 day, Stop date: 12/25/15 20:00:00 CDT Notes: (Same as: Zosyn)Dosing based on Piperacillin component MEDICATION WASTE Product Size: 3375 mgProduct Wasted: __0_ mg Start Date: 11/26/15 Stop Date: 11/26/15 Status: Discontinued Results BLOOD BANK RESULTS Most recent to oldest [Reference Range]: 1 2 3 ABO/Rh O POS *Unknown* (11/25/15 8:24 PM) Antibody Scrn Negative (11/25/15 8:24 PM) ELECTROLYTES Most recent to oldest 1 2 3 [Reference Range]: Sodium Lvl [135-145 mEq/L] 138 mEq/L 144 mEq/L 142 mEq/L (11/30/15 4:47 AM) (11/28/15 5:27 AM) (11/27/15 4:11 AM) Potassium Lvl [3.5-5.1 mEq/L] 3.8 mEq/L 3.8 mEq/L 3.8 mEq/L (11/30/15 4:47 AM) (11/28/15 5:27 AM) (11/27/15 4:11 AM) Chloride Lvl [95-109 mEq/L] 107 mEq/L 110 mEq/L 110 mEq/L (11/30/15 4:47 AM) *HI* *HI* (11/28/15 5:27 AM) (11/27/15 4:11 AM) CO2 [24-32 mEq/L] 24 mEq/L 25 mEq/L 24 mEq/L (11/30/15 4:47 AM) (11/28/15 5:27 AM) (11/27/15 4:11 AM) AGAP [10.0-20.0 mEq/L] 10.8 mEq/L 12.8 mEq/L 11.8 mEq/L (11/30/15 4:47 AM) (11/28/15 5:27 AM) (11/27/15 4:11 AM) CHEM PANEL Most recent to oldest 1 2 3 [Reference Range]: Creatinine Lvl [0.50-1.40 0.61 mg/dL 0.66 mg/dL 0.62 mg/dL mg/dL] (11/30/15 4:47 AM) (11/28/15 5:27 AM) (11/27/15 4:11 AM) eGFR 95 mL/min/1.73m2 1 93 mL/min/1.73m2 2 94 mL/min/1.73m2 3 *NA* *NA* *NA* (11/30/15 4:47 AM) (11/28/15 5:27 AM) (11/27/15 4:11 AM) BUN [7-22 mg/dL] 10 mg/dL 21 mg/dL 13 mg/dL (11/30/15 4:47 AM) (11/28/15 5:27 AM) (11/27/15 4:11 AM) Glucose Lvl [70-99 mg/dL] 83 mg/dL 115 mg/dL 139 mg/dL (11/30/15 4:47 AM) *HI* *HI* (11/28/15 5:27 AM) (11/27/15 4:11 AM) Calcium Lvl [8.5-10.5 mg/dL] 7.7 mg/dL 8.1 mg/dL 8.6 mg/dL *LOW* *LOW* (11/27/15 4:11 AM) (11/30/15 4:47 AM) (11/28/15 5:27 AM) Phosphorus [2.5-4.5 mg/dL] 3.2 mg/dL (11/27/15 4:11 AM) Magnesium Lvl [1.8-2.4 2.1 mg/dL mg/dL] (11/27/15 4:11 AM) Lactic Acid Lvl [0.5-2.2 1.4 mMol/L 2.5 mMol/L 3.5 mMol/L mMol/L] (11/26/15 12:43 PM) *HI* *HI* (11/26/15 4:28 AM) (11/25/15 8:24 PM) 1Result Comment: The eGFR is calculated using the CKD-EPI formula. In most young , healthy individualsthe eGFR will be >90 mL/min/1.73m2. The eGFR declines with age. An eGFR of 60-89 may be normal in some populations, particularly the elderly, for whom the CKD-EPI formula has not been extensively validated. Use of the eGFR is not recommended in the following populations: Individuals with unstable creatinine concentrations, including patients and those with serious co-morbid conditions. Patients with extremes in muscle mass or diet. The data above are obtained from the National Kid[employer] Disease Education Program ( NK[employer]) which additionally recommends that when the eGFR is used in patients with extremes of body mass index for purposesof drug dosing, the eGFR should be multiplied by the estimated BMI.2Result Comment: The eGFR is calculated using the CKD-EPI formula. In most young, healthy individualsthe eGFR will be >90 mL/ min/1.73m2. The eGFR declines with age. An eGFR of 60-89 may be normal in some populations, particularly the elderly, for whom the CKD-EPI formula has not been extensively validated. Use of the eGFR is not recommended in the following populations: Individuals with unstable creatinine concentrations, including patients and those with serious co-morbid conditions. Patients with extremes in muscle mass or diet. The data above are obtained from the National Kid[employer] Disease Education Program ( NKDEP) which additionally recommends that when the eGFR is used in patients with extremes of body mass index for purposesof drug dosing, the eGFR should be multiplied by the estimated BMI.3Result Comment: The eGFR is calculated using the CKD-EPI formula. In most young, healthy individualsthe eGFR will be >90 mL/ min/1.73m2. The eGFR declines with age. An eGFR of 60-89 may be normal in some populations, particularly the elderly, for whom the CKD-EPI formula has not been extensively validated. Use of the eGFR is not recommended in the following populations: Individuals with unstable creatinine concentrations, including patients and those with serious co-morbid conditions. Patients with extremes in muscle mass or diet. The data above are obtained from the National Kidney Disease Education Program ( NKDEP) which additionally recommends that when the eGFR is used in patients with extremes of body mass index for purposesof drug dosing, the eGFR should be multiplied by the estimated BMI.TOXICOLOGY Most recent to oldest 1 2 3 [Reference Range]: Vanco Tr TND 1130 1100 2300 *NA* *NA* *NA* (12/01/15 12:12 PM) (11/29/15 10:22 AM) (11/28/15 12:04 PM) Vanco Lvl 3.8 ug/ml *NA* (11/26/15 4:28 AM) Vanco Tr 15.3 ug/ml 23.9 ug/ml 10.4 ug/ml 1 *NA* *NA* *NA* (12/01/15 12:12 PM) (11/29/15 10:22 AM) (11/28/15 12:04 PM) 1Result Comment: Specimen Moderately Hemolyzed.IMMUNOLOGY Most recent to oldest [Reference Range]: 1 2 3 HIV 1/2 Ab [Negative] Negative *NA* (11/27/15 2:22 PM) HEMATOLOGY Most recent to oldest 1 2 3 [Reference Range]: WBC [3.7-10.4 K/CMM] 11.0 K/CMM 11.3 K/CMM 16.9 K/CMM *HI* *HI* *HI* (11/30/15 4:47 AM) (11/29/15 5:44 AM) (11/28/15 5:27 AM) RBC [4.20-5.40 M/CMM] 4.56 M/CMM 4.61 M/CMM 4.33 M/CMM (11/30/15 4:47 AM) (11/29/15 5:44 AM) (11/28/15 5:27 AM) Hgb [12.0-16.0 g/dL] 15.2 g/dL 15.5 g/dL 14.3 g/dL (11/30/15 4:47 AM) (11/29/15 5:44 AM) (11/28/15 5:27 AM) Hct [36.0-48.0 %] 44.7 % 45.8 % 42.9 % (11/30/15 4:47 AM) (11/29/15 5:44 AM) (11/28/15 5:27 AM) MCV [80.0-98.0 fL] 98.0 fL 99.4 fL 99.2 fL (11/30/15 4:47 AM) *HI* *HI* (11/29/15 5:44 AM) (11/28/15 5:27 AM) MCH [27.0-31.0 pg] 33.4 pg 33.7 pg 33.0 pg *HI* *HI* *HI* (11/30/15 4:47 AM) (11/29/15 5:44 AM) (11/28/15 5:27 AM) MCHC [32.0-36.0 g/dL] 34.0 g/dL 33.9 g/dL 33.2 g/dL (11/30/15 4:47 AM) (11/29/15 5:44 AM) (11/28/15 5:27 AM) RDW [11.5-14.5 %] 13.8 % 14.1 % 13.5 % (11/30/15 4:47 AM) (11/29/15 5:44 AM) (11/28/15 5:27 AM) Platelet [133-450 K/CMM] 260 K/CMM 247 K/CMM 242 K/CMM (11/30/15 4:47 AM) (11/29/15 5:44 AM) (11/28/15 5:27 AM) MPV [7.4-10.4 fL] 9.4 fL 10.0 fL 9.9 fL (11/30/15 4:47 AM) (11/29/15 5:44 AM) (11/28/15 5:27 AM) Segs [45.0-75.0 %] 57.0 % 68.4 % 80.7 % (11/30/15 4:47 AM) (11/29/15 5:44 AM) *HI* (11/28/15 5:27 AM) Lymphocytes [20.0-40.0 %] 23.2 % 18.5 % 8.9 % (11/30/15 4:47 AM) *LOW* *LOW* (11/29/15 5:44 AM) (11/28/15 5:27 AM) Monocytes [2.0-12.0 %] 17.4 % 12.7 % 10.0 % *HI* *HI* (11/28/15 5:27 AM) (11/30/15 4:47 AM) (11/29/15 5:44 AM) Eosinophils [0.0-4.0 %] 1.7 % 0.1 % 0.9 % (11/30/15 4:47 AM) (11/29/15 5:44 AM) (11/26/15 4:28 AM) Basophils [0.0-1.0 %] 0.7 % 0.3 % 0.4 % (11/30/15 4:47 AM) (11/29/15 5:44 AM) (11/28/15 5:27 AM) Segs-Bands # [1.5-8.1 K/CMM] 6.2 K/CMM 7.7 K/CMM 13.7 K/CMM (11/30/15 4:47 AM) (11/29/15 5:44 AM) *HI* (11/28/15 5:27 AM) Lymphocytes # [1.0-5.5 K/CMM] 2.5 K/CMM 2.1 K/CMM 1.5 K/CMM (11/30/15 4:47 AM) (11/29/15 5:44 AM) (11/28/15 5:27 AM) Monocytes # [0.0-0.8 K/CMM] 1.9 K/CMM 1.4 K/CMM 1.7 K/CMM *HI* *HI* *HI* (11/30/15 4:47 AM) (11/29/15 5:44 AM) (11/28/15 5:27 AM) Eosinophils # [0.0-0.5 K/CMM] 0.2 K/CMM 0.1 K/CMM (11/30/15 4:47 AM) (11/26/15 4:28 AM) Basophils # [0.0-0.2 K/CMM] 0.1 K/CMM 0.1 K/CMM 0.1 K/CMM (11/30/15 4:47 AM) (11/28/15 5:27 AM) (11/26/15 4:28 AM) PT [12.0-14.7 seconds] 14.9 seconds *HI* (11/25/15 8:24 PM) INR [0.85-1.17] 1.14 (11/25/15 8:24 PM) PTT [22.9-35.8 seconds] 27.7 seconds (11/25/15 8:24 PM) Immunizations No data available for this section Procedures No data available for this section Social History Social History Type Response Smoking Status Current every day smoker; Type: Cigarettes; Exposure to Tobacco Smoke None; Cigarette Smoking Last 365 Days Yes; Reg Smoking Cessation Counseling Yes Assessment and Plan Extracted from: Title: Team C Discharge Summary Author: Shakira Oliva MD Date: 12/01/15 Patient: ROCIO CALDERÓN Age: 65 years Sex: Female : 1950 Associated Diagnoses: None Author: Shakira Oliva MD Results Review General results Labs (Last four charted values) WBC H 11.0 (NOV 29) H 11.3 (SEP 09) H 16.9 (NOV 08) 7.4 (NOV 07) Hgb 15.2 (NOV 10) 15.5 (NOV 09) 14.3 (NOV 08) 15.4 (NOV 26) Hct 44.7 (NOV 10) 45.8 (NOV 09) 42.9 (NOV 08) 45.1 (NOV 07) Plt 260 (SEP 10) 247 (NOV 09) 242 (NOV 08) 195 (NOV 07) Na 138 (NOV 10) 144 (NOV 08) 142 (NOV 07) 137 (NOV 06) K 3.8 (NOV 10) 3.8 (NOV 08) 3.8 (NOV 07) 4.8 (NOV 06) CO2 24 (NOV 29) 25 (NOV 08) 24 (NOV 26) 24 (NOV 25) Cl 107 (NOV 10) H 110 (NOV 08) H 110 (NOV 07) 106 (NOV 06) Cr 0.61 (NOV 10) 0.66 (NOV 08) 0.62 (NOV 26) 0.79 (NOV 25) BUN 10 (NOV 29) 21 (NOV 27) 13 (NOV 26) 10 (NOV 06) Glucose Random 83 (NOV 10) H 115 (NOV 08) H 139 (NOV 07) H 108 (NOV 06) Mg 2.1 (NOV 26) Phos 3.2 (NOV 26) Ca L 7.7 (NOV 29) L 8.1 (NOV 27) 8.6 (NOV 26) L 8.4 (NOV 06) PT H 14.9 (NOV 24) INR 1.14 (NOV 24) PTT 27.7 (NOV 24) Discharge Information Admit Date: 11/25/2015 Discharge Date: 12/01/2015 Admit Diagnosis: Miller's Angina Discharge Diagnosis: Submandibulitis, Parotitis, Oral Thrush, Dysphagia Discharge Attending: Dr. Pepito Valentine Procedures: Laryngoscopy x 2 Consulted Teams: ENT, ID Discharge Diet: Adult Regular, as tolerated Discharge Activity: As Tolerated Discharge Medications: Resume home medications. Fluconazole 400 mg daily, Augmentin 875 mg BID, both for 10 more days. Please see discharge medication reconciliation for full list. Hospital Course: Ms. Calderón is a 65 yo woman with PMH of autoimmune cirrhosis, hypothyroidism, anxiety, and colon polyps who presented from OSH with complaints of throat pain , here for left parotitis and submandibulitis. She was transfered from OSH after concern for Miller's Angina as the patient was found to have significant laryngeal edema and oral thrush with inspiratory stridor. Patient reported a feels like a sinu s headache that began on 11/17 for which she called her PCP, who prescribed a z- pack. Patient failed to improve after a few days and went to the [facility] ED where she was "hydrated" with IVF and sent h ome. On the AM prior to arrival she reported sweats and a loss of appetite and sleep for 4 days. She reported sore throat but no difficulty with swallowing. Her pain was reduced to 2/10 but had been 10/ 10 previously. She reported thrush of 2-3 days duration with generalized facial pain. She reported generalized anxiety, cough and a feeling as though her nose is "stuffy". On arrival, ENT evaluated the patient in the ED via laryngoscopy and concluded she had significant oral thrush with concern for malignancy due to left vocal cord immobliziation. They noted that primaril y the left side was edematous, erythematous and coated in thrush. At this time they recommended nystatin swish and swallow with further evaluation after resolution of the thrush. A second laryngoscopy w as performed as her thursh improved and laryngoscopy was concerning for a pseudomembranous plaque that bled when scraped, which concerned ENT for diphtheria. At that time, ENT also performed tissue biop sy and requested the patient follow up outpatient with them 1 week post- biopsy. ID was consulted and at that time unconcerned for diphtheria, the culture of which was ultimately negative. She was starte d on a broad regimen of fluconazole, vancomycin, Unasyn and continued on nystatin swish and swallow. 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 Cultures from the tissue biopsy returned concerning for Staph nonaureus and alpha Streptococci and ID felt that this would be well-managed on a PO regimen of fluconazole and augmentin, as seen above. At the time of discharge, full biopsy results were not yet back and the patient was advised again to follow up with ENT. During her admission she also struggled with PO intake and was evaluated repeatedly by speech pathology. She was advanced slowly to the dysphagia diet, at which time the team and the patient agreed to t ry a regular adult diet as these foods were more appealing than the ones available on the dysphagia and liquid diets. The patient was able to tolerate solid PO intake prior to discharge. Physical Examination VS/Measurements Vital Signs (last 24 hrs) Last Charted Temp Oral 98.2 DegF (NOV 30:33) Heart Rate Peripheral 76 bpm (NOV 30:) Resp Rate 18 BRMIN (NOV 30:) SBP 133 mmHg (NOV 30:) DBP 78 mmHg (NOV 30:) SpO2 94 % (NOV 30 11:41) Gen: sitting in bed, alert and oriented x3 HEENT: normocephalic, atraumatic, no conjunctival injection noted, moist mucosal membranes, erythema and swelling of the left tonsil, hoarseness Neck: soft, no LAD CV: regular rate, regular rhythm, no murmur/gallop/rub Pulm: CTAB, no wheezing/rales/rhonchi, intermittent inspiratory upper airway sounds Abd: soft, nontender, nondistended, normal bowel sounds throughout Ext: no LE edema Neuro: AAOX3, communicates appropriately, CN II-XII grossly intact Integument: small red macules with vesicles about 3mm in diameter on the abdomen Psych: generally cooperative though anxious, conversational Addendum by Pepito Srinivasan MD on TEACHING ATTENDING ATTESTATION STATEMENT: I have examined this patient and obtained the history and performed a physical examination. I have evaluated the objective data and determined the assessment a 12/01/2015 17:57 nd plan. I have seen this patient with Dr. Oliva, medicine resident and discussed in detail. I agree with her summary of the hospital course and discharge plan outlined in the progress note and discharge note. Pepito Valentine MD Medicine Teaching Service Attending Extracted from: Title: ID Progress Note Author: Karley Edward DO Date: 12/01/15 Patient: ROCIO CALDERÓN Age: 65 years Sex: Female : 1950 Associated Diagnoses: None Author: Karley Edward DO Subjective Ms. Calderón states she is doing fairly well this AM and reports no acute events overnight. She denies any fever, chills, chest pain, SOB, nausea, vomiting. She notes some mild dysphagia and odynophagia but much improved. Health Status Allergies: No allergies have been recorded. Objective Meds Scheduled Meds (6):ampicillin-sulbactam (Unasyn), fluconazole, heparin, levothyroxine, ursodiol, vancomycin Unscheduled Meds (2):scopolamine (scopolamine 1.5 mg transdermal film), sugammadex PRN Meds (6):ALPRAZOLam (Xanax 0.5 mg oral tablet), albuterol-ipratropium ( DuoNeb inhalation solution), docusate, morphine Sulfate, naproxen, ondansetron One Time Meds: None Continuous Infusions (1):sodium chloride 0.9% 1000 ml INJ 1,000 mL I&O Input/Output Record In Out Bal 11/30 24hr Tot 0 0 0 11/29 24hr Tot 200 0 200 VS/Measurements Vital Signs (last 24 hrs) Last Charted Temp Oral 98.2 DegF (NOV 30:) Heart Rate Peripheral 76 bpm (NOV 30:) Resp Rate 18 BRMIN (NOV 30:) SBP 133 mmHg (NOV 30:) DBP 78 mmHg (NOV 30:) SpO2 94 % (NOV 30:41) General: No acute distress, awake, alert Eye: Extraocular movements are intact, Normal conjunctiva. HENT: Oral mucosa is moist, no exudates visualzied. Fullness in left submandibular area slightly tender to palpation. Respiratory: Lungs are clear to auscultation, no increased respiratory effort. Cardiovascular: Normal rate, Regular rhythm, No murmurs, rubs or gallops appreciated. Gastrointestinal: Soft, Non-tender, Non-distended, Normal bowel sounds, Vertical surgical scar on abdomen. Musculoskeletal: moving all extremities appropriately, no swelling of extremities noted Neurologic: oriented to person, place, and time. CN II-XII grossly intact. following commands. Psychiatric: Cooperative, Appropriate mood & affect. Review / Management Results review: Labs (Last four charted values) WBC H 11.0 (NOV 10) H 11.3 (NOV 09) H 16.9 (NOV 08) 7.4 (NOV 07) Hgb 15.2 (NOV 10) 15.5 (NOV 09) 14.3 (NOV 08) 15.4 (NOV 07) Hct 44.7 (NOV 10) 45.8 (NOV 09) 42.9 (NOV 08) 45.1 (NOV 07) Plt 260 (SEP 10) 247 (SEP 09) 242 (SEP 08) 195 (NOV 07) Na 138 (SEP 10) 144 (SEP 08) 142 (NOV 07) 137 (NOV 06) K 3.8 (NOV 10) 3.8 (NOV 08) 3.8 (NOV 07) 4.8 (NOV 06) CO2 24 (NOV 10) 25 (NOV 08) 24 (NOV 07) 24 (NOV 06) Cl 107 (NOV 10) H 110 (NOV 08) H 110 (NOV 26) 106 (NOV 25) Cr 0.61 (NOV 10) 0.66 (NOV 08) 0.62 (NOV 26) 0.79 (NOV 06) BUN 10 (NOV 10) 21 (NOV 08) 13 (NOV 07) 10 (NOV 06) Glucose Random 83 (NOV 10) H 115 (NOV 08) H 139 (NOV 26) H 108 (NOV 06) Mg 2.1 (NOV 26) Phos 3.2 (NOV 26) Ca L 7.7 (NOV 29) L 8.1 (NOV 08) 8.6 (NOV 26) L 8.4 (NOV 25) PT H 14.9 (NOV 24) INR 1.14 (NOV 24) PTT 27.7 (NOV 24) . Antibiotics Unasyn 11/26-current Fluconazole 11/26-current Vancomycin 11/24-current Ciprofloxacin- received 11/25 and 11/27 Microbiology Labs Culture Respiratory of Sputum: Staph species not aureus, alpha strep not enterococcus 11/27/15 Fungal culture with stain: positive, showing rare yeast 11/27/15 AFB culture: pending 11/25/15 Blood cultures x 2: negative HIV 1/2 ab:negative Impression and Plan 65 yo woman with PMH of autoimmune cirrhosis, hypothyroidism, anxiety and colon polyps who was admitted on 11/25/15 from OSH because of worsening left jaw swelling and sore throat symptoms and concern for Bertin angina. ID was consulted because of concern for possible Diptheria and evaluation of infectious process. -Tonsillar phlegmon with possible underlying malignancy -MRI demonstrated confirmed infectious process in left submandibular region. Underlying malignancy still a possiblity, ENT biopsy of lesion path is pending. -Cultures and imaging review, recommend discontinuing unasyn and vancomycin. Patient can be discharged on Augmentin 875mg po BID and Fluconazole 400mg po daily for 10 more days. She will need f/u with ENT within this next week. The patient was seen and examined with Dr. Menendez who is in agreement with the above assessment and plan. ID will sign off, please call with any questions. Addendum by Eric Menendez MD on I have seen and evaluated this patient on 02/[address] Karley Edward, with whose note and plan I concur. 12/01/2015 17:01 Culture did not reveal Staphyloccocus aureus. So unlikely she needs MRSA coverage. will dc vancomycin. We will switch to oral fluconazole and augmentin. Since she still has redness and pain in her neck area, we will continue total of 14 days therapy. NO obvious abscess on CT scan/MRI. She needs follow up with ENT for pathology results, and resolution of symptoms. Eric Menendez Infectious diseases attending #[id number] Extracted from: Title: Clinical Document Author: Nguyen Cowart MD Date: Dermatology Consult Note: Patient Room: [place] [address], 3C ROCIO CALDERÓN 65y (: 1950) F Attending: Andrea Munoz MD Service: Nephrology DATE OF CONSULT: 11/28/15 REFERRING PHYSICIAN: see above CONSULTING PHYSICIAN: Dr. Nguyen Cowart PGY [address] Joanne Martinez REASON FOR CONSULTATION: rash on body CHIEF COMPLAINT: spots on my body HISTORY OF PRESENT ILLNESS: Ms. Calderón is a 65 yo woman with PMH of autoimmune cirrhosis, hypothyroidism, anxiety and colon polyps who presented from an outside hospital with complaints of throat pain concerning at OSH of Bertin's angina. Patient reports sinus headache that began on Wednesday (11/17) for which she called her PCP, who prescribed a z-pack. Patient failed to improve after a few days and went to an outside ED and was given IVF and sent home. On the AM prior to arrival she reported sweats, loss of appetite generalized facial pain. She then presented to OSH ED where CT was performed prompting transfer to [facility]. In the ED, patient was tachycardic to the 110s and hypoxic requiring 4L oxygen. She has been placed on IV antimicrobials and is improving. We are consulted for an eruption on the trunk that the patient reports she first noticed two days ago. They appeared as completely asx ( no itching or pain ) red spots on the chest, abdomen, and back. Molly holder has never had anything like this before. She did not have this rash prior to entering the hospital. They have not used any treatment for these lesions. PMH Cirrhosis Colon polyps Hypothyroidism Anxiety PSH No qualifying data available Social Hx Tobacco Details: Use: Current every day smoker. Type: Cigarettes. Tobacco smoke exposure: None. Did the Patient Smoke Cigarettes Anytime During the Last 365 Days? Yes. Cessation Counseling Provided? Yes. 0.5 PPD for last 50 y denies current alcohol/drug use lives alone in [facility] with 2 dogs. 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 Allergies (0) Active Reaction Medications (15) Active Scheduled Meds (7): 11/27/15 ampicillin-sulbactam (Unasyn) 3 gm IVPB [id number] 11/27/15 fluconazole 400 mg IV [id number] 100 ml/hr 11/26/15 heparin 5,000 unit SUB-Q Q8H 11/26/15 levothyroxine 100 microgram PO Q630AM 11/26/15 nystatin (nystatin 100,000 units/mL oral suspension) 500,000 unit S& SWALLOW TID 11/26/15 ursodiol 900 mg PO Daily 11/27/15 vancomycin + sodium chloride 0.9% INJ 250 mL 1,250 mg IVPB [id number] 166.67 ml/hr Unscheduled Meds (2): 11/27/15 scopolamine (scopolamine 1.5 mg transdermal film) 1 patch TOP PRE OP 11/27/15 sugammadex 200 mg IV ONCALL PRN Meds (5): 11/26/15 ALPRAZOLam (Xanax 0.5 mg oral tablet) 0.5 mg PO BID 11/26/15 albuterol-ipratropium (DuoNeb inhalation solution) 3 ml NEB PRN 11/26/15 docusate 100 mg PO BID 11/26/15 morphine Sulfate 2 mg IVP Q4H 11/26/15 ondansetron 4 mg IVP Q6H One Time Meds: None Continuous Infusions (1): 11/26/15 sodium chloride 0.9% 1000 ml INJ 1,000 mL 1,000 mL 100 ml/hr REVIEW OF SYSTEMS: pertinent positives and negatives as per HPI. Otherwise 12 point ROS is negative. PHYSICAL EXAMINATION: Vital Signs - Reviewed Vitals Tmp(F) Pulse BP RR SpO2 FIO2 11/27 13:34 97.9 79 117/73 16 --- 3.0L/m 11/27 08:38 98.1 88 135/74 16 98 3.0L/m 11/27 03:34 97.4 84 114/60 16 93 3.0L/m 11/27 00:17 98.3 87 122/71 16 93 3.0L/m 11/26 22:11 ---- --- ----- -- 93 3.0L/m 24 Hr Tmax: 98.3F (36.83c) at 11/27 00:17 Vital Signs are the last 5 in the past 48 hours. Date Wt(kg) Wt(lb) Ht(cm) Ht(in) Method 11/27 69.10 152.02 172.72 68.00 Measured 11/26 69.10 152.02 172.72 68.00 ----- 11/25 69.10 152.02 172.72 68.00 Measured 11/24 (initial) 68.18 150.00 172.72 68.00 Estimated General- no acute distress; alert and oriented x 3 Skin: Across the chest, abdomen and back there are scattered erythematous pustules and papules. Remainder of skin exam within normal limits. DATA: 24hr Labs 11/[address] 10.4 11/27 0527 Glucose Lvl 115 H BUN 21 Creatinine Lvl 0.66 Sodium Lvl 144 Potassium Lvl 3.8 Chloride Lvl 110 H CO2 25 AGAP 12.8 Calcium Lvl 8.1 L eGFR 93 WBC 16.9 H RBC 4.33 Hgb 14.3 Hct 42.9 MCV 99.2 H MCH 33.0 H MCHC 33.2 RDW 13.5 Platelet 242 MPV 9.9 Segs 80.7 H Monocytes 10.0 Lymphocytes 8.9 L Basophils 0.4 Segs-Bands # 13.7 H Lymphocytes # 1.5 Monocytes # 1.7 H Basophils # 0.1 11/26 1422 HIV 1/2 Ab Negative ASSESSMENT AND PLAN: Acute Bacterial Folliculitis of the trunk: - Exam most consistent with an acute bacterial folliculitis of the trunk given pustules on exam and its asymptomatic nature. - We do not believe that this is related to her underlying throat infection and is common in hospitalized patients as they are in conditions with increased bed time, heat, occlusion, sweating, etc. - This should clear completely on its own once she is discharged. - If treatment is desired we would recommend Clindamycin 1 % topical lotion to be applied to affected areas once daily. - If clinic picture is to jean-pierre francisco please contact us and we would be happy to re evaluate. Thank you for the consult. Nguyen Cowart PGY- 3 Dermatology ATTENDING STATEMENT: I have seen and examined the patient with the resident. I have reviewed the history, physical exam, and assessment and plan, and I agree with there above. The patient s presentation is most consisten t with folliculitis. Will treat as above. The patient can follow-up as an outpatient if needed. Continue treatment with systemic antibiotics for ENT issues. Joanne Martinez MD Extracted from: Title: Clinical Document Author: Shakira Oliva MD Date: 11/26/15 Team C History and Physical [facility] Completed: Nov, 03: 59 by Shakira Oliva MD RM: [id number], 3CP ROCIO CALDERÓN 65y (: 1950) F Attending: Andrea Munoz MD Service: Nephrology Reason for Admission: SIALADENITIS Working DRG: None Documented Code status: Full Code [Ordered] Current diet: liquid Isolation: None Documented Allergies: None Documented CC "my throat hurts" HPI Ms. Calderón is a 65 yo woman with PMH of autoimmune cirrhosis, hypothyroidism, anxiety and colon polyps who presents from OSH with complaints of throat pain concerning at OSH of Bertin's angina. Patient r eports a feels like a sinus headache that began on Wednesday (11/17) for which she called her PCP, who prescribed a z-pack. Patient failed to improve after a few days and went to [facility] ED where she was "hydrated" with IVF and sent home. On the AM prior to arrival she reported sweats and a loss of appetite and sleep for 4 days. She reported sore throat but no difficulty with swallowing. Her pain wa s reduced to 2/10 but had been 10/10 previously. She reports thrush of 2-3 days duration with generalized facial pain. She reports generalized anxiety, cough and a feeling as though her nose is "stuffy" . She reports she presented to [facility] ED where CT was performed prompting transfer to [facility]. In the ED, patient was tachycardic to the 110s and hypoxic requiring 4L oxygen. OMFS was consulted and recommended ENT consult for further evalutation. ENT performed flexible laryngoscopy and was concer new for malignancy given a true left vocal cord immpbility and significant thrust and edema throughout the left tonsil, hypophayrnx and larynx. Patient was admitted for further treatment and evaluation. There was no further concern for Bertin's angina. Upon exam the patient was very nervous and requested xanax. ROS: Gen: +fatigue, -weakness HEENT: +thrush, -vision changes, -rhinorrhea Resp: +cough, -dyspnea Cardio: -palpitation, -chest pain MSK: +facial pain and swelling; elsewhere:-swelling, -pain GI: -N/V, -abdominal pain : -dysuria, -urinary frequency Skin: -rash, -itch Lymph: -lymphadenopathy End: -thirst, -heat/cold intolerance Psych: -mood changes PMH Cirrhosis Colon polyps Hypothyroidism Anxiety PSH No qualifying data available Social Hx Tobacco Details: Use: Current every day smoker. Type: Cigarettes. Tobacco smoke exposure: None. Did the Patient Smoke Cigarettes Anytime During the Last 365 Days? Yes. Cessation Counseling Provided? Yes. 0.5 PPD for last 50 y denies current alcohol/drug use lives alone in [facility] with 2 dogs. 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 Hx No qualifying data available states family problem include "old age" Medication List ursodiol 900 mg daily xanax 0.5 mg PO qBedtime levothyroxine 100 mg qd OBJECTIVE Gen: sitting in bed, alert and oriented x3, very shaky and tremulous, repeatedly requests dilaudid for anxiety HEENT: normocephalic, atraumatic, no conjunctival injection noted, moist mucosal membranes, significant thrush throughout tongue and palatal surfaces with evidence of erythema in the posterior oropharyn x; tender to palpation in the region of the left submandibular and parotid glands Neck: soft, no LAD CV: tachycardic, regular rhythm, no murmur/gallop/rub Pulm: CTAB, no wheezing/rales/rhonchi, no audible stridor Abd: soft, nontender, nondistended, normal bowel sounds throughout Ext: no LE edema Neuro: AAOX3, communicates appropriately, CN II-XII grossly intact Psych: generally cooperative though anxious, conversational 24hr Labs 11/25 2023 Glucose Lvl 162 H BUN 13 Creatinine Lvl 1.12 Sodium Lvl 139 Potassium Lvl 3.4 L Chloride Lvl 104 CO2 24 AGAP 14.4 Calcium Lvl 8.0 L eGFR 51 Lactic Acid Lvl 3.5 H WBC 7.9 RBC 4.80 Hgb 16.3 H Hct 48.0 MCV 99.9 H MCH 33.9 H MCHC 34.0 RDW 13.2 Platelet 179 MPV 10.0 Segs 61.4 Monocytes 18.6 H Lymphocytes 19.1 L Eosinophils 0.3 Basophils 0.6 Segs-Bands # 4.8 Lymphocytes # 1.5 Monocytes # 1.5 H PTT 27.7 PT 14.9 H INR 1.14 [place] still necessary (Yes/No): Line still necessary (Yes/No): Vitals Tmp(F) Pulse BP RR SpO2 FIO2 11/25 03:34 99.6 98 148/84 18 94 2.0L/m 11/25 01:38 99.6 91 149/89 18 94 2.0L/m 11/24 23:47 98.2 107 150/83 18 96 2.0L/m 11/24 22:50 ---- 93 161/77 18 97 2.0L/m 11/24 21:51 ---- 103 121/72 17 91 --- 24 Hr Tmax: 99.6F (37.56c) at 11/25 03:34 Vital Signs are the last 5 in the past 48 hours. Date Wt(kg) Wt(lb) Ht(cm) Ht(in) Method 11/25 69.10 152.02 172.72 68.00 Measured 11/24 (initial) 68.18 150.00 172.72 68.00 Estimated I&O Record In Out Bal 11/24 24hr Tot 1000 0 1000 11/23 24hr Tot 0 0 0 Medications (14) Active Scheduled Meds (5): 11/26/15 dexamethasone 8 mg IVP Q8H 11/26/15 levothyroxine 100 microgram PO Q630AM 11/26/15 nystatin (nystatin 100,000 units/mL oral suspension) 500,000 unit S& SWALLOW TID 11/26/15 piperacillin-tazobactam (Zosyn) 3.375 gm IVPB [id number] 11/26/15 ursodiol 900 mg PO Daily Unscheduled Meds: None PRN Meds (5): 11/26/15 albuterol-ipratropium (DuoNeb inhalation solution) 3 ml NEB PRN 11/26/15 docusate 100 mg PO BID 11/26/15 hydrOXYzine 25 mg PO QID 11/26/15 morphine Sulfate 2 mg IVP Q4H 11/26/15 ondansetron 4 mg IVP Q6H One Time Meds (3): 11/26/15 (Completed) ALPRAZOLam (Xanax 0.5 mg oral tablet) 0.5 mg PO ONCE 11/25/15 (Completed) Sodium Chloride 0.9% IV (Sodium Chloride 0.9% (Bolus) IV ) 1,000 mL IV ONCE 2,000 ml/hr 11/26/15 (Ordered) vancomycin 1,500 mg IVPB ONCE 166.67 ml/hr Continuous Infusions (1): 11/26/15 sodium chloride 0.9% 1000 ml INJ 1,000 mL 1,000 mL 100 ml/hr ASSESSMENT & PLAN Ms. Calderón is a 65 yo woman with PMH of autoimmune cirrhosis, hypothyroidism, anxiety and colon polyps who presents from OSH with complaints of throat pain concerning at OSH of Bertin's angina now though t to be concerning for malignancy with left parotitis and submandibulitis. #Left Parotitis and Submandibulitis -started on vancomycin and zosyn as ENT recommends both gram positive and negative coverage -ENT following, recommend aggressive hydration, pain control, sialogogues -flexible laryngyscopy in ED showed white plaque and edema extending from left tonsil to left hypopharynx and larynx with immobility or hypomobility of left TVF and laryngeal edema, airway patent and intubatable -pain control with 2mg morphine q4h PRN #Laryngeal Edema with Hypoxia -currently on 4L NC -patient intubatable per laryngoscopy -will monitor closely for clinical signs of respiratory distress as per ENT -ENT recommends 8 mg dexamethasone q8h #Diffuse Thrush, primarily left-sided -primarily left-sided thrush into the larynx -continue Nystatin swish and swallow as per ENT rec -this will need to be further resolved prior to repeat endoscopy to evaluate the possible mass #Hypothyroidism -will continue home dose of levothyroxine -pending TSH with reflex T4 #AI Cirrhosis -complicates pain management as patient is hesitant to take NSAIDs -continue to monitor -continue home ursodiol #Anxiety -PRN hydroxyzine Diet: Liquid Code: Full DVT PPx: heparin 5000 q8h Dispo: pending repeat endoscopy evaluation and possible malignancy evaluation Shakira Oliva MD PGY-1 [facility] Internal Medicine MSO#[id number] ATTENDING NOTE I saw and examined this complex patient with multiple medical problems on 2015, reviewed the laboratory and radiographic data, and agree with this note. Andrea Munoz MD, FACP, FASN, FCCM
--- OUTSIDE RECORDS SUMMARY | 2018-02-28 15:39 | XMS REPORT | Summary of Care ---
:1950 Author Organization [facility] Encounter HQ Isra_april(RONDA) [id number] Date(s): 03/26/16 - 04/24/16 [facility] Discharge Disposition: Home or Self Care [...]
--- OUTSIDE RECORDS SUMMARY | 2018-02-28 15:39 | XMS REPORT | Summary of Care ---
:1950 Author Organization [facility] Address [address], [place] [address]- Encounter HQ Isra_april(FIN) [phone] Date(s): 12/06/15 - 12/19/15 [facility] [address] [place] [address] Professional Services provided by [facility] [place] [address]- Discharge Disposition: Home or Self Care Attending Physician: Myla Nguyễn MD Admitting Physician: Myla Nguyễn MD Vital Signs Most recent to oldest 1 2 3 [Reference Range]: Height 172.72 cm 172.72 cm (12/06/15 9:45 PM) (12/06/15 2:01 PM) Temperature Oral [96.4-99.1 98 DegF 98.2 DegF 97.9 DegF DegF] (12/19/15 12:21 PM) (12/19/15 7:35 AM) (12/19/15 3:55 AM) Blood Pressure [90-140/60-90 129/72 mmHg 138/75 mmHg 106/78 mmHg mmHg] (12/19/15 12:21 PM) (12/19/15 7:35 AM) (12/19/15 3:55 AM) Respiratory Rate [14-20 BRMIN] 18 BRMIN 18 BRMIN 18 BRMIN (12/19/15 12:21 PM) (12/19/15 7:35 AM) (12/19/15 3:55 AM) Peripheral Pulse Rate [60-100 69 bpm 60 bpm 63 bpm bpm] (12/19/15 12:21 PM) (12/19/15 7:35 AM) (12/19/15 3:55 AM) Weight 68.182 kg 68.182 kg (12/06/15 9:45 PM) (12/06/15 2:01 PM) Body Mass Index 22.86 m2 22.86 m2 (12/06/15 9:45 PM) (12/06/15 2:01 PM) Problem List Condition Effective Dates Status Health Status Informant Hep C w/o coma, chronic(Confirmed) Resolved Liver cirrhosis(Confirmed) Active Cirrhosis(Confirmed) Resolved Colon polyps(Confirmed) Resolved Allergies, Adverse Reactions, Alerts Substance Reaction Severity Status NKDA Active Medications acetylcysteine 10% inhalation solution 2 ml, Route: NEB, Drug Form: SOLN, Dosing Weight 68.182, kg, RBID, NOW, Start date: 12/10/15 11:49:00 CDT, Duration: 2 day, Stop date: 12/12/15 8:00:00 CDT Start Date: 12/10/15 Stop Date: 12/10/15 Status: Discontinuedacetylcysteine 10% inhalation solution 200 mg, 2 ml, Route: NEB, Drug Form: SOLN, Dosing Weight 68.182, kg, RBID, Start date: 12/10/15 13:28:00 CDT, Duration: 2 day, Stop date: 12/12/15 8:00:00 CDT Notes: WASTE: F/P - Black; E - Municipal Trash Bin Start Date: 12/10/15 Stop Date: 12/12/15 Status: Completedacyclovir + sodium chloride 0.9% INJ 100 mL 640 mg, Route: IVPB, [id number], Dosing Weight 68.182, kg, Start date: 12/11/15 18: 00:00 CDT, Stop date:01/10/16 10:00:00 CDT, CrCl > 50 mL / min Notes: (Same as: Zovirax) MEDICATION WASTE Product Size: 500 mgProduct Wasted: ___ mg Start Date: 12/11/15 Stop Date: 12/17/15 Status: Discontinuedalbuterol 0.083% inhalation solution 2.49 mg, 3 mL, Route: NEB, Drug form: SOLN, RBID, Start date: 12/10/15 13:29:00 CDT, Duration: 2 day, Stop date: 12/12/15 8:00:00 CDT Notes: SEE RT DOCUMENTATION (Same as: Redd) Start Date: 12/10/15 Stop Date: 12/12/15 Status: CompletedANES flumazenil 0.2 mg, Route: IVP, PRN, Dosing Weight 68.182, kg, PRN Benzodiazepine Reversal, Initial dose, Start date: 12/17/15 10:54:00 CDT, Duration: 30 day, Stop date: 10:53:00 CDT Start Date: 12/17/15 Stop Date: 12/17/15 Status: DiscontinuedANES hydrALAZINE 10 mg, Route: IVP, Q20Min, Dosing Weight 68.182, kg, PRN Elevated BP, Start date : 12/17/15 10:54:00 CDT, Duration: 2 doses or times, Stop date: Limited # of times Start Date: 12/17/15 Stop Date: 12/17/15 Status: DiscontinuedANES HYDROmorphone 0.5 mg, Route: IVP, Q5Min, Dosing Weight 68.182, kg, PRN Pain Score 7-10, Start date: 12/17/15 10:54:00 CDT, Duration: 4 doses or times, Stop date: Limited # of times Start Date: 12/17/15 Stop Date: 12/17/15 Status: DiscontinuedANES labetalol 10 mg, Route: IVP, Q5Min, Dosing Weight 68.182, kg, PRN Elevated BP, Start date : 12/17/15 10:54:00 CDT, Duration: 5 doses or times, Stop date: Limited # of times Start Date: 12/17/15 Stop Date: 12/17/15 Status: DiscontinuedANES morphine Sulfate 2 mg, Route: IVP, Q5Min, Dosing Weight 68.182, kg, PRN Pain Score 4-6, Start date: 12/17/15 10:54:00CDT, Duration: 5 doses or times, Stop date: Limited # of times Start Date: 12/17/15 Stop Date: 12/17/15 Status: DiscontinuedANES naloxone 0.4 mg, Route: IVP, Q2MIN, Dosing Weight 68.182, kg, PRN Narcotic Reversal, Start date: 12/17/15 10:54:00 CDT, Duration: 8 doses or times, Stop date: Limited # of times Start Date: 12/17/15 Stop Date: 12/17/15 Status: DiscontinuedANES ondansetron 4 mg, Route: IVP, ONCE, Dosing Weight 68.182, kg, PRN Nausea & Vomiting, Start date: 12/17/15 10:54:00 CDT Start Date: 12/17/15 Stop Date: 12/17/15 Status: DiscontinuedAugmentin 875 mg oral tablet 1 tab, Route: PO, Drug Form: TAB, Dosing Weight 68.182, kg, Q12H, Start date: 9:00:00 CDT, Stop date: 12/15/15 21:00:00 CDT Notes: With food.(Same as: Augmentin 875) Start Date: 12/07/15 Stop Date: 12/09/15 Status: Discontinuedazithromycin 500 mg, Route: IVPB, Drug form: PDR/INJ, [id number], Dosing Weight 68.182, kg, Start date: 12/11/15 18:00:00 CDT, Duration: 30 day, Stop date: 01/09/16 18:00: 00 CDT Notes: (Same As: Zithromax IV) Start Date: 12/11/15 Stop Date: 12/13/15 Status: DiscontinuedBenadryl 50 mg, 1 cap, Route: PO, Drug form: CAP, TID, Dosing Weight 68.182, kg, PRN Itching, Start date: 12/09/15 13:28:00 CDT, Stop date: 01/08/16 13:27:00 CDT Notes: (Same as: Benadryl) Start Date: 12/09/15 Stop Date: 12/19/15 Status: DiscontinuedBenadryl Maximum Strength 2% topical cream 1 appl, Route: TOP, Q6H, Drug form: CRM, PRN Allergic reaction, Start date: 14:00:00 CDT, Stop date: 01/06/16 12:00:00 CDT Start Date: 12/07/15 Stop Date: 12/19/15 Status: DiscontinuedDiflucan 400 mg, 200 mL, Route: IVPB, Drug form: INJ, [id number], Start date: 12/09/15 14:30 :00 CDT, Duration: 30 day, Stop date: 01/07/16 14:30:00 CDT Notes: (Same as: Diflucan) Start Date: 12/09/15 Stop Date: 12/17/15 Status: DiscontinueddiphenhydrAMINE 50 mg oral capsule 50 mg=1 cap, PO, TID, PRN Itching, X 14 day, # 42 cap, 3 Refill(s) Start Date: 12/19/15 Stop Date: 02/13/16 Status: Orderedfamotidine 20 mg oral tablet 20 mg, 2 tab, Route: PO, Drug form: TAB, ONCE, Dosing Weight 68.182, kg, Priority: NOW, Start date: 12/18/15 15:57:00 CDT, Stop date: 12/18/15 15:57:00 CDT Notes: (Same as: Pepcid AC) Start Date: 12/18/15 Stop Date: 12/18/15 Status: Completedfluconazole 400 mg, 2 tab, Route: PO, Drug form: TAB, Daily, Dosing Weight 68.182, kg, Start date: 12/07/15 9:00:00 CDT, Duration: 9 day, Stop date: 12/15/15 9:00:00 CDT Notes: (Same as: Diflucan) Start Date: 12/07/15 Stop Date: 12/09/15 Status: DiscontinuedketOROLAC 15 mg, 1 mL, Route: IV, Drug form: INJ, Q6H, Dosing Weight 68.182, kg, PRN Pain Score 4-6, Start date: 12/09/15 14:44:00 CDT, Duration: 4 day, Stop date: 14:43:00 CDT Notes: (Same as:Toradol) IV bolus must be given >15 seconds. Give IM administration slowly and deeply into the muscle. Not for use > 4 days. Start Date: 12/09/15 Stop Date: 12/13/15 Status: CompletedLacri-Lube 1 appl, Route: Each Affected Eye, QID, Drug form: OINT, PRN Dry Eyes, Start date : 12/09/15 15:53:00 CDT, Duration: 30 day, Stop date: 01/08/16 15:52:00 CDT Notes: (Same as: Duratears Naturale and Artificial Tears, Tears Again ) Start Date: 12/09/15 Stop Date: 12/19/15 Status: Discontinuedlansoprazole 30 mg, 10 mL, Route: PEG, Drug form: SUSP, Before Breakfast, Dosing Weight 68.182, kg, Start date: 12/18/15 7:30:00 CDT, Duration: 30 day, Stop date: 01/15 7:30:00 CDT Notes: Take 1 hour before or 2 hours after meal; Expires in 14 days. Shake well before use. (Same as:Prevacid) Compounded Product - formulation not commercially available Start Date: 12/18/15 Stop Date: 12/19/15 Status: Discontinuedlansoprazole 3 mg/mL oral suspension 30 mg=10 mL, PEG, Before Breakfast, # 30 mL, 3 Refill(s) Start Date: 12/19/15 Status: Orderedlevothyroxine 100 microgram, 1 tab, Route: PO, Drug form: TAB, Q630AM, Dosing Weight 68.182, kg, Start date: 12/07/15 6:30:00 CDT, Duration: 30 day, Stop date: 01/05/16 6:30 :00 CDT Notes: Take 1 hour before or 2 hours after meal; Enteral feeds may interefere with the absorption ofthis medication. (Same as:Levothroid, Synthroid) Start Date: 12/07/15 Stop Date: 12/09/15 Status: Discontinuedlevothyroxine 50 microgram, Route: IV, Drug form: INJ, Q630AM, Start date: 12/10/15 6:30:00 CDT, Duration: 30 day,Stop date: 01/08/16 6:30:00 CDT Notes: (Same as: Synthroid)Reconstitute with 5ml of NS. Final concentration=20 micrograms/ml. Use immediately after reconstitution and discard remaining solution. Start Date: 12/10/15 Stop Date: 12/17/15 Status: Discontinuedlevothyroxine 100 microgram, 1 tab, Route: PEG, Drug form: TAB, Q630AM, Start date: 12/18/15 6 :30:00 CDT, Duration: 30 day, Stop date: 01/16/16 6:30:00 CDT Notes: Take 1 hour before or 2 hours after meal; Enteral feeds may interefere with the absorption ofthis medication. (Same as:Levothroid, Synthroid) Start Date: 12/18/15 Stop Date: 12/19/15 Status: Discontinuedlevothyroxine 100 mcg (0.1 mg) oral tablet 100 microgram=1 tab, PEG, Q630AM, # 30 tab, 3 Refill(s) Start Date: 12/19/15 Status: OrderedLovenox 40 mg, 0.4 mL, Route: SUB-Q, Drug form: INJ, [id number], Dosing Weight 68.182, kg , Start date: 12/07/15 5:00:00 CDT, Duration: 30 day, Stop date: 01/05/16 5:00: 00 CDT Notes: (Same as: Lovenox) Start Date: 12/07/15 Stop Date: 12/19/15 Status: DiscontinuedLubricant Eye Drops 1 drp, Route: Each Affected Eye, QID, Drug form: SOLN, Start date: 12/09/15 11: 49:00 CDT, Duration: 30 day, Stop date: 01/08/16 13:00:00 CDT Start Date: 12/09/15 Stop Date: 12/19/15 Status: DiscontinuedmethylPREDNISolone SODium SUCCinate 48 mg, 1.2 mL, Route: IV, Drug form: INJ, Daily, Dosing Weight 68.182, kg, Start date: 12/13/15 13:00:00 CDT, Stop date: 12/17/15 9:00:00 CDT Notes: (Same as:Solu-MEDROL, A-Methapred) Start Date: 12/13/15 Stop Date: 12/15/15 Status: Discontinuednaproxen 250 mg, 1 tab, Route: PO, Drug form: TAB, ONCE, Dosing Weight 68.182, kg, Start date: 12/09/15 0:24:00 CDT, Stop date: 12/09/15 0:24:00 CDT Notes: (Same as: Naprosyn) Take with food. Start Date: 12/09/15 Stop Date: 12/09/15 Status: CompletedNeutra-Phos 2 pkt, Route: NG, Drug Form: PDR/REC, Dosing Weight 68.182, kg, ONCE, NOW, Start date: 12/17/15 10:33:00 CDT, Stop date: 12/17/15 10:33:00 CDT Notes: (Same as: Neutra-Phos) Each 1.25 gm pkt has 250mg phosphorous. Mix w/ 2.5oz water and stir. Start Date: 12/17/15 Stop Date: 12/17/15 Status: DiscontinuedNeutra-Phos 2 pkt, Route: PEG, Drug Form: PDR/REC, Dosing Weight 68.182, kg, ONCE, Start date: 12/17/15 16:33:00CDT, Stop date: 12/17/15 16:33:00 CDT Notes: (Same as: Neutra-Phos) Each 1.25 gm pkt has 250mg phosphorous. Mix w/ 2.5oz water and stir. Start Date: 12/17/15 Stop Date: 12/17/15 Status: CompletedNorco 5/325 oral tablet 1 tab, Route: PEG, Drug Form: TAB, Dosing Weight 68.182, kg, Q6H, PRN Pain Score 4-6, Start date: 12/17/15 16:35:00 CDT, Duration: 30 day, Stop date: 01/15 16:34:00 CDT Notes: (Same as: Elizabeth 325/5) Do not exceed 4gm/day of acetaminophen. Start Date: 12/17/15 Stop Date: 12/19/15 Status: DiscontinuedNorco 5/325 oral tablet 1 tab, Route: PO, Drug Form: TAB, Dosing Weight 68.182, kg, Q6H, PRN Pain Score 4-6, Start date: 12/09/15 20:47:00 CDT, Duration: 30 day, Stop date: 01/08/16 20 :46:00 CDT Notes: (Same as: Elizabeth 325/5) Do not exceed 4gm/day of acetaminophen. Start Date: 12/09/15 Stop Date: 12/17/15 Status: Discontinuedocular lubricant solution 1 drp, Each Affected Eye, QID, # 36 ea, 3 Refill(s) Start Date: 12/19/15 Status: OrderedOmnipaque 350mg/ml 95 mL, Route: IVP, Drug Form: SOLN, Dosing Weight 68.182, kg, ONCALL, STAT, Start date: 12/06/15 18:24:00 CDT, Duration: 1 doses or times, Dose=2.2ml/kg, Max [id number]=[id number] -- "To be infused by Radiology Staff ONLY" Start Date: 12/06/15 Stop Date: 12/06/15 Status: Completedondansetron 4 mg, 2 mL, Route: IVP, Drug form: INJ, Q6H, Dosing Weight 68.182, kg, PRN Nausea & Vomiting, Start date: 12/06/15 21:08:00 CDT, Duration: 30 day, Stop date: 01/05/16 21:07:00 CDT Notes: (Same as: Zofran) MEDICATION WASTE Product Size: 4 mgProduct Wasted: 0mg Start Date: 12/06/15 Stop Date: 12/08/15 Status: DiscontinuedOXcarbazepine 300 mg/5 mL oral suspension 150 mg=2.5 mL, PEG, BID, # 150 mL, 3 Refill(s) Start Date: 12/19/15 Status: Orderedpantoprazole 40 mg, Route: IVP, Drug form: INJ, Before Breakfast, Dosing Weight 68.182, kg, Start date: 12/10/15 7:30:00 CDT, Duration: 30 day, Stop date: 01/08/16 7:30:00 CDT Notes: For IV push reconstitute with 10 ml 0.9% sodium chloride and push over 2 minutes. (Same as: Protonix) Start Date: 12/10/15 Stop Date: 12/17/15 Status: DiscontinuedPhenergan 12.5 mg, Route: IVPB, Q6H, Dosing Weight 68.182, kg, PRN Nausea & Vomiting, Priority: NOW, Startdate: 12/08/15 20:33:00 CDT, Duration: 30 day, Stop date: 20:32:00 CDT Start Date: 12/08/15 Stop Date: 12/08/15 Status: Discontinuedpneumococcal 13-valent vaccine 0.5 mL, Route: IM, Drug Form: INJ, Daily, Start date: 12/07/15 9:00:00 CDT, Duration: 1 doses or times, Stop date: 12/07/15 9:00:00 CDT Notes: Lightly roll vial (DO NOT SHAKE) before administration. (Same as: Prevnar 13) Start Date: 12/07/15 Stop Date: 12/07/15 Status: Completedpotassium chloride 40 mEq, 30 mL, Route: NG, Drug form: LIQ, ONCE, Dosing Weight 68.182, kg, Priority: NOW, Start date:12/17/15 9:33:00 CDT, Stop date: 12/17/15 9:33:00 CDT Notes: (Same as: Potassium Chloride) Start Date: 12/17/15 Stop Date: 12/17/15 Status: Completedpotassium chloride 20 mEq/15 mL oral liquid 40 mEq, 30 mL, Route: PO, Drug form: LIQ, ONCE, Dosing Weight 68.182, kg, via NGT, Start date: 12/14/15 18:53:00 CDT, Stop date: 12/14/15 18:53:00 CDT Notes: (Same as: Potassium Chloride) Start Date: 12/14/15 Stop Date: 12/14/15 Status: Completedpotassium chloride 20 mEq/15 mL oral liquid 40 mEq, 30 mL, Route: PEG, Drug form: LIQ, ONCE, Dosing Weight 68.182, kg, Start date: 12/19/15 5:26:00 CDT, Stop date: 12/19/15 5:26:00 CDT Notes: (Same as: Potassium Chloride) Start Date: 12/19/15 Stop Date: 12/19/15 Status: Completedpotassium phosphate 30 mmol, Route: IVPB, ONCE, Dosing Weight 68.182, kg, Priority: NOW, Start date : 12/17/15 9:56:00 CDT, Stop date: 12/17/15 9:56:00 CDT Start Date: 12/17/15 Stop Date: 12/17/15 Status: DiscontinuedprednisoLONE 60 mg, 20 mL, Route: NG, Drug form: SOLN, Daily, Dosing Weight 68.182, kg, Start date: 12/14/15 9:00:00 CDT, Duration: 30 day, Stop date: 01/12/16 9:00:00 CDT Notes: (Same as: Prelone) With food. Start Date: 12/14/15 Stop Date: 12/17/15 Status: DiscontinuedprednisoLONE 60 mg, 20 mL, Route: NG, Drug form: SOLN, Daily, Dosing Weight 68.182, kg, Start date: 12/11/15 16:08:00 CDT, Duration: 7 day, Stop date: 12/18/15 9:00:00 CDT Notes: (Same as: Prelone) With food. Start Date: 12/11/15 Stop Date: 12/16/15 Status: DiscontinuedprednisoLONE 60 mg, Route: PEG, Drug form: SOLN, Daily, Dosing Weight 68.182, kg, Start date : 12/18/15 9:00:00 CDT, Stop date: 12/21/15 9:00:00 CDT Start Date: 12/18/15 Stop Date: 12/17/15 Status: DeletedpredniSONE 5 mg/5 mL oral solution 50 mg, 50 mL, Route: PEG, Drug form: SOLN, ONCE, Start date: 12/17/15 18:00:00 CDT, Stop date: 12/17/15 18:00:00 CDT Notes: (Same as: Liquid Pred.) Take with food. Start Date: 12/17/15 Stop Date: 12/17/15 Status: CompletedpredniSONE 5 mg/5 mL oral solution 10 mg, 10 mL, Route: PEG, Drug form: SOLN, Daily, Start date: 12/21/15 9:00:00 CDT, Duration: 1 doses or times, Stop date: 12/21/15 9:00:00 CDT Notes: (Same as: Liquid Pred.) Take with food. Start Date: 12/21/15 Stop Date: 12/19/15 Status: CanceledpredniSONE 5 mg/5 mL oral solution 40 mg, 40 mL, Route: PO, Drug form: SOLN, Daily, Start date: 12/18/15 9:00:00 CDT, Duration: 1 dosesor times, Stop date: 12/18/15 9:00:00 CDT Notes: (Same as: Liquid Pred.) Take with food. Start Date: 12/18/15 Stop Date: 12/18/15 Status: CompletedpredniSONE 5 mg/5 mL oral solution 20 mg, 20 mL, Route: PEG, Drug form: SOLN, Daily, Start date: 12/20/15 9:00:00 CDT, Duration: 1 doses or times, Stop date: 12/20/15 9:00:00 CDT Notes: (Same as: Liquid Pred.) Take with food. Start Date: 12/20/15 Stop Date: 12/19/15 Status: CanceledpredniSONE 5 mg/5 mL oral solution 30 mg, 30 mL, Route: PO, Drug form: SOLN, Daily, Start date: 12/19/15 9:00:00 CDT, Duration: 1 dosesor times, Stop date: 12/19/15 9:00:00 CDT Notes: (Same as: Liquid Pred.) Take with food. Start Date: 12/19/15 Stop Date: 12/19/15 Status: CompletedpredniSONE 5 mg/5 mL oral solution 10 mg=10 mL, PEG, Daily, X 1 day, # 10 mL, 0 Refill(s) Start Date: 12/19/15 Stop Date: 12/20/15 Status: CompletedpredniSONE 5 mg/5 mL oral solution 20 mg=20 mL, PEG, Daily, X 1 day, # 20 mL, 0 Refill(s) Start Date: 12/19/15 Stop Date: 12/20/15 Status: Completedprochlorperazine 5 mg, 1 tab, Route: PO, Drug form: TAB, Q6H, Dosing Weight 68.182, kg, PRN Nausea & Vomiting, Start date: 12/07/15 23:17:00 CDT, Duration: 30 day, Stop date: 01/06/16 23:16:00 CDT, .. Notes: (Same as: Compazine) Start Date: 12/07/15 Stop Date: 12/08/15 Status: Discontinuedprochlorperazine 5 mg, 1 mL, Route: IVP, Drug form: INJ, Q6H, Dosing Weight 68.182, kg, PRN Nausea & Vomiting, Start date: 12/08/15 0:31:00 CDT, Duration: 30 day, Stop date: 01/07/16 0:30:00 CDT, .. Notes: (Same as: Compazine) Start Date: 12/08/15 Stop Date: 12/19/15 Status: Discontinuedpropranolol 20 mg, 1 tab, Route: PEG, Drug form: TAB, Q12H, Dosing Weight 68.182, kg, Start date: 12/17/15 21:00:00 CDT, Duration: 30 day, Stop date: 01/16/16 9:00:00 CDT Notes: Give with food.(Same as: Inderal) Start Date: 12/17/15 Stop Date: 12/19/15 Status: Discontinuedpropranolol 20 mg, 1 tab, Route: PO, Drug form: TAB, Q12H, Dosing Weight 68.182, kg, Start date: 12/10/15 9:00:00 CDT, Duration: 30 day, Stop date: 01/08/16 21:00:00 CDT Notes: Give with food.(Same as: Inderal) Start Date: 12/10/15 Stop Date: 12/17/15 Status: Discontinuedpropranolol 20 mg oral tablet 20 mg=1 tab, PEG, Q12H, # 60 tab, 3 Refill(s) Start Date: 12/19/15 Status: Orderedsodium chloride 0.9% 1000 ml INJ 1,000 mL 1,000 mL, Rate: 150 ml/hr, Infuse over: 6.7 hr, Route: IV, Dosing Weight 68.182 kg, Total Volume: 1,000, Start date: 12/06/15 21:36:00 CDT, Stop date: 01/05/16 21:35:00 CDT Start Date: 12/06/15 Stop Date: 12/19/15 Status: DiscontinuedSodium Chloride 0.9% IV 1000 mL 1,000 mL, Rate: 75 ml/hr, Infuse over: 13.3 hr, Route: IV, Dosing Weight 68.182 kg, Total Volume: 1,000, Start date: 12/08/15 18:30:00 CDT, Duration: 30 day, Stop date: 01/07/16 18:29:00 CDT Start Date: 12/08/15 Stop Date: 12/08/15 Status: Discontinuedtramadol 50 mg oral tablet 50 mg, 1 tab, Route: PEG, Drug form: TAB, Q12H, Dosing Weight 68.182, kg, PRN Pain Score 1-3, Start date: 12/17/15 16:36:00 CDT, Duration: 30 day, Stop date: 01/16/16 16:35:00 CDT Notes: Not to exceed 400mg/day. (Same As: Ultram) Start Date: 12/17/15 Stop Date: 12/19/15 Status: Discontinuedtramadol 50 mg oral tablet 50 mg=1 tab, PEG, Q12H, PRN Pain Score 1-3, X 30 day, # 60 tab, 0 Refill(s) Start Date: 12/19/15 Stop Date: 01/18/16 Status: Orderedtramadol 50 mg oral tablet 50 mg, 1 tab, Route: PO, Drug form: TAB, Q12H, Dosing Weight 68.182, kg, PRN Pain Score 1-3, Start date: 12/07/15 9:08:00 CDT, Duration: 30 day, Stop date: 01/06/16 9:07:00 CDT Notes: Not to exceed 400mg/day. (Same As: Ultram) Start Date: 12/07/15 Stop Date: 12/17/15 Status: DiscontinuedTrileptal 150 mg, 2.5 mL, Route: PEG, Drug form: LIQ, BID, Dosing Weight 68.182, kg, Start date: 12/17/15 21:00:00 CDT, Duration: 30 day, Stop date: 01/16/16 9:00: 00 CDT Notes: (Same as: Trileptal) Start Date: 12/17/15 Stop Date: 12/19/15 Status: DiscontinuedTrileptal 150 mg, 1 tab, Route: PO, Drug form: TAB, BID, Dosing Weight 68.182, kg, Start date: 12/13/15 9:00:00 CDT, Duration: 30 day, Stop date: 01/11/16 17:00:00 CDT Notes: Do not crush or chew.(Same as: Trileptal) Start Date: 12/13/15 Stop Date: 12/17/15 Status: DiscontinuedTylenol 650 mg, Route: PO, Drug form: TAB, Q6H, Dosing Weight 68.182, kg, PRN For Temp > 100.4 F, Start date: 12/07/15 9:05:00 CDT, Duration: 30 day, Stop date: 9:04:00 CDT Start Date: 12/07/15 Stop Date: 12/07/15 Status: DiscontinuedUnasyn 3 gm, 1 ea, Route: IVPB, Drug form: PDR/INJ, ABXQ6H, Start date: 12/09/15 21:00: 00 CDT, Duration: 30day, Stop date: 01/08/16 15:00:00 CDT Notes: Dosing based on Ampicillin component (Same as: Unasyn) Start Date: 12/09/15 Stop Date: 12/17/15 Status: Discontinuedursodiol 900 mg, 15 mL, Route: PEG, Drug form: SUSP, Daily, Dosing Weight 68.182, kg, Start date: 12/18/15 9:00:00 CDT, Duration: 30 day, Stop date: 01/16/16 9:00:00 CDT Notes: Ursodil (actigall) 300mg caps #5. Refrigerate - Shake Well Before Use. Compounded Product - formulation not commercially available Start Date: 12/18/15 Stop Date: 12/19/15 Status: Discontinuedursodiol 900 mg, 3 cap, Route: PO, Drug form: CAP, Daily, Dosing Weight 68.182, kg, Start date: 12/07/15 9:00:00 CDT, Duration: 30 day, Stop date: 01/05/16 9:00:00 CDT Notes: (Same As: Actigall) Start Date: 12/07/15 Stop Date: 12/17/15 Status: Discontinuedursodiol 300 mg oral capsule 900 mg=3 cap, PO, Daily, # 120 cap, 3 Refill(s) Start Date: 12/19/15 Status: OrderedvalACYclovir 1,000 mg, 2 tab, Route: NG, Drug form: TAB, Q8H, Dosing Weight 68.182, kg, Start date: 12/11/15 16:09:00 CDT, Duration: 7 day, Stop date: 12/18/15 16:00: 00 CDT Notes: (Same As: Valtrex) Start Date: 12/11/15 Stop Date: 12/11/15 Status: DiscontinuedvalACYclovir 500 mg oral tablet 1,000 mg=2 tab, PEG, Q12H, X 6 day, # 24 tab, 0 Refill(s) Start Date: 12/19/15 Stop Date: 12/25/15 Status: OrderedValtrex 1,000 mg, 2 tab, Route: PEG, Drug form: TAB, Q12H, Dosing Weight 68.182, kg, Start date: 12/17/15 20:00:00 CDT, Stop date: 01/16/16 8:00:00 CDT Notes: (Same As: Valtrex) Start Date: 12/17/15 Stop Date: 12/19/15 Status: DiscontinuedValtrex 1,000 mg, Route: PO, Drug form: TAB, Q12H, Dosing Weight 68.182, kg, Start date : 12/17/15 21:00:00 CDT, Stop date: 12/25/15 9:00:00 CDT Start Date: 12/17/15 Stop Date: 12/17/15 Status: CanceledVisipaque 320mg/ml 100 mL, Route: IVP, Drug Form: SOLN, Dosing Weight 68.182, kg, ONCALL, STAT, Start date: 12/12/15 9:36:00 CDT, Duration: 1 doses or times, Dose=2.2ml/kg, Max waxx=[id number] -- "To be infused by Radiology Staff ONLY" Notes: (Same as: Visipaque).WASTE: F/P - Black; E - Municipal Trash Bin Start Date: 12/12/15 Stop Date: 12/19/15 Status: DiscontinuedXanax 0.5 mg oral tablet 0.5 mg, 1 tab, Route: PO, Drug form: TAB, Bedtime, Dosing Weight 68.182, kg, PRN Sleep, Start date: 12/06/15 23:52:00 CDT, Duration: 30 day, Stop date: 01/04 23:51:00 CDT Notes: With food or milk(Same as: Xanax) Start Date: 12/06/15 Stop Date: 12/19/15 Status: DiscontinuedXanax 0.5 mg oral tablet 0.5 mg=1 tab, PO, Bedtime, PRN Sleep, X 14 day, # 14 tab, 0 Refill(s) Start Date: 12/19/15 Stop Date: 01/02/16 Status: OrderedZofran 4 mg, 2 mL, Route: IVP, Drug form: INJ, Q8H, Dosing Weight 68.182, kg, Priority : NOW, Start date: 12/08/15 8:28:00 CDT, Duration: 1 day, Stop date: 12/09/15 8: 00:00 CDT Notes: (Same as: Zofran) MEDICATION WASTE Product Size: 4 mgProduct Wasted: ___ mg Start Date: 12/08/15 Stop Date: 12/09/15 Status: CompletedZofran 4 mg, 2 mL, Route: IVP, Drug form: INJ, Q8H, Dosing Weight 68.182, kg, PRN Nausea, Start date: 12/17/15 15:11:00 CDT, Duration: 30 day, Stop date: 15:10:00 CDT Notes: (Same as: Zofran) MEDICATION WASTE Product Size: 4 mgProduct Wasted: ___ mg Start Date: 12/17/15 Stop Date: 12/17/15 Status: Discontinued Results ELECTROLYTES Most recent to oldest 1 2 3 [Reference Range]: Sodium Lvl [135-145 mEq/L] 141 mEq/L 141 mEq/L 142 mEq/L (12/19/15 3:46 AM) (12/18/15 5:48 AM) (12/17/15 6:48 AM) Potassium Lvl [3.5-5.1 3.1 mEq/L 3.9 mEq/L 1 3.3 mEq/L mEq/L] *LOW* (12/18/15 5:48 AM) *LOW* (12/19/15 3:46 AM) (12/17/15 6:48 AM) Chloride Lvl [95-109 mEq/L] 102 mEq/L 101 mEq/L 105 mEq/L (12/19/15 3:46 AM) (12/18/15 5:48 AM) (12/17/15 6:48 AM) CO2 [24-32 mEq/L] 30 mEq/L 28 mEq/L 28 mEq/L (12/19/15 3:46 AM) (12/18/15 5:48 AM) (12/17/15 6:48 AM) AGAP [10.0-20.0 mEq/L] 12.1 mEq/L 15.9 mEq/L 12.3 mEq/L (12/19/15 3:46 AM) (12/18/15 5:48 AM) (12/17/15 6:48 AM) 1Result Comment: Specimen Slightly Hemolyzed.CHEM PANEL Most recent to oldest 1 2 3 [Reference Range]: Creatinine Lvl [0.50-1.40 0.57 mg/dL 0.71 mg/dL 0.64 mg/dL mg/dL] (12/19/15 3:46 AM) (12/18/15 5:48 AM) (12/17/15 6:48 AM) eGFR 97 mL/min/1.73m2 1 89 mL/min/1.73m2 2 93 mL/min/1.73m2 3 *NA* *NA* *NA* (12/19/15 3:46 AM) (12/18/15 5:48 AM) (12/17/15 6:48 AM) BUN [7-22 mg/dL] 5 mg/dL 5 mg/dL 7 mg/dL *LOW* *LOW* (12/17/15 6:48 AM) (12/19/15 3:46 AM) (12/18/15 5:48 AM) B/C Ratio [6-25] 11 17 (12/17/15 6:48 AM) (12/07/15 3:56 AM) Glucose Lvl [70-99 mg/dL] 104 mg/dL 115 mg/dL 95 mg/dL *HI* *HI* (12/17/15 6:48 AM) (12/19/15 3:46 AM) (12/18/15 5:48 AM) Total Protein [6.4-8.4 6.1 g/dL 7.3 g/dL g/dL] *LOW* (12/07/15 3:56 AM) (12/17/15 6:48 AM) Albumin Lvl [3.5-5.0 g/dL] 2.5 g/dL 2.8 g/dL *LOW* *LOW* (12/17/15 6:48 AM) (12/07/15 3:56 AM) Globulin [2.7-4.2 g/dL] 3.6 g/dL 4.5 g/dL (12/17/15 6:48 AM) *HI* (12/07/15 3:56 AM) A/G Ratio [0.7-1.6] 0.7 0.6 (12/17/15 6:48 AM) *LOW* (12/07/15 3:56 AM) Calcium Lvl [8.5-10.5 8.3 mg/dL 8.2 mg/dL 8.3 mg/dL mg/dL] *LOW* *LOW* *LOW* (12/19/15 3:46 AM) (12/18/15 5:48 AM) (12/17/15 6:48 AM) Phosphorus [2.5-4.5 mg/dL] 2.4 mg/dL 2.6 mg/dL 2.1 mg/dL *LOW* (12/18/15 5:48 AM) *LOW* (12/19/15 3:46 AM) (12/17/15 6:48 AM) Magnesium Lvl [1.8-2.4 1.9 mg/dL 1.9 mg/dL 2.1 mg/dL mg/dL] (12/19/15 3:46 AM) (12/18/15 5:48 AM) (12/17/15 6:48 AM) ALT [0-65 unit/L] 38 unit/L 22 unit/L (12/17/15 6:48 AM) (12/07/15 3:56 AM) AST [0-37 unit/L] 33 unit/L 26 unit/L (12/17/15 6:48 AM) (12/07/15 3:56 AM) Alk Phos [39-136 unit/L] 104 unit/L 134 unit/L (12/17/15 6:48 AM) (12/07/15 3:56 AM) Bili Total [0.2-1.3 mg/dL] 0.4 mg/dL 0.6 mg/dL (12/17/15 6:48 AM) (12/07/15 3:56 AM) Lactic Acid WB [0.5-2.2 1.2 mmol/L mmol/L] (12/06/15 6:30 PM) HSV 1 IgM NEGATIVE *NA* (12/13/15 12:12 PM) HSV 2 IgM POSITIVE 4 *ABN* (12/13/15 12:12 PM) HSV 2 IgM Ttr 1:20 5 *HI* (12/13/15 12:12 PM) 1Result Comment: The eGFR is calculated [...] eGFR should be multiplied by the estimated BMI.4Result Comment: REFERENCE RANGE: NEGATIVE The IFA procedure for measuring IgM antibodies to HSV 1 and HSV 2 detects both type-common and type- specific HSV antibodies. Thus, IgM reactivity to both HSV 1 and HSV 2 may represent crossreactive HSV antibodies rather than exposure to both HSV 1 and HSV 2. This test was developed and its analytical performance characteristics have been determined by [facility]. It has not been cleared or approved by FDA. This assay has been validated pursuant to the CLIA regulations and is used for clinical purposes. Test Performed at: [facility]. [id number] [place] [phone] H Aslheigh Malagon [id number] Comment: REFERENCE RANGE: <1:20 Test Performed at: [facility]. [address] [place] [phone] H Ashleigh Malagon MDSPECIAL CHEMISTRY Most recent to oldest [Reference Range]: 1 2 3 ALL [8-52 unit/L] 27 unit/L (12/10/15 5:47 AM) ANEMIA STUDY Most recent to oldest 1 2 3 [Reference Range]: Iron [30-160 ug/dl] 90 ug/dl (12/11/15 1:14 AM) Ferritin Lvl [5-204 ng/mL] 88 ng/mL (12/11/15 1:14 AM) % Satur Fe [12-57 %] 31 % (12/11/15 1:14 AM) UIBC [110-370 ug/dl] 198 ug/dl (12/11/15 1:14 AM) Vitamin B12 Lvl [254-1320 809 pg/mL 1132 pg/mL 1171 pg/mL pg/mL] (12/18/15 7:45 AM) (12/08/15 2:24 AM) (12/07/15 4:42 AM) Folate Lvl [>=3.0 ng/mL] 5.4 ng/mL 10.8 ng/mL (12/18/15 7:45 AM) (12/07/15 4:42 AM) TIBC [228-428 ug/dl] 288 ug/dl (12/11/15 1:14 AM) PARATHYROID PROFILE Most recent to oldest [Reference Range]: 1 2 3 Ca Ion WB [1.05-1.25 mMol/L] 1.11 mMol/L 1.03 mMol/L (12/19/15 3:46 AM) *LOW* (12/18/15 5:48 AM) Ca Norm WB [1.05-1.25 mMol/L] 1.14 mMol/L 1.05 mMol/L (12/19/15 3:46 AM) (12/18/15 5:48 AM) BODY FLUIDS Most recent to oldest [Reference Range]: 1 2 3 Glucose CSF [45-80 mg/dL] 77 mg/dL (12/12/15 5:00 PM) Protein CSF [15-45 mg/dL] 32 mg/dL (12/12/15 5:00 PM) Tube Num CSF 4 *NA* (12/13/15 3:38 PM) Color CSF [Colorless] Colorless (12/13/15 3:38 PM) Clarity CSF [Clear] Clear (12/13/15 3:38 PM) Supernat CSF [Colorless] Colorless (12/13/15 3:38 PM) RBC CSF [0-0 /mm3] 10 /mm3 *HI* (12/13/15 3:38 PM) WBC CSF [0-5 /mm3] 30 /mm3 *HI* (12/13/15 3:38 PM) Segs CSF [0-6 %] 7 % *HI* (12/13/15 3:38 PM) Lymph CSF [40-80 %] 91 % *HI* (12/13/15 3:38 PM) Monocyte CSF [15-45 %] 2 % *LOW* (12/13/15 3:38 PM) IMMUNOLOGY Most recent to oldest 1 2 3 [Reference Range]: Treponemal Scr [Non Reactive] Non Reactive *NA* (12/11/15 11:15 PM) JANET [Negative] Positive Positive *ABN* *ABN* (12/10/15 5:47 AM) (12/10/15 5:47 AM) JANET Titer [Negative] 1:40 *ABN* (12/10/15 5:47 AM) JANET Interp Pattern appears speckled Cytoplasmic staining present *NA* (12/10/15 5:47 AM) C3 Complement [88-201 mg/dL] 112 mg/dL (12/10/15 5:47 AM) C4 Complement [16-47 mg/dL] 29 mg/dL (12/10/15 5:47 AM) DNA Ab (DS) [Negative] Negative (12/10/15 5:47 AM) Sm Ab [<=0.9 AI] <0.2 AI <0.2 AI (12/10/15 5:47 AM) (12/10/15 5:47 AM) INFORMATION OPERATOR Ab [<=0.9 AI] 0.5 AI 0.5 AI (12/10/15 5:47 AM) (12/10/15 5:47 AM) SS-A (Ro) Ab [<=0.9 AI] 0.8 AI (12/10/15 5:47 AM) SS-B (La) Ab [<=0.9 AI] <0.2 AI (12/10/15 5:47 AM) SCL- 70 Ab [<=0.9 AI] <0.2 AI (12/13/15 12:12 PM) AMA Ab Scr [Negative] Positive *ABN* (12/10/15 5:47 AM) AMA Ab Titer [Negative] 1:40 *ABN* (12/10/15 5:47 AM) SMA Screen [Negative] Negative (12/10/15 5:47 AM) C-ANCA [Negative] Negative (12/10/15 5:47 AM) P-ANCA [Negative] Negative (12/10/15 5:47 AM) IgG Lvl [694-1618 mg/dL] 1030 mg/dL 1060 mg/dL (12/13/15 12:12 PM) (12/10/15 5:47 AM) Varicella IgG [<=0.8 AI] >8.0 AI *HI* (12/13/15 5:18 PM) VZV PCR NOT DETECTED 1 *NA* (12/12/15 5:00 PM) Source CEREBROSPINAL FLUID CEREBROSPINAL FLUID *NA* *NA* (12/12/15 5:00 PM) (12/12/15 5:00 PM) EBV PCR Ql NOT DETECTED 2 *NA* (12/12/15 5:00 PM) HSV 1 IgG [<=0.8 AI] >8.0 AI >8.0 AI *HI* *HI* (12/13/15 12:12 PM) (12/11/15 11:15 PM) HSV 2 IgG [<=0.8 AI] 0.9 AI 0.7 AI *HI* (12/11/15 11:15 PM) (12/13/15 12:12 PM) Hep Bs Ag [Negative] Negative (12/07/15 3:56 AM) Hep B Core IgM [Negative] Negative *NA* (12/07/15 3:56 AM) Hep A IgM [Negative] Negative *NA* (12/07/15 3:56 AM) Hep C Ab Negative *NA* (12/07/15 3:56 AM) IgG Lvl CSF [2.0-4.0 mg/dL] 3.0 mg/dL 3.0 mg/dL (12/12/15 5:00 PM) (12/12/15 5:00 PM) IgG (CPE) [694-1618 mg/dL] 1000 mg/dL (12/12/15 5:00 PM) Alb CSF (CPE) [14.0-25.0 12.2 mg/dL mg/dL] *LOW* (12/12/15 5:00 PM) Alb (CPE) [3400.0-5000.0 2800.0 mg/dL mg/dL] *LOW* (12/12/15 5:00 PM) IgG Index [0.3-0.7 mg/dL] 0.7 mg/dL (12/12/15 5:00 PM) PE Interp CSF CSF protein electrophoresis did not reveal evidence of an oligoclonal process in the ORDER DETAILER. The CSF IgG index is within the reference range indicating that there is no elevation in intracerebral IgG synt hesis. There is also no evidence of increased permeability of the blood brain barrier based on the CSF/serum albumin ratio. The electronic medical record has been reviewed for relevant history. I have personally reviewed the test results and concur with the resident's interpretation. CPT: 29571-VM *NA* (12/12/15 5:00 PM) Description CSF The gel demonstrates appropriate resolution of the main protein bands. The gamma region shows continuous distribution of proteins both in the CSF and in the serum. No oligoclonal bands are detected. *NA* (12/12/15 5:00 PM) Aspergillus flavus NEGATIVE *NA* (12/13/15 12:12 PM) Aspergillus fumigatus NEGATIVE 3 *NA* (12/13/15 12:12 PM) Aspergillus niger NEGATIVE *NA* (12/13/15 12:12 PM) 1Result Comment: REFERENCE RANGE: NOT DETECTED This test was developed and its analytical performance characteristics have been determined by [facility]. It has not been cleared or approved by FDA. This assay has been validated pursuant to the CLIA regulations and is used for clinical purposes. Test Performed at: [facility]. [address] [place] [phone] Ashleigh Malagon MD2Result Comment: REFERENCE RANGE: NOT DETECTED This test was developed and its analytical performance characteristics have been determined by [facility]. It has not been cleared or approved by the U.S. Food and Drug Administration. The FDA has determined that such clearance or approval is not necessary. This assay has been validated pursuant to the CLIA regulations and is used for clinical purposes. Test Performed at: [facility]. [address] [place] [phone] Vangie Malagon MD3Result Comment: REFERENCE RANGE: NEGATIVE INTERPRETIVE CRITERIA: Negative: Antibody not detected Positive: Antibody detected A positive result is represented by 1 or more precipitin bands, and may indicate fungus ball, allergic bronchopulmonary aspergillosis (KARLEY) or invasive aspergillosis. Generally, the appearance of 3-4 bands indicates either fungus ball or KARLEY. Test Performed at: [facility]. [address] [place] [phone] Vangie Malagon MDHEMATOLOGY Most recent to oldest 1 2 3 [Reference Range]: WBC [3.7-10.4 K/CMM] 9.8 K/CMM 9.7 K/CMM 10.3 K/CMM (12/19/15 3:46 AM) (12/18/15 5:48 AM) (12/17/15 6:48 AM) RBC [4.20-5.40 M/CMM] 4.35 M/CMM 4.60 M/CMM 4.43 M/CMM (12/19/15 3:46 AM) (12/18/15 5:48 AM) (12/17/15 6:48 AM) Hgb [12.0-16.0 g/dL] 14.6 g/dL 15.5 g/dL 15.0 g/dL (12/19/15 3:46 AM) (12/18/15 5:48 AM) (12/17/15 6:48 AM) Hct [36.0-48.0 %] 43.5 % 45.5 % 44.5 % (12/19/15 3:46 AM) (12/18/15 5:48 AM) (12/17/15 6:48 AM) MCV [80.0-98.0 fL] 100.0 fL 98.9 fL 100.4 fL *HI* *HI* *HI* (12/19/15 3:46 AM) (12/18/15 5:48 AM) (12/17/15 6:48 AM) MCH [27.0-31.0 pg] 33.6 pg 33.8 pg 33.9 pg *HI* *HI* *HI* (12/19/15 3:46 AM) (12/18/15 5:48 AM) (12/17/15 6:48 AM) MCHC [32.0-36.0 g/dL] 33.6 g/dL 34.1 g/dL 33.7 g/dL (12/19/15 3:46 AM) (12/18/15 5:48 AM) (12/17/15 6:48 AM) RDW [11.5-14.5 %] 13.9 % 14.8 % 14.5 % (12/19/15 3:46 AM) *HI* (12/17/15 6:48 AM) (12/18/15 5:48 AM) Platelet [133-450 K/CMM] 154 K/CMM 149 K/CMM 172 K/CMM (12/19/15 3:46 AM) (12/18/15 5:48 AM) (12/17/15 6:48 AM) MPV [7.4-10.4 fL] 12.4 fL 12.4 fL 12.2 fL *HI* *HI* *HI* (12/19/15 3:46 AM) (12/18/15 5:48 AM) (12/17/15 6:48 AM) Segs [45.0-75.0 %] 63.8 % 85.4 % 72.8 % (12/19/15 3:46 AM) *HI* (12/17/15 6:48 AM) (12/18/15 5:48 AM) Lymphocytes [20.0-40.0 %] 17.2 % 6.3 % 14.2 % *LOW* *LOW* *LOW* (12/19/15 3:46 AM) (12/18/15 5:48 AM) (12/17/15 6:48 AM) Monocytes [2.0-12.0 %] 17.9 % 8.0 % 11.9 % *HI* (12/18/15 5:48 AM) (12/17/15 6:48 AM) (12/19/15 3:46 AM) Eosinophils [0.0-4.0 %] 0.9 % 0.1 % 0.8 % (12/19/15 3:46 AM) (12/18/15 5:48 AM) (12/17/15 6:48 AM) Basophils [0.0-1.0 %] 0.2 % 0.2 % 0.3 % (12/19/15 3:46 AM) (12/18/15 5:48 AM) (12/17/15 6:48 AM) Segs-Bands # [1.5-8.1 K/CMM] 6.3 K/CMM 8.3 K/CMM 7.5 K/CMM (12/19/15 3:46 AM) *HI* (12/17/15 6:48 AM) (12/18/15 5:48 AM) Lymphocytes # [1.0-5.5 1.7 K/CMM 0.6 K/CMM 1.5 K/CMM K/CMM] (12/19/15 3:46 AM) *LOW* (12/17/15 6:48 AM) (12/18/15 5:48 AM) Monocytes # [0.0-0.8 K/CMM] 1.8 K/CMM 0.8 K/CMM 1.2 K/CMM *HI* (12/18/15 5:48 AM) *HI* (12/19/15 3:46 AM) (12/17/15 6:48 AM) Eosinophils # [0.0-0.5 0.1 K/CMM 0.1 K/CMM 0.2 K/CMM K/CMM] (12/19/15 3:46 AM) (12/17/15 6:48 AM) (12/06/15 8:00 PM) Basophils # [0.0-0.2 K/CMM] 0.1 K/CMM (12/06/15 6:30 PM) RBC Morph Normal (12/18/15 5:48 AM) Macrocyte [None Seen] 1+ 1+ 1+ *ABN* *ABN* *ABN* (12/17/15 6:48 AM) (12/10/15 5:47 AM) (12/06/15 6:30 PM) Large Plt [None Seen] Moderate *ABN* (12/18/15 5:48 AM) Sed Rate [0-20 mm/hr] 52 mm/hr *HI* (12/07/15 4:42 AM) PT [12.0-14.7 seconds] 15.2 seconds *HI* (12/17/15 6:48 AM) INR [0.85-1.17] 1.17 (12/17/15 6:48 AM) PTT [22.9-35.8 seconds] 24.6 seconds (12/17/15 6:48 AM) TUMOR MARKERS Most recent to oldest [Reference Range]: 1 2 3 AFP TM [0.0-11.0 ng/mL] 1.4 ng/mL (12/11/15 1:14 AM) MOLECULAR DIAGNOSTIC Most recent to oldest [Reference Range]: 1 2 3 Source HSV Cerebral Spinal Fluid *NA* (12/12/15 5:00 PM) HSV 1 by PCR [Negative] Negative 1 (12/12/15 5:00 PM) HSV 2 by PCR [Negative] Negative 2 (12/12/15 5:00 PM) CMV PCR Qnt Not Detected (12/11/15 11:15 PM) CMV PCR Qnt (log) <2.4 log *NA* (12/11/15 11:15 PM) EBV PCR Qnt Not Detected (12/11/15 11:15 PM) EBV PCR Qnt (log) <2.8 log *NA* (12/11/15 11:15 PM) 1Result Comment: This sample was NON DETECTED or BELOW THE LOWER LIMITS OF DETECTION for HSV 1/2 DNA by real-time PCR using hybridization probe and melting curve analysis.2Result Comment: This sample was NON DETECTED or BELOW THE LOWER LIMITS OF DETECTION for HSV 1/2 DNA by real-time PCR using hybridization probe and melting curve analysis.FUNGAL - SEROLOGY Most recent to oldest [Reference Range]: 1 2 3 Histoplasma Ag NONE DETECTED 1 *NA* (12/13/15 12:12 PM) Crypto Ag CSF [Negative] Negative (12/12/15 10:38 AM) 1Result Comment: REF. RANGE: NONE DETECTED INTERPRETATION: NEGATIVE TESTING PERFORMED AT [facility]. Immunizations Not Given Vaccine Date Status Refusal Reason pneumococcal 13-valent vaccine 12/09/15 Not Given Patient Refuses Procedures Procedure Date Related Diagnosis Body Site Spinal puncture, lumbar, diagnostic 12/12/15 Appendectomy Biopsy of vocal cord Splenectomy Social History Social History Type Response Smoking Status Current every day smoker; Type: Cigarettes; Exposure to Tobacco Smoke None; Cigarette Smoking Last 365 Days Yes; Reg Smoking Cessation Counseling Yes Assessment and Plan Extracted from: Title: Medicine Discharge Summary Author: Anna Lin MD Date: 12/19/15 Patient: ANA CALDERÓN Age: 65 years Sex: Female : 1950 Associated Diagnoses: None Author: Anna Lin MD Basic Information Admit information Admission Day: 12/06/2015 Discharge Day: 12/19/2015 Attending: Dr. Nguyễn Initial Diagnosis: facial palsy,pharyngitis, cirrhosis Discharge Diagnosis: Left supraglottic phlegmon, L facila hdz's palsy, cirrhosis Consult service: GI, Hepatology, ENT, Rheumatology, PTOT, ID. Subjective Hospital Course: Ms Ana Calderón is a 65 yo with PMH of autoimmune cirrhosis, hypothroidism, anxiety and colon polyps presenting from ENT clinic for decreased PO, difficulty swallowing,and new left sided facial droop. S angely discharge on 11/30 patient states she has not regained the ability to tolerate PO. She attempts to eat solids and liquids, however vomits her food up shortly after. Able to take her prescribed medic ations. Feels the food is stuck in her throat. Also patient states she is requiring help walking, feeling center of gravity is off and weakness. At appointment today was the first time patient and rizwanlauren staples noticed L facial droop. +hoarse voice new, +L ear pain on/off x4 days, L brow pain, +L lower face swelling. Denied fever, chills, odynophagia, cough, rhinorrhea, chest pain, SOB, difficulty breathing , change in vision, change in hearing, vertigo, dizziness. At appointment endoscopy showed Endoscopy with immobile mass on L vocal folds, mass on left sided fullness of L A-E fold and aretenoid tower an d edematous arytenoid. Previously she had weakness and mucosal thickening of the L oropharynx and hypopharynx, was biopsied and found to be inflammatory and infectious, biopsy was taken previously in OR and no malignant mass was found. Cultures grew Lito Of note patient recently discharged from [facility] on 11/30 for throat pain and decreased PO concerned for Bertin's angina. Patient had laryngeal edema and oral thrush. ENT evaluation via laryngoscopy showed o ral thrush, L vocal cord immobilization. Repeat laryngoscopy showed pseudomembranous plaque that bled when scraped. Clx from tissue bx grow Staph nonaureas and alpha strep. Patient slowly advanced durin g past admission on the dyspjagoa diet and tolerate solid PO prior to d/c. Patient d/c with fluconazole and augmentin 875 x 14 days with ENT f/u. Patient has history of hepatitis C cirrhosis (unknown treatment), and 22 pack year smoking history (0.5 ppd x [address] head and CT chest negative for any acute process, CT neck shows mucosal thicke christiano indicative of infectious process. Per ENT consult:''patient with two cranial nerve neuropathies, L FN weakness (new onset) and L VC paralysis, recommend workup per primary however may consider neur ology or rheumatology workup as this does not seem to be 2/2 an intracranial mass and patient has a history of autoimmune hepatitis''. GI consulted for dysphagia and odynophagia: CT chest and neck shows air-fluid level in the esophagus. Concern for intrinsic obstruction vs extrinsic compression. No source of dysphagia. However, patient did have esophageal and gastric varices with stigmata of recent bleeding from gastric varices, Recommed hepatology consult. Hepatology consulted, Patient refused liver protocol MRI at this time states that she wants her hepatic work up done outpatient. She only liked to focus on her chief complaint of the neuropathy. CT head and CT chest negative for any acute process, rheuma was consulted to consider IV steroids for multiple cranial neuropathies. ID consulted: Differential is broad but from an infectious standpoint, need to rule out specifically HSV, CMV, syphilis, Mycoplasma, and lyme disease. HIV neg on 11/26. Biopsy from mass on 12/04 negative f or malignancy, consistent with infection. Previous cultures grew Lito albicans, Staph not aureus, Strep not Enterococcusso, so with possible Dx of Left supraglottic phlegmon they recommended to glen nuing Unasyn 3g IV q6 and Fluconazole 400mg IV q24. Rheumatology consulted'' to rule out autoimmune process in the setting of dysphagia and other autoimmune processes. Uncertain to whether patient has true diagnosis of PBC. Will discuss with hepatology. History and physical exam is not alarming for ongoing autoimmune disease. Serologies currently negative.'' After abx therapy her symptoms improved. She failed swallow test so PEG was placed for her and since she did not want to do more work up inpatient, we will discharge her home with home health. She will f/u as an out/pt. Her pharyngitis is resolved. She needs to f/u with neuro and GI/Hepatology out/pt. Inpatients she was on ABX: Unasyn, acyclovir, fluconazole and valtrex. Review of Systems Constitutional: No weight loss, fever, chills, has weakness and fatigue. HEENT: Eyes: No visual loss, blurred vision, double vision or yellow sclerae. Ears, Nose, Throat: No hearing loss, sneezing, congestion, runny nose or sore throat. Skin: No rash or itching. Cardiovascular: No chest pain, chest pressure or chest discomfort. No palpitations or edema. Respiratory: No shortness of breath, has cough and sputum Gastrointestinal: No anorexia, nausea, vomiting or diarrhea. No abdominal pain or blood. Genitourinary: No burning on urination. No hematuria. Neurological: No headache, dizziness, syncope, paralysis, ataxia, numbness or tingling in the extremities. No change in bowel or bladder control. Musculoskeletal: No muscle, back pain, joint pain or stiffness. Hematologic: No anemia, bleeding or bruising. Lymphatics: No enlarged nodes. No history of splenectomy. Psychiatry: No history of depression or anxiety. Endocrinologic: No reports of sweating, cold or heat intolerance. No polyuria or polydipsia. Health Status Allergies: Allergic Reactions (Selected) Severity Not Documented NKDA- No reactions were documented. Objective Intake and Output I/O Intake Output Balance 12/19/2015 7a-3p 307.50 500.00 -192.50 3p-11p 0.00 0.00 0.00 As of 16:48 11p-7a 0.00 0.00 0.00 Totals 307.50 500.00 -192.50 12/18/2015 7a-3p 167.50 300.00 -132.50 3p-11p 353.50 0.00 353.50 11p-7a 30.00 0.00 30.00 Totals 551.00 300.00 251.00 12/17/2015 7a-3p 773.33 0.00 773.33 3p-11p 1410.17 0.00 1410.17 11p-7a 1200.00 0.00 1200.00 Totals 3383.50 0.00 3383.50 VS/Measurements Vital Signs (last 24 hrs) Last Charted Temp Oral 98 DegF (DEC 18 12:21) Heart Rate Peripheral 69 bpm (DEC 18 12:21) Resp Rate 18 BRMIN (DEC 18 12:) SBP 129 mmHg (DEC 18 12:21) DBP 72 mmHg (DEC 18 12:21) SpO2 98 % (DEC 18 12:) General: Alert and oriented, No acute distress. Eye: Pupils are equal, round and reactive to light, Extraocular movements are intact, Normal conjunctiva, Vision unchanged. HENT: Normocephalic, Tympanic membranes are clear, Normal hearing, No pharyngeal erythema, left sided asymmetry, hoarse voice. Neck: Supple, Non-tender, No carotid bruit, No jugular venous distention, No lymphadenopathy. Respiratory: Lungs are clear to auscultation, Respirations are non-labored, Breath sounds are equal, Symmetrical chest wall expansion, No chest wall tenderness. Cardiovascular: Normal rate, Regular rhythm, No murmur, No gallop, Good pulses equal in all extremities, Normal peripheral perfusion, No edema. Gastrointestinal: Soft, Non-tender, Non-distended, Normal bowel sounds, No organomegaly, PEG is placed w/o redness around it . Musculoskeletal Normal range of motion. Normal strength. No tenderness. No swelling. No deformity. Normal gait. Integumentary: Warm, Dry, No rash. Neurologic: Alert, Oriented, Normal sensory, Normal motor function, No focal deficits. Psychiatric: Cooperative. Review / Management Results review: Labs (Last four charted values) WBC 9.8 (DEC 18) 9.7 (DEC 17) 10.3 (DEC 16) 5.5 (DEC 09) Hgb 14.6 (DEC 18) 15.5 (DEC 17) 15.0 (DEC 16) 14.0 (DEC 09) Hct 43.5 (DEC 18) 45.5 (DEC 17) 44.5 (DEC 16) 42.9 (DEC 09) Plt 154 (DEC 18) 149 (DEC 17) 172 (DEC 16) 257 (DEC 09) Na 141 (DEC 18) 141 (DEC 17) 142 (DEC 16) 142 (DEC 13) K L 3.1 (DEC 18) 3.9 (DEC 17) L 3.3 (DEC 16) L 3.3 (DEC 13) CO2 30 (DEC 18) 28 (DEC 17) 28 (DEC 16) 25 (DEC 13) Cl 102 (DEC 18) 101 (DEC 17) 105 (DEC 16) 108 (DEC 13) Cr 0.57 (DEC 18) 0.71 (DEC 17) 0.64 (DEC 16) L 0.46 (DEC 13) BUN L 5 (DEC 18) L 5 (DEC 17) 7 (DEC 16) 12 (DEC 13) Glucose Random H 104 (DEC 18) H 115 (DEC 17) 95 (DEC 16) H 121 (DEC 13) Mg 1.9 (DEC 18) 1.9 (DEC 17) 2.1 (DEC 16) Phos L 2.4 (DEC 18) 2.6 (DEC 17) L 2.1 (DEC 16) Ca L 8.3 (DEC 18) L 8.2 (DEC 17) L 8.3 (DEC 16) L 7.4 (DEC 13 ) PT H 15.2 (DEC 16) INR 1.17 (DEC 16) PTT 24.6 (DEC 16) . Laboratory Results Reviewed labs -HSV 1 IGM neg, HSV 2 IGM pos. titr:1:20 -SCl 70 <0.2 -VZV AB IGG>8H PCR neg, EBV neg, Aspergillus neg, histoplasma neg, cryptococcal neg Imagings: Tonsil, left, biopsy:1- Hyperkeratosis, parakeratosis, with acute and chronic inflammation and bacterial colonization 2-Special stains of PAS/Fungus and AFB negative for organisms Supraglottic, left, biopsy: 1-Squamous mucosa and submucosa with abscess formation, necrosis and granulation tissue. 2-Special stains of PAS/Fungus and AFB negative for organisms CT- Neck 12-06-15:1. Mucosal thickening and enhancement involving the left tongue base, palatine tonsil, left aryepiglottic fold and piriform sinus, similar to the prior MRI and CT studies. This lesion i s concerning for a possible neoplasm however biopsy has been performed and has confirmed an infectious process. 2. Air-fluid level within the esophagus, possible GE reflux. MRI Brain 12-06-15: 1. No acute infarct or hemorrhage.2. Microvascular ischemic changes and volume loss. MRI neck 11-30-15:Limited motion degraded exam. T2 hyperintensity involving the left aspect of the larynx resulting in thickening of the left vocal cords, left aryepiglottic fold and left paraglottic spa ce with extension superiorly into the left palatine tonsil and left tongue base including the uvula. The findings are overall concerning for underlying infectious process. Continued imaging follow-up to resolution is recommended to rule out possible underlying lesion. ABD U/S: IMPRESSION: 1. Cirrhotic liver with trace ascites. No Doppler/flow abnormalities. 2. Cholelithiasis without evidence of acute cholecystitis. 3. Status post splenectomy. Impression and Plan Discharge Plan: -GI: need to follow-up with Dr. Cade as outpatient whenever discharged -ENT: PT NEEDS TO F/u with Dr. Lucas, [place] ENT, 2 weeks after D/C [id number] Please call ENT team with questions. Diet: TF as instructed to pt. Activity: as tolerated. SHE NEEDS TO BE ON TUBE FEED FOR AT LEAST 6 MONTHS. Addendum by Myla Nguyễn MD on I have seen and examined the patient with the Medicine Team and I agree with the above findings and plans. 12/19/2015 19:15 Sandor Nguyễn MD Attending Extracted from: Title: Medicine Progress Note Author: Anna Lin MD Date: 12/18/15 Patient: ANA CALDERÓN Age: 65 years Sex: Female : 1950 Associated Diagnoses: None Author: Anna Lin MD Basic Information Admit information: Admission Day: 12/06/2015. Subjective No acute events overnight. No complaints except cough and sputum. She also still gets heartburn occasionally. BM X1 last night. She valentina complains of burning pain on her left side of face. Review of Systems Constitutional: No weight loss, fever, chills, has weakness and fatigue. HEENT: Eyes: No visual loss, blurred vision, double vision or yellow sclerae. Ears, Nose, Throat: No hearing loss, sneezing, congestion, runny nose or sore throat. Skin: No rash or itching. Cardiovascular: No chest pain, chest pressure or chest discomfort. No palpitations or edema. Respiratory: No shortness of breath, has cough and sputum Gastrointestinal: No anorexia, nausea, vomiting or diarrhea. No abdominal pain or blood. Genitourinary: No burning on urination. No hematuria. Neurological: No headache, dizziness, syncope, paralysis, ataxia, numbness or tingling in the extremities. No change in bowel or bladder control. Musculoskeletal: No muscle, back pain, joint pain or stiffness. Hematologic: No anemia, bleeding or bruising. Lymphatics: No enlarged nodes. No history of splenectomy. Psychiatry: No history of depression or anxiety. Endocrinologic: No reports of sweating, cold or heat intolerance. No polyuria or polydipsia. Health Status Allergies: Allergic Reactions (Selected) Severity Not Documented NKDA- No reactions were documented. Objective Intake and Output I/O Intake Output Balance 12/18/2015 7a-3p 167.50 300.00 -132.50 3p-11p 353.50 0.00 353.50 As of 22:47 11p-7a 0.00 0.00 0.00 Totals 521.00 300.00 221.00 12/17/2015 7a-3p 773.33 0.00 773.33 3p-11p 1410.17 0.00 1410.17 11p-7a 1200.00 0.00 1200.00 Totals 3383.50 0.00 3383.50 12/16/2015 7a-3p 196.67 0.00 196.67 3p-11p 1133.33 360.00 773.33 11p-7a 1460.00 675.00 785.00 Totals 2790.00 1035.00 1755.00 VS/Measurements Vital Signs (last 24 hrs) Last Charted Temp Oral 98.0 DegF (DEC 17 20:40) Heart Rate Peripheral 60 bpm (DEC 17:40) Resp Rate 18 BRMIN (DEC 17:40) SBP H 157mmHg (DEC 17:40) DBP 75 mmHg (DEC 17:40) SpO2 95 % (DEC 17:40) General: Alert and oriented, No acute distress. Eye: Pupils are equal, round and reactive to light, Extraocular movements are intact, Normal conjunctiva, Vision unchanged. HENT: Normocephalic, Tympanic membranes are clear, Normal hearing, No pharyngeal erythema, left sided asymmetry, hoarse voice. Neck: Supple, Non-tender, No carotid bruit, No jugular venous distention, No lymphadenopathy. Respiratory: Lungs are clear to auscultation, Respirations are non-labored, Breath sounds are equal, Symmetrical chest wall expansion, No chest wall tenderness. Cardiovascular: Normal rate, Regular rhythm, No murmur, No gallop, Good pulses equal in all extremities, Normal peripheral perfusion, No edema. Gastrointestinal: Soft, Non-tender, Non-distended, Normal bowel sounds, No organomegaly, PEG is placed w/o redness around it . Musculoskeletal Normal range of motion. Normal strength. No tenderness. No swelling. No deformity. Normal gait. Integumentary: Warm, Dry, No rash. Neurologic: Alert, Oriented, Normal sensory, Normal motor function, No focal deficits. Psychiatric: Cooperative. Review / Management Results review: Labs (Last four charted values) WBC 9.7 (DEC 17) 10.3 (DEC 16) 5.5 (NOV 20) 5.6 (SEP 16) Hgb 15.5 (DEC 17) 15.0 (DEC 16) 14.0 (NOV 20) L 10.1 (NOV 16) Hct 45.5 (DEC 17) 44.5 (DEC 16) 42.9 (NOV 20) L 30.0 (SEP 16) Plt 149 (DEC 17) 172 (DEC 16) 257 (NOV 20) 196 (NOV 16) Na 141 (DEC 17) 142 (DEC 16) 142 (DEC 13) 142 (DEC 09) K 3.9 (DEC 17) L 3.3 (DEC 16) L 3.3 (DEC 13) 4.2 (DEC 09) CO2 28 (DEC 17) 28 (DEC 16) 25 (DEC 13) L 21 (DEC 09) Cl 101 (DEC 17) 105 (DEC 16) 108 (DEC 13) 108 (DEC 09) Cr 0.71 (DEC 17) 0.64 (DEC 16) L 0.46 (DEC 13) 0.81 (DEC 09) BUN L 5 (DEC 17) 7 (DEC 16) 12 (DEC 13) 13 (DEC 09) Glucose Random H 115 (DEC 17) 95 (DEC 16) H 121 (DEC 13) H 114 (DEC 09) Mg 1.9 (DEC 17) 2.1 (DEC 16) Phos 2.6 (DEC 17) L 2.1 (DEC 16) Ca L 8.2 (DEC 17) L 8.3 (DEC 16) L 7.4 (DEC 13) L 8.3 (DEC 09 ) PT H 15.2 (DEC 16) INR 1.17 (DEC 16) PTT 24.6 (DEC 16) . Laboratory Results Reviewed labs Impression and Plan Ms Ana Calderón is a 65 yo with PMH of autoimmune cirrhosis, hypothyroidism, anxiety and colon polyps presenting from ENT clinic for decreased PO, difficulty swallowing,and new left sided facial droop. Neurology, ID, and ENT following. PEG is placed yesterday. TF started today x4/ day. She tolerated well. If she eats three meals w/o any issue will be discharged tomorrow. 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 vs less likely ischemic event given negative MRI - 12/05 CT head r/o acute intracranial defect, 12/06 MRI head no acute infarct - MRI brain stem/IAC -- L Hdz's Palsy - pending serum ALL level, Lyme Ab, Mycoplasma IgG and IgM, HSV-1 and HSV-2 IgG , VZV IgG - Negative work-up include: JANET, DsDNA, Anti Ro/La, ANCA, C3/C4, treponema -still on Valtrex 1gr BID per ID since she got the PEG, prednisone 60mg also needs to be tapered today per neuro. - HSV IgG >8.0, postive mycoplasma IgG; VZV IgG >8.0. - LP CSF viral serologies negative (HSV PCR, VZV PCR, and EBV PCR). - Rheum c/s (12/12): unlikely GPA or vasculitis, no indication to assume autoimmune disorder -f/u neuro recom. she should f/u with neuro clinic after DC #Thrush-improved - DCed Fluconazole-completed course #Pharyngitis-improved -DCed Unasyn (D7) and Azithromycin-completed course #Mild to moderate oropharyngeal dysphagia - 12/05 CT neck and chest shows air fluid level in esophagus indicating that patient may have reflux and be at high risk for aspiration, mucosal enchancement of the left larynx, piriform sinus, and palatine tonsil - 11/26 bx L tonsil: chronic bacterial colonization, hyperkeratosis, L supraglottic bx with necrosis and granulation tissue - MBS on 12/09: failed. PEG was placed on TF, she needs to get TF for at least 6 months - 12/09/2015 EGD shows Grade 2 esophageal varices, gastric varices, portal hypertensive gastropathy. - Patient improved with mucomyst to decrease secretions. #Autoimmune cirrhosis - Continue patient home Urosdiol 900 mg PO, propranolol 20 BID PO - +Anti-SM, titers 1:40 - Viral hepatitis panel negative - Liver US: nodular liver, patent vessels - Patient refused liver protocol MRI at this time states that she wants her hepatic work up done outpatient. She would only like to focus on her chief complaint of the neuropath. #Gastric and esophageal varices - 12/08 EGD confirms with stigmata of recent bleeding, patient taking propranolol unknown dose chronically - Will require banding procedures outpatient. - Hepatology following. - Will follow-up with Dr. Cade as outpatient whenever discharged. #Hypothyroidism -Levothryoxine 50 mcg IV switched to 100mcg PO as she now has PEG -likely 2/2 sick thyroid syndrom -TSH follow up after discharge - Will need Endocrine follow up as out/pt. Ppx: Lovenox 40 mg subq q24 Diet: startedTF Dispo: Can go home tomorrow if she tolerates TF X3 SHE NEEDS TO BE ON TUBE FEED FOR AT LEAST 6 MONTHS. Addendum by Myla Nguyễn MD on I have seen and examined the patient with the Medicine Team and I agree with the above findings and plans. 12/19/2015 10:06 Sandor Nguyễn MD Attending Extracted from: Title: Rheumatology Consult Note Author: Elena Calderón MD Date: Patient: ANA CALDERÓN Age: 65 years Sex: Female : 1950 Associated Diagnoses: None Author: Elena Calderón MD Basic Information Source of history: Self. Present at bedside: Family member. History limitation: None. Chief Complaint "Throat pain" History of Present Illness 65 yo female with pmh of autoimmune cirrhosis, hypothyroidism, anxiety and colon polyps presenting for readmission after admission(11/25) for dysphagia and L learngeal paralysis presenting again (12/05) for decreased PO intake, dysphagia and new L facial droop. During previous admission patient was evaluated extensively by ENT and found to have oral thrush, biopsies significant for staph vs. can dida infection and imaging also suggestive of infectious process. Patient was discharged on antibiotics and instructed to follow up with ENT outpatient. On she was sent from clinic for decreased PO intake and new onset facial droop. She has since been evaluated by ENT, Neurology, Hepatology, Gastroenterology and Infectious Disease.MRI brain w/wo contrast reported to have Lt geniculate body enhanc ement suggestive of Hdz's Palsy and multiple paraventricular white matter changes. Biopsy of her pharynx were negative for malignancy, significant for infection. EGD on 12/08 significant for esophageal and gastric varices, being medically managed. She was placed on prednisone for management of bells palsy. She is currently receiving antibiotics for L supraglottic phlegmon per ID. Review of Systems Constitutional: No fever, No chills, No sweats, No weakness. Eye: Negative. Ear/Nose/Mouth/Throat: Negative except as documented in history of present illness. Respiratory: Negative. Cardiovascular: Negative. Gastrointestinal: Negative. Genitourinary: Negative. Hematology/Lymphatics: Negative. Endocrine: Negative. Immunologic: Negative. Musculoskeletal: denies Raynauds, No joint pain, No decreased range of motion. Integumentary: No rash, No pruritus, No abrasions. Neurologic: Alert and oriented X4, No abnormal balance, No confusion, No numbness. Psychiatric: Negative. Health Status Allergies: Allergic Reactions (All) Severity Not Documented NKDA- No reactions were documented., Allergies (1) Active Reaction NKDA None Documented Current medications: (Selected) Inpatient Medications Ordered Benadryl Maximum Strength 2% topical cream: 1 appl, TOP, Q6H, PRN: Allergic reaction Benadryl: 50 mg, 1 cap, PO, TID, PRN: Itching Diflucan: 400 mg, 200 mL, 100 ml/hr, IVPB, [id number] Lacri-Lube: 1 appl, Each Affected Eye, QID, PRN: Dry Eyes Lovenox: 40 mg, 0.4 mL, SUB-Q, [id number] Lubricant Eye Drops: 1 drp, Each Affected Eye, QID Elizabeth 5/325 oral tablet: 1 tab, PO, Q6H, PRN: Pain Score 4-6 Trileptal: 150 mg, 1 tab, PO, BID Unasyn: 3 gm, 1 ea, IVPB, [id number] Visipaque 320mg/ml: 100 mL, IVP, ONCALL Xanax 0.5 mg oral tablet: 0.5 mg, 1 tab, PO, Bedtime, PRN: Sleep acyclovir + sodium chloride 0.9% INJ 100 mL: 640 mg, 100 ml/hr, IVPB, [id number] azithromycin: 500 mg, IVPB, [id number] ketOROLAC: 15 mg, 1 mL, IV, Q6H, PRN: Pain Score 4-6 levothyroxine: 50 microgram, IV, Q630AM methylPREDNISolone SODium SUCCinate: 48 mg, 1.2 mL, IV, Daily pantoprazole: 40 mg, IVP, Before Breakfast prochlorperazine: 5 mg, 1 mL, IVP, Q6H, PRN: Nausea & Vomiting propranolol: 20 mg, 1 tab, PO, Q12H sodium chloride 0.9% 1000 ml INJ 1,000 mL: 150 ml/hr, IV, Stop: 01/05/16 21:35: 00 CDT tramadol 50 mg oral tablet: 50 mg, 1 tab, PO, Q12H, PRN: Pain Score 1-3 ursodiol: 900 mg, 3 cap, PO, Daily Suspended prednisoLONE: 60 mg, 20 mL, NG, Daily Documented Medications Suspended Xanax 0.5 mg oral tablet: 0.5 mg, 1 tab, PO, Bedtime, 0 Refill(s) levothyroxine 100 mcg (0.1 mg) oral tablet: 100 microgram, 1 tab, PO, Daily, 30 tab, 0 Refill(s) ursodiol 300 mg oral capsule: 900 mg, 3 cap, PO, Daily, 0 Refill(s), Medications (22) Active Scheduled: (13) acyclovir INJ + sodium chloride 0.9% INJ 100 mL 640 mg, IVPB, [id number] ampicillin-sulbactam 3gm INJ VL 3 gm 1 ea, IVPB, ABXQ6H azithromycin 500 mg INJ VL 500 mg, IVPB, [id number] enoxaparin 40 mg/0.4 ml INJ 40 mg 0.4 mL, SUB-Q, [id number] fluconazole 400mg/200ml NS premix INJ 400 mg 200 mL, IVPB, [id number] iodixanol 320 mg/ml 100 ml btl 100 mL, IVP, ONCALL levothyroxine 100 microgram INJ VL 50 microgram, IV, Q630AM methylPREDNISolone SOD SUCC 40mg INJ 48 mg 1.2 mL, IV, Daily OXcarbazepine 150 mg TAB 150 mg 1 tab, PO, BID pantoprazole 40 mg INJ 40 mg, IVP, Before Breakfast propranolol 20 mg TAB 20 mg 1 tab, PO, Q12H Tears Naturale 15 ml oph SOLN 1 drp, Each Affected Eye, QID ursodiol 300 mg CAP 900 mg 3 cap, PO, Daily Continuous: (1) sodium chloride 0.9% 1000 ml INJ 1,000 mL 1,000 mL, IV, 150 ml/hr PRN: (8) acetaminophen-hydrocodone 325mg-5mg tab 1 tab, PO, Q6H ALPRAZolam 0.5 mg TAB 0.5 mg 1 tab, PO, Bedtime diphenhydrAMINE 2% TOP CRM 30 gm 1 appl, TOP, Q6H diphenhydrAMINE 50 mg CAP 50 mg 1 cap, PO, TID ketOROLAC 15 mg/1 ml INJ VL 15 mg 1 mL, IV, Q6H ocular lubricant ointment 3.5 gm 1 appl, Each Affected Eye, QID prochlorperazine 10 mg/2 ml VL INJ 5 mg 1 mL, IVP, Q6H traMADol 50 mg TAB 50 mg 1 tab, PO, Q12H Problem list: All Problems Liver cirrhosis / SNOMED CT 07668775 / Confirmed, Active Problems (1) Liver cirrhosis Histories Past Medical History: Active Liver cirrhosis (36865483) Resolved Cirrhosis (81120868): Resolved. Colon polyps (650930365): Resolved. Hep C w/o coma, chronic (398828571): Resolved. Family History: Family history reviewed. , No family history of autoimmune disease; Father with arthritis, brother with adenocarcinoma of the stomach Procedure history: Biopsy of vocal cord (9227820044). Appendectomy (064483590). Splenectomy (215213675). Social History Social & Psychosocial Habits Tobacco 12/06/2015 Use: Current every day smoker Type: Cigarettes Exposure to Tobacco Smoke None Cigarette Smoking Last 365 Days Yes Reg Smoking Cessation Counseling Yes . Physical Examination VS/Measurements Vital Signs (last 24 hrs) Last Charted Temp Oral 98.0 DegF (DEC 12 07:28) Heart Rate Peripheral 71 bpm (DEC 12:) Resp Rate 18 BRMIN (DEC 12:) SBP 113 mmHg (DEC 12:28) DBP 71 mmHg (DEC 12:) SpO2 96 % (DEC 12:) General: Alert and oriented, No acute distress. Eye: Normal conjunctiva, Vision unchanged. HENT: dry mucosa, thrush, Left sided facial droop. Neck: Supple, Non-tender, No thyromegaly. Respiratory: Lungs are clear to auscultation, Respirations are non-labored, Breath sounds are equal. Cardiovascular: Normal rate, Regular rhythm, No murmur, No gallop, Good pulses equal in all extremities. Gastrointestinal: Soft, Non-tender, Normal bowel sounds. Musculoskeletal Normal range of motion. Normal strength. No tenderness. No swelling. No deformity. Integumentary: Warm, Dry, No rash, skin thinning. Neurologic: Alert, Oriented, Normal sensory, Normal motor function, Hoarse. Cognition and Speech: Oriented, Speech clear and coherent. Psychiatric: Cooperative, Appropriate mood & affect. Review / Management Results review: Labs (Last four charted values) WBC 5.5 (SEP 20) 5.6 (SEP 16) 9.8 (SEP 16) Hgb 14.0 (SEP 20) L 10.1 (SEP 16) H 17.2 (SEP 16) Hct 42.9 (SEP 20) L 30.0 (SEP 16) H 51.7 (SEP 16) Plt 257 (SEP 20) 196 (SEP 16) 373 (SEP 16) Na 142 (SEP 20) 139 (SEP 17) 137 (SEP 16) K 4.2 (SEP 20) 3.7 (SEP 17) 4.5 (SEP 16) CO2 L 21 (SEP 20) 24 (SEP 17) 25 (SEP 16) Cl 108 (SEP 20) 103 (SEP 17) 100 (SEP 16) Cr 0.81 (SEP 20) 0.75 (SEP 17) 0.87 (SEP 16) BUN 13 (SEP 20) 13 (SEP 17) 14 (SEP 16) Glucose Random H 114 (NOV 20) 73 (SEP 17) 87 (SEP 16) Ca L 8.3 (SEP 20) 9.1 (SEP 17) 9.4 (SEP 16) . JANET Positive A [2] JANET TITER 1:40 A ANTI-DS-DNA Negative ANTI-MITOCHONDRIAL AB Positive A ANTI-MITOCHONDRIAL AB TITER 1:40 A ANTI-SMOOTH MUSCLE AB Negative C-ANCA Negative P-ANCA Negative 1,060 Impression and Plan Ms Ana Calderón is a 65 yo with PMH of autoimmune cirrhosis, hypothyroidism, anxiety and colon polyps presenting from ENT clinic for decreased PO, difficulty swallowing,and new left sided facial droop. Rheumatology consult to rule out autoimmune process in the setting of dysphagia and other autoimmune processes. Uncertain to whether patient has true diagnosis of PBC. Will discuss with hepatology. Hist ory and physical exam is not alarming for ongoing autoimmune disease. Serologies currently negative. Awaiting Anti Scl-70. Recommend UA, UPCr to evaluate renal function. Also recommend CD4 count. HIV AB negative but patient could be in window period of acute HIV infection. We will continue to see the patient and leave recommendations as needed. Elena Calderón PGY1 [id number] Addendum by Maritza Brown I evaluated the patient with Dr. Calderón on 12/13/15. We were consulted to evaluate to rule out the possibility of an autoimmune disorder causing her current presentation. Her JANET was documented as being kennedy Ocasio MD on 12/13/2015 20:32 ositive but it is actually negative (cut-off for positivity 1:80). No indication that this presentationc could be consistent with GPA or other vasculitis. We agree with repeat biopsy now that she has been treated for infection. No indication to suspect an autoimmune disorder causing her symptoms at this point. Maritza Sinclair MD Biomedical Engineering Technician Division of Rheumatology Extracted from: Title: Team A General Admission H&P Author: Karina Jarrell MD Date: 12/06/15 Patient: ANA CALDERÓN Age: 65 years Sex: Female : 1950 Associated Diagnoses: None Author: Karina Jarrell MD Chief Complaint 12/06/2015 14:01 pt reports she has had difficulty swallowing for the past 3 weeks mena sent pt for eval and ct and to be followed by ent pt denies difficulty breathing hx: cirrhosis autoimmun e scope done in office showed clear of infection but vocal cord not moving History of Present Illness Ms Ana Calderón is a 65 yo with PMH of autoimmune cirrhosis, hypothroidism, anxiety and colon polyps presenting from ENT clinic for decreased PO, difficulty swallowing,and new left sided facial droop. S angely discharge on 11/30 patient states she has not regained the ability to tolerate PO. She attempts to eat solids and liquids, however vomits her food up shortly after. Able to take her prescribed medic ations. Feels the food is stuck in her throat. Also patient states she is requiring help walking, feeling center of gravity is off and weakness. At appointment today was the first time patient and gabriela staples noticed L facial droop. +hoarse voice new, +L ear pain on/off x4 days, L brow pain, +L lower face swelling. Denies fever, chills, odynophagia, cough, rhinorrhea, chest pain, SOB, difficulty breathing , change in vision, change in hearing, vertigo, dizziness. At appointment endoscopy showed Endoscopy with immobile mass on L vocal folds, mass on left sided fullness of L A-E fold and aretenoid tower and edematous arytenoid. Of note patient recently discharged from [facility] on 11/30 for throat pain and decreased PO concerned for Bertin's angina. Patient had laryngeal edema and oral thrush. ENT evaluation via laryngoscopy showed o ral thrush, L vocal cord immobilization. Repeat laryngoscopy showed pseudomembranous plaque that bled when scraped. Clx from tissue bx grow Staph nonaureas and alpha strep. Patient slowly advanced durin g past admission on the dyspjagoa diet and tolerate solid PO prior to d/c. Patient d/c with fluconazole and augmentin 875 x 14 days with ENT f/u. Patient has history of hepatitis C cirrhosis (unknown treatment), and 22 pack year smoking history (0.5 ppd x 45 years) Review of Systems Constitutional: Weakness, No fever, No chills, No sweats. Eye: No recent visual problem, No blurring, No double vision, No visual disturbances. Ear/Nose/Mouth/Throat: Nasal congestion, Sore throat, No decreased hearing. Ear pain: Left. Respiratory: No shortness of breath, No cough, No wheezing. Cardiovascular: No chest pain, No syncope. Gastrointestinal: Vomiting, No nausea, No diarrhea, No constipation, No heartburn, No abdominal pain. Genitourinary: No dysuria, No hematuria. Endocrine: No excessive thirst, No polyuria, No cold intolerance. Musculoskeletal: Neck pain, No back pain, No muscle pain, No decreased range of motion. Integumentary: No rash. Neurologic: Abnormal balance, Headache, No numbness, No tingling. Health Status Allergies: Allergic Reactions (All) Severity Not Documented NKDA- No reactions were documented. , Allergies (1) Active Reaction NKDA None Documented Current medications: (Selected) Inpatient Medications Ordered Augmentin 875 mg oral tablet: 1 tab, PO, BID fluconazole: 400 mg, 2 tab, PO, Daily levothyroxine: 100 microgram, 1 tab, PO, Q630AM ondansetron: 4 mg, 2 mL, IVP, Q6H, PRN: Nausea & Vomiting pneumococcal 13-valent vaccine: 0.5 mL, IM, Daily sodium chloride 0.9% 1000 ml INJ 1,000 mL: 100 ml/hr, IV, Stop: 01/05/16 21:35: 00 CDT ursodiol: 900 mg, 3 cap, PO, Daily Prescriptions Suspended Augmentin 875 mg oral tablet: 875 mg, 1 tab, PO, BID, for 10 day, 20 tab, 0 Refill(s) fluconazole 200 mg oral tablet: 400 mg, 2 tab, PO, Daily, for 10 day, 20 tab, 0 Refill(s) Documented Medications Suspended Xanax 0.5 mg oral tablet: 0.5 mg, 1 tab, PO, Bedtime, 0 Refill(s) levothyroxine 100 mcg (0.1 mg) oral tablet: 100 microgram, 1 tab, PO, Daily, 30 tab, 0 Refill(s) ursodiol 300 mg oral capsule: 900 mg, 3 cap, PO, Daily, 0 Refill(s) , Medications (7) Active Scheduled: (5) amoxicillin-clavulanate 875-125 mg TAB 1 tab, PO, BID fluconazole 200 mg TAB 400 mg 2 tab, PO, Daily levothyroxine 100 microgram TAB 100 microgram 1 tab, PO, Q630AM pneumococcal 13-valent conjugate vaccine SUSP 0.5 mL, IM, Daily ursodiol 300 mg CAP 900 mg 3 cap, PO, Daily Continuous: (1) sodium chloride 0.9% 1000 ml INJ 1,000 mL 1,000 mL, IV, 100 ml/hr PRN: (1) ondansetron 4 mg/2ml INJ VL 4 mg 2 mL, IVP, Q6H Problem list: No qualifying data available Histories Past Medical History: Resolved Cirrhosis (15377456): Resolved. Colon polyps (757970296): Resolved. Hep C w/o coma, chronic (098103714): Resolved. Family History: No family history items have been selected or recorded. Procedure history: Biopsy of vocal cord (5447400128). Appendectomy (037315365). Splenectomy (605894271). Social History Social & Psychosocial Habits Tobacco 12/06/2015 Use: Current every day smoker Type: Cigarettes Exposure to Tobacco Smoke None Cigarette Smoking Last 365 Days Yes Reg Smoking Cessation Counseling Yes . Physical Examination VS/Measurements Measurements from flowsheet : Measurements 12/06/2015 22:06 Heparin Dosing Weight (kg) 68.18 12/06/2015 21:45 Height 172.72 cm Height Collection Method Stated Weight 68.182 kg Dosing Weight Difference Percent 0 % Dosing Weight Collection Method Measured Body Surface Area 1.8087 m2 Body Mass Index 22.86 m2 12/06/2015 14:10 Heparin Dosing Weight (kg) 68.18 12/06/2015 14:01 Height 172.72 cm Height Collection Method Stated Weight 68.182 kg Dosing Weight Difference Percent -1.329 % Dosing Weight Collection Method Estimated Body Surface Area 1.8087 m2 Body Mass Index 22.86 m2 , Vital Signs (last 24 hrs) Last Charted Temp Oral 97.7 DegF (DEC 05 22:45) Heart Rate Apical 70 bpm (DEC 05:45) Resp Rate 15 BRMIN (DEC 05:45) SBP 137 mmHg (DEC 05:45) DBP 73 mmHg (DEC 05:45) SpO2 94 % (DEC 05:45) Weight 68.182 kg (DEC 05:45) Height 172.72 cm (DEC 05:45) BMI 22.86 (DEC 05:45) General: Alert and oriented, No acute distress. Eye: Pupils are equal, round and reactive to light, Extraocular movements are intact, Normal conjunctiva. HENT: L ear non bulging, non erythematous, NTTP, clear middle ear effusion, L parotid TTP, L facial swelling. Neck: Supple. Respiratory: Lungs are clear to auscultation, Respirations are non-labored, Breath sounds are equal, Symmetrical chest wall expansion. Cardiovascular: Normal rate, Regular rhythm. Gastrointestinal: Soft, Non-tender, hypoactive bowel sounds. Musculoskeletal No swelling. UE, LE strength 5/5. Neurologic: Alert, Oriented, Normal sensory, L CN7 unable to close eye, L facial droop, other CN intact bilaterally, +rhomberg R side deviation, unable to stand independently, 3+ patellar reflex bilate rally, negative heel to qiu, negative finger to nose. Cognition and Speech: Oriented, Speech clear and coherent, hoarse voice. Review / Management Results review: Labs (Last four charted values) WBC 5.6 (NOV 16) 9.8 (NOV 16) Hgb L 10.1 (NOV 16) H 17.2 (NOV 16) Hct L 30.0 (NOV 16) H 51.7 (SEP 16) Plt 196 (SEP 16) 373 (SEP 16) Na 137 (SEP 16) K 4.5 (SEP 16) CO2 25 (NOV 16) Cl 100 (NOV 16) Cr 0.87 (NOV 16) BUN 14 (NOV 16) Glucose Random 87 (DEC 05) Ca 9.4 (DEC 05) . Impression and Plan Ms Ana Calderón is a 65 yo with PMH of autoimmune (Hep C?) cirrhosis, hypothyroidism, anxiety and colon polyps presenting from ENT clinic for decreased PO, difficulty swallowing,and new left sided facial droop. # L facial palsy -ddx L CN7 LMN impingement, stroke, Hdz's palsy, -12/05 CT head r/o acute intracranial defect - will discuss Rheum envolvment # Ataxia -new onset -pending B12 and folate for possible posterior column involvement -pending MRI brain w/o contrast #Dysphagia - 12/05 CT neck and chest shows air fluid level in esophagus indicating that patient may have reflux and be at high risk for aspiration, mucosal enchancement of the left larynx, piriform sinus, and palatine tonsil - 11/26 bx L tonsil: chronic bacterial colonization, hyperkeratosis, L supraglottic bx with necrosis and granulation tissue - continue patient's fluconazole 400 mg and augmentin 875 mg Day 08/02 for previous lito and bacterial infection - ENT on board - patient NPO -Pending speech evaluation -Pending Barium Swalling -Pending Modified Barium swallow -pending formal read for CT head, neck, and chest # Cirrhosis -continue patient home Urosdiol 900 mg -pending Hepatitis panel #Hypothyroidism -continue patient home Synthroid 100 mcg qAM Ppx: lovenox 40 mg subq q24 Diet: liquid Dispo: pending evaluations and ENT clearance Addendum by Myla Nguyễn MD on I have seen and examined the patient with the Medicine Team and I agree with the above findings and plans. 12/07/2015 07:23 Sandor Nguyễn MD Attending
--- OUTSIDE RECORDS SUMMARY | 2018-02-28 15:40 | XMS REPORT | Summary of Care ---
:1950 Author Name MICHELLE BROUSSARD M.D. Address Unavailable Unavailable , Care Team Providers Name Role Phone MICHELLE BROUSSARD M.D. 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, 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 Dysphagia, unspecified type (787.20, R13.10) Status: Active Dysphonia (784.42, R49.0) Status: Active Pharyngeal dysphagia (787.23, R13.13) Status: Active Vocal cord paralysis, unilateral complete (478.32, J38.01) Status: Active Medications Name Dates Details Xanax 0.5 MG Oral Tablet Refills: 0 Active Levothyroxine Sodium 100 MCG Oral Tablet Refills: 0 Active Ursodiol 300 MG Oral Capsule Refills: 0 Active Zolpidem Tartrate 10 MG Oral Tablet Refills: 0 Active Propranolol HCl - 10 MG Oral Tablet Refills: 0 Active Ipratropium Cascade 0.03 % Nasal Solution USE 2 SPRAYS IN EACH NOSTRIL 2-3 TIMES DAILY. Quantity: 90.0 Refills: 3 MICHELLE BROUSSARD M.D. Start : 20-Feb-2016 Active Cymbalta CPEP Refills: 0 Active PredniSONE TABS Refills: 0 Active Allergies and Adverse Reactions Name Dates Details No Known Allergies (Allergy) Status: Active Past Medical History Name Dates Details History of Liver dysfunction (573.9, K76.89) Status: Resolved Procedures Procedure Dates Details History of Colon Surgery Completed History of Appendectomy Completed History of Repair Of Splenic Rupture Completed Immunization Name Dates Details Immunizations not documented Family History Name Dates Details No pertinent family history (V49.89, Z78.9) Status: Active Name Dates Details No pertinent family history (V49.89, Z78.9) Status: Active Social History Name Dates Details - Status: Name Dates Details Never smoker Vital Signs Date Test Result Details [id number] BP Systolic 106 mm[Hg] Status: Comments: Location: RUE; Position: Sitting BP Diastolic 74 mm[Hg] Status: Comments: Location: RUE; Position: Sitting Height 68 in Status: Weight 145.25 lb Status: Body Mass Index Calculated 22.09 kg/m2 Status: Body Surface Area Calculated 1.78 m2 Status: Temperature 96.8 f Status: Comments: Method: Oral Heart Rate 86 /min Status: Comments: Quality: Normal Results Date Description Value Details Results not documented Plan of Care Name Dates Details Planned Observations Planned Goals not documented Interventions Provided PlanEndoscopy todayHer glottic closure is very good. 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 On: 06-Dec-2015 13:00 Encounter Diagnosis: Problem not documented Appointment; CANDELARIO PRADO M.D. On: 27-Dec-2015 14:30 Encounter Diagnosis: Problem not documented Appointment; MIHCELLE BROUSSARD M.D. On: 29-Jan-2016 15:00 Encounter Diagnosis: Problem not documented Appointment; DANICA HARTLEY M.D. On: 05-Feb-2016 10:00 Encounter Diagnosis: Problem not documented Appointment; MICHELLE BROUSSARD M.D. On: 26-Feb-2016 10:30 Encounter Diagnosis: Problem not documented Appointment; MICHELLE BROUSSARD M.D. On: 23-Jun-2016 10:00 Encounter Diagnosis: Problem not documented Appointment; DANICA HARTLEY M.D. On: 30-Jun-2016 15:00 Encounter Diagnosis: Problem not documented Appointment; MICHELLE BROUSSARD M.D. On: 28-Sep-2016 13:00 Encounter Diagnosis: Problem not documented Appointment; MICHELLE BROUSSARD M.D. On: 30-Aug-2017 14:00 Encounter Diagnosis: Problem not documented
[2018-02-28] MEDS ORDERED: HYDROCODONE/APAP 5/325 MG TAB ONE (16:16)
[2018-02-28 16:41] LABS: Urine Bacteria 20-50 /HPF (<20); Urine RBC <5 /HPF (NONE SEEN)
[2018-02-28 16:42] LABS: Urine Blood NEGATIVE (NEG); Urine Glucose NEGATIVE (NEG); Urine Protein NEGATIVE (NEG); Urine pH 6.5 (5.0-7.0)
[2018-02-28 16:42] LABS: Urine Culture Reflex Order REFLEXED; Urine Mucus 2+ /HPF (NONE SEEN)
--- NOTE | 2018-02-28 17:13 | RAD REPORT ---
EXAM DESCRIPTION: RAD - Shoulder Left 2 View - 02/28/2018 5:08 pm CLINICAL HISTORY: PAIN Fall, pain and swelling. COMPARISON: No comparisons FINDINGS: Oblique lucency is seen in the distal left clavicle suspicious for a nondisplaced fracture . No dislocation evident. IMPRESSION: Nondisplaced distal left clavicle fracture suspected.
--- NOTE | 2018-02-28 17:13 | RAD REPORT ---
EXAM DESCRIPTION: RAD - Hip Right 2 View - 02/28/2018 5:06 pm CLINICAL HISTORY: PAIN Fall, pain. COMPARISON: No comparisons FINDINGS: No fracture or dislocation right hip is seen. No radiographic finding to indicate AVN. Barrie gical clips are present in the right lower quadrant.
--- NOTE | 2018-02-28 17:23 | EDPHYS ---
Physician Documentation [facility] Name: Ana Victor Age: 67 yrs Sex: Female : 1950 Arrival Date: 02/28/2018 Time: 15:39 Bed 11 Private MD: Falguni Rashid H ED Physician Ernesto Wallace HPI: 02/28 16:04 This 67 yrs old Female presents to ER via Ambulatory with complaints of Fall kav Injury, Shoulder Pain. 16:04 Details of fall: The patient fell from an upright position, while walking. Onset: The kav symptoms/episode began/occurred acutely, 3 day(s) ago. Associated injuries: The patient sustained anterior aspect of left shoulder, ecchymosis, swelling, right hip, ecchymosis. 16:04 Patient reports that she tripped and fell while using her walker approximately 3 days kav ago. The left anterior shoulder with ecchymosis and tenderness with palpation and mild swelling. The right hip with ecchymosis with full active range of motion. Patient reports pain with movement of extremities rated at 6/10.. Historical: - Allergies: 15:51 Iodinated Contrast Media - IV Dye; hj - Home Meds: 16:32 Acetaminophen Oral [Active]; alprazolam 2 mg Oral tab 1 tab twice a day [Active]; rv Alprazolam Oral [Active]; ipratropium bromide inhalation [Active]; levothyroxine 100 mcg tab 1 tab once daily [Active]; levothyroxine 150 mcg tab 1 tab once daily [Active]; Lyrica Oral [Active]; Omeprazole Oral [Active]; Prednisone Oral [Active]; propranolol 10 mg Oral tab 1 tab twice a day [Active]; ursodiol 300 mg Oral cap 3 times per day [Active]; - PMHx: 15:51 bells palsy; Cirrhosis; dysphonia; Hypothyroidism; hj 16:32 lansoprazole; oxcarbazepine oral suspension 300mg / 5 mL; promethazine- codeine 6.25-10 rv mg/ 5 mL oral syrup; propanolol 20 mg tab BID; ursodiol 300 mg captake 3 caps my mouth daily; - PSHx: 15:51 colon; Appendectomy; hj 16:32 Unable to obtain; rv - Immunization history:: Adult Immunizations up to date. - Social history:: Smoking status: Patient/guardian denies using tobacco, Patient/guardian denies using alcohol. - Ebola Screening: : Patient negative for fever greater than or equal to 101.5 degrees Fahrenheit, and additional compatible Ebola Virus Disease symptoms Patient denies exposure to infectious person Patient denies travel to an Ebola-affected area in the 21 days before illness onset. - Family history:: not pertinent. - Hospitalizations: : No recent hospitalization is reported. - History obtained from: caregiver. ROS: 16:04 Constitutional: Negative for fever, chills, and weight loss, Eyes: Negative for injury, kav pain, redness, and discharge, ENT: Negative for injury, pain, and discharge, Neck: Negative for injury, pain, and swelling, Cardiovascular: Negative for chest pain, palpitations, and edema, Respiratory: Negative for shortness of breath, cough, wheezing, and pleuritic chest pain, Abdomen/GI: Negative for abdominal pain, nausea, vomiting, diarrhea, and constipation, Back: Negative for injury and pain, : Negative for injury, bleeding, discharge, and swelling, Skin: Negative for injury, rash, and discoloration, Neuro: Negative for headache, weakness, numbness, tingling, and seizure, Psych: Negative for depression, anxiety, suicide ideation, homicidal ideation, and hallucinations, Allergy/Immunology: Negative for hives, rash, and allergies, Endocrine: Negative for neck swelling, polydipsia, polyuria, polyphagia, and marked weight changes, Hematologic/Lymphatic: Negative for swollen nodes, abnormal bleeding, and unusual bruising. 16:04 MS/extremity: Positive for ecchymosis, pain, swelling, Negative for injury or acute deformity, paresthesias, tingling, warmth. Exam: 16:04 Constitutional: This is a well developed, well nourished patient who is awake, alert, kav and in no acute distress. Head/Face: Normocephalic, atraumatic. Eyes: Pupils equal round and reactive to light, extra-ocular motions intact. Lids and lashes normal. Conjunctiva and sclera are non-icteric and not injected. Cornea within normal limits. Periorbital areas with no swelling, redness, or edema. ENT: Nares patent. No nasal discharge, no septal abnormalities noted. Tympanic membranes are normal and external auditory canals are clear. Oropharynx with no redness, swelling, or masses, exudates, or evidence of obstruction, uvula midline. Mucous membranes moist. Neck: Trachea midline, no thyromegaly or masses palpated, and no cervical lymphadenopathy. Supple, full range of motion without nuchal rigidity, or vertebral point tenderness. No Meningismus. Chest/axilla: Normal chest wall appearance and motion. Nontender with no deformity. No lesions are appreciated. Cardiovascular: Regular rate and rhythm with a normal S1 and S2. No gallops, murmurs, or rubs. Normal PMI, no JVD. No pulse deficits. Respiratory: Lungs have equal breath sounds bilaterally, clear to auscultation and percussion. No rales, rhonchi or wheezes noted. No increased work of breathing, no retractions or nasal flaring. Abdomen/GI: Soft, non-tender, with normal bowel sounds. No distension or tympany. No guarding or rebound. No evidence of tenderness throughout. Back: No spinal tenderness. No costovertebral tenderness. Full range of motion. Skin: Warm, dry with normal turgor. Normal color with no rashes, no lesions, and no evidence of cellulitis. Neuro: Awake and alert, GCS 15, oriented to person, place, time, and situation. Cranial nerves II-XII grossly intact. Motor strength 5/5 in all extremities. Sensory grossly intact. Cerebellar exam normal. Normal gait. Psych: Awake, alert, with orientation to person, place and time. Behavior, mood, and affect are within normal limits. 16:04 Musculoskeletal/extremity: Extremities: noted in the anterior aspect of left shoulder: ecchymosis, pain, swelling, ROM: full active range of motion, in all extremities, full passive range of motion, in all extremities, Circulation is intact in all extremities. Pulses: Perfusion: the patient is normally perfused throughout, pink, warm, noted to have brisk capillary refill, Perfusion: the extremity is normally perfused throughout, pink, warm, with brisk capillary refill, Sensation intact. Joints: the left shoulder displays Weight bearing: can bear weight with assistance only, uses walker, Tendon exam: specific tendon testing normal through active and passive range of motion DVT Exam: No signs of deep vein thrombosis. Calves: are non-tender. Vital Signs: 15:52 BP 124 / 87; Pulse 71; Resp 18; Temp 97.5(TE); Pulse Ox 98% on R/A; Weight 67.13 kg; hj Height 5 ft. 8 in. (172.72 cm); Pain 11/29; 15:52 Body Mass Index 22.50 (67.13 kg, 172.72 cm) hj MDM: 15:57 Medical screening is not applicable. kav 16:04 Data reviewed: vital signs, nurses notes. kav 17:20 Differential diagnosis: fracture, strain. kav 17:20 Data reviewed: radiologic studies, plain films. kav 17:24 Counseling: I had a detailed discussion with the patient and/or guardian regarding: the [facility] historical points, exam findings, and any diagnostic results supporting the discharge/admit diagnosis, radiology results, the need for outpatient follow up. 02/28 16:21 Order name: Urine Microscopic Only; Complete Time: 17:17 02/28 16:23 Order name: Urine Dipstick--Ancillary (enter results) 02/28 16:03 Order name: Shoulder Left (2 View) XRAY; Complete Time: 17:17 [facility] 02/28 16:03 Order name: Hip Right 2 View XRAY; Complete Time: 17:17 [facility] 02/28 16:24 Order name: Urine Dipstick-Ancillary; Complete Time: 17:13 [facility] 02/28 16:43 Order name: Urine Culture [facility] 02/28 16:03 Order name: Urine Dipstick-Ancillary (obtain specimen); Complete Time: 16:29 ka 02/28 17:23 Order name: Sling; Complete Time: 17:42 kav Administered Medications: 16:15 Drug: [place] 5 mg-325 mg 1 tabs Route: PO; rv 17:42 Follow up: Response: No adverse reaction; Pain is decreased iw Disposition: 18:09 Co-signature as Attending Physician, Ernesto Wallace MD. rn Disposition: 02/28/18 17:22 Discharged to Home. Impression: Fracture of clavicle. - Condition is Stable. - Discharge Instructions: Clavicle Fracture. - Prescriptions for Tramadol 50 mg Oral Tablet - take 1 tablet by ORAL route every 8 hours as needed; 12 tablet. - Medication Reconciliation Form, Thank You Letter form. - Follow up: Amarjit Pillai MD; When: 5 - 6 days; Reason: Recheck today's complaints, Continuance of care, Re-evaluation by your physician. - Problem is new. - Symptoms have improved. Signatures: Dispatcher [employer] Cheri Wiely, PAPER GUILLOTINE OPERATOR PAPER GUILLOTINE OPERATOR Ashly Hassan RN RN iw Ernesto Wallace MD MD rn Joaquin, Henry, RN RN hj Eugenio Alaniz RN RN rv Corrections: (The following items were deleted from the chart) 17:43 17:22 02/28/2018 17:22 Discharged to Home. Impression: Fracture of clavicle. Condition iw is Stable. Forms are Medication Reconciliation Form, Thank You Letter, Antibiotic Education, Prescription Opioid Use. Follow up: Amarjit Pillai; When: 5 - 6 days; Reason: Recheck today's complaints, Continuance of care, Re-evaluation by your physician. Problem is new. Symptoms have improved. kav
--- NOTE | 2018-02-28 17:23 | ER ---
Nurse's Notes [facility] Name: Ana Victor Age: 67 yrs Sex: Female : 1950 Arrival Date: 02/28/2018 Time: 15:39 Bed 11 Private MD: Falguni Rashid H Diagnosis: Fracture of clavicle Presentation: 02/28 15:48 Presenting complaint: Patient states: i tripped and fell Wednesday at the porch and hurt R hj hip and L shoulder, hit my head; denies LOC;. Transition of care: patient was not received from another setting of care. Onset of symptoms was February 28, 2018. Risk Assessment: Do you want to hurt yourself or someone else? Patient reports no desire to harm self or others. Initial Sepsis Screen: Does the patient meet any 2 criteria? No. Patient's initial sepsis screen is negative. Does the patient have a suspected source of infection? No. Patient's initial sepsis screen is negative. Care prior to arrival: None. 15:48 Method Of Arrival: Ambulatory 15:48 Acuity: OPHELIA 4 hj Triage Assessment: 15:51 General: Appears in no apparent distress. uncomfortable, Behavior is calm, cooperative, hj appropriate for age. Pain: Complains of pain in R hip and L shoulder. Historical: - Allergies: 15:51 Iodinated Contrast Media - IV Dye; hj - Home Meds: 16:32 Acetaminophen Oral [Active]; alprazolam 2 mg Oral tab 1 tab twice a day [Active]; rv Alprazolam Oral [Active]; ipratropium bromide inhalation [Active]; levothyroxine 100 mcg tab 1 tab once daily [Active]; levothyroxine 150 mcg tab 1 tab once daily [Active]; Lyrica Oral [Active]; Omeprazole Oral [Active]; Prednisone Oral [Active]; propranolol 10 mg Oral tab 1 tab twice a day [Active]; ursodiol 300 mg Oral cap 3 times per day [Active]; - PMHx: 15:51 bells palsy; Cirrhosis; dysphonia; Hypothyroidism; hj 16:32 lansoprazole; oxcarbazepine oral suspension 300mg / 5 mL; promethazine- codeine 6.25-10 rv mg/ 5 mL oral syrup; propanolol 20 mg tab BID; ursodiol 300 mg captake 3 caps my mouth daily; - PSHx: 15:51 colon; Appendectomy; hj 16:32 Unable to obtain; rv - Immunization history:: Adult Immunizations up to date. - Social history:: Smoking status: Patient/guardian denies using tobacco, Patient/guardian denies using alcohol. - Ebola Screening: : Patient negative for fever greater than or equal to 101.5 degrees Fahrenheit, and additional compatible Ebola Virus Disease symptoms Patient denies exposure to infectious person Patient denies travel to an Ebola-affected area in the 21 days before illness onset. - Family history:: not pertinent. - Hospitalizations: : No recent hospitalization is reported. - History obtained from: caregiver. Screenin:51 Abuse screen: Denies threats or abuse. Denies injuries from another. Nutritional hj screening: No deficits noted. Tuberculosis screening: No symptoms or risk factors identified. Fall Risk None identified. Assessment: 16:30 General: Appears in no apparent distress. uncomfortable, Behavior is calm, cooperative. rv Pain: Complains of pain in left shoulder and right hip. Neuro: Level of Consciousness is awake, alert, obeys commands, Oriented to person, place, time, situation. Cardiovascular: Capillary refill < 3 seconds. Respiratory: Airway is patent. GI: No signs and/or symptoms were reported involving the gastrointestinal system. : No signs and/or symptoms were reported regarding the genitourinary system. EENT: No signs and/or symptoms were reported regarding the EENT system. Derm: Bruising that is dark purple, on left shoulder. Musculoskeletal: Reports pain in left shoulder and right hip. Vital Signs: 15:52 BP 124 / 87; Pulse 71; Resp 18; Temp 97.5(TE); Pulse Ox 98% on R/A; Weight 67.13 kg; hj Height 5 ft. 8 in. (172.72 cm); Pain 9/10; 15:52 Body Mass Index 22.50 (67.13 kg, 172.72 cm) ED Course: 15:39 Patient arrived in ED. as 15:39 Falguni Rashid DO is Private Physician. as 15:50 Triage completed. hj 15:52 Arm band placed on right wrist. hj 15:52 Patient has correct armband on for positive identification. Bed in low position. Call light in reach. Side rails up X 1. Adult w/ patient. 15:57 [facility] kav 15:57 Ernesto Wallace MD is Attending Physician. kav 16:29 Urine Microscopic Only Sent. rv 16:29 Urine Dipstick--Ancillary (enter results) Sent. rv 16:30 Urine Dipstick-Ancillary Sent. rv 17:09 Shoulder Left (2 View) XRAY In Process Unspecified. EDMS 17:09 Hip Right 2 View XRAY In Process Unspecified. EDMS 17:16 Ashly Acosta, RN is Primary Nurse. iw 17:22 Amarjit Pillai MD is Referral Physician. kav 17:43 No provider procedures requiring assistance completed. Patient did not have IV access iw during this emergency room visit. Administered Medications: 16:15 Drug: [place] 5 mg-325 mg 1 tabs Route: PO; rv 17:42 Follow up: Response: No adverse reaction; Pain is decreased iw Outcome: 17:22 Discharge ordered by MD. kav 17:42 Discharged to home via wheelchair, with family. iw 17:42 Condition: good 17:42 Discharge instructions given to patient, Instructed on discharge instructions, follow up and referral plans. Demonstrated understanding of instructions, follow-up care, medications, Prescriptions given X 1. 17:43 Patient left the ED. iw Signatures: Dispatcher [employer] EDLA Cheri Marie FNP FLOOR LAYER TILESparkle Mims as Ashly Acosta, RN ANDRADE iw Andrés Holden RN RN Eugenio Alaniz RN RN rv
[2018-02-28 17:47] VITALS: BP 124/87; TEMP 97.5; O2SAT 98
== END 2018-02-28 17:43 | disposition home or self-care (01) ==
LOC: ER 15:31
DX: S42.035A Nondisplaced fracture of lateral end of left clavicle, initial encounter for closed fracture (principal); W01.0XXA Fall on same level from slipping, tripping and stumbling without subsequent striking against object, initial encounter; Y93.01 Activity, walking, marching and hiking; Y92.9 Unspecified place or not applicable; Z91.041 Radiographic dye allergy status; E03.9 Hypothyroidism, unspecified; K74.60 Unspecified cirrhosis of liver
CPT/HCPCS: 81003; 81015; 87086; 87088; 99284

== ENCOUNTER 2018-03-08 14:06 | Emergency (ER) | payer OTHER ==
--- OUTSIDE RECORDS SUMMARY | 2018-03-08 14:14 | XMS REPORT | Continuity of Care Document ---
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 [facility] PARALYSIS [address] [place] [address] SCAN Active 12/06/[address] CN 7 PALSY, Active 12/06/19 [facility] DYSPHAGIA [address] [place] [address] SEPSIS Active 11/25/[address] LANCE Active 11/25/19 [facility] BILLING [address] [place] [address] SIALADENITIS Active 11/25/[address] Hep C w/o coma, Resolved Problem 05/09/2016 [facility], [place],[facility] Liver cirrhosis Active Problem 05/09/2016 [facility] Cirrhosis Resolved Problem 05/09/2016 [facility] Colon polyps Resolved Problem 05/09/2016 [facility] SIALOADENITIS, Active 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 predniSONE 5 mg/5 20 mg, 20 mL, No Longer [place] mL oral solution Route: PEG, Active 2015 Medical Drug form: Center SOLN, Daily, Start date: 12/20/15 9:00:00 CDT, Duration: 1 doses or times, Stop date: 12/20/15 9:00:00 CDTNotes: (Same as: Liquid Pred.) Take with food. Prednisone 1 MG/ML 10 mg=10 mL, No Longer [place] Oral Solution PEG, Daily, X 1 Active 2015, # 10 mL, 0 Center Refill(s) ursodiol 300 mg 900 mg=3 cap, Active [facility] oral capsule PO, Daily, # 2016 Medical 120 cap, 3 Center Refill(s) levothyroxine 100 100 microgram=1 Active [place] mcg (0.1 mg) oral tab, PEG, 2015 Medical tablet Q630AM, # 30 Center tab, 3 Refill(s) Alprazolam 0.5 MG 0.5 mg=1 tab, Active [place] Oral Tablet [Xanax] PO, Bedtime, 2016 Medical PRN Sleep, X 14 Center day, # 14 tab, 0 Refill(s) valACYclovir 500 mg 1,000 mg=2 tab, Active [place] oral tablet PEG, Q12H, X 6 2015 Medical day, # 24 tab, Center 0 Refill(s) tramadol 50 mg=1 tab, Active [place] hydrochloride 50 MG PEG, Q12H, PRN 2016 Medical Oral Tablet Pain Score 1-3, Center X 30 day, # 60 tab, 0 Refill(s) propranolol 20 mg 20 mg=1 tab, Active [place] oral tablet PEG, Q12H, # 60 2016 Medical tab, 3 Center Refill(s) diphenhydrAMINE 50 50 mg=1 cap, Active [facility] mg oral capsule PO, TID, PRN 2016 Medical Itching, X 14 Center day, # 42 cap, 3 Refill(s) ocular lubricant 1 drp, Each Active [facility] solution Affected Eye, 2016 Medical QID, # 36 ea, 3 Center Refill(s) lansoprazole 3 30 mg=10 mL, Active [facility] mg/mL oral PEG, Before 2015 Medical suspension Breakfast, # 30 [place] mL, 3 Refill(s) OXcarbazepine 300 150 mg=2.5 mL, Active [facility] mg/5 mL oral PEG, BID, # 150 2015 Medical suspension mL, 3 Refill(s) [place] predniSONE 5 mg/5 30 mg, 30 mL, Inactive [facility] mL oral solution Route: PO, Drug 2015 Medical form: SOLN, [place] Daily, Start date: 12/19/15 9:00:00 CDT, Duration: 1 doses or times, Stop date: 12/19/15 9:00:00 CDTNotes: (Same as: Liquid Pred.) Take with food. Potassium Chloride 40 mEq, 30 mL, Inactive [place] 1.33 MEQ/ML Oral Route: PEG, 2015 Medical Solution Drug form: LIQ, [place] ONCE, Dosing Weight 68.182, kg, Start date: 12/19/15 5:26:00 CDT, Stop date: 12/19/15 5:26:00 CDTNotes: (Same as: Potassium Chloride) Famotidine 20 MG 20 mg, 2 tab, Inactive [facility] Oral Tablet Route: PO, Drug 2015 Medical form: TAB, [place] ONCE, Dosing Weight 68.182, kg, Priority: NOW, Start date: 12/18/15 15:57:00 CDT, Stop date: 12/18/15 15:57:00 CDTNotes: (Same as: Pepcid AC) Ursodeoxycholate 900 mg, 15 mL, No Longer [facility] Route: PEG, Active 2015 Medical Drug form: Center SUSP, Daily, Dosing Weight 68.182, kg, Start date: 12/18/15 9:00:00 CDT, Duration: 30 day, Stop date: 01/16/16 9:00:00 CDTNotes: Ursodil (actigall) 300mg caps #5. Refrigerate - Shake Well Before Use. Compounded Product - formulation not commercially available predniSONE 5 mg/5 40 mg, 40 mL, Inactive [facility] mL oral solution Route: PO, Drug 2015 Medical form: SOLN, [place] Daily, Start date: 12/18/15 9:00:00 CDT, Duration: 1 doses or times, Stop date: 12/18/15 9:00:00 CDTNotes: (Same as: Liquid Pred.) Take with food. prednisolone 60 mg, Route: No Longer [facility] PEG, Drug form: Active 2015 Medical SOLN, Daily, Center Dosing Weight 68.182, kg, Start date: 12/18/15 9:00:00 CDT, Stop date: 12/21/15 9:00:00 CDT lansoprazole 30 mg, 10 mL, No Longer [facility] Route: PEG, Active 2015 Medical Drug form: Center SUSP, Before Breakfast, Dosing Weight 68.182, kg, Start date: 12/18/15 7:30:00 CDT, Duration: 30 day, Stop date: 01/16/16 7:30:00 CDTNotes: Take 1 hour before or 2 hours after meal; Expires in 14 days. Shake well before use. (Same as:Prevacid) Compounded Product - formulation not commercially available levothyroxine 100 microgram, No Longer [facility] 1 tab, Route: Active 2015 Medical PEG, Drug form: Center TAB, Q630AM, Start date: 12/18/15 6:30:00 CDT, Duration: 30 day, Stop date: 01/16/16 6:30:00 CDTNotes: Take 1 hour before or 2 hours after meal; Enteral feeds may interefere with the absorption of this medication. (Same as:Levothroid, Synthroid) Propranolol 20 mg, 1 tab, No Longer [facility] Route: PEG, Active 2015 Medical Drug form: TAB, Center Q12H, Dosing Weight 68.182, kg, Start date: 12/17/15 21:00:00 CDT, Duration: 30 day, Stop date: 01/16/16 9:00:00 CDTNotes: Give with food. (Same as: Inderal) Trileptal 150 mg, 2.5 mL, No Longer [facility] Route: PEG, Active 2015 Medical Drug form: LIQ, Center BID, Dosing Weight 68.182, kg, Start date: 12/17/15 21:00:00 CDT, Duration: 30 day, Stop date: 01/16/16 9:00:00 CDTNotes: (Same as: Trileptal) Valtrex 1,000 mg, Inactive [place] Route: PO, Drug 2015 Medical form: TAB, [...] 5 mg/5 50 mg, 50 mL, Inactive [place] mL oral solution Route: PEG, 2015 Medical Drug form: Center SOLN, ONCE, Start date: 12/17/15 18:00:00 CDT, Stop date: 12/17/15 18:00:00 CDTNotes: (Same as: Liquid Pred.) Take with food. tramadol 50 mg, 1 tab, No Longer [place] hydrochloride 50 MG Route: PEG, Active 2015 Medical Oral Tablet Drug form: TAB, Center Q12H, Dosing Weight 68.182, kg, PRN Pain Score 1-3, Start date: 12/17/15 16:36:00 CDT, Duration: 30 day, Stop date: 01/16/16 16:35:00 CDTNotes: Not to exceed 400mg/day. (Same As: Ultram) Acetaminophen 325 1 tab, Route: No Longer [facility] MG / Hydrocodone PEG, Drug Form: Active 2016 Medical Bitartrate 5 MG TAB, Dosing Center Oral Tablet [Fossil Weight 68.182, 5/325] kg, Q6H, PRN Pain Score 4-6, Start date: 12/17/15 16:35:00 CDT, Duration: 30 day, Stop date: 01/16/16 16:34:00 CDTNotes: (Same as: Fossil 325/5) Do not exceed 4gm/day of acetaminophen. Neutra-Phos 2 pkt, Route: Inactive [facility] PEG, Drug Form: 2016 Medical PDR/REC, Dosing Center Weight 68.182, kg, ONCE, Start date: 12/17/15 16:33:00 CDT, Stop date: 12/17/15 16:33:00 CDTNotes: (Same as: Neutra-Phos) Each 1.25 gm pkt has 250mg phosphorous. Mix w/2.5oz water and stir. Zofran 4 mg, 2 mL, Inactive [facility] Route: IVP, 2015 Medical Drug form: INJ, Center Q8H, Dosing Weight 68.182, kg, PRN Nausea, Start date: 12/17/15 15:11:00 CDT, Duration: 30 day, Stop date: 01/16/16 15:10:00 CDTNotes: (Same as: Zofran) MEDICATION WASTE Product Size: 4 mg Product Wasted: ___ mg Ondansetron 4 mg, Route: Inactive [facility] IVP, ONCE, 2015 Medical Dosing Weight Center 68.182, kg, PRN Nausea & Vomiting, Start date: 12/17/15 10:54:00 CDT Naloxone 0.4 mg, Route: Inactive [facility] IVP, Q2MIN, 2015 Medical Dosing Weight Center 68.182, kg, PRN Narcotic Reversal, Start date: 12/17/15 10:54:00 CDT, Duration: 8 doses or times, Stop date: Limited # of times Labetalol 10 mg, Route: Inactive 12/16[facility] IVP, Q5Min, 2015 Medical Dosing Weight Center 68.182, kg, PRN Elevated BP, Start date: 12/17/15 10:54:00 CDT, Duration: 5 doses or times, Stop date: Limited # of times Morphine 2 mg, Route: Inactive 12/16[facility] IVP, Q5Min, 2015 Medical Dosing Weight Center 68.182, kg, PRN Pain Score 4-6, Start date: 12/17/15 10:54:00 CDT, Duration: 5 doses or times, Stop date: Limited # of times Hydralazine 10 mg, Route: Inactive 12/16[facility] IVP, Q20Min, 2016 Medical Dosing Weight Center 68.182, kg, PRN Elevated BP, Start date: 12/17/15 10:54:00 CDT, Duration: 2 doses or times, Stop date: Limited # of times Flumazenil 0.2 mg, Route: Inactive [facility] IVP, PRN, 2016 Medical Dosing Weight Center 68.182, kg, PRN Benzodiazepine Reversal, Initial dose, Start date: 12/17/15 10:54:00 CDT, Duration: 30 day, Stop date: 01/16/16 10:53:00 CDT Hydromorphone 0.5 mg, Route: Inactive [facility] IVP, Q5Min, 2015 Medical Dosing Weight Center 68.182, kg, PRN Pain Score 7-10, Start date: 12/17/15 10:54:00 CDT, Duration: 4 doses or times, Stop date: Limited # of times Neutra-Phos 2 pkt, Route: Inactive [facility] NG, Drug Form: 2016 Medical PDR/REC, Dosing Center Weight 68.182, kg, ONCE, NOW, Start date: 12/17/15 10:33:00 CDT, Stop date: 12/17/15 10:33:00 CDTNotes: (Same as: Neutra-Phos) Each 1.25 gm pkt has 250mg phosphorous. Mix w/2.5oz water and stir. potassium phosphate 30 mmol, Route: Inactive [facility] IVPB, ONCE, 2015 Medical Dosing Weight Center 68.182, kg, Priority: NOW, Start date: 12/17/15 9:56:00 CDT, Stop date: 12/17/15 9:56:00 CDT potassium chloride 40 mEq, 30 mL, Inactive [facility] Route: NG, Drug 2016 Medical form: LIQ, Center ONCE, Dosing Weight 68.182, kg, Priority: NOW, Start date: 12/17/15 9:33:00 CDT, Stop date: 12/17/15 9:33:00 CDTNotes: (Same as: Potassium Chloride) Potassium Chloride 40 mEq, 30 mL, Inactive [place] 1.33 MEQ/ML Oral Route: PO, Drug 2015 Medical Solution form: LIQ, Center ONCE, Dosing Weight 68.182, kg, via NGT, Start date: 12/14/15 18:53:00 CDT, Stop date: 12/14/15 18:53:00 CDTNotes: (Same as: Potassium Chloride) prednisolone 60 mg, 20 mL, No Longer [place] Route: NG, Drug Active 2015 Medical form: SOLN, Center Daily, Dosing Weight 68.182, kg, Start date: 12/14/15 9:00:00 CDT, Duration: 30 day, Stop date: 01/12/16 9:00:00 CDTNotes: (Same as: Prelone) With food. methylPREDNISolone 48 mg, 1.2 mL, No Longer [place] SODium SUCCinate Route: IV, Drug Active 2015 Medical form: INJ, Center Daily, Dosing Weight 68.182, kg, Start date: 12/13/15 13:00:00 CDT, Stop date: 12/17/15 9:00:00 CDTNotes: (Same as:Solu-MEDROL, A-Methapred) Trileptal 150 mg, 1 tab, No Longer [place] Route: PO, Drug Active 2015 Medical form: TAB, BID, Center Dosing Weight 68.182, kg, Start date: 12/13/15 9:00:00 CDT, Duration: 30 day, Stop date: 01/11/16 17:00:00 CDTNotes: Do not crush or chew. (Same as: Trileptal) iodixanol 100 mL, Route: No Longer [place] IVP, Drug Form: Active 2015 Medical SOLN, Dosing Center Weight 68.182, kg, ONCALL, STAT, Start date: 12/12/15 9:36:00 CDT, Duration: 1 doses or times, Dose=2.2ml/kg, Max [id number]=[id number] -- "To be infused by Radiology Staff ONLY"Notes: (Same as: Ezra). WASTE: F/P - Black; E - [employer] Acyclovir 640 mg, Route: No Longer [place] IVPB, ABXQ8H, Active 2015 Medical Dosing Weight Center 68.182, kg, Start date: 12/11/15 18:00:00 CDT, Stop date: 01/10/16 10:00:00 CDT, CrCl > 50 mL / minNotes: (Same as: Zovirax) MEDICATION WASTE Product Size: 500 mg Product Wasted: ___ mg Azithromycin 500 mg, Route: No Longer [place] IVPB, Drug Active 2015 Medical form: PDR/INJ, Center [id number], Dosing Weight 68.182, kg, Start date: 12/11/15 18:00:00 CDT, Duration: 30 day, Stop date: 01/09/16 18:00:00 CDTNotes: (Same As: Zithromax IV) valacyclovir 1,000 mg, 2 Inactive [place] tab, Route: 2015 Medical Drug form: TAB, Center Q8H, Dosing Weight 68.182, kg, Start date: 12/11/15 16:09:00 CDT, Duration: 7 day, Stop date: 12/18/15 16:00:00 CDTNotes: (Same As: Valtrex) prednisolone 60 mg, 20 mL, No Longer [place] Route: NG, Drug Active 2015 Medical form: SOLN, [place] Daily, Dosing Weight 68.182, kg, Start date: 12/11/15 16:08:00 CDT, Duration: 7 day, Stop date: 12/18/15 9:00:00 CDTNotes: (Same as: Prelone) With food. albuterol 0.083% 2.49 mg, 3 mL, No Longer [place] inhalation solution Route: [facility] [place], 2015 Medical Drug form: [place] SOLN, RBID, Start date: 12/10/15 13:29:00 CDT, Duration: 2 day, Stop date: 12/12/15 8:00:00 CDTNotes: SEE RT DOCUMENTATION (Same as: Proventil) Acetylcysteine 100 200 mg, 2 ml, No Longer [place] MG/ML Inhalant Route: [facility] [place], Active 2015 Medical Solution Drug Form: [place] SOLN, Dosing Weight 68.182, kg, RBID, Start date: 12/10/15 13:28:00 CDT, Duration: 2 day, Stop date: 12/12/15 8:00:00 CDTNotes: WASTE: F/P - Black; E - [facility] Acetylcysteine 100 2 ml, Route: Inactive [place] MG/ML Inhalant NEB, Drug Form: 2015 Medical Solution SOLN, Dosing Center Weight 68.182, kg, RBID, NOW, Start date: 12/10/15 11:49:00 CDT, Duration: 2 day, Stop date: 12/12/15 8:00:00 CDT Propranolol 20 mg, 1 tab, No Longer [place] Route: PO, Drug Active 2015 Medical form: TAB, Center Q12H, Dosing Weight 68.182, kg, Start date: 12/10/15 9:00:00 CDT, Duration: 30 day, Stop date: 01/08/16 21:00:00 CDTNotes: Give with food. (Same as: Inderal) pantoprazole 40 mg, Route: No Longer [place] IVP, Drug form: Active 2015 Medical INJ, Before Center Breakfast, Dosing Weight 68.182, kg, Start date: 12/10/15 7:30:00 CDT, Duration: 30 day, Stop date: 01/08/16 7:30:00 CDTNotes: For IV push reconstitute with 10 ml 0.9% sodium chloride and push over 2 minutes. (Same as: Protonix) levothyroxine 50 microgram, No Longer [place] Route: IV, Drug Active 2015 Medical form: INJ, Center Q630AM, Start date: 12/10/15 6:30:00 CDT, Duration: 30 day, Stop date: 01/08/16 6:30:00 CDTNotes: (Same as: Synthroid) Reconstitute with 5ml of NS. Final concentration=2 0 micrograms/ml. Use immediately after reconstitution and discard remaining solution. Unasyn 3 gm, 1 ea, No Longer [place] Route: IVPB, Active 2015 Medical Drug form: Center PDR/INJ, ABXQ6H, Start date: 12/09/15 21:00:00 CDT, Duration: 30 day, Stop date: 01/08/16 15:00:00 CDTNotes: Dosing based on Ampicillin component (Same as: Unasyn) Acetaminophen 325 1 tab, Route: No Longer [place] MG / Hydrocodone PO, Drug Form: Active 2015 Medical Bitartrate 5 MG TAB, Dosing Center Oral Tablet [Fossil Weight 68.182, 5/325] kg, Q6H, PRN Pain Score 4-6, Start date: 12/09/15 20:47:00 CDT, Duration: 30 day, Stop date: 01/08/16 20:46:00 CDTNotes: (Same as: Fossil 325/5) Do not exceed 4gm/day of acetaminophen. Lacri-Lube 1 appl, Route: No Longer [place] Each Affected Active 2015 Medical Eye, QID, Drug Center form: OINT, PRN Dry Eyes, Start date: 12/09/15 15:53:00 CDT, Duration: 30 day, Stop date: 01/08/16 15:52:00 CDTNotes: (Same as: Duratears Naturale and Artificial Tears, Tears Again ) Ketorolac 15 mg, 1 mL, No Longer [facility] Route: IV, Drug Active 2015 Medical form: INJ, Q6H, Center Dosing Weight 68.182, kg, PRN Pain Score 4-6, Start date: 12/09/15 14:44:00 CDT, Duration: 4 day, Stop date: 12/13/15 14:43:00 CDTNotes: (Same as:Toradol) IV bolus must be given >15 seconds. Give IM administration slowly and deeply into the muscle. Not for use > 4 days. Diflucan 400 mg, 200 mL, No Longer [place] Route: IVPB, Active 2015 Medical Drug form: INJ, Center [id number], Start date: 12/09/15 14:30:00 CDT, Duration: 30 day, Stop date: 01/07/16 14:30:00 CDTNotes: (Same as: Diflucan) Benadryl 50 mg, 1 cap, No Longer [facility] Route: PO, Drug Active 2015 Medical form: CAP, TID, Center Dosing Weight 68.182, kg, PRN Itching, Start date: 12/09/15 13:28:00 CDT, Stop date: 01/08/16 13:27:00 CDTNotes: (Same as: Benadryl) Lubricant Eye Drops 1 drp, Route: No Longer [place] Each Affected Active 2015 Medical Eye, QID, Drug Center form: SOLN, Start date: 12/09/15 11:49:00 CDT, Duration: 30 day, Stop date: 01/08/16 13:00:00 CDT Naproxen 250 mg, 1 tab, Inactive [place] Route: PO, Drug 2015 Medical form: TAB, Center ONCE, Dosing Weight 68.182, kg, Start date: 12/09/15 0:24:00 CDT, Stop date: 12/09/15 0:24:00 CDTNotes: (Same as: Naprosyn) Take with food. Phenergan 12.5 mg, Route: Inactive [place] IVPB, Q6H, 2016 Medical Dosing Weight Center 68.182, kg, PRN Nausea & Vomiting, Priority: NOW, Start date: 12/08/15 20:33:00 CDT, Duration: 30 day, Stop date: 01/07/16 20:32:00 CDT Sodium Chloride 1,000 mL, Rate: Inactive [place] 0.9% IV 1000 mL 75 ml/hr, 2016 Medical Infuse over: Center 13.3 hr, Route: IV, Dosing Weight 68.182 kg, Total Volume: 1,000, Start date: 12/08/15 18:30:00 CDT, Duration: 30 day, Stop date: 01/07/16 18:29:00 CDT Zofran 4 mg, 2 mL, No Longer [place] Route: IVP, Active 2015 Medical Drug form: INJ, Center Q8H, Dosing Weight 68.182, kg, Priority: NOW, Start date: 12/08/15 8:28:00 CDT, Duration: 1 day, Stop date: 12/09/15 8:00:00 CDTNotes: (Same as: Zofran) MEDICATION WASTE Product Size: 4 mg Product Wasted: ___ mg Prochlorperazine 5 mg, 1 mL, No Longer [place] Route: IVP, Active 2015 Medical Drug form: [...] Ursodeoxycholate 900 mg, 3 cap, No Longer [place] Route: PO, Drug Active 2015 Medical form: CAP, Center Daily, Dosing Weight 68.182, kg, Start date: 12/07/15 9:00:00 CDT, Duration: 30 day, Stop date: 01/05/16 9:00:00 CDTNotes: (Same As: Actigall) Fluconazole 400 mg, 2 tab, No Longer [place] Route: PO, Drug Active 2015 Medical form: TAB, Center Daily, Dosing Weight 68.182, kg, Start date: 12/07/15 9:00:00 CDT, Duration: 9 day, Stop date: 12/15/15 9:00:00 CDTNotes: (Same as: Diflucan) Amoxicillin 875 MG 1 tab, Route: No Longer [place] / Clavulanate 125 PO, Drug Form: Active 2016 Medical MG Oral Tablet TAB, Dosing Center [Augmentin 875-mg] Weight 68.182, kg, Q12H, Start date: 12/07/15 9:00:00 CDT, Stop date: 12/15/15 21:00:00 CDTNotes: With food. (Same as: Augmentin 875) Streptococcus 0.5 mL, Route: Inactive [place] pneumoniae serotype IM, Drug Form: 2015 Medical 1 capsular antigen INJ, Daily, Center diphtheria [id number] Start date: protein conjugate 12/07/15 vaccine / 9:00:00 CDT, Streptococcus Duration: 1 pneumoniae serotype doses or times, 14 capsular antigen Stop date: diphtheria [id number] 12/07/15 protein conjugate 9:00:00 vaccine / CDTNotes: Streptococcus Lightly roll pneumoniae serotype vial (DO NOT 18C capsular SHAKE) before antigen d administration. (Same as: Prevnar 13) Thyroxine 100 microgram, No Longer [place] 1 tab, Route: Active 2015 Medical PO, Drug form: Center TAB, Q630AM, Dosing Weight 68.182, kg, Start date: 12/07/15 6:30:00 CDT, Duration: 30 day, Stop date: 01/05/16 6:30:00 CDTNotes: Take 1 hour before or 2 hours after meal; Enteral feeds may interefere with the absorption of this medication. (Same as:Levothroid, Synthroid) Lovenox 40 mg, 0.4 mL, No Longer [place] Route: SUB-Q, Active 2015 Medical Drug form: INJ, Center [id number], Dosing Weight 68.182, kg, Start date: 12/07/15 5:00:00 CDT, Duration: 30 day, Stop date: 01/05/16 5:00:00 CDTNotes: (Same as: Lovenox) Alprazolam 0.5 MG 0.5 mg, 1 tab, No Longer [place] Oral Tablet [Xanax] Route: PO, Drug Active 2015 Medical form: TAB, Center Bedtime, Dosing Weight 68.182, kg, PRN Sleep, Start date: 12/06/15 23:52:00 CDT, Duration: 30 day, Stop date: 01/05/16 23:51:00 CDTNotes: With food or milk (Same as: Xanax) sodium chloride 1,000 mL, Rate: No Longer [place] 0.9% 1000 ml INJ 150 ml/hr, Active 2015 Medical 1,000 mL Infuse over: Center 6.7 hr, Route: IV, Dosing Weight 68.182 kg, Total Volume: 1,000, Start date: 12/06/15 21:36:00 CDT, Stop date: 01/05/16 21:35:00 CDT Ondansetron 4 mg, 2 mL, No Longer [place] Route: IVP, Active 2015 Medical Drug form: INJ, Center Q6H, Dosing Weight 68.182, kg, PRN Nausea & Vomiting, Start date: 12/06/15 21:08:00 CDT, Duration: 30 day, Stop date: 01/05/16 21:07:00 CDTNotes: (Same as: Zofran) MEDICATION WASTE Product Size: 4 mg Product Wasted: 0mg Iohexol 95 mL, Route: Inactive [place] IVP, Drug Form: 2015 Medical SOLN, Dosing Center Weight 68.182, kg, ONCALL, STAT, Start date: 12/06/15 18:24:00 CDT, Duration: 1 doses or times, Dose=2.2ml/kg, Max [id number] -- "To be infused by Radiology Staff ONLY" Amoxicillin 875 MG 875 mg=1 tab, Active [place] / Clavulanate 125 PO, BID, X 10 2015 Medical MG Oral Tablet day, # 20 tab, Center [Augmentin 875-mg] 0 Refill(s) fluconazole 200 mg 400 mg=2 tab, Active [place] oral tablet PO, Daily, X 10 2015 day, # 20 tab, Center 0 Refill(s) Naproxen 250 mg, 1 tab, Inactive [place] Route: PO, Drug 2015 Medical form: TAB, BID, Center Dosing Weight 69.1, kg, PRN Pain Score 1-3, Start date: 12/01/15 12:11:00 CDT, Duration: 30 day, Stop date: 12/31/15 12:10:00 CDTNotes: (Same as: Naprosyn) Take with food. Ativan 1 mg, 0.5 mL, Inactive [place] Route: IVP, 2015 Medical Drug form: INJ, Center ONCE, Dosing Weight 69.1, kg, PRN Anxiety, Priority: STAT, Start date: 11/30/15 7:40:00 CDTNotes: (Same as: Ativan) vancomycin 1 gm, Route: No Longer [facility] IVPB, Drug Active 2015 Medical form: INJ, Center [id number], Start date: 11/30/15 0:00:00 CDT, Duration: 30 day, Stop date: 12/29/15 12:00:00 CDTNotes: TIME CRITICAL MEDICATION (Same As: Vancocin) Infusion rate 2001 mg: infuse over 2.5 hours MEDICATION WASTE Product Size: 1000 mg Product Wasted: ___ mg Ciprofloxacin 400 mg, 200 mL, No Longer [place] Route: IVPB, Active 2015 Medical Drug form: INJ, Center [id number], Dosing Weight 69.1, kg, Start date: 11/28/15 16:00:00 CDT, Duration: 30 day, Stop date: 12/28/15 4:00:00 CDTNotes: Do not refrigerate Iohexol 80 mL, Route: Inactive [facility] IVP, Drug Form: 2015 Medical SOLN, Dosing Center Weight 69.1, kg, ONCALL, STAT, Start date: 11/27/15 21:11:00 CDT, Duration: 1 doses or times, Dose=2.2ml/kg, Max [id number] -- "To be infused by Radiology Staff ONLY" Unasyn 3 gm, 1 ea, No Longer [place] Route: IVPB, Active 2015 Medical Drug form: Center PDR/INJ, [id number], Dosing Weight 69.1, kg, Start date: 11/27/15 20:00:00 CDT, Duration: 30 day, Stop date: 12/27/15 14:30:00 CDTNotes: Dosing based on Ampicillin component (Same as: Unasyn) vancomycin + sodium 1,250 mg, No Longer [place] chloride 0.9% INJ Route: IVPB, Active 2015 Medical 250 mL [id number], Start Center date: 11/27/15 18:00:00 CDT, Stop date: 12/27/15 11:00:00 CDTNotes: TIME CRITICAL MEDICATION (Same As: Vancocin) Infusion rate 2001 mg: infuse over 2.5 hours MEDICATION WASTE Product Size: 1000 mg Product Wasted: ___ mg Fluconazole 400 mg, 200 mL, No Longer [place] Route: IV, Drug Active 2015 Medical form: INJ, Center [id number], Dosing Weight 69.1, kg, Start date: 11/27/15 18:00:00 CDT, Duration: 30 day, Stop date: 12/26/15 18:00:00 CDTNotes: (Same as: Diflucan) Cleocin HCl 600 mg, 4 mL, Inactive [place] Route: IV, Drug 2015 Medical form: INJ, Center [id number], Start date: 11/27/15 16:00:00 CDT, Duration: 30 day, Stop date: 12/27/15 8:00:00 CDTNotes: (clindamycin 150 mg/1 ml (600 mg/4 ml VL) INJ) (Same As: Cleocin) Cipro 400 mg, 200 mL, Inactive [facility] Route: IV, Drug 2015 Medical form: INJ, Center [id number], Dosing Weight 69.1, kg, Start date: 11/27/15 16:00:00 CDT, Duration: 30 day, Stop date: 12/27/15 4:00:00 CDTNotes: Do not refrigerate sugammadex 200 mg, 2 mL, No Longer [place] Route: IV, Drug Active 2016 Medical form: SOLN, Center ONCALL, Start date: 11/27/15 11:00:00 CDT, Duration: 1 doses or times, Stop date: 11/28/15 0:00:00 CDTNotes: (Same as: Bridion) Hydromorphone 0.5 mg, Route: Inactive [facility] IVP, Q5Min, 2016 Medical Dosing Weight Center 69.1, kg, PRN Pain Score 7-10, Start date: 11/27/15 10:48:00 CDT, Duration: 4 doses or times, Stop date: Limited # of times Naloxone 0.4 mg, Route: Inactive [facility] IVP, Q2MIN, 2016 Medical Dosing Weight Center 69.1, kg, PRN Narcotic Reversal, Start date: 11/27/15 10:48:00 CDT, Duration: 8 doses or times, Stop date: Limited # of times Flumazenil 0.2 mg, Route: Inactive [facility] IVP, PRN, 2016 Medical Dosing Weight Center 69.1, kg, PRN Benzodiazepine Reversal, Initial dose, Start date: 11/27/15 10:48:00 CDT, Duration: 30 day, Stop date: 12/27/15 10:47:00 CDT Oxycodone 5 mg, Route: Inactive [facility] PO, Drug form: 2016 Medical TAB, Q4H, Center Dosing Weight 69.1, kg, PRN Pain Score 4-6, Start date: 11/27/15 10:48:00 CDT, Duration: 30 day, Stop date: 12/27/15 10:47:00 CDT Ondansetron 4 mg, Route: Inactive [facility] IVP, ONCE, 2016 Medical Dosing Weight Center 69.1, kg, PRN Nausea & Vomiting, Start date: 11/27/15 10:48:00 CDT 72 HR Scopolamine 1 patch, Route: No Longer [facility] 0.0139 MG/HR TOP, Drug Form: Active 2016 Medical Transdermal Patch ERFILM, Dosing Center Weight 69.1, kg, PRE OP, Start date: 11/27/15 10:00:00 CDT, Duration: 30 day, Stop date: 12/27/15 9:59:00 CDTNotes: Change patch every 72 hours (Same as: Transderm-Scop) vancomycin + sodium 750 mg, Route: Inactive [place] chloride 0.9% INJ IVPB, Drug 2015 Medical 250 mL form: INJ, Center [id number], Start date: 11/26/15 18:00:00 CDT, Duration: 30 day, Stop date: 12/26/15 6:00:00 CDTNotes: TIME CRITICAL MEDICATION (Same As: Vancocin) Infusion rate 2001 mg: infuse over 2.5 hours MEDICATION WASTE Product Size: 1000 mg Product Wasted: ___ mg vancomycin 1 gm, Route: Inactive [place] IVPB, Drug 2015 Medical form: INJ, Center [id number], Start date: 11/26/15 17:00:00 CDT, Duration: 30 [...] HCl 450 mg, 3 cap, No Longer [facility] Route: PO, Drug Active 2015 Medical form: CAP, Center [id number], Start date: 11/26/15 12:00:00 CDT, Duration: 30 day, Stop date: 12/26/15 6:00:00 CDTNotes: (Same As: Cleocin) Fluconazole 100 mg, 50 mL, No Longer [facility] Route: IV, Drug Active 2015 Medical form: INJ, Center [id number], Dosing Weight 69.1, kg, Start date: 11/26/15 12:00:00 CDT, Stop date: 12/25/15 12:00:00 CDTNotes: (Same as: Diflucan) Do not refrigerate. Cipro 500 mg, 1 tab, No Longer [facility] Route: PO, Drug Active 2015 Medical form: TAB, Center [id number], Dosing Weight 69.1, kg, Start date: 11/26/15 12:00:00 CDT, Duration: 30 day, Stop date: 12/26/15 0:00:00 CDTNotes: May interfere w/enteral feedings - Take 1 hr before or 2 hrs after antacids, dairy pdt & minerals. On empty stomach. Alprazolam 0.5 MG 0.5 mg, 1 tab, No Longer [place] Oral Tablet [Xanax] Route: PO, Drug Active 2015 Medical form: TAB, BID, Center Dosing Weight 69.1, kg, PRN Anxiety, Start date: 11/26/15 9:42:00 CDT, Duration: 30 day, Stop date: 12/26/15 9:41:00 CDTNotes: With food or milk (Same as: Xanax) Ursodeoxycholate 900 mg, 3 cap, No Longer [facility] Route: PO, Drug Active 2015 Medical form: CAP, Center Daily, Dosing Weight 68.182, kg, Start date: 11/26/15 9:00:00 CDT, Duration: 30 day, Stop date: 12/25/15 9:00:00 CDTNotes: (Same As: Actigall) Nystatin [id number] 500,000 unit, 5 No Longer [place] UNT/ML Oral mL, Route: Active 2015 Medical Suspension S&SWALLOW, Drug Center form: SUSP, TID, Dosing Weight 68.182, kg, Start date: 11/26/15 9:00:00 CDT, Duration: 30 day, Stop date: 12/25/15 17:00:00 CDTNotes: (Same as:Mycostatin) Shake well. Alprazolam 0.5 MG 0.5 mg, 1 tab, Inactive [place] Oral Tablet [Xanax] Route: PO, Drug 2015 Medical form: TAB, Center Bedtime, Dosing Weight 69.1, kg, PRN Anxiety, Start date: 11/26/15 8:18:00 CDT, Duration: 30 day, Stop date: 12/26/15 8:17:00 CDTNotes: With food or milk (Same as: Xanax) heparin 5,000 unit, 1 No Longer [place] mL, Route: Active 2015 Medical SUB-Q, Drug Center form: INJ, Q8H, Dosing Weight 69.1, kg, Start date: 11/26/15 8:00:00 CDT, Duration: 30 day, Stop date: 12/26/15 0:00:00 CDTNotes: porcine heparin Dexamethasone 8 mg, 2 mL, No Longer [facility] Route: IVP, Active 2015 Medical Drug form: INJ, Center Q8H, Dosing Weight 69.1, kg, Start date: 11/26/15 8:00:00 CDT, Duration: 1 day, Stop date: 11/27/15 8:00:00 CDTNotes: Concentration: 4mg/ml Thyroxine 100 microgram, No Longer [facility] 1 tab, Route: Active 2015 Medical PO, Drug form: [place] TAB, [id number], Dosing Weight 68.182, kg, Start date: 11/26/15 6:30:00 CDT, Duration: 30 day, Stop date: 12/25/15 6:30:00 CDTNotes: Take 1 hour before or 2 hours after meal; Enteral feeds may interefere with the absorption of this medication. (Same as:Levothroid, Synthroid) Sodium Chloride 500 mL, 500 Inactive [place] 0.154 MEQ/ML ml/hr, Infuse 2015 Medical Injectable Solution Over: 1 hr, [facility] Route: IV, 500, Drug form: INJ, ONCE, Priority: STAT, Dosing Weight 69.1 kg, Start date: 11/26/15 6:15:00 CDT, Duration: 1 doses or times, Stop date: 11/26/15 6:15:00 CDT Zosyn 3.375 gm, Inactive [facility] Route: IVPB, 2015 Medical Drug form: [place] PDR/INJ, [id number], Dosing Weight 68.182, kg, CrCl >=20 ml/min infuse over 4 hours, Start date: 11/26/15 4:00:00 CDT, Duration: 30 day, Stop date: 12/25/15 20:00:00 CDTNotes: (Same as: Zosyn) Dosing based on Piperacillin component MEDICATION WASTE Product Size: 3375 mg Product Wasted: __0_ mg Vancomycin 1,500 mg, 250 Inactive [place] mL, Route: 2016 Medical IVPB, Drug Center form: INJ, ONCE, Dosing Weight 69.1, kg, Start date: 11/26/15 3:27:00 CDT, Stop date: 11/26/15 3:27:00 CDTNotes: TIME CRITICAL MEDICATION Same as: Vancocin-NS (premixed) Infusion rate 2001 mg: infuse over 2.5 hours Morphine 2 mg, 1 mL, No Longer [place] Route: IVP, Active 2015 Medical Drug form: INJ, Center Q4H, Dosing Weight 69.1, kg, PRN Pain Score 7-10, Start date: 11/26/15 2:45:00 CDT, Duration: 30 day, Stop date: 12/26/15 2:44:00 CDTNotes: (Same as:MORPhine Sulfate) sodium chloride 1,000 mL, Rate: No Longer [place] 0.9% 1000 ml INJ 100 ml/hr, Active 2015 Medical 1,000 mL Infuse over: 10 Center hr, Route: IV, Dosing Weight 68.182 kg, Total Volume: 1,000, Start date: 11/26/15 2:05:00 CDT, Duration: 30 day, Stop date: 12/26/15 2:04:00 CDT Albuterol 0.833 3 ml, Route: No Longer [facility] MG/ML / Ipratropium NEB, Drug Form: Active 2015 Medical [place] 0.167 MG/ML SOLN, Dosing Center Inhalant Solution Weight 68.182, [DuoNeb] kg, PRN, PRN Respiratory Protocol, Start date: 11/26/15 1:21:00 CDT, Duration: 30 day, Stop date: 12/26/15 1:20:00 CDTNotes: (Same as: Duoneb) Hydroxyzine 25 mg, 1 tab, Inactive [place] Route: PO, Drug 2015 Medical form: TAB, QID, Center Dosing Weight 68.182, kg, PRN Anxiety, Start date: 11/26/15 0:39:00 CDT, Duration: 30 day, Stop date: 12/26/15 0:38:00 CDTNotes: (Same as: Atarax) Avoid alcohol. levothyroxine 100 100 microgram=1 Active [facility] mcg (0.1 mg) oral tab, PO, Daily, 2015 Medical tablet # 30 tab, 0 Center Refill(s) Alprazolam 0.5 MG 0.5 mg=1 tab, Active [facility] Oral Tablet [Xanax] PO, Bedtime, 0 2015 Medical Refill(s) [place] ursodiol 300 mg 900 mg=3 cap, Active [facility] oral capsule PO, Daily, 0 2015 Medical Refill(s) [place] Ondansetron 4 mg, 2 mL, No Longer [facility] Route: IVP, Active 2015 Medical Drug form: INJ, Center Q6H, Dosing Weight 68.182, kg, PRN Nausea & Vomiting, Start date: 11/26/15 0:32:00 CDT, Duration: 30 day, Stop date: 12/26/15 0:31:00 CDTNotes: (Same as: Zofran) MEDICATION WASTE Product Size: 4 mg Product Wasted: ___ mg Docusate 100 mg, 1 cap, No Longer [facility] Route: PO, Drug Active 2015 Medical form: CAP, BID, Center Dosing Weight 68.182, kg, PRN Constipation, Start date: 11/26/15 0:32:00 CDT, Duration: 30 day, Stop date: 12/26/15 0:31:00 CDTNotes: (Same as: Colace) (Do Not Crush) Alprazolam 0.5 MG 0.5 mg, 1 tab, Inactive [facility] Oral Tablet [Xanax] Route: PO, Drug 2015 Medical form: TAB, Center ONCE, Dosing Weight 68.182, kg, Start date: 11/26/15 0:28:00 CDT, Stop date: 11/26/15 0:28:00 CDTNotes: With food or milk (Same as: Xanax) Sodium Chloride 1,000 mL, 2,000 Inactive [facility] 0.154 MEQ/ML ml/hr, Infuse 2015 Medical Injectable [...] Updated Comments Source pneumococcal 12/09/[address],[facility] Results Order Name Results Value Reference Date Interpretation Comments Source Range Esophagus Esophagus BA Patient Name: ROCIO CALDERÓN 04/23 - BA swallow swallow /2016 - [facility] function function : 1950; Age: 66 years Female video DX video DX MR: [id number] Read by: Jonah Leggett MD Dictated Date/time: 04/23/16 15:39 Electronically Signed by: Jonah Leggett MD 04/23/16 15:43 FINAL REPORT Study: Esophagus BA swallow function video DX Order Time: 04/23/2016 1:28 PM [employer] Clinical Indication: Dysphagia. fl time 1 min, dose 1.47 mGy, dap .[address] Rg COMPARISON: None. TECHNIQUE: Fluoroscopic assistance was provided for the speech pathologist for modified barium swallow examination. Varying consistencies of barium were administered po. FINDINGS: Thin consistency barium: No aspiration or any significant laryngeal penetration. [place] consistency barium: No aspiration or any significant [...] piriform sinuses with the thinner consistencies. SL: [id number] Esophagus Esophagus BA Esophagus BA swallow function video DX Modified barium swallow: 02/25 - BA swallow swallow - [facility] function function video DX video DX [...] thin consistency barium. FT: 1.5 minutes SL: [id number] CHEM PANEL Magnesium 1.9 mg/dL 1.8 - 2.4 12/18 [facility] /2015 [facility] CHEM PANEL Phosphorus 2.4 mg/dL 2.5 - 4.5 12/[address] ELECTROLYT Chloride Lvl 102 meq/L 95 - 109 12/18 [facility]2015 [facility] ELECTROLYT Potassium 3.1 meq/L 3.5 - 5.1 12/18 [facility] ELECTROLYT CO2 30 meq/L 24 - 32 12/[address] ELECTROLYT Calcium Lvl 8.3 mg/dL 8.5 - 10.5 12/[address] ELECTROLYT eGFR 97 12/18 Result Comment: The eGFR is calculated using the CKD-EPI formula. In most young, healthy individuals the eGFR will be >90 mL/ min/1.73m2. The eGFR declines with age. An eGFR of 60-89 may be normal in [facility] ES mL/min/1. some populations, particularly the elderly, for whom the CKD-EPI formula has not been extensively validated. Use of the eGFR is not recommended in the following populations: [address] Individuals with unstable creatinine concentrations, including [...] ELECTROLYT Creatinine 0.57 mg/dL 0.50 - 12/18 [facility] Lvl 1.40 [facility] ELECTROLYT Sodium Lvl 141 meq/L 135 - 145 12/18 [facility] ELECTROLYT Glucose Lvl 104 mg/dL 70 - 99 12/18 [facility] ELECTROLYT BUN 5 mg/dL 7 - 22 12/18 [facility] ELECTROLYT AGAP 12.1 meq/L 10.0 - 12/18 [facility] ES 20.0 [facility] HEMATOLOGY RBC 4.35 M/CMM 4.20 - 12/18 5.40 [facility] HEMATOLOGY MCH 33.6 pg 27.0 - 12/18 31.0 [facility] HEMATOLOGY MCV 100.0 fL 80.0 - 12/18 98.0 [facility] HEMATOLOGY Hct 43.5 % 36.0 - 12/18 48.0 [facility] HEMATOLOGY Hgb 14.6 g/dL 12.0 - 12/18 16.0 [facility] HEMATOLOGY RDW 13.9 % 11.5 - 12/18 14. [facility] HEMATOLOGY MCHC 33.6 g/dL 32.0 - 12/18 36.0 [facility] HEMATOLOGY MPV 12.4 fL 7.4 - 10.4 12/18 [facility] HEMATOLOGY Platelet 154 K/CMM 133 - 450 12/18 [facility] HEMATOLOGY WBC 9.8 K/CMM 3.7 - 10.4 12/18 [facility] HEMATOLOGY Segs 63.8 % 45.0 - 12/18 75.0 [facility] HEMATOLOGY Segs-Bands # 6.3 K/CMM 1.5 - 8.1 12/18 [facility] HEMATOLOGY Monocytes 17.9 % 2.0 - 12.0 12/18 [facility] HEMATOLOGY Lymphocytes 17.2 % 20.0 - 12/18 40.0 [facility] HEMATOLOGY Basophils 0.2 % 0.0 - 1.0 12/18 [facility] HEMATOLOGY Eosinophils 0.9 % 0.0 - 4.0 12/18 [facility] HEMATOLOGY Eosinophils 0.1 K/CMM 0.0 - 0.5 12/18 # [facility] HEMATOLOGY Monocytes # 1.8 K/CMM 0.0 - 0.8 12/18 [facility] HEMATOLOGY Lymphocytes 1.7 K/CMM 1.0 - 5.5 12/18 [facility] # [facility] PARATHYROI Ca Norm WB 1.14 1.05 - 12/18 [facility] D PROFILE mMol/L 1. [facility] PARATHYROI Ca Ion WB 1.11 1. - 12/18 [facility] D PROFILE mMol/L 1. [facility] ANEMIA Folate Lvl 5.4 ng/mL >=3.0 12/17 [facility] STUDY ng/mL [facility] ANEMIA Vitamin B12 809 pg/mL 254 - 1320 12/17 [facility] STUDY l [facility] CHEM PANEL Phosphorus 2.6 mg/dL 2.5 - 4.5 12/17 [facility] CHEM PANEL Magnesium 1.9 mg/dL 1.8 - 2.4 12/17 [facility] ELECTROLYT AGAP 15.9 meq/L 10.0 - 12/17 [facility] . [facility] ELECTROLYT eGFR 89 12/17 Result Comment: The eGFR is calculated using the CKD-EPI formula. In most young, healthy individuals the eGFR will be >90 mL/ min/1.73m2. The eGFR declines with age. An eGFR of 60-89 may be normal in [facility] mL/min/1. some populations, particularly the elderly, for whom the CKD-EPI formula has not been extensively validated. Use of the eGFR is not recommended in the following populations: [address] Individuals with unstable creatinine concentrations, including [...] Lvl 101 meq/L 95 - 109 12/17 [facility] ELECTROLYT Glucose Lvl 115 mg/dL 70 - 99 12/17 [facility] ELECTROLYT BUN 5 mg/dL 7 - 22 12/17 [facility] ELECTROLYT Creatinine 0.71 mg/dL 0.50 - 12/17 [facility] Lvl 1.40 /2016 [facility] ELECTROLYT Calcium Lvl 8.2 mg/dL 8.5 - 10.5 12/17 [facility] ELECTROLYT Potassium 3.9 meq/L 3.5 - 5.1 12/17 Result [facility] Lvl /2015 Comment: [facility] Slightly Hemolyzed. ELECTROLYT Sodium Lvl 141 meq/L 135 - 145 12/17 [facility] ELECTROLYT CO2 28 meq/L 24 - 32 12/17 [facility] HEMATOLOGY Monocytes # 0.8 K/CMM 0.0 - 0.8 12/17 [facility] HEMATOLOGY Large Plt Moderate None [facility] 5:48 AM[facility] HEMATOLOGY Eosinophils 0.1 % 0.0 - 4.0 12/17 [facility] HEMATOLOGY Lymphocytes 0.6 K/CMM 1.0 - 5.5 12/17 [facility] HEMATOLOGY Segs-Bands # 8.3 K/CMM 1.5 - 8.1 12/17 [facility] HEMATOLOGY Basophils 0.2 % 0.0 - 1.0 12/17 [facility] HEMATOLOGY RBC Morph Normal 12/17 [facility] (12/18/15 5:48 AM) [facility] HEMATOLOGY Monocytes 8.0 % 2.0 - 12.0 12/17 [facility] HEMATOLOGY Lymphocytes 6.3 % 20.0 - 12/17 40.0 [facility] HEMATOLOGY Segs 85.4 % 45.0 - 12/17 [facility] 75.0 [facility] HEMATOLOGY MPV 12.4 fL 7.4 - 10.4 12/17 [facility] HEMATOLOGY Platelet 149 K/CMM 133 - 450 12/17 [facility] HEMATOLOGY Hgb 15.5 g/dL 12.0 - 12/17 [facility] 16.0 [facility] HEMATOLOGY RBC 4.60 M/CMM 4.20 - 12/17 [place] 5.40 [facility] HEMATOLOGY WBC 9.7 K/CMM 3.7 - 10.4 12/17 [facility] HEMATOLOGY RDW 14.8 % 11.5 - 12/17 [facility] 14. [facility] HEMATOLOGY Hct 45.5 % 36.0 - 12/17 [facility] 48.0 [facility] HEMATOLOGY MCV 98.9 fL 80.0 - 12/17 [facility] 98.0 [facility] HEMATOLOGY MCH 33.8 pg 27.0 - 12/17 [facility] 31.0 [facility] HEMATOLOGY MCHC 34.1 g/dL 32.0 - 12/17 36.0 [facility] PARATHYROI Ca Ion WB 1.03 1. - 12/17 [facility] D PROFILE mMol/L 1. [facility] PARATHYROI Ca Norm WB 1.05 1. - 12/17 [facility] D PROFILE mMol/L 1. [facility] CHEM PANEL Phosphorus 2.1 mg/dL 2.5 - 4.5 12/16 [facility] CHEM PANEL Magnesium 2.1 mg/dL 1.8 - 2.4 12/16 [facility] CHEM PANEL A/G Ratio 0.7 0.7 - 1.6 12/16 [facility] CHEM PANEL Globulin 3.6 g/dL 2.7 - 4.2 12/16 [facility] CHEM PANEL B/C Ratio 11 6 - 25 12/16 [facility] CHEM PANEL AGAP 12.3 meq/L 10.0 - 12/16 [facility] 20. [facility] CHEM PANEL eGFR 93 12/16 Result Comment: The eGFR is calculated using the CKD-EPI formula. In most young, healthy individuals the eGFR will be >90 mL/ min/1.73m2. The eGFR declines with age. An eGFR of 60-89 may be normal in [facility] mL/min/1.7 some populations, particularly the elderly, for whom the CKD-EPI formula has not been extensively validated. Use of the eGFR is not recommended in the following populations: [address] Individuals with unstable creatinine concentrations, including [...] Lvl 95 mg/dL 70 - 99 12/16 [facility] CHEM PANEL BUN 7 mg/dL 7 - 22 12/16 [facility] CHEM PANEL CO2 28 meq/L 24 - 32 12/16 [facility] CHEM PANEL Chloride Lvl 105 meq/L 95 - 109 12/16 [facility] CHEM PANEL Sodium Lvl 142 meq/L 135 - 145 12/16 [facility] CHEM PANEL Creatinine 0.64 mg/dL 0.50 - 12/16 [facility] Lvl 1.40 [facility] CHEM PANEL Potassium 3.3 meq/L 3.5 - 5.1 12/16 [facility] CHEM PANEL Calcium Lvl 8.3 mg/dL 8.5 - 10.5 12/16 [facility] CHEM PANEL AST 33 unit/L 0 - 37 12/16 [facility] CHEM PANEL Albumin Lvl 2.5 g/dL 3.5 - 5.0 12/16 [facility] CHEM PANEL Total 6.1 g/dL 6.4 - 8.4 12/16 [facility] CHEM PANEL ALT 38 unit/L 0 - 65 12/16 [facility] CHEM PANEL Bili Total 0.4 mg/dL 0.2 - 1.3 12/16 [facility] CHEM PANEL Alk Phos 104 unit/L 39 - 136 12/16 [facility] HEMATOLOGY Segs-Bands # 7.5 K/CMM 1.5 - 8.1 12/16 [facility] HEMATOLOGY Basophils 0.3 % 0.0 - 1.0 12/16 [facility] HEMATOLOGY Monocytes # 1.2 K/CMM 0.0 - 0.8 12/16 [facility] HEMATOLOGY Lymphocytes 1.5 K/CMM 1.0 - 5.5 12/16 [facility] HEMATOLOGY Eosinophils 0.8 % 0.0 - 4.0 12/16 [facility] HEMATOLOGY Lymphocytes 14.2 % 20.0 - 12/16 [place] 40.0 [facility] HEMATOLOGY Monocytes 11.9 % 2.0 - 12.0 12/16 [facility] HEMATOLOGY Segs 72.8 % 45.0 - 12/16 [place] 75.0 [facility] HEMATOLOGY Macrocyte 1+ None Seen 12/16 [facility] (12/17/15 6:48 AM) HEMATOLOGY Eosinophils 0.1 K/CMM 0.0 - 0.5 12/16 [facility] # /2015 [facility] HEMATOLOGY PT 15.2 s 12.0 - 12/16 [facility] 14.7 /2015 [facility] HEMATOLOGY INR 1.17 0.85 - 12/16 [facility] 1.17 /2015 [facility] HEMATOLOGY PTT 24.6 s 22.9 - 12/16 [facility] 35.8 /2015 [facility] HEMATOLOGY RBC 4.43 M/CMM 4.20 - 12/16 [facility] 5.40 /2015 [facility] HEMATOLOGY Hct 44.5 % 36.0 - 12/16 [facility] 48.0 /2015 [facility] HEMATOLOGY Hgb 15.0 g/dL 12.0 - 12/16 16.0 [facility] HEMATOLOGY MCH 33.9 pg 27.0 - 12/16 [facility] 31.0 [facility] HEMATOLOGY MCV 100.4 fL 80.0 - 12/16 [facility] 98.0 /2015 [facility] HEMATOLOGY MCHC 33.7 g/dL 32.0 - 12/16 [facility] 36.0 /2015 [facility] HEMATOLOGY RDW 14.5 % 11.5 - 12/16 [facility] 14.5 [facility] HEMATOLOGY WBC 10.3 K/CMM 3.7 - 10.4 12/16 [facility] HEMATOLOGY MPV 12.2 fL 7.4 - 10.4 12/16 [facility] HEMATOLOGY Platelet 172 K/CMM 133 - 450 12/16 [facility] Esophagus Esophagus BA EXAM: FLUOROSCOPY MODIFIED BARIUM SWALLOW 12/15 - [facility] BA swallow swallow - Medical function function This report was dictated by a Outcome Analyst/ Fellow. I have personally reviewed the images [...] pathology. IMMUNOLOGY Varicella null <=0.8 AI 12/12 [facility] IgG /2015 [facility] Abdomen AP Abdomen AP EXAM: XR ABDOMEN 1 VIEW 12/12 - [facility] DX DX /2015 - [facility] DATE: 12/13/2015 9:25 PM CDT Read [...] CSF 7 % 0 - 6 12/12 [facility] /2015 [facility] BODY Monocyte CSF 2 % 15 - 45 12/12 [facility] /2016 [facility] BODY Lymph CSF 91 % 40 - 80 12/12 [facility] /2015 [facility] BODY WBC CSF 30 /mm3 0 - 53 12/12 [facility] /2015 [facility] BODY RBC CSF 10 /mm3 0 - 03 12/12 [facility] /2016 [facility] BODY Supernat CSF Colorless Colorless 12/12 [facility] FLUIDS /2015 Medical (12/13/15 3:38 PM) Center BODY Color CSF Colorless Colorless 12/12 [facility] /2015 [facility] (12/13/15 3:38 PM) Center BODY Tube Num CSF 4 12/12 [facility] FLUIDS [facility] BODY Clarity CSF Clear Clear 12/12 [facility] FLUIDS Medical (12/13/15 3:38 PM) [facility] CHEM PANEL HSV 1 IgM NEGATIVE 12/12 [facility] CHEM PANEL HSV 2 IgM POSITIVE 12/12 Result Comment: REFERENCE RANGE: NEGATIVE Medical The IFA procedure for measuring IgM antibodies to [facility] HSV 1 and HSV 2 detects both type-common and type- specific HSV antibodies. Thus, IgM reactivity to both HSV 1 and HSV 2 may represent crossreactive HSV antibodies rather than exposure to both HSV 1 and HSV 2. This test was developed and its analytical performance characteristics have been determined by [employer]. It has not been cleared or approved by FDA. This assay has been validated pursuant to the CLIA regulations and is used for clinical purposes. Test Performed at: [facility] [address] [place] [phone] Vangie Malagon MD CHEM PANEL HSV 2 IgM 1:20 12/12 Result Comment: REFERENCE RANGE: <1:20 [facility] Medical Test Performed at: [facility] [address] [place] [phone] Vangie Malagon MD FUNGAL - Histoplasma NONE 12/12 Result Comment: REF. RANGE: NONE DETECTED [facility] SEROLOGY Ag DETECTED INTERPRETATION: NEGATIVE [facility] TESTING PERFORMED AT [facility] IMMUNOLOGY Aspergillus NEGATIVE 12/12 Result Comment: REFERENCE RANGE: NEGATIVE [facility] Medical INTERPRETIVE CRITERIA: Center Negative: Antibody not detected Positive: Antibody detected A positive result is represented by 1 or more precipitin bands, and may indicate fungus ball, allergic bronchopulmonary aspergillosis (KARLEY) or invasive aspergillosis. Generally, the appearance of 3-4 bands indicates either fungus ball or KARLEY. Test Performed at: [facility] [address] [place] [phone] Vangie Malagon MD IMMUNOLOGY Aspergillus NEGATIVE 12/12 [facility] flavus [facility] IMMUNOLOGY Aspergillus NEGATIVE 12/12 [facility] niger [facility] IMMUNOLOGY IgG Lvl 1030 mg/dL 694 - 1618 12/12 [facility] IMMUNOLOGY SCL- 70 Ab null <=0.9 AI 12/12 [facility] IMMUNOLOGY HSV 2 IgG 0.9 AI <=0.8 AI 12/12 [facility] IMMUNOLOGY HSV 1 IgG null <=0.8 AI 12/12 [facility] BODY Protein CSF 32 mg/dL 15 - 45 12/11 [facility] FLUIDS /2015 [facility] BODY Glucose CSF 77 mg/dL 45 - 80 12/11 [facility] FLUIDS [facility] IMMUNOLOGY Source CEREBROSPI 12/11 [facility] FLUID [facility] IMMUNOLOGY VZV PCR NOT 12/11 Result Comment: REFERENCE RANGE: NOT DETECTED [facility] DETECTED [facility] This test was developed and its analytical Center performance characteristics have been determined by [employer]. It has not been cleared or approved by FDA. This assay has been validated pursuant to the CLIA regulations and is used for clinical purposes. Test Performed at: [employer]. [address] [place] [phone] Vangie Malagon MD IMMUNOLOGY Source CEREBROSPI 12/11 [facility] FLUID [facility] IMMUNOLOGY EBV PCR Ql NOT 12/11 Result Comment: REFERENCE RANGE: NOT DETECTED [facility] DETECTED [facility] This test was developed and its analytical Center performance characteristics have been determined by [employer]. It has not been cleared or approved by the U.S. Food and Drug Administration. The FDA has determined that such clearance or approval is not necessary. This assay has been validated pursuant to the CLIA regulations and is used for clinical purposes. Test Performed at: [employer]. [address] [place] [phone] Vangie Malagon MD IMMUNOLOGY IgG Lvl CSF 3.0 mg/dL 2.0 - 4.0 12/11 [facility] IMMUNOLOGY Description The gel 12/11 [facility] CSF demonstrat [facility] appropriat e resolution of the main protein bands. The gamma region shows continuous distributi on of proteins both in the CSF and in the serum. No oligoclona l bands are detected. 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 The CSF IgG index is within the reference range indicating that there is no elevation in intracereb ral IgG synthesis. There is also no evidence of increased permeabili ty of the blood brain barrier based on the CSF/serum albumin ratio.The electronic medical record has been reviewed for relevant history.I have personally reviewed the test results and concur with the resident's interpreta tion.CPT: [id number] IMMUNOLOGY IgG (CPE) 1000 mg/dL 694 - 1618 12/11 [facility] IMMUNOLOGY IgG Lvl CSF 3.0 mg/dL 2.0 - 4.0 12/11 [facility] IMMUNOLOGY IgG Index 0.7 mg/dL 0.3 - 0.7 12/11 [facility] IMMUNOLOGY Alb (CPE) 2800.0 3400.0 - 12/11 [place] mg/dL 5000. [facility] IMMUNOLOGY Alb CSF 12.2 mg/dL 14.0 - 12/11 [facility] (CPE) 25.0 [facility] MOLECULAR HSV 2 by PCR Negative 2 Negative 12/11 Result Comment: This sample was NON DETECTED or BELOW THE LOWER LIMITS OF DETECTION [facility] for HSV 1/2 DNA by real-time PCR using hybridization probe and Medical (12/12/15 5:00 PM) melting curve analysis. [facility] MOLECULAR HSV 1 by PCR Negative 1 Negative 12/11 Result Comment: This sample was NON DETECTED or BELOW THE LOWER LIMITS OF DETECTION [facility] for HSV 1/2 DNA by real-time PCR using hybridization probe and Medical (12/12/15 5:00 PM) melting curve analysis. [facility] MOLECULAR Source HSV Cerebral 12/11 [facility] DIAGNOSTIC Spinal /2015 [facility] Fluid [facility] Spine Spine lumbar EXAM: Lumbar Puncture with fluoroscopic guidance. - [facility] lumbar puncture w - Medical puncture w fluoro DX This report was dictated by a Outcome Analyst /Fellow. I have personally reviewed the images [...] FUNGAL - Crypto Ag Negative Negative 12/11 [facility] SEROLOGY CSF /2015 Medical (12/12/15 10:38 AM) [facility] Neck soft Neck soft EXAM: CT NECK WITH CONTRAST 12/11 - [facility] tissue w tissue w - [facility] contrast contrast CT This report was dictated by a Outcome Analyst /Fellow. I have personally reviewed the images as [facility] CT well as the Resident's interpretation and [...] appeared. IMMUNOLOGY Treponemal Non Reactive Non 12/11 [facility] Scr Reactive Medical *NA* Center (12/11/15 11:15 PM) IMMUNOLOGY HSV 2 IgG 0.7 AI <=0.8 AI 12/11 [facility] IMMUNOLOGY HSV 1 IgG null <=0.8 AI 12/11 [facility] MOLECULAR CMV PCR Qnt null 12/11 [facility] DIAGNOSTIC (log) [facility] MOLECULAR CMV PCR Qnt Not Detected 12/11 [facility] DIAGNOSTIC /2015 [facility] (12/11/15 11:15 PM) Center MOLECULAR EBV PCR Qnt null 12/11 [facility] DIAGNOSTIC (log) [facility] MOLECULAR EBV PCR Qnt Not Detected 12/11 [facility] DIAGNOSTIC [facility] (12/11/15 11:15 PM) [facility] Abdomen AP Abdomen AP EXAM: XR ABDOMEN 1 VIEW 12/10 - [facility] DX DX /2015 - [facility] DATE: 12/11/2015 1:14 PM CDT Read [...] Lvl 88 ng/mL 5 - 204 12/10 [facility] STUDY [facility] ANEMIA % Satur Fe 31 % 12 - 57 12/10 [facility] STUDY /2015 [facility] ANEMIA UIBC 198 ug/dl 110 - 370 12/10 [facility] ANEMIA TIBC 288 ug/dl 228 - 428 12/10 [facility] STUDY /2015 [facility] ANEMIA Iron 90 ug/dl 30 - 160 12/10 [facility] /2015 [facility] TUMOR AFP TM 1.4 ng/mL 0.0 - 11.0 12/10 [facility] Brain w/wo Brain w/wo EXAM: MRI OF THE BRAIN WITH AND WITHOUT CONTRAST - [facility] contrast contrast MRI /2016 - Medical MRI EXAM: MRI OF THE IAC WITH AND WITHOUT CONTRAST This report was dictated by a Outcome Analyst/Fellow. I have personally reviewed the images as Center well as the Resident's interpretation and agree with the findings. Read by: Vidhya Cihld MD Resident: Vidhya Child MD Dictated Date/time: [...] CONTRAST This report was dictated by a Outcome Analyst/Fellow. I have personally reviewed the images as Center contrast well as the Resident's interpretation and agree with the findings. MRI Read by: Vidhya Child MD Resident: Vidhya Child MD Dictated Date/time: 12/11/15 08:10 DATE: 12/10/2015 at 1841 hours Electronically Signed by: Bubba Bentio MD 12/12/15 08:45 FINAL REPORT CLINICAL HISTORY: [...] abnormality. HEMATOLOGY Macrocyte 1+ None Seen 12/09 [facility] *ABN* [facility] (12/10/15 5:47 AM) IMMUNOLOGY STUFFED CASING TIER Ab 0.5 AI <=0.9 AI 12/09 [facility] IMMUNOLOGY Sm Ab null <=0.9 AI 12/09 [facility] IMMUNOLOGY JANET Interp Pattern 12/09 [facility] speckledCy Center toplasmic staining present IMMUNOLOGY JANET Titer 1:40 Negative 12/09 [facility] *ABN* [facility] (12/10/15 5:47 AM) IMMUNOLOGY C-ANCA Negative Negative 12/09 [facility] (12/10/15 5:47 AM) Center IMMUNOLOGY P-ANCA Negative Negative 12/09 [facility] (12/10/15 5:47 AM) Center IMMUNOLOGY C4 29 mg/dL 16 - 47 12/09 [facility] IMMUNOLOGY C3 112 mg/dL 88 - 201 12/09 [facility] IMMUNOLOGY SS-B (La) Ab null <=0.9 AI 12/09 [facility] IMMUNOLOGY SS-A (Ro) Ab 0.8 AI <=0.9 AI 12/09 [facility] IMMUNOLOGY DNA Ab (DS) Negative Negative 12/09 [facility] (12/10/15 5:47 AM) [facility] IMMUNOLOGY JANET Positive Negative 12/09 [facility] (12/10/15 5:47 AM) IMMUNOLOGY JANET Positive Negative 12/09 [facility] (12/10/15 5:47 AM) IMMUNOLOGY AMA Ab Titer 1:40 Negative 12/09 [facility] (12/10/15 5:47 AM) IMMUNOLOGY SMA Screen Negative Negative 12/09 [facility] (12/10/15 5:47 AM) [facility] IMMUNOLOGY AMA Ab Scr Positive Negative 12/09 [facility] (12/10/15 5:47 AM) IMMUNOLOGY IgG Lvl 1060 mg/dL 694 - 1618 12/09 [facility] IMMUNOLOGY STUFFED CASING TIER Ab 0.5 AI <=0.9 AI 12/09 [facility] IMMUNOLOGY Sm Ab null <=0.9 AI 12/09 [facility] SPECIAL ALL 27 unit/L 8 - 52 12/09 [facility] CHEMISTRY [facility] Esophagus Esophagus BA EXAM: FLUOROSCOPY MODIFIED BARIUM SWALLOW 12/09 - [facility] swallow swallow - Medical function function This report was dictated by a Outcome Analyst/ Fellow. I have personally reviewed the images as Center video DX video DX well as the Resident's interpretation and agree with the findings. DATE: 12/10/2015 at 0855 hours Read by: Edwar Mustafa MD Resident: Edawr Mustafa MD Dictated Date/time: 12/10/15 13:14 Electronically [...] the patient's head turned to the left. [place] barium: Asymptomatic aspiration was seen with contrast [...] LIVER WITH LIVER VESSELS DOPPLER 12/08 - [facility] Liver Liver /2015 - Medical vessels vessels This report was dictated by a Outcome Analyst/ Fellow. I have personally reviewed the images [...] B12 1132 pg/mL 254 - 1320 12/07 [facility] STUDY Lvl /2015 [facility] ANEMIA Vitamin B12 1171 pg/mL 254 - 1320 12/06 [facility] ANEMIA Folate Lvl 10.8 ng/mL >=3.0 12/06 [facility] ng/mL /2015 [facility] HEMATOLOGY Sed Rate 52 mm/h 0 - 20 12/06 [facility]2015 [facility] CHEM PANEL Alk Phos 134 unit/L 39 - 136 12/[address] CHEM PANEL Bili Total 0.6 mg/dL 0.2 - 1.3 12/[address] CHEM PANEL B/C Ratio 17 6 - 25 12/[address] CHEM PANEL A/G Ratio 0.6 0.7 - 1.6 12/[address] CHEM PANEL Globulin 4.5 g/dL 2.7 - 4.2 12/[address] CHEM PANEL AST 26 unit/L 0 - 37 12/[address] CHEM PANEL Albumin Lvl 2.8 g/dL 3.5 - 5.0 12/[address] CHEM PANEL ALT 22 unit/L 0 - 65 12/[address] CHEM PANEL Total 7.3 g/dL 6.4 - 8.4 12/06 [facility] Protein [facility] IMMUNOLOGY Hep Bs Ag Negative Negative 12/06 [facility] (12/07/15 3:56 AM) [facility]OLOGY [facility] (12/07/15 3:56 AM) IMMUNOLOGY Hep A IgM Negative Negative 12/06 [facility] (12/07/15 3:56 AM) IMMUNOLOGY Hep B Core Negative Negative 12/06 [facility] IgM /[facility] (12/07/15 3:56 AM) Brain wo Brain wo EXAM: MRI BRAIN WITHOUT CONTRAST 12/06 - [facility] contrast contrast MRI /2016 - Medical MRI [...] Eosinophils 0.2 K/CMM 0.0 - 0.5 12/06 [facility]2016 [facility] CHEM PANEL Lactic Acid 1.2 mmol/L 0.5 - 2.2 12/[address] HEMATOLOGY Macrocyte 1+ None Seen 12/05 [facility] /[address] [place], [place] [address]ABN* Center (12/06/15 6:30 PM) HEMATOLOGY Basophils # 0.1 K/CMM 0.0 - 0.2 12/[address] Brain wo Brain wo EXAM: CT BRAIN WITHOUT CONTRAST 12/05 [facility] contrast contrast CT /2015 - [facility] CT [facility] DATE: 12/06/2015 Read by: Lit Garnett MD [...] w EXAM: CT CHEST WITH CONTRAST 12/05 [facility] contrast contrast CT /2015 - [facility] CT Center DATE: 12/06/2015 Read by: [...] with the preliminary report issued by the enrollment services vice president director cloud transformation when this examination was performed, Dr. Amparo Craig. Neck soft Neck soft EXAM: CT OF THE NECK WITH CONTRAST 12/05 - [facility] tissue w tissue - [facility] contrast contrast CT Center CT DATE: [...] calcifications. TOXICOLOGY Vanco Tr 15.3 ug/ml 11/30 [facility] TOXICOLOGY Vanco Tr TND 1130 11/30 [facility] ELECTROLYT AGAP 10.8 meq/L 10.0 - 11/29 [facility] 20.0 [facility] ELECTROLYT Calcium Lvl 7.7 mg/dL 8.5 - 10.5 11/29 [facility] ELECTROLYT CO2 24 meq/L 24 - 32 11/29 [facility] ELECT[facility]T eGFR 95 11/29 Result Comment: The eGFR is calculated using the CKD-EPI formula. In most young, healthy individuals the eGFR will be >90 mL/ min/1.73m2. The eGFR declines with age. An eGFR of 60-89 may be normal in [facility] mL/min/1. /2015 some populations, particularly the elderly, for whom the CKD-EPI formula has not been extensively validated. Use of the eGFR is not recommended in the following populations: [place] [address] Center Individuals with unstable creatinine concentrations, including [...] Lvl 107 meq/L 95 - 109 11/29 [facility] Potassium 3.8 meq/L 3.5 - 5.1 11/29 [facility] Lvl [facility] Sodium Lvl 138 meq/L 135 - 145 11/29 [facility] Creatinine 0.61 mg/dL 0.50 - 11/29 [facility] Lvl 1.40 [facility] BUN 10 mg/dL 7 - 22 11/29 [facility] Glucose Lvl 83 mg/dL 70 - 99 11/29 [facility] HEMATOLOGY RDW 13.8 % 11.5 - 11/29 [facility] 14.5 [facility] HEMATOLOGY MCHC 34.0 g/dL 32.0 - 11/29 [facility] 36.0 [facility] HEMATOLOGY Hct 44.7 % 36.0 - 11/29 [place] 48.0 [facility] HEMATOLOGY MCH 33.4 pg 27.0 - 11/29 [place] 31.0 [facility] HEMATOLOGY MCV 98.0 fL 80.0 - 11/29 [facility] 98.0 /2015 [facility] HEMATOLOGY MPV 9.4 fL 7.4 - 10.4 11/29 [facility] HEMATOLOGY Platelet 260 K/CMM 133 - 450 11/29 [facility] HEMATOLOGY RBC 4.56 M/CMM 4.20 - 09 [place] 5.40 [facility] HEMATOLOGY Hgb 15.2 g/dL 12.0 - 11/29 [place] 16.0 [facility] HEMATOLOGY WBC 11.0 K/CMM 3.7 - 10.4 11/29 [facility] HEMATOLOGY Eosinophils 0.2 K/CMM 0.0 - 0.5 11/29 [place] # /2015 [facility] HEMATOLOGY Basophils # 0.1 K/CMM 0.0 - 0.2 11/29 [facility] HEMATOLOGY Segs-Bands # 6.2 K/CMM 1.5 - 8.1 11/29 [facility] HEMATOLOGY Monocytes # 1.9 K/CMM 0.0 - 0.8 11/29 [facility] HEMATOLOGY Lymphocytes 2.5 K/CMM 1.0 - 5.5 11/29 [facility] # [facility] HEMATOLOGY Segs 57.0 % 45.0 - 11/29 75.0 /2015 [facility] HEMATOLOGY Lymphocytes 23.2 % 20.0 - 11/29 [facility] 40.0 [facility] HEMATOLOGY Basophils 0.7 % 0.0 - 1.0 11/29 [facility] HEMATOLOGY Monocytes 17.4 % 2.0 - 12.0 11/29 [facility] HEMATOLOGY Eosinophils 1.7 % 0.0 - 4.0 11/29 [facility] Neck w/wo Neck w/wo EXAM: MRI OF THE NECK WITH CONTRAST 11/29 - [facility] contrast contrast - [facility] DATE: 11/29/2015 9:37 PM CDT Read [...] lesion. TOXICOLOGY [facility] TND 1100 11/28 [facility] TOXICOLOGY Vanco Tr 23.9 ug/ml 11/28 [facility] HEMATOLOGY Hct 45.8 % 36.0 - 11/28 [place] 48.0 /2015 [facility] HEMATOLOGY MCV 99.4 fL 80.0 - 11/28 98.0 /2015 [facility] HEMATOLOGY Hgb 15.5 g/dL 12.0 - 11/28 [place] 16.0 /2015 [facility] HEMATOLOGY RBC 4.61 M/CMM 4.20 - 11/28 [place] 5.40 /2015 [facility] HEMATOLOGY WBC 11.3 K/CMM 3.7 - 10.4 11/28 [facility] HEMATOLOGY MPV 10.0 fL 7.4 - 10.4 11/28 [facility] HEMATOLOGY Platelet 247 K/CMM 133 - 450 11/28 [facility] HEMATOLOGY RDW 14.1 % 11.5 - 11/28 14.5 [facility] HEMATOLOGY MCHC 33.9 g/dL 32.0 - 11/28 36.0 [facility] HEMATOLOGY MCH 33.7 pg 27.0 - 11/28 31.0 [facility] HEMATOLOGY Lymphocytes 18.5 % 20.0 - 11/28 [place] 40.0 [facility] HEMATOLOGY Eosinophils 0.1 % 0.0 - 4.0 11/28 [facility] HEMATOLOGY Monocytes 12.7 % 2.0 - 12.0 11/28 [facility] HEMATOLOGY Basophils 0.3 % 0.0 - 1.0 11/28 [facility] HEMATOLOGY Segs-Bands # 7.7 K/CMM 1.5 - 8.1 11/28 [facility] HEMATOLOGY Monocytes # 1.4 K/CMM 0.0 - 0.8 11/28 [facility] HEMATOLOGY Lymphocytes 2.1 K/CMM 1.0 - 5.5 11/28 [place] # /2015 [facility] HEMATOLOGY Segs 68.4 % 45.0 - 11/28 [facility] 75.0 [facility] Ext Upper Ext Upper Correction: Exam is of the left upper extremity 11/27 - [facility] Venous Venous /2015 - Medical Doppler Doppler EXAM: US RIGHT UPPER EXTREMITY VENOUS DOPPLER This report was dictated by a Outcome Analyst/Fellow. I have personally reviewed the images as [...] (DVT). TOXICOLOGY [facility] Tr TND 2300 11/27 [facility] TOXICOLOGY Vanco Tr 10.4 ug/ml 11/27 Result Comment: [facility] Moderately Hemolyzed. CHEM PANEL Calcium Lvl 8.1 mg/dL 8.5 - 10.5 11/27 2015 [facility] CHEM PANEL CO2 25 meq/L 24 - 32 11/27 2015 [facility] CHEM PANEL Chloride Lvl 110 meq/L 95 - 109 11/27 [facility]2015 [facility] CHEM PANEL Potassium 3.8 meq/L 3.5 - 5.1 11/27 [facility] CHEM PANEL eGFR 93 11/27 Result Comment: The eGFR is calculated using the CKD-EPI formula. In most young, healthy individuals the eGFR will be >90 mL/ min/1.73m2. The eGFR declines with age. An eGFR of 60-89 may be normal in [facility] mL/min/1. some populations, particularly the elderly, for whom the CKD-EPI formula has not been extensively validated. Use of the eGFR is not recommended in the following populations: [address] Individuals with unstable creatinine concentrations, including [...] BUN 21 mg/dL 7 - 22 11/27 [facility] CHEM PANEL Sodium Lvl 144 meq/L 135 - 145 11/27 [facility] CHEM PANEL Creatinine 0.66 mg/dL 0.50 - 09 [place] Lvl 1.40 [facility] CHEM PANEL Glucose Lvl 115 mg/dL 70 - 99 09 [facility] CHEM PANEL AGAP 12.8 meq/L 10.0 - 09 [place] 20.0 [facility] HEMATOLOGY MPV 9.9 fL 7.4 - 10.4 11/27 [facility] HEMATOLOGY Platelet 242 K/CMM 133 - 450 11/27 [facility] HEMATOLOGY RDW 13.5 % 11.5 - 09 14.5 [facility] HEMATOLOGY MCH 33.0 pg 27.0 - 11/27 31.0 [facility] HEMATOLOGY MCHC 33.2 g/dL 32.0 - 11/27 [place] 36.0 [facility] HEMATOLOGY MCV 99.2 fL 80.0 - 11/27 [facility] 98.0 /2015 [facility] HEMATOLOGY Hct 42.9 % 36.0 - 11/27 48.0 [facility] HEMATOLOGY RBC 4.33 M/CMM 4.20 - 09 [place] 5.40 [facility] HEMATOLOGY Hgb 14.3 g/dL 12.0 - 11/27 16.0 [facility] HEMATOLOGY WBC 16.9 K/CMM 3.7 - 10.4 11/27 [facility] HEMATOLOGY Lymphocytes 1.5 K/CMM 1.0 - 5.5 11/27 [place] # /2015 [facility] HEMATOLOGY Basophils # 0.1 K/CMM 0.0 - 0.2 11/27 [facility] HEMATOLOGY Monocytes # 1.7 K/CMM 0.0 - 0.8 11/27 [facility] HEMATOLOGY Segs-Bands # 13.7 K/CMM 1.5 - 8.1 11/27 [facility] HEMATOLOGY Monocytes 10.0 % 2.0 - 12.0 11/27 [facility] HEMATOLOGY Segs 80.7 % 45.0 - 11/27 [facility] 75.0 [facility] HEMATOLOGY Basophils 0.4 % 0.0 - 1.0 11/27 [facility] HEMATOLOGY Lymphocytes 8.9 % 20.0 - 11/27 [facility] 40.0 [facility] Neck soft Neck soft EXAM: CT NECK WITH CONTRAST 11/26 - [facility] tissue w tissue - [facility] contrast contrast CT Center CT DATE: [...] IMMUNOLOGY HIV 1/2 Ab Negative Negative 11/26 [facility] (11/27/15 2:22 PM) CHEM PANEL eGFR 94 11/26 Result Comment: The eGFR is calculated using the CKD-EPI formula. In most young, healthy individuals the eGFR will be >90 mL/ min/1.73m2. The eGFR declines with age. An eGFR of 60-89 may be normal in [facility] mL/min/1. some populations, particularly the elderly, for whom the CKD-EPI formula has not been extensively validated. Use of the eGFR is not recommended in the following populations: [address] Individuals with unstable creatinine concentrations, including [...] Lvl 110 meq/L 95 - 109 11/26 [facility] CHEM PANEL CO2 24 meq/L 24 - 32 11/[address] CHEM PANEL Calcium Lvl 8.6 mg/dL 8.5 - 10.5 11/[address] CHEM PANEL Creatinine 0.62 mg/dL 0.50 - 11/26 [facility] CHEM PANEL Sodium Lvl 142 meq/L 135 - 145 11/26 [facility]2015 [facility] CHEM PANEL Potassium 3.8 meq/L 3.5 - 5.1 11/26 [facility] CHEM PANEL Glucose Lvl 139 mg/dL 70 - 99 11/26 [facility]2015 [facility] CHEM PANEL BUN 13 mg/dL 7 - 22 11/26 [facility]2015 [facility] CHEM PANEL AGAP 11.8 meq/L 10.0 - 11/26 [facility] .0 [facility] CHEM PANEL Magnesium 2.1 mg/dL 1.8 - 2.4 11/26 [facility]2015 [facility] CHEM PANEL Phosphorus 3.2 mg/dL 2.5 - 4.5 11/26 [facility]2015 [facility] CHEM PANEL Lactic Acid 1.4 mMol/L 0.5 - 2.2 11/25 [facility] Lvl /2015 [facility] CHEM PANEL Lactic Acid 2.5 mMol/L 0.5 - 2.2 11/25 [facility] Lvl /2015 [facility] HEMATOLOGY Eosinophils 0.9 % 0.0 - 4.0 11/25 [place] /2015 [facility] HEMATOLOGY Basophils # 0.1 K/CMM 0.0 - 0.2 11/25 /2015 [facility] HEMATOLOGY Eosinophils 0.1 K/CMM 0.0 - 0.5 11/25 [facility] # /2015 [facility] TOXICOLOGY Vanco Lvl 3.8 ug/ml 11/25 [facility] [facility]2015 [facility] Chest 2 Chest 2 EXAM: XR CHEST 2 VIEWS 11/25 - [facility] views DX views DX - [facility] This report was dictated by a Outcome Analyst/Fellow. I have personally reviewed the images as [...] excluded. BLOOD BANK ABO/Rh O POS 11/25 [facility] RESULTS /2015 [facility] BLOOD BANK Antibody Negative 11/25 [facility] RESULTS [facility] (11/25/15 8:24 PM) Center CHEM PANEL Lactic Acid 3.5 mMol/L 0.5 - 2.2 11/25 [facility] Lvl /2015 [facility] HEMATOLOGY PT 14.9 s 12.0 - 11/25 [place] 14.7 /2015 [facility] HEMATOLOGY INR 1.14 0.85 - 11/25 [facility] 1.17 2016 [facility] HEMATOLOGY PTT 27.7 s 22.9 - 09 [facility] 35.8 /2016 [facility] Vital Signs Vital Sign Value Date Comments Source BMI Calculated 19.81 05/06/2016 [facility] Weight 59.091 05/06/2016 [facility] Height 172.72 cm 05/06/2016 [facility] Systolic (mm Hg) 143 05/06/2016 [facility] Diastolic (mm Hg) 67 05/06/2016 [facility] Heart Rate 63 05/06/2016 [facility] Temperature Oral (F) 98 F 12/19/2015 [facility] Respitory Rate 18 12/19/2015 [facility] Heart Rate 69 12/19/2015 [facility] Systolic (mm Hg) 129 12/19/2015 [facility] Diastolic (mm Hg) 72 12/19/2015 [facility] Heart Rate 60 12/19/2015 [facility] Temperature Oral (F) 98.2 F 12/19/2015 [facility] Respitory Rate 18 12/19/2015 [facility] Systolic (mm Hg) 138 12/19/2015 [facility] Diastolic (mm Hg) 75 12/19/2015 [facility] Systolic (mm Hg) 106 12/19/2015 [facility] Diastolic (mm Hg) 78 12/19/2015 [facility] Respitory Rate 18 12/19/2015 [facility] Heart Rate 63 12/19/2015 [facility] Temperature Oral (F) 97.9 F 12/19/2015 [facility] Weight 68.182 12/07/2015 [facility] Height 172.72 cm 12/07/2015 [facility] BMI Calculated 22.86 12/07/2015 [facility] Weight 68.182 12/06/2015 [facility] BMI Calculated 22.86 12/06/2015 [facility] Height 172.72 cm 12/06/2015 [facility] Temperature Oral (F) 98.2 F 12/01/2015 [facility] Heart Rate 76 12/01/2015 [facility] Respitory Rate 18 12/01/2015 [facility] Systolic (mm Hg) 133 12/01/2015 [facility] Diastolic (mm Hg) 78 12/01/2015 [facility] Respitory Rate 18 12/01/2015 [facility] Systolic (mm Hg) 112 12/01/2015 [facility] Diastolic (mm Hg) 75 12/01/2015 [facility] Heart Rate 91 12/01/2015 [facility] Temperature Oral (F) 98.1 F 12/01/2015 [facility] Heart Rate 78 12/01/2015 [facility] Temperature Oral (F) 98.2 F 12/01/2015 [facility] Systolic (mm Hg) 125 12/01/2015 [facility] Diastolic (mm Hg) 72 12/01/2015 [facility] Respitory Rate 18 12/01/2015 [facility] Height 172.72 cm 11/28/2015 [facility] BMI Calculated 23.16 11/28/2015 [facility] Weight 69.1 11/28/2015 [facility] Height 172.72 cm 11/27/2015 [facility] Weight 69.1 11/27/2015 [facility] Weight 69.1 11/26/2015 [facility] Height 172.72 cm 11/26/2015 [facility] BMI Calculated 23.16 11/26/2015 [facility] BMI Calculated 22.86 11/26/2015 [facility] Encounters Location Location Encounter Encounter Reason Attending ADM DC Status Source Details Type Number For Provider Date Date Visit [facility] [id number] Andrea 11/25 11/30 [facility] [place] Alexander /2015 [facility] Inpatient [id number] Myla 12/05 12/18 [facility] [place] Delma /2015 [facility] Outpatient [id number] Michelle 02/19 02/20 [facility] Bud Lucas /2015 [facility] Outpatient [id number] Michelle 02/25 02/26 Bud Lance /2015 [facility] OP Therapy [id number] Michelle 03/05 03/21 [facility] OP Therapy [id number] Michelle 03/26 04/25 [facility] Outpatient [id number] Michelle 04/23 04/24 Bud Lucas /2016 [facility] Bedded [id number] Michelle 05/06 05/06 [facility] [place] Outpatient /2016 [facility] Procedures Procedure Code Date Perfomer Comments Source Spinal puncture, [id number] 12/12/2015 [id number] Biopsy of vocal [id number] [facility] Splenectomy [id number] [facility] Appendectomy [id number] [facility] Biopsy of vocal [id number] [facility] Splenectomy [id number] [facility] Appendectomy [id number] [facility] Biopsy of vocal [id number] [facility] Splenectomy [id number] [facility]
[2018-03-08] MEDS ORDERED: ONDANSETRON 4 MG/2 ML VIAL ONE (15:24)
[2018-03-08] MEDS ORDERED: FENTANYL CITR 100 MCG/2 ML ONE (15:24)
[2018-03-08] MEDS ORDERED: NA CHLORIDE 0.9% 500 ML ONE (15:24)
--- NOTE | 2018-03-08 15:28 | RAD REPORT ---
EXAM DESCRIPTION: CT - Spine Lumbar Wo Con - 03/08/2018 3:12 pm CLINICAL HISTORY: Fall, back pain COMPARISON: Lumbar puncture imaging June 2016 TECHNIQUE: Thin section axial imaging of the lumbar spine was performed. Sagittal and coronal recon struction images were generated and reviewed. All CT scans are performed using dose optimization technique as appropriate and may include automated exposure control or mA/KV adjustment according to patient size. FINDINGS: Lumbar bodies are normal in height and normal in alignment. No lytic, sclerotic or expansi le bony destructive process. Approximately 10% height loss involves the superior endplate T12 with po sterior wall height preserved. This minimal degree of compression is similar to the June 2016 imagin g. No paraspinal mass. Aortic calcifications are present. The T12-L1, L1-2 and L2-3 disc levels show no herniation or significant disc bulge. No canal or remedios en stenosis. L2-3 facet joint degenerative changes are present. L3-4 shows a slight loss in disc height. Mild circumferential bulging of disc material seen. Midline canal is 12 mm with no significant foraminal encroachment. Facet degenerative changes are seen. Significant loss in disc height noted L4-5. Circumferential bulging of disc material is present more pronounced in the right exit foramen and far lateral aspect. Anterior thecal sac is flattened. Ligame ntous thickening and facet degenerative changes are present. Central canal is stenotic to 8 mm. Right foraminal encroachment present from disc bulge. L5-S1 level: Prominent protruding disc material is present in the right foramen. No critical foramina l stenosis. Fat surrounds the exiting nerve root. No central spinal stenosis. Prominent facet degener ative changes are present. IMPRESSION: No compression fracture or acute lumbar spine finding. Partial compression of T12 dates back to at least June 2016. Degenerative change at L4-5 as detailed resulting in central spinal stenosis and right foraminal sten osis. Right-side L5-S1 mild foraminal stenosis from protruding disc material.
--- NOTE | 2018-03-08 15:37 | RAD REPORT ---
EXAM DESCRIPTION: RAD - Pelvis - 03/08/2018 3:19 pm CLINICAL HISTORY: Fall, pelvic pain COMPARISON: None. TECHNIQUE: AP imaging of the pelvis was obtained. FINDINGS: No fracture of the bony pelvis. No fracture, dislocation or other acute hip joint finding. No significant SI joint findings. Lower lumbar degenerative changes are present only partially imaged. No soft tissue abnormality. IMPRESSION: Negative pelvis for acute or significant findings.
[2018-03-08 16:09] LABS: Urine Blood 1+ (NEG); Urine Glucose NEGATIVE (NEG); Urine Protein NEGATIVE (NEG); Urine Specific Gravity 1.015 (1.005-1.030)
[2018-03-08] MEDS ORDERED: DEXAMETHASONE 10 MG/ML VIAL ONE (16:36)
[2018-03-08 16:38] LABS: Albumin 3.5 g/dL (3.4-5.0); Bilirubin Total 0.4 mg/dL (0.2-1.0); Potassium 4.3 mmol/L (3.5-5.1); Protein, Total 7.6 g/dL (6.4-8.2)
--- NOTE | 2018-03-08 16:43 | ER ---
Nurse's Notes [facility] Name: Ana Victor Age: 67 yrs Sex: Female : 1950 Arrival Date: 03/08/2018 Time: 14:03 Bed 14 Private MD: Diagnosis: Other slipping, tripping and stumbling and falls;Repeated falls;Unspecified cirrhosis of liver;Low back pain;Spinal stenosis, lumbosacral region Presentation: 03/08 14:05 Presenting complaint: EMS states: MECHANICAL FALL AT HOME P DAYS AGO. Transition of bp care: patient was not received from another setting of care. Onset of symptoms is unknown. Risk Assessment: Do you want to hurt yourself or someone else?. Initial Sepsis Screen: Does the patient meet any 2 criteria? No. Patient's initial sepsis screen is negative. Does the patient have a suspected source of infection?. 14:05 Method Of Arrival: EMS: [facility] bp 14:05 Acuity: OPHELIA 5 bp 14:05 Care prior to arrival: None. bp Triage Assessment: 14:13 General: Appears in no apparent distress. comfortable, Behavior is calm, cooperative, bp appropriate for age. Pain: Complains of pain in back. 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 - Social history:: Smoking status: unknown. - Ebola Screening: : Patient negative for fever greater than or equal to 101.5 degrees Fahrenheit, and additional compatible Ebola Virus Disease symptoms Patient denies exposure to infectious person Patient denies travel to an Ebola-affected area in the 21 days before illness onset No symptoms or risks identified at this time. - Family history:: not pertinent. Screenin:15 Abuse screen: Denies threats or abuse. Denies injuries from another. Nutritional bp screening: No deficits noted. Tuberculosis screening: No symptoms or risk factors identified. Fall Risk Fall in past 12 months (25 points). No secondary diagnosis (0 pts). No IV (0 pts). Ambulatory Aid- None/Bed Rest/Nurse Assist (0 pts). Gait- Normal/Bed Rest/Wheelchair (0 pts) Mental Status- Oriented to own ability (0 pts). Total Rahman Fall Scale indicates Low Risk Score (25-44 pts). Fall prevention measures have been instituted. Side Rails Up X 2 Placed close to Nursing Station Frequent Obs/Assesments occuring As available Patient and Family Educated on Fall Prevention Program and strategies. Assessment: 14:15 General: Appears in no apparent distress. uncomfortable, Behavior is cooperative, bp appropriate for age, anxious. Pain: Complains of pain in lumbar area and back. Neuro: Level of Consciousness is awake, alert, obeys commands, Oriented to person, place, time, situation, Appropriate for age. Cardiovascular: No deficits noted. Respiratory: Airway is patent Respiratory effort is even, unlabored, Respiratory pattern is regular, symmetrical. GI: No signs and/or symptoms were reported involving the gastrointestinal system. : No signs and/or symptoms were reported regarding the genitourinary system. EENT: No deficits noted. Derm: No deficits noted. Musculoskeletal: Circulation, motion, and sensation intact. Range of motion: intact in all extremities. 16:10 Reassessment: ALL CURRENT ORDERS COMPLETED, RESULTS PENDING. bp 16:46 Reassessment: PT STATES S/S COMPLETELY RELIEVED, FURTHER MEDICATION HELD AT THIS TIME. bp FULL RESULTS PENDING FOR DISPO. 17:39 Reassessment: PT D/C HOME VIA W/C WITH FAMILY, DX WITH LOW BACK PAIN. bp Vital Signs: 14:03 BP 153 / 80; Pulse 67; Resp 16; Temp 97.8; Pulse Ox 97% ; Weight 67.13 kg; bp 15:00 BP 148 / 76; Pulse 67; Resp 16; Pulse Ox 95% ; bp 16:07 BP 177 / 84; Pulse 66; Resp 14; Pulse Ox 94% ; bp 17:30 BP 177 / 79; Pulse 64; Resp 14; Pulse Ox 93% ; bp ED Course: 14:03 Patient arrived in ED. sv 14:03 Ramiro Brandt, ANDRADE is Primary Nurse. bp 14:04 Dariusz Giang MD is Attending Physician. jean-pierre 14:10 Triage completed. bp 14:13 Arm band placed on. bp 14:15 Patient has correct armband on for positive identification. Bed in low position. Call bp light in reach. Side rails up X 1. Adult w/ patient. 14:[address] nj 15:13 CT Lumbar Spine Wo Con In Process Unspecified. EDMS 15:20 Pelvis XRAY In Process Unspecified. EDMS 15:55 Inserted saline lock: 22 gauge in right forearm, using aseptic technique. bp 16:42 Luis Winters MD is Referral Physician. jean-pierre 17:39 No provider procedures requiring assistance completed. IV discontinued, intact, bp bleeding controlled, No redness/swelling at site. Pressure dressing applied. Administered Medications: 15:15 Drug: NS 0.9% 500 ml Route: IV; Rate: bolus; Site: right forearm; bp 16:00 Follow up: IV Status: Completed infusion; IV Intake: 500ml bp 15:15 Drug: fentaNYL (PF) 25 mcg Route: IVP; Site: right forearm; bp 16:25 Follow up: Response: Pain is decreased bp 15:15 Drug: Zofran 4 mg Route: IVP; Site: right forearm; bp 16:25 Follow up: Response: Nausea is decreased bp 16:30 Drug: Decadron - Dexamethasone 10 mg Route: IVP; Site: right forearm; bp 17:09 Follow up: Response: Pain is decreased bp 16:45 Drug: TORadol 30 mg Route: IVP; Site: right forearm; bp 17:09 Follow up: Response: Pain is decreased bp Intake: 16:00 IV: 500ml; Total: 500ml. bp Outcome: 16:42 Discharge ordered by . jean-pierre 17:40 Discharged to home via wheelchair, with family. bp 17:40 Condition: stable 17:40 Discharge instructions given to patient, Instructed on discharge instructions, follow up and referral plans. medication usage, Demonstrated understanding of instructions, follow-up care, medications, Prescriptions given X 4. 17:40 Patient left the ED. bp 18:13 Prescriptions given X Skelaxin not covered by pt insurance, called in Flexeril 5 mg TID iw for 5 days, no refills Signatures: Dispatcher [employer] Dafne Thomas RN RN sv Anderson, Corey, MD MD cha Williams, Irene, RN RN Chad Jones Brian, RN RN bp Garcia, Jessica [id number] Corrections: (The following items were deleted from the chart) 14:05 14:03 BP 153 / 80; Pulse 67bpm; Resp 16bpm; Pulse Ox 97%; Temp 97.8F; sv bp 14:59 14:52 Patient moved to [facility] nj
--- NOTE | 2018-03-08 16:43 | EDPHYS ---
Physician Documentation [facility] Name: Ana Victor Age: 67 yrs Sex: Female : 1950 Arrival Date: 03/08/2018 Time: 14:03 Bed 14 Private MD: ED Physician Dariusz Giang HPI: 03/08 14:48 This 67 yrs old Female presents to ER via EMS with complaints of low back jean-pierre pain, fall. 14:48 The patient presents with pain that is acute. The symptoms are located in the low back. jean-pierre Location: lumbar area, left low back and right low back. The problem was sustained during a fall. Onset: The symptoms/episode began/occurred 5 day(s) ago. Modifying factors: The patient symptoms are alleviated by. Associated signs and symptoms: The patient has no apparent associated signs or symptoms. Severity of symptoms: At their worst the symptoms were mild, moderate, in the emergency department the symptoms are unchanged. 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 - Social history:: Smoking status: unknown. - Ebola Screening: : Patient negative for fever greater than or equal to 101.5 degrees Fahrenheit, and additional compatible Ebola Virus Disease symptoms Patient denies exposure to infectious person Patient denies travel to an Ebola-affected area in the 21 days before illness onset No symptoms or risks identified at this time. - Family history:: not pertinent. ROS: 14:48 Constitutional: Negative for fever, chills, and weight loss, Eyes: Negative for injury, jean-pierre pain, redness, and discharge, ENT: Negative for injury, pain, and discharge, Neck: Negative for injury, pain, and swelling, Cardiovascular: Negative for chest pain, palpitations, and edema, Respiratory: Negative for shortness of breath, cough, wheezing, and pleuritic chest pain, Abdomen/GI: Negative for abdominal pain, nausea, vomiting, diarrhea, and constipation, : Negative for injury, bleeding, discharge, and swelling, MS/Extremity: Negative for injury and deformity, Skin: Negative for injury, rash, and discoloration, Neuro: Negative for headache, weakness, numbness, tingling, and seizure, Psych: Negative for depression, anxiety, suicide ideation, homicidal ideation, and hallucinations, Allergy/Immunology: Negative for hives, rash, and allergies, Endocrine: Negative for neck swelling, polydipsia, polyuria, polyphagia, and marked weight changes, Hematologic/Lymphatic: Negative for swollen nodes, abnormal bleeding, and unusual bruising. 14:48 Back: Positive for decreased range of motion, pain at rest, pain with movement, of the lumbar area. Exam: 14:48 Constitutional: This is a well developed, well nourished patient who is awake, alert, jean-pierre and in no acute distress. Head/Face: Normocephalic, atraumatic. Eyes: Pupils equal round and reactive to light, extra-ocular motions intact. Lids and lashes normal. Conjunctiva and sclera are non-icteric and not injected. Cornea within normal limits. Periorbital areas with no swelling, redness, or edema. ENT: Nares patent. No nasal discharge, no septal abnormalities noted. Tympanic membranes are normal and external auditory canals are clear. Oropharynx with no redness, swelling, or masses, exudates, or evidence of obstruction, uvula midline. Mucous membranes moist. Neck: Trachea midline, no thyromegaly or masses palpated, and no cervical lymphadenopathy. Supple, full range of motion without nuchal rigidity, or vertebral point tenderness. No Meningismus. Chest/axilla: Normal chest wall appearance and motion. Nontender with no deformity. No lesions are appreciated. Cardiovascular: Regular rate and rhythm with a normal S1 and S2. No gallops, murmurs, or rubs. Normal PMI, no JVD. No pulse deficits. Respiratory: Lungs have equal breath sounds bilaterally, clear to auscultation and percussion. No rales, rhonchi or wheezes noted. No increased work of breathing, no retractions or nasal flaring. Abdomen/GI: Soft, non-tender, with normal bowel sounds. No distension or tympany. No guarding or rebound. No evidence of tenderness throughout. Female : Normal external genitalia. Skin: Warm, dry with normal turgor. Normal color with no rashes, no lesions, and no evidence of cellulitis. MS/ Extremity: Pulses equal, no cyanosis. Neurovascular intact. Full, normal range of motion. Neuro: Awake and alert, GCS 15, oriented to person, place, time, and situation. Cranial nerves II-XII grossly intact. Motor strength 5/5 in all extremities. Sensory grossly intact. Cerebellar exam normal. Normal gait. Psych: Awake, alert, with orientation to person, place and time. Behavior, mood, and affect are within normal limits. 14:48 Back: pain, that is mild, that is moderate, ROM is painful, normal spinal alignment noted, CVA tenderness, is absent, muscle spasm, is appreciated in the lumbar area, left low back and right low back. Vital Signs: 14:03 BP 153 / 80; Pulse 67; Resp 16; Temp 97.8; Pulse Ox 97% ; Weight 67.13 kg; bp 15:00 BP 148 / 76; Pulse 67; Resp 16; Pulse Ox 95% ; bp 16:07 BP 177 / 84; Pulse 66; Resp 14; Pulse Ox 94% ; bp 17:30 BP 177 / 79; Pulse 64; Resp 14; Pulse Ox 93% ; bp MDM: 14:04 Patient medically screened. [facility] 14:50 Data reviewed: vital signs, nurses notes, lab test result(s), radiologic studies, CT jean-pierre scan, plain films. 03/08 14:48 Order name: CBC with Diff; Complete Time: 17:23 [facility] 03/08 14:48 Order name: Comprehensive Metabolic Panel; Complete Time: 16:39 [facility] 03/08 14:48 Order name: CT Lumbar Spine Wo Con; Complete Time: 15:30 [facility] 03/08 14:51 Order name: Pelvis XRAY; Complete Time: 16:15 [facility] 03/08 16:03 Order name: Urine Dipstick--Ancillary (enter results); Complete Time: 16:15 03/08 14:48 Order name: Urine Dipstick-Ancillary (obtain specimen); Complete Time: 15:59 [facility] 03/08 16:52 Order name: Labs - recollect needed; Complete Time: 17:08 bd Administered Medications: 15:15 Drug: NS 0.9% 500 ml Route: IV; Rate: bolus; Site: right forearm; bp 16:00 Follow up: IV Status: Completed infusion; IV Intake: 500ml bp 15:15 Drug: fentaNYL (PF) 25 mcg Route: IVP; Site: right forearm; bp 16:25 Follow up: Response: Pain is decreased bp 15:15 Drug: Zofran 4 mg Route: IVP; Site: right forearm; bp 16:25 Follow up: Response: Nausea is decreased bp 16:30 Drug: Decadron - Dexamethasone 10 mg Route: IVP; Site: right forearm; bp 17:09 Follow up: Response: Pain is decreased bp 16:45 Drug: TORadol 30 mg Route: IVP; Site: right forearm; bp 17:09 Follow up: Response: Pain is decreased bp Disposition: 03/08/18 16:42 Discharged to Home. Impression: Other slipping, tripping and stumbling and falls, Repeated falls, Unspecified cirrhosis of liver, Low back pain, Spinal stenosis, lumbosacral region. - Condition is Stable. - Discharge Instructions: Back Pain, Adult, Chronic Back Pain, Fall Prevention in the Home, Musculoskeletal Pain, Back Injury Prevention, [id number], Back Pain, Adult, [id number], Fall Prevention in the Home, [id number], Radicular Pain. - Prescriptions for Skelaxin 800 mg Oral Tablet - take 1 tablet by ORAL route every 8 hours As needed; 21 tablet. Tramadol 50 mg Oral Tablet - take 1 tablet by ORAL route every 8 hours as needed; 26 tablet. Medrol (Jamaal) 4 mg Oral Tablets, Dose Pack - take 1 tablet by ORAL route as directed - follow package instructions; 1 packet. Motrin IB 200 mg Oral Tablet - take 1 tablet by ORAL route every 6 hours As needed as needed with food; 20 tablet. - Medication Reconciliation Form, Thank You Letter, Antibiotic Education, Prescription Opioid Use form. - Follow up: Private Physician; When: 2 - 3 days; Reason: Recheck today's complaints, Continuance of care, Re-evaluation by your physician. Follow up: Luis Winters; When: 2 - 3 days; Reason: Recheck today's complaints, Re-evaluation by your physician. - Problem is new. - Symptoms have improved. Signatures: Dispatcher [employer] EDMS Alayna Charles Corey, MD MD cha Peltier, Brian, ANDRADE RN bp Corrections: (The following items were deleted from the chart) 17:40 16:42 03/08/2018 16:42 Discharged to Home. Impression: Other slipping, tripping and bp stumbling and falls; Repeated falls; Unspecified cirrhosis of liver; Low back pain; Spinal stenosis, lumbosacral region. Condition is Stable. Discharge Instructions: Back Pain, Adult, Chronic Back Pain, Fall Prevention in the Home, Musculoskeletal Pain, Back Injury Prevention, [id number], Back Pain, Adult, [id number], Fall Prevention in the Home, [id number], Radicular Pain. Prescriptions for Skelaxin 800 mg Oral Tablet - take 1 tablet by ORAL route every 8 hours As needed; 21 tablet, Tramadol 50 mg Oral Tablet - take 1 tablet by ORAL route every 8 hours as needed; 26 tablet, Medrol (Jamaal) 4 mg Oral Tablets, Dose Pack - take 1 tablet by ORAL route as directed - follow package instructions; 1 packet, Motrin IB 200 mg Oral Tablet - take 1 tablet by ORAL route every 6 hours As needed as needed with food; 20 tablet. and Forms are Medication Reconciliation Form, Thank You Letter, Antibiotic Education, Prescription Opioid Use. Follow up: Private Physician; When: 2 - 3 days; Reason: Recheck today's complaints, Continuance of care, Re-evaluation by your physician. Follow up: Luis Winters; When: 2 - 3 days; Reason: Recheck today's complaints, Re-evaluation by your physician. Problem is new. Symptoms have improved. jean-pierre
[2018-03-08] MEDS ORDERED: KETOROLAC 30 MG/ML INJ ONE (16:54)
[2018-03-08 17:10] LABS: Absolute Lymphocytes (CBC) 1.9 K/uL (0.7-4.9); Absolute Monocytes 1.2 K/uL (0.1-1.3); Absolute Neutrophil 4.5 K/uL (1.8-8.0); Basophils % 1.3 % (0-1.3); Eosinophils % 4.4 % (0-4.4); Hematocrit 34.8 % (36.0-45.0); MPV 8.8 fL (7.6-11.3); Monocytes % 14.9 % (3.3-12.3); RBC Red Blood Cell Count 3.95 M/uL (3.86-4.86)
[2018-03-08 17:46] VITALS: BP 177/84; O2SAT 94
== END 2018-03-08 17:40 | disposition home or self-care (01) ==
LOC: ER 14:06
DX: M48.07 Spinal stenosis, lumbosacral region (principal); K74.60 Unspecified cirrhosis of liver; W01.0XXA Fall on same level from slipping, tripping and stumbling without subsequent striking against object, initial encounter; Y93.9 Activity, unspecified; Y92.9 Unspecified place or not applicable; E03.9 Hypothyroidism, unspecified; Z91.041 Radiographic dye allergy status; Z91.81 History of falling
CPT/HCPCS: 36415; 72131; 72170; 80053; 81003; 85025; 96361; 96374; 96375; 99284; J1100; J2405; J3010

== ENCOUNTER 2018-08-25 11:50 | Emergency (ER) | payer OTHER ==
[2018-08-25] MEDS ORDERED: FENTANYL CITR 100 MCG/2 ML ONE (12:20)
[2018-08-25] MEDS ORDERED: ONDANSETRON 4 MG/2 ML VIAL ONE (12:20)
[2018-08-25 12:27] LABS: Absolute Lymphocytes (CBC) 1.7 K/uL (0.7-4.9); Absolute Monocytes 1.1 K/uL (0.1-1.3); Absolute Neutrophil 7.3 K/uL (1.8-8.0); Basophils % 0.6 % (0-1.3); Lymphocytes % 16.9 % (15.3-44.8); MPV 8.3 fL (7.6-11.3); Monocytes % 10.3 % (3.3-12.3)
--- OUTSIDE RECORDS SUMMARY | 2018-08-25 12:27 | XMS REPORT | Continuity of Care Document ---
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[facility] PARALYSIS [address] [place] [address] SCAN Active 12/06/[address] CN 7 PALSY, Active 12/06/19 [facility] DYSPHAGIA [address] [place] [address] SEPSIS Active 11/25/[address] LANCE Active 11/25/19 [facility] BILLING [address] [place] [address] SIALADENITIS Active 11/25/[address] Hep C w/o coma, Resolved Problem 05/09/2016 [facility] Liver cirrhosis Active Problem 05/09/2016 [facility] Cirrhosis Resolved Problem 05/09/2016 [facility] Colon polyps Resolved Problem 05/09/2016 [facility] SIALOADENITIS, Active [facility] OTHER DISORDERS Active [facility] FACIAL NERVE [facility] DYSPHAGIA, Active UNSPECIFIED [place] DYSPHONIA Active [facility] 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 predniSONE 5 mg/5 20 mg, 20 mL, No Longer [place] mL oral solution Route: PEG, Active 2015 Medical Drug form: Center SOLN, Daily, Start date: 12/20/15 9:00:00 CDT, Duration: 1 doses or times, Stop date: 12/20/15 9:00:00 CDTNotes: (Same as: Liquid Pred.) Take with food. Prednisone 1 MG/ML 10 mg=10 mL, No Longer [place] Oral Solution PEG, Daily, X 1 Active 2015, # 10 mL, 0 Center Refill(s) ursodiol 300 mg 900 mg=3 cap, Active [facility] oral capsule PO, Daily, # 2016 Medical 120 cap, 3 Center Refill(s) levothyroxine 100 100 microgram=1 Active [place] mcg (0.1 mg) oral tab, PEG, 2015 Medical tablet Q630AM, # 30 Center tab, 3 Refill(s) Alprazolam 0.5 MG 0.5 mg=1 tab, Active [place] Oral Tablet [Xanax] PO, Bedtime, 2016 Medical PRN Sleep, X 14 Center day, # 14 tab, 0 Refill(s) valACYclovir 500 mg 1,000 mg=2 tab, Active [place] oral tablet PEG, Q12H, X 6 2015 Medical day, # 24 tab, Center 0 Refill(s) tramadol 50 mg=1 tab, Active [place] hydrochloride 50 MG PEG, Q12H, PRN 2016 Medical Oral Tablet Pain Score 1-3, Center X 30 day, # 60 tab, 0 Refill(s) propranolol 20 mg 20 mg=1 tab, Active [place] oral tablet PEG, Q12H, # 60 2016 Medical tab, 3 Center Refill(s) diphenhydrAMINE 50 50 mg=1 cap, Active [facility] mg oral capsule PO, TID, PRN 2016 Medical Itching, X 14 Center day, # 42 cap, 3 Refill(s) ocular lubricant 1 drp, Each Active [facility] solution Affected Eye, 2016 Medical QID, # 36 ea, 3 Center Refill(s) lansoprazole 3 30 mg=10 mL, Active [facility] mg/mL oral PEG, Before 2015 Medical suspension Breakfast, # 30 [place] mL, 3 Refill(s) OXcarbazepine 300 150 mg=2.5 mL, Active [facility] mg/5 mL oral PEG, BID, # 150 2015 Medical suspension mL, 3 Refill(s) [place] predniSONE 5 mg/5 30 mg, 30 mL, Inactive [facility] mL oral solution Route: PO, Drug 2015 Medical form: SOLN, [place] Daily, Start date: 12/19/15 9:00:00 CDT, Duration: 1 doses or times, Stop date: 12/19/15 9:00:00 CDTNotes: (Same as: Liquid Pred.) Take with food. Potassium Chloride 40 mEq, 30 mL, Inactive [place] 1.33 MEQ/ML Oral Route: PEG, 2015 Medical Solution Drug form: LIQ, [place] ONCE, Dosing Weight 68.182, kg, Start date: 12/19/15 5:26:00 CDT, Stop date: 12/19/15 5:26:00 CDTNotes: (Same as: Potassium Chloride) Famotidine 20 MG 20 mg, 2 tab, Inactive [facility] Oral Tablet Route: PO, Drug 2015 Medical form: TAB, [place] ONCE, Dosing Weight 68.182, kg, Priority: NOW, Start date: 12/18/15 15:57:00 CDT, Stop date: 12/18/15 15:57:00 CDTNotes: (Same as: Pepcid AC) Ursodeoxycholate 900 mg, 15 mL, No Longer [facility] Route: PEG, Active 2015 Medical Drug form: Center SUSP, Daily, Dosing Weight 68.182, kg, Start date: 12/18/15 9:00:00 CDT, Duration: 30 day, Stop date: 01/16/16 9:00:00 CDTNotes: Ursodil (actigall) 300mg caps #5. Refrigerate - Shake Well Before Use. Compounded Product - formulation not commercially available predniSONE 5 mg/5 40 mg, 40 mL, Inactive [facility] mL oral solution Route: PO, Drug 2015 Medical form: SOLN, [place] Daily, Start date: 12/18/15 9:00:00 CDT, Duration: 1 doses or times, Stop date: 12/18/15 9:00:00 CDTNotes: (Same as: Liquid Pred.) Take with food. prednisolone 60 mg, Route: No Longer [facility] PEG, Drug form: Active 2015 Medical SOLN, Daily, Center Dosing Weight 68.182, kg, Start date: 12/18/15 9:00:00 CDT, Stop date: 12/21/15 9:00:00 CDT lansoprazole 30 mg, 10 mL, No Longer [facility] Route: PEG, Active 2015 Medical Drug form: Center SUSP, Before Breakfast, Dosing Weight 68.182, kg, Start date: 12/18/15 7:30:00 CDT, Duration: 30 day, Stop date: 01/16/16 7:30:00 CDTNotes: Take 1 hour before or 2 hours after meal; Expires in 14 days. Shake well before use. (Same as:Prevacid) Compounded Product - formulation not commercially available levothyroxine 100 microgram, No Longer [facility] 1 tab, Route: Active 2015 Medical PEG, Drug form: Center TAB, Q630AM, Start date: 12/18/15 6:30:00 CDT, Duration: 30 day, Stop date: 01/16/16 6:30:00 CDTNotes: Take 1 hour before or 2 hours after meal; Enteral feeds may interefere with the absorption of this medication. (Same as:Levothroid, Synthroid) Propranolol 20 mg, 1 tab, No Longer [facility] Route: PEG, Active 2015 Medical Drug form: TAB, Center Q12H, Dosing Weight 68.182, kg, Start date: 12/17/15 21:00:00 CDT, Duration: 30 day, Stop date: 01/16/16 9:00:00 CDTNotes: Give with food. (Same as: Inderal) Trileptal 150 mg, 2.5 mL, No Longer [facility] Route: PEG, Active 2015 Medical Drug form: LIQ, Center BID, Dosing Weight 68.182, kg, Start date: 12/17/15 21:00:00 CDT, Duration: 30 day, Stop date: 01/16/16 9:00:00 CDTNotes: (Same as: Trileptal) Valtrex 1,000 mg, Inactive [place] Route: PO, Drug 2015 Medical form: TAB, [...] 5 mg/5 50 mg, 50 mL, Inactive [place] mL oral solution Route: PEG, 2015 Medical Drug form: Center SOLN, ONCE, Start date: 12/17/15 18:00:00 CDT, Stop date: 12/17/15 18:00:00 CDTNotes: (Same as: Liquid Pred.) Take with food. tramadol 50 mg, 1 tab, No Longer [place] hydrochloride 50 MG Route: PEG, Active 2015 Medical Oral Tablet Drug form: TAB, Center Q12H, Dosing Weight 68.182, kg, PRN Pain Score 1-3, Start date: 12/17/15 16:36:00 CDT, Duration: 30 day, Stop date: 01/16/16 16:35:00 CDTNotes: Not to exceed 400mg/day. (Same As: Ultram) Acetaminophen 325 1 tab, Route: No Longer [facility] MG / Hydrocodone PEG, Drug Form: Active 2016 Medical Bitartrate 5 MG TAB, Dosing Center Oral Tablet [[place] Weight 68.182, 5/325] kg, Q6H, PRN Pain Score 4-6, Start date: 12/17/15 16:35:00 CDT, Duration: 30 day, Stop date: 01/16/16 16:34:00 CDTNotes: (Same as: [place] 325/5) Do not exceed 4gm/day of acetaminophen. Neutra-Phos 2 pkt, Route: Inactive [facility] PEG, Drug Form: 2016 Medical PDR/REC, Dosing Center Weight 68.182, kg, ONCE, Start date: 12/17/15 16:33:00 CDT, Stop date: 12/17/15 16:33:00 CDTNotes: (Same as: Neutra-Phos) Each 1.25 gm pkt has 250mg phosphorous. Mix w/2.5oz water and stir. Zofran 4 mg, 2 mL, Inactive [facility] Route: IVP, 2015 Medical Drug form: INJ, Center Q8H, Dosing Weight 68.182, kg, PRN Nausea, Start date: 12/17/15 15:11:00 CDT, Duration: 30 day, Stop date: 01/16/16 15:10:00 CDTNotes: (Same as: Zofran) MEDICATION WASTE Product Size: 4 mg Product Wasted: ___ mg Ondansetron 4 mg, Route: Inactive [facility] IVP, ONCE, 2015 Medical Dosing Weight Center 68.182, kg, PRN Nausea & Vomiting, Start date: 12/17/15 10:54:00 CDT Naloxone 0.4 mg, Route: Inactive [facility] IVP, Q2MIN, 2015 Medical Dosing Weight Center 68.182, kg, PRN Narcotic Reversal, Start date: 12/17/15 10:54:00 CDT, Duration: 8 doses or times, Stop date: Limited # of times Labetalol 10 mg, Route: Inactive 12/16[facility] IVP, Q5Min, 2015 Medical Dosing Weight Center 68.182, kg, PRN Elevated BP, Start date: 12/17/15 10:54:00 CDT, Duration: 5 doses or times, Stop date: Limited # of times Morphine 2 mg, Route: Inactive 12/16[facility] IVP, Q5Min, 2015 Medical Dosing Weight Center 68.182, kg, PRN Pain Score 4-6, Start date: 12/17/15 10:54:00 CDT, Duration: 5 doses or times, Stop date: Limited # of times Hydralazine 10 mg, Route: Inactive 12/16[facility] IVP, Q20Min, 2016 Medical Dosing Weight Center 68.182, kg, PRN Elevated BP, Start date: 12/17/15 10:54:00 CDT, Duration: 2 doses or times, Stop date: Limited # of times Flumazenil 0.2 mg, Route: Inactive [facility] IVP, PRN, 2016 Medical Dosing Weight Center 68.182, kg, PRN Benzodiazepine Reversal, Initial dose, Start date: 12/17/15 10:54:00 CDT, Duration: 30 day, Stop date: 01/16/16 10:53:00 CDT Hydromorphone 0.5 mg, Route: Inactive [facility] IVP, Q5Min, 2015 Medical Dosing Weight Center 68.182, kg, PRN Pain Score 7-10, Start date: 12/17/15 10:54:00 CDT, Duration: 4 doses or times, Stop date: Limited # of times Neutra-Phos 2 pkt, Route: Inactive [facility] NG, Drug Form: 2016 Medical PDR/REC, Dosing Center Weight 68.182, kg, ONCE, NOW, Start date: 12/17/15 10:33:00 CDT, Stop date: 12/17/15 10:33:00 CDTNotes: (Same as: Neutra-Phos) Each 1.25 gm pkt has 250mg phosphorous. Mix w/2.5oz water and stir. potassium phosphate 30 mmol, Route: Inactive [facility] IVPB, ONCE, 2015 Medical Dosing Weight Center 68.182, kg, Priority: NOW, Start date: 12/17/15 9:56:00 CDT, Stop date: 12/17/15 9:56:00 CDT potassium chloride 40 mEq, 30 mL, Inactive [facility] Route: NG, Drug 2016 Medical form: LIQ, Center ONCE, Dosing Weight 68.182, kg, Priority: NOW, Start date: 12/17/15 9:33:00 CDT, Stop date: 12/17/15 9:33:00 CDTNotes: (Same as: Potassium Chloride) Potassium Chloride 40 mEq, 30 mL, Inactive [place] 1.33 MEQ/ML Oral Route: PO, Drug 2015 Medical Solution form: LIQ, Center ONCE, Dosing Weight 68.182, kg, via NGT, Start date: 12/14/15 18:53:00 CDT, Stop date: 12/14/15 18:53:00 CDTNotes: (Same as: Potassium Chloride) prednisolone 60 mg, 20 mL, No Longer [place] Route: NG, Drug Active 2015 Medical form: SOLN, Center Daily, Dosing Weight 68.182, kg, Start date: 12/14/15 9:00:00 CDT, Duration: 30 day, Stop date: 01/12/16 9:00:00 CDTNotes: (Same as: Prelone) With food. methylPREDNISolone 48 mg, 1.2 mL, No Longer [place] SODium SUCCinate Route: IV, Drug Active 2015 Medical form: INJ, Center Daily, Dosing Weight 68.182, kg, Start date: 12/13/15 13:00:00 CDT, Stop date: 12/17/15 9:00:00 CDTNotes: (Same as:Solu-MEDROL, A-Methapred) Trileptal 150 mg, 1 tab, No Longer [place] Route: PO, Drug Active 2015 Medical form: TAB, BID, Center Dosing Weight 68.182, kg, Start date: 12/13/15 9:00:00 CDT, Duration: 30 day, Stop date: 01/11/16 17:00:00 CDTNotes: Do not crush or chew. (Same as: Trileptal) iodixanol 100 mL, Route: No Longer [place] IVP, Drug Form: Active 2015 Medical SOLN, Dosing Center Weight 68.182, kg, ONCALL, STAT, Start date: 12/12/15 9:36:00 CDT, Duration: 1 doses or times, Dose=2.2ml/kg, Max [id number] -- "To be infused by Radiology Staff ONLY"Notes: (Same as: Ezra). WASTE: F/P - Black; E - Municipal Trash Bin Acyclovir 640 mg, Route: No Longer [place] IVPB, [id number], Active 2015 Medical Dosing Weight Center 68.182, kg, Start date: 12/11/15 18:00:00 CDT, Stop date: 01/10/16 10:00:00 CDT, CrCl > 50 mL / minNotes: (Same as: Zovirax) MEDICATION WASTE Product Size: 500 mg Product Wasted: ___ mg Azithromycin 500 mg, Route: No Longer [place] IVPB, Drug Active 2015 Medical form: PDR/INJ, Center [id number], Dosing Weight 68.182, kg, Start date: 12/11/15 18:00:00 CDT, Duration: 30 day, Stop date: 01/09/16 18:00:00 CDTNotes: (Same As: Zithromax IV) valacyclovir 1,000 mg, 2 Inactive [place] tab, Route: 2015 Medical Drug form: TAB, Center Q8H, Dosing Weight 68.182, kg, Start date: 12/11/15 16:09:00 CDT, Duration: 7 day, Stop date: 12/18/15 16:00:00 CDTNotes: (Same As: Valtrex) prednisolone 60 mg, 20 mL, No Longer [place] Route: NG, Drug Active 2015 Medical form: SOLN, [place] Daily, Dosing Weight 68.182, kg, Start date: 12/11/15 16:08:00 CDT, Duration: 7 day, Stop date: 12/18/15 9:00:00 CDTNotes: (Same as: Prelone) With food. albuterol 0.083% 2.49 mg, 3 mL, No Longer [place] inhalation solution Route: [facility], 2015 Medical Drug form: [place] SOLN, RBID, Start date: 12/10/15 13:29:00 CDT, Duration: 2 day, Stop date: 12/12/15 8:00:00 CDTNotes: SEE RT DOCUMENTATION (Same as: Proventil) Acetylcysteine 100 200 mg, 2 ml, No Longer [place] MG/ML Inhalant Route: [facility], Active 2015 Medical Solution Drug Form: [place] SOLN, Dosing Weight 68.182, kg, RBID, Start date: 12/10/15 13:28:00 CDT, Duration: 2 day, Stop date: 12/12/15 8:00:00 CDTNotes: WASTE: F/P - Black; E - Municipal Trash Bin Acetylcysteine 100 2 ml, Route: Inactive [place] MG/ML Inhalant NEB, Drug Form: 2015 Medical Solution SOLN, Dosing Center Weight 68.182, kg, RBID, NOW, Start date: 12/10/15 11:49:00 CDT, Duration: 2 day, Stop date: 12/12/15 8:00:00 CDT Propranolol 20 mg, 1 tab, No Longer [place] Route: PO, Drug Active 2015 Medical form: TAB, Center Q12H, Dosing Weight 68.182, kg, Start date: 12/10/15 9:00:00 CDT, Duration: 30 day, Stop date: 01/08/16 21:00:00 CDTNotes: Give with food. (Same as: Inderal) pantoprazole 40 mg, Route: No Longer [place] IVP, Drug form: Active 2015 Medical INJ, Before Center Breakfast, Dosing Weight 68.182, kg, Start date: 12/10/15 7:30:00 CDT, Duration: 30 day, Stop date: 01/08/16 7:30:00 CDTNotes: For IV push reconstitute with 10 ml 0.9% sodium chloride and push over 2 minutes. (Same as: Protonix) levothyroxine 50 microgram, No Longer [place] Route: IV, Drug Active 2015 Medical form: INJ, Center Q630AM, Start date: 12/10/15 6:30:00 CDT, Duration: 30 day, Stop date: 01/08/16 6:30:00 CDTNotes: (Same as: Synthroid) Reconstitute with 5ml of NS. Final concentration=2 0 micrograms/ml. Use immediately after reconstitution and discard remaining solution. Unasyn 3 gm, 1 ea, No Longer [place] Route: IVPB, Active 2015 Medical Drug form: Center PDR/INJ, [id number], Start date: 12/09/15 21:00:00 CDT, Duration: 30 day, Stop date: 01/08/16 15:00:00 CDTNotes: Dosing based on Ampicillin component (Same as: Unasyn) Acetaminophen 325 1 tab, Route: No Longer [place] MG / Hydrocodone PO, Drug Form: Active 2015 Medical Bitartrate 5 MG TAB, Dosing Center Oral Tablet [[place] Weight 68.182, 5/325] kg, Q6H, PRN Pain Score 4-6, Start date: 12/09/15 20:47:00 CDT, Duration: 30 day, Stop date: 01/08/16 20:46:00 CDTNotes: (Same as: [place] 325/5) Do not exceed 4gm/day of acetaminophen. Lacri-Lube 1 appl, Route: No Longer [place] Each Affected Active 2015 Medical Eye, QID, Drug Center form: OINT, PRN Dry Eyes, Start date: 12/09/15 15:53:00 CDT, Duration: 30 day, Stop date: 01/08/16 15:52:00 CDTNotes: (Same as: Duratears Naturale and Artificial Tears, Tears Again ) Ketorolac 15 mg, 1 mL, No Longer [facility] Route: IV, Drug Active 2015 Medical form: INJ, Q6H, Center Dosing Weight 68.182, kg, PRN Pain Score 4-6, Start date: 12/09/15 14:44:00 CDT, Duration: 4 day, Stop date: 12/13/15 14:43:00 CDTNotes: (Same as:Toradol) IV bolus must be given >15 seconds. Give IM administration slowly and deeply into the muscle. Not for use > 4 days. Diflucan 400 mg, 200 mL, No Longer [place] Route: IVPB, Active 2015 Medical Drug form: INJ, Center [id number], Start date: 12/09/15 14:30:00 CDT, Duration: 30 day, Stop date: 01/07/16 14:30:00 CDTNotes: (Same as: Diflucan) Benadryl 50 mg, 1 cap, No Longer [facility] Route: PO, Drug Active 2015 Medical form: CAP, TID, Center Dosing Weight 68.182, kg, PRN Itching, Start date: 12/09/15 13:28:00 CDT, Stop date: 01/08/16 13:27:00 CDTNotes: (Same as: Benadryl) Lubricant Eye Drops 1 drp, Route: No Longer [place] Each Affected Active 2015 Medical Eye, QID, Drug Center form: SOLN, Start date: 12/09/15 11:49:00 CDT, Duration: 30 day, Stop date: 01/08/16 13:00:00 CDT Naproxen 250 mg, 1 tab, Inactive [place] Route: PO, Drug 2015 Medical form: TAB, Center ONCE, Dosing Weight 68.182, kg, Start date: 12/09/15 0:24:00 CDT, Stop date: 12/09/15 0:24:00 CDTNotes: (Same as: Naprosyn) Take with food. Phenergan 12.5 mg, Route: Inactive [place] IVPB, Q6H, 2016 Medical Dosing Weight Center 68.182, kg, PRN Nausea & Vomiting, Priority: NOW, Start date: 12/08/15 20:33:00 CDT, Duration: 30 day, Stop date: 01/07/16 20:32:00 CDT Sodium Chloride 1,000 mL, Rate: Inactive [place] 0.9% IV 1000 mL 75 ml/hr, 2016 Medical Infuse over: Center 13.3 hr, Route: IV, Dosing Weight 68.182 kg, Total Volume: 1,000, Start date: 12/08/15 18:30:00 CDT, Duration: 30 day, Stop date: 01/07/16 18:29:00 CDT Zofran 4 mg, 2 mL, No Longer [place] Route: IVP, Active 2015 Medical Drug form: INJ, Center Q8H, Dosing Weight 68.182, kg, Priority: NOW, Start date: 12/08/15 8:28:00 CDT, Duration: 1 day, Stop date: 12/09/15 8:00:00 CDTNotes: (Same as: Zofran) MEDICATION WASTE Product Size: 4 mg Product Wasted: ___ mg Prochlorperazine 5 mg, 1 mL, No Longer [place] Route: IVP, Active 2015 Medical Drug form: [...] 900 mg, 3 cap, No Longer [place] Route: PO, Drug Active 2015 Medical form: CAP, Center Daily, Dosing Weight 68.182, kg, Start date: 12/07/15 9:00:00 CDT, Duration: 30 day, Stop date: 01/05/16 9:00:00 CDTNotes: (Same As: Actigall) Fluconazole 400 mg, 2 tab, No Longer [place] Route: PO, Drug Active 2015 Medical form: TAB, Center Daily, Dosing Weight 68.182, kg, Start date: 12/07/15 9:00:00 CDT, Duration: 9 day, Stop date: 12/15/15 9:00:00 CDTNotes: (Same as: Diflucan) Amoxicillin 875 MG 1 tab, Route: No Longer [place] / Clavulanate 125 PO, Drug Form: Active 2016 Medical MG Oral Tablet TAB, Dosing Center [Augmentin 875-mg] Weight 68.182, kg, Q12H, Start date: 12/07/15 9:00:00 CDT, Stop date: 12/15/15 21:00:00 CDTNotes: With food. (Same as: Augmentin 875) Streptococcus 0.5 mL, Route: Inactive [place] pneumoniae serotype IM, Drug Form: 2015 Medical 1 capsular antigen INJ, Daily, Center diphtheria [id number] Start date: protein conjugate 12/07/15 vaccine / 9:00:00 CDT, Streptococcus Duration: 1 pneumoniae serotype doses or times, 14 capsular antigen Stop date: diphtheria [id number] 12/07/15 protein conjugate 9:00:00 vaccine / CDTNotes: Streptococcus Lightly roll pneumoniae serotype vial (DO NOT 18C capsular SHAKE) before antigen d administration. (Same as: Prevnar 13) Thyroxine 100 microgram, No Longer [place] 1 tab, Route: Active 2015 Medical PO, Drug form: Center TAB, Q630AM, Dosing Weight 68.182, kg, Start date: 12/07/15 6:30:00 CDT, Duration: 30 day, Stop date: 01/05/16 6:30:00 CDTNotes: Take 1 hour before or 2 hours after meal; Enteral feeds may interefere with the absorption of this medication. (Same as:Levothroid, Synthroid) Lovenox 40 mg, 0.4 mL, No Longer [place] Route: SUB-Q, Active 2015 Medical Drug form: INJ, Center [id number], Dosing Weight 68.182, kg, Start date: 12/07/15 5:00:00 CDT, Duration: 30 day, Stop date: 01/05/16 5:00:00 CDTNotes: (Same as: Lovenox) Alprazolam 0.5 MG 0.5 mg, 1 tab, No Longer [place] Oral Tablet [Xanax] Route: PO, Drug Active 2015 Medical form: TAB, Center Bedtime, Dosing Weight 68.182, kg, PRN Sleep, Start date: 12/06/15 23:52:00 CDT, Duration: 30 day, Stop date: 01/05/16 23:51:00 CDTNotes: With food or milk (Same as: Xanax) sodium chloride 1,000 mL, Rate: No Longer [place] 0.9% 1000 ml INJ 150 ml/hr, Active 2015 Medical 1,000 mL Infuse over: Center 6.7 hr, Route: IV, Dosing Weight 68.182 kg, Total Volume: 1,000, Start date: 12/06/15 21:36:00 CDT, Stop date: 01/05/16 21:35:00 CDT Ondansetron 4 mg, 2 mL, No Longer [place] Route: IVP, Active 2015 Medical Drug form: INJ, Center Q6H, Dosing Weight 68.182, kg, PRN Nausea & Vomiting, Start date: 12/06/15 21:08:00 CDT, Duration: 30 day, Stop date: 01/05/16 21:07:00 CDTNotes: (Same as: Zofran) MEDICATION WASTE Product Size: 4 mg Product Wasted: 0mg Iohexol 95 mL, Route: Inactive [place] IVP, Drug Form: 2015 Medical SOLN, Dosing Center Weight 68.182, kg, ONCALL, STAT, Start date: 12/06/15 18:24:00 CDT, Duration: 1 doses or times, Dose=2.2ml/kg, Max [id number] -- "To be infused by Radiology Staff ONLY" Amoxicillin 875 MG 875 mg=1 tab, Active [place] / Clavulanate 125 PO, BID, X 10 2015 Medical MG Oral Tablet day, # 20 tab, Center [Augmentin 875-mg] 0 Refill(s) fluconazole 200 mg 400 mg=2 tab, Active [place] oral tablet PO, Daily, X 10 2015 day, # 20 tab, Center 0 Refill(s) Naproxen 250 mg, 1 tab, Inactive [place] Route: PO, Drug 2015 Medical form: TAB, BID, Center Dosing Weight 69.1, kg, PRN Pain Score 1-3, Start date: 12/01/15 12:11:00 CDT, Duration: 30 day, Stop date: 12/31/15 12:10:00 CDTNotes: (Same as: Naprosyn) Take with food. Ativan 1 mg, 0.5 mL, Inactive [place] Route: IVP, 2015 Medical Drug form: INJ, Center ONCE, Dosing Weight 69.1, kg, PRN Anxiety, Priority: STAT, Start date: 11/30/15 7:40:00 CDTNotes: (Same as: Ativan) vancomycin 1 gm, Route: No Longer [facility] IVPB, Drug Active 2015 Medical form: INJ, Center [id number], Start date: 11/30/15 0:00:00 CDT, Duration: 30 day, Stop date: 12/29/15 12:00:00 CDTNotes: TIME CRITICAL MEDICATION (Same As: Vancocin) Infusion rate 2001 mg: infuse over 2.5 hours MEDICATION WASTE Product Size: 1000 mg Product Wasted: ___ mg Ciprofloxacin 400 mg, 200 mL, No Longer [place] Route: IVPB, Active 2015 Medical Drug form: INJ, Center [id number], Dosing Weight 69.1, kg, Start date: 11/28/15 16:00:00 CDT, Duration: 30 day, Stop date: 12/28/15 4:00:00 CDTNotes: Do not refrigerate Iohexol 80 mL, Route: Inactive [facility] IVP, Drug Form: 2015 Medical SOLN, Dosing Center Weight 69.1, kg, ONCALL, STAT, Start date: 11/27/15 21:11:00 CDT, Duration: 1 doses or times, Dose=2.2ml/kg, Max [id number] -- "To be infused by Radiology Staff ONLY" Unasyn 3 gm, 1 ea, No Longer [place] Route: IVPB, Active 2015 Medical Drug form: Center PDR/INJ, [id number], Dosing Weight 69.1, kg, Start date: 11/27/15 20:00:00 CDT, Duration: 30 day, Stop date: 12/27/15 14:30:00 CDTNotes: Dosing based on Ampicillin component (Same as: Unasyn) vancomycin + sodium 1,250 mg, No Longer [place] chloride 0.9% INJ Route: IVPB, Active 2015 Medical 250 mL [id number], Start Center date: 11/27/15 18:00:00 CDT, Stop date: 12/27/15 11:00:00 CDTNotes: TIME CRITICAL MEDICATION (Same As: Vancocin) Infusion rate 2001 mg: infuse over 2.5 hours MEDICATION WASTE Product Size: 1000 mg Product Wasted: ___ mg Fluconazole 400 mg, 200 mL, No Longer [place] Route: IV, Drug Active 2015 Medical form: INJ, Center [id number], Dosing Weight 69.1, kg, Start date: 11/27/15 18:00:00 CDT, Duration: 30 day, Stop date: 12/26/15 18:00:00 CDTNotes: (Same as: Diflucan) Cleocin HCl 600 mg, 4 mL, Inactive [place] Route: IV, Drug 2015 Medical form: INJ, Center [id number], Start date: 11/27/15 16:00:00 CDT, Duration: 30 day, Stop date: 12/27/15 8:00:00 CDTNotes: (clindamycin 150 mg/1 ml (600 mg/4 ml VL) INJ) (Same As: Cleocin) Cipro 400 mg, 200 mL, Inactive [facility] Route: IV, Drug 2015 Medical form: INJ, Center [id number], Dosing Weight 69.1, kg, Start date: 11/27/15 16:00:00 CDT, Duration: 30 day, Stop date: 12/27/15 4:00:00 CDTNotes: Do not refrigerate sugammadex 200 mg, 2 mL, No Longer [place] Route: IV, Drug Active 2016 Medical form: SOLN, Center ONCALL, Start date: 11/27/15 11:00:00 CDT, Duration: 1 doses or times, Stop date: 11/28/15 0:00:00 CDTNotes: (Same as: Bridion) Hydromorphone 0.5 mg, Route: Inactive [facility] IVP, Q5Min, 2016 Medical Dosing Weight Center 69.1, kg, PRN Pain Score 7-10, Start date: 11/27/15 10:48:00 CDT, Duration: 4 doses or times, Stop date: Limited # of times Naloxone 0.4 mg, Route: Inactive [facility] IVP, Q2MIN, 2016 Medical Dosing Weight Center 69.1, kg, PRN Narcotic Reversal, Start date: 11/27/15 10:48:00 CDT, Duration: 8 doses or times, Stop date: Limited # of times Flumazenil 0.2 mg, Route: Inactive [facility] IVP, PRN, 2016 Medical Dosing Weight Center 69.1, kg, PRN Benzodiazepine Reversal, Initial dose, Start date: 11/27/15 10:48:00 CDT, Duration: 30 day, Stop date: 12/27/15 10:47:00 CDT Oxycodone 5 mg, Route: Inactive [facility] PO, Drug form: 2016 Medical TAB, Q4H, Center Dosing Weight 69.1, kg, PRN Pain Score 4-6, Start date: 11/27/15 10:48:00 CDT, Duration: 30 day, Stop date: 12/27/15 10:47:00 CDT Ondansetron 4 mg, Route: Inactive [facility] IVP, ONCE, 2016 Medical Dosing Weight Center 69.1, kg, PRN Nausea & Vomiting, Start date: 11/27/15 10:48:00 CDT 72 HR Scopolamine 1 patch, Route: No Longer [facility] 0.0139 MG/HR TOP, Drug Form: Active 2016 Medical Transdermal Patch ERFILM, Dosing Center Weight 69.1, kg, PRE OP, Start date: 11/27/15 10:00:00 CDT, Duration: 30 day, Stop date: 12/27/15 9:59:00 CDTNotes: Change patch every 72 hours (Same as: Transderm-Scop) vancomycin + sodium 750 mg, Route: Inactive [place] chloride 0.9% INJ IVPB, Drug 2015 Medical 250 mL form: INJ, Center [id number], Start date: 11/26/15 18:00:00 CDT, Duration: 30 day, Stop date: 12/26/15 6:00:00 CDTNotes: TIME CRITICAL MEDICATION (Same As: Vancocin) Infusion rate 2001 mg: infuse over 2.5 hours MEDICATION WASTE Product Size: 1000 mg Product Wasted: ___ mg vancomycin 1 gm, Route: Inactive [place] IVPB, Drug 2015 Medical form: INJ, Center [id number], Start date: 11/26/15 17:00:00 CDT, Duration: 30 [...] HCl 450 mg, 3 cap, No Longer [facility] Route: PO, Drug Active 2015 Medical form: CAP, Center [id number], Start date: 11/26/15 12:00:00 CDT, Duration: 30 day, Stop date: 12/26/15 6:00:00 CDTNotes: (Same As: Cleocin) Fluconazole 100 mg, 50 mL, No Longer [facility] Route: IV, Drug Active 2015 Medical form: INJ, Center [id number], Dosing Weight 69.1, kg, Start date: 11/26/15 12:00:00 CDT, Stop date: 12/25/15 12:00:00 CDTNotes: (Same as: Diflucan) Do not refrigerate. Cipro 500 mg, 1 tab, No Longer [facility] Route: PO, Drug Active 2015 Medical form: TAB, Center [id number], Dosing Weight 69.1, kg, Start date: 11/26/15 12:00:00 CDT, Duration: 30 day, Stop date: 12/26/15 0:00:00 CDTNotes: May interfere w/enteral feedings - Take 1 hr before or 2 hrs after antacids, dairy pdt & minerals. On empty stomach. Alprazolam 0.5 MG 0.5 mg, 1 tab, No Longer [place] Oral Tablet [Xanax] Route: PO, Drug Active 2015 Medical form: TAB, BID, Center Dosing Weight 69.1, kg, PRN Anxiety, Start date: 11/26/15 9:42:00 CDT, Duration: 30 day, Stop date: 12/26/15 9:41:00 CDTNotes: With food or milk (Same as: Xanax) Ursodeoxycholate 900 mg, 3 cap, No Longer [facility] Route: PO, Drug Active 2015 Medical form: CAP, Center Daily, Dosing Weight 68.182, kg, Start date: 11/26/15 9:00:00 CDT, Duration: 30 day, Stop date: 12/25/15 9:00:00 CDTNotes: (Same As: Actigall) Nystatin [id number] 500,000 unit, 5 No Longer [place] UNT/ML Oral mL, Route: Active 2015 Medical Suspension S&SWALLOW, Drug Center form: SUSP, TID, Dosing Weight 68.182, kg, Start date: 11/26/15 9:00:00 CDT, Duration: 30 day, Stop date: 12/25/15 17:00:00 CDTNotes: (Same as:Mycostatin) Shake well. Alprazolam 0.5 MG 0.5 mg, 1 tab, Inactive [place] Oral Tablet [Xanax] Route: PO, Drug 2015 Medical form: TAB, Center Bedtime, Dosing Weight 69.1, kg, PRN Anxiety, Start date: 11/26/15 8:18:00 CDT, Duration: 30 day, Stop date: 12/26/15 8:17:00 CDTNotes: With food or milk (Same as: Xanax) heparin 5,000 unit, 1 No Longer [place] mL, Route: Active 2015 Medical SUB-Q, Drug Center form: INJ, Q8H, Dosing Weight 69.1, kg, Start date: 11/26/15 8:00:00 CDT, Duration: 30 day, Stop date: 12/26/15 0:00:00 CDTNotes: porcine heparin Dexamethasone 8 mg, 2 mL, No Longer [facility] Route: IVP, Active 2015 Medical Drug form: INJ, Center Q8H, Dosing Weight 69.1, kg, Start date: 11/26/15 8:00:00 CDT, Duration: 1 day, Stop date: 11/27/15 8:00:00 CDTNotes: Concentration: 4mg/ml Thyroxine 100 microgram, No Longer [facility] 1 tab, Route: Active 2015 Medical PO, Drug form: [place] TAB, [id number], Dosing Weight 68.182, kg, Start date: 11/26/15 6:30:00 CDT, Duration: 30 day, Stop date: 12/25/15 6:30:00 CDTNotes: Take 1 hour before or 2 hours after meal; Enteral feeds may interefere with the absorption of this medication. (Same as:Levothroid, Synthroid) Sodium Chloride 500 mL, 500 Inactive [place] 0.154 MEQ/ML ml/hr, Infuse 2015 Medical Injectable Solution Over: 1 hr, [place] Route: IV, 500, Drug form: INJ, ONCE, Priority: STAT, Dosing Weight 69.1 kg, Start date: 11/26/15 6:15:00 CDT, Duration: 1 doses or times, Stop date: 11/26/15 6:15:00 CDT Zosyn 3.375 gm, Inactive [facility] Route: IVPB, 2015 Medical Drug form: [place] PDR/INJ, ABXQ8H, Dosing Weight 68.182, kg, CrCl >=20 ml/min infuse over 4 hours, Start date: 11/26/15 4:00:00 CDT, Duration: 30 day, Stop date: 12/25/15 20:00:00 CDTNotes: (Same as: Zosyn) Dosing based on Piperacillin component MEDICATION WASTE Product Size: 3375 mg Product Wasted: __0_ mg Vancomycin 1,500 mg, 250 Inactive [place] mL, Route: 2016 Medical IVPB, Drug Center form: INJ, ONCE, Dosing Weight 69.1, kg, Start date: 11/26/15 3:27:00 CDT, Stop date: 11/26/15 3:27:00 CDTNotes: TIME CRITICAL MEDICATION Same as: Vancocin-NS (premixed) Infusion rate 2001 mg: infuse over 2.5 hours Morphine 2 mg, 1 mL, No Longer [place] Route: IVP, Active 2015 Medical Drug form: INJ, Center Q4H, Dosing Weight 69.1, kg, PRN Pain Score 7-10, Start date: 11/26/15 2:45:00 CDT, Duration: 30 day, Stop date: 12/26/15 2:44:00 CDTNotes: (Same as:MORPhine Sulfate) sodium chloride 1,000 mL, Rate: No Longer [place] 0.9% 1000 ml INJ 100 ml/hr, Active 2015 Medical 1,000 mL Infuse over: 10 Center hr, Route: IV, Dosing Weight 68.182 kg, Total Volume: 1,000, Start date: 11/26/15 2:05:00 CDT, Duration: 30 day, Stop date: 12/26/15 2:04:00 CDT Albuterol 0.833 3 ml, Route: No Longer [facility] MG/ML / Ipratropium NEB, Drug Form: Active 2015 Medical [place] 0.167 MG/ML SOLN, Dosing Center Inhalant Solution Weight 68.182, [DuoNeb] kg, PRN, PRN Respiratory Protocol, Start date: 11/26/15 1:21:00 CDT, Duration: 30 day, Stop date: 12/26/15 1:20:00 CDTNotes: (Same as: Duoneb) Hydroxyzine 25 mg, 1 tab, Inactive [place] Route: PO, Drug 2015 Medical form: TAB, QID, Center Dosing Weight 68.182, kg, PRN Anxiety, Start date: 11/26/15 0:39:00 CDT, Duration: 30 day, Stop date: 12/26/15 0:38:00 CDTNotes: (Same as: Atarax) Avoid alcohol. levothyroxine 100 100 microgram=1 Active [facility] mcg (0.1 mg) oral tab, PO, Daily, 2015 Medical tablet # 30 tab, 0 Center Refill(s) Alprazolam 0.5 MG 0.5 mg=1 tab, Active [facility] Oral Tablet [Xanax] PO, Bedtime, 0 2015 Medical Refill(s) [place] ursodiol 300 mg 900 mg=3 cap, Active [facility] oral capsule PO, Daily, 0 2015 Medical Refill(s) [place] Ondansetron 4 mg, 2 mL, No Longer [facility] Route: IVP, Active 2015 Medical Drug form: INJ, Center Q6H, Dosing Weight 68.182, kg, PRN Nausea & Vomiting, Start date: 11/26/15 0:32:00 CDT, Duration: 30 day, Stop date: 12/26/15 0:31:00 CDTNotes: (Same as: Zofran) MEDICATION WASTE Product Size: 4 mg Product Wasted: ___ mg Docusate 100 mg, 1 cap, No Longer [facility] Route: PO, Drug Active 2015 Medical form: CAP, BID, Center Dosing Weight 68.182, kg, PRN Constipation, Start date: 11/26/15 0:32:00 CDT, Duration: 30 day, Stop date: 12/26/15 0:31:00 CDTNotes: (Same as: Colace) (Do Not Crush) Alprazolam 0.5 MG 0.5 mg, 1 tab, Inactive [facility] Oral Tablet [Xanax] Route: PO, Drug 2015 Medical form: TAB, Center ONCE, Dosing Weight 68.182, kg, Start date: 11/26/15 0:28:00 CDT, Stop date: 11/26/15 0:28:00 CDTNotes: With food or milk (Same as: Xanax) Sodium Chloride 1,000 mL, 2,000 Inactive [facility] 0.154 MEQ/ML ml/hr, Infuse 2015 Medical Injectable [...] Updated Comments Source pneumococcal 12/09/2015 Not [address],[facility] Results Order Name Results Value Reference Date Interpretation Comments Source Range Esophagus Esophagus BA Patient Name: ROCIO CALDERÓN 04/23 - BA swallow swallow /2016 - [facility] function function : 1950; Age: 66 years Female video DX video DX MR: [id number] Read by: Jonah Leggett MD Dictated Date/time: 04/23/16 15:39 Electronically Signed by: Jonah Leggett MD 04/23/16 15:43 FINAL REPORT Study: Esophagus BA swallow function video DX Order Time: 04/23/2016 1:28 PM [facility]QU[facility] WINDER Clinical Indication: Dysphagia. fl time 1 min, dose 1.47 mGy, dap .[address] Rg COMPARISON: None. TECHNIQUE: Fluoroscopic assistance was provided for the speech pathologist for modified barium swallow examination. Varying consistencies of barium were administered po. FINDINGS: Thin consistency barium: No aspiration or any significant laryngeal penetration. [facility] [place] consistency barium: No aspiration or any significant [...] piriform sinuses with the thinner consistencies. SL: [id number] Esophagus Esophagus BA Esophagus BA swallow function video DX Modified barium swallow: 02/25 - BA swallow swallow - [facility] function function video DX video DX CLINICAL [...] thin consistency barium. FT: 1.5 minutes SL: [id number] CHEM PANEL Magnesium 1.9 mg/dL 1.8 - 2.4 12/18 [facility] /2015 [facility] CHEM PANEL Phosphorus 2.4 mg/dL 2.5 - 4.5 12/[address] ELECTROLYT Chloride Lvl 102 meq/L 95 - 109 12/18 [facility]2015 [facility] ELECTROLYT Potassium 3.1 meq/L 3.5 - 5.1 12/18 [facility] ELECTROLYT CO2 30 meq/L 24 - 32 12/[address] ELECTROLYT Calcium Lvl 8.3 mg/dL 8.5 - 10.5 12/[address] ELECTROLYT eGFR 97 12/18 Result Comment: The eGFR is calculated using the CKD-EPI formula. In most young, healthy individuals the eGFR will be >90 mL/ min/1.73m2. The eGFR declines with age. An eGFR of 60-89 may be normal in [facility] ES mL/min/1. some populations, particularly the elderly, for whom the CKD-EPI formula has not been extensively validated. Use of the eGFR is not recommended in the following populations: [address] Individuals with unstable creatinine concentrations, including [...] 0.57 mg/dL 0.50 - 12/18 [facility] Lvl 1.40 [facility] ELECTROLYT Sodium Lvl 141 meq/L 135 - 145 12/18 [facility] ELECTROLYT Glucose Lvl 104 mg/dL 70 - 99 12/18 [facility] ELECTROLYT BUN 5 mg/dL 7 - 22 12/18 [facility] ELECTROLYT AGAP 12.1 meq/L 10.0 - 12/18 [facility] ES 20.0 [facility] HEMATOLOGY RBC 4.35 M/CMM 4.20 - 12/18 5.40 [facility] HEMATOLOGY MCH 33.6 pg 27.0 - 12/18 31.0 [facility] HEMATOLOGY MCV 100.0 fL 80.0 - 12/18 98.0 [facility] HEMATOLOGY Hct 43.5 % 36.0 - 12/18 48.0 [facility] HEMATOLOGY Hgb 14.6 g/dL 12.0 - 12/18 16.0 [facility] HEMATOLOGY RDW 13.9 % 11.5 - 12/18 14. [facility] HEMATOLOGY MCHC 33.6 g/dL 32.0 - 12/18 36.0 [facility] HEMATOLOGY MPV 12.4 fL 7.4 - 10.4 12/18 [facility] HEMATOLOGY Platelet 154 K/CMM 133 - 450 12/18 [facility] HEMATOLOGY WBC 9.8 K/CMM 3.7 - 10.4 12/18 [facility] HEMATOLOGY Segs 63.8 % 45.0 - 12/18 75.0 [facility] HEMATOLOGY Segs-Bands # 6.3 K/CMM 1.5 - 8.1 12/18 [facility] HEMATOLOGY Monocytes 17.9 % 2.0 - 12.0 12/18 [facility] HEMATOLOGY Lymphocytes 17.2 % 20.0 - 12/18 40.0 [facility] HEMATOLOGY Basophils 0.2 % 0.0 - 1.0 12/18 [facility] HEMATOLOGY Eosinophils 0.9 % 0.0 - 4.0 12/18 [facility] HEMATOLOGY Eosinophils 0.1 K/CMM 0.0 - 0.5 12/18 # [facility] HEMATOLOGY Monocytes # 1.8 K/CMM 0.0 - 0.8 12/18 [facility] HEMATOLOGY Lymphocytes 1.7 K/CMM 1.0 - 5.5 12/18 [facility] # [facility] PARATHYROI Ca Norm WB 1.14 1.05 - 12/18 [facility] D PROFILE mMol/L 1. [facility] PARATHYROI Ca Ion WB 1.11 1. - 12/18 [facility] D PROFILE mMol/L 1. [facility] ANEMIA Folate Lvl 5.4 ng/mL >=3.0 12/17 [facility] STUDY ng/mL [facility] ANEMIA Vitamin B12 809 pg/mL 254 - 1320 12/17 [facility] STUDY l [facility] CHEM PANEL Phosphorus 2.6 mg/dL 2.5 - 4.5 12/17 [facility] CHEM PANEL Magnesium 1.9 mg/dL 1.8 - 2.4 12/17 [facility] ELECTROLYT AGAP 15.9 meq/L 10.0 - 12/17 [facility] . [facility] ELECTROLYT eGFR 89 12/17 Result Comment: The eGFR is calculated using the CKD-EPI formula. In most young, healthy individuals the eGFR will be >90 mL/ min/1.73m2. The eGFR declines with age. An eGFR of 60-89 may be normal in [facility] mL/min/1. some populations, particularly the elderly, for whom the CKD-EPI formula has not been extensively validated. Use of the eGFR is not recommended in the following populations: [address] Individuals with unstable creatinine concentrations, including [...] Lvl 101 meq/L 95 - 109 12/17 [facility] ELECTROLYT Glucose Lvl 115 mg/dL 70 - 99 12/17 [facility] ELECTROLYT BUN 5 mg/dL 7 - 22 12/17 [facility] ELECTROLYT Creatinine 0.71 mg/dL 0.50 - 12/17 [facility] Lvl 1.40 /2016 [facility] ELECTROLYT Calcium Lvl 8.2 mg/dL 8.5 - 10.5 12/17 [facility] ELECTROLYT Potassium 3.9 meq/L 3.5 - 5.1 12/17 Result [facility] Lvl /2015 Comment: Medical [facility]imen Center Slightly Hemolyzed. ELECTROLYT Sodium Lvl 141 meq/L 135 - 145 12/17 [facility] ELECTROLYT CO2 28 meq/L 24 - 32 12/17 [facility] HEMATOLOGY Monocytes # 0.8 K/CMM 0.0 - 0.8 12/17 [facility] HEMATOLOGY Large Plt Moderate None [facility]en 12[facility]12[facility]18[facility]15 5:48 AM[facility] HEMATOLOGY Eosinophils 0.1 % 0.0 - 4.0 12/17 [facility] HEMATOLOGY Lymphocytes 0.6 K/CMM 1.0 - 5.5 12/17 [facility] HEMATOLOGY Segs-Bands # 8.3 K/CMM 1.5 - 8.1 12/17 [facility] HEMATOLOGY Basophils 0.2 % 0.0 - 1.0 12/17 [facility] HEMATOLOGY RBC Morph Normal 12/17 [facility] (12/18/15 5:48 AM) [place] HEMATOLOGY Monocytes 8.0 % 2.0 - 12.0 12/17 [facility] HEMATOLOGY Lymphocytes 6.3 % 20.0 - 12/17 40.0 [facility] HEMATOLOGY Segs 85.4 % 45.0 - 12/17 [facility] 75.0 [facility] HEMATOLOGY MPV 12.4 fL 7.4 - 10.4 12/17 [facility] HEMATOLOGY Platelet 149 K/CMM 133 - 450 12/17 [facility] HEMATOLOGY Hgb 15.5 g/dL 12.0 - 12/17 [facility] 16.0 [facility] HEMATOLOGY RBC 4.60 M/CMM 4.20 - 12/17 [place] 5.40 [facility] HEMATOLOGY WBC 9.7 K/CMM 3.7 - 10.4 12/17 [facility] HEMATOLOGY RDW 14.8 % 11.5 - 12/17 [facility] 14. [facility] HEMATOLOGY Hct 45.5 % 36.0 - 12/17 [facility] 48.0 [facility] HEMATOLOGY MCV 98.9 fL 80.0 - 12/17 [facility] 98.0 [facility] HEMATOLOGY MCH 33.8 pg 27.0 - 12/17 [facility] 31.0 [facility] HEMATOLOGY MCHC 34.1 g/dL 32.0 - 12/17 36.0 [facility] PARATHYROI Ca Ion WB 1.03 1. - 12/17 [facility] D PROFILE mMol/L 1. [facility] PARATHYROI Ca Norm WB 1.05 1. - 12/17 [facility] D PROFILE mMol/L 1. [facility] CHEM PANEL Phosphorus 2.1 mg/dL 2.5 - 4.5 12/16 [facility] CHEM PANEL Magnesium 2.1 mg/dL 1.8 - 2.4 12/16 [facility] CHEM PANEL A/G Ratio 0.7 0.7 - 1.6 12/16 [facility] CHEM PANEL Globulin 3.6 g/dL 2.7 - 4.2 12/16 [facility] CHEM PANEL B/C Ratio 11 6 - 25 12/16 [facility] CHEM PANEL AGAP 12.3 meq/L 10.0 - 12/16 [facility] 20. [facility] CHEM PANEL eGFR 93 12/16 Result Comment: The eGFR is calculated using the CKD-EPI formula. In most young, healthy individuals the eGFR will be >90 mL/ min/1.73m2. The eGFR declines with age. An eGFR of 60-89 may be normal in [facility] mL/min/1.7 some populations, particularly the elderly, for whom the CKD-EPI formula has not been extensively validated. Use of the eGFR is not recommended in the following populations: [address] Individuals with unstable creatinine concentrations, including [...] Lvl 95 mg/dL 70 - 99 12/16 [facility] CHEM PANEL BUN 7 mg/dL 7 - 22 12/16 [facility] CHEM PANEL CO2 28 meq/L 24 - 32 12/16 [facility] CHEM PANEL Chloride Lvl 105 meq/L 95 - 109 12/16 [facility] CHEM PANEL Sodium Lvl 142 meq/L 135 - 145 12/16 [facility] CHEM PANEL Creatinine 0.64 mg/dL 0.50 - 12/16 [facility] Lvl 1.40 [facility] CHEM PANEL Potassium 3.3 meq/L 3.5 - 5.1 12/16 [facility] CHEM PANEL Calcium Lvl 8.3 mg/dL 8.5 - 10.5 12/16 [facility] CHEM PANEL AST 33 unit/L 0 - 37 12/16 [facility] CHEM PANEL Albumin Lvl 2.5 g/dL 3.5 - 5.0 12/16 [facility] CHEM PANEL Total 6.1 g/dL 6.4 - 8.4 12/16 [facility] CHEM PANEL ALT 38 unit/L 0 - 65 12/16 [facility] CHEM PANEL Bili Total 0.4 mg/dL 0.2 - 1.3 12/16 [facility] CHEM PANEL Alk Phos 104 unit/L 39 - 136 12/16 [facility] HEMATOLOGY Segs-Bands # 7.5 K/CMM 1.5 - 8.1 12/16 [facility] HEMATOLOGY Basophils 0.3 % 0.0 - 1.0 12/16 [facility] HEMATOLOGY Monocytes # 1.2 K/CMM 0.0 - 0.8 12/16 [facility] HEMATOLOGY Lymphocytes 1.5 K/CMM 1.0 - 5.5 12/16 [facility] HEMATOLOGY Eosinophils 0.8 % 0.0 - 4.0 12/16 [facility] HEMATOLOGY Lymphocytes 14.2 % 20.0 - 12/16 [place] 40.0 [facility] HEMATOLOGY Monocytes 11.9 % 2.0 - 12.0 12/16 [facility] HEMATOLOGY Segs 72.8 % 45.0 - 12/16 [place] 75.0 [facility] HEMATOLOGY Macrocyte 1+ None Seen 12/16 [facility] (12/17/15 6:48 AM) HEMATOLOGY Eosinophils 0.1 K/CMM 0.0 - 0.5 12/16 [facility] # /2015 [facility] HEMATOLOGY PT 15.2 s 12.0 - 12/16 [facility] 14.7 /2015 [facility] HEMATOLOGY INR 1.17 0.85 - 12/16 [facility] 1.17 /2015 [facility] HEMATOLOGY PTT 24.6 s 22.9 - 12/16 [facility] 35.8 /2015 [facility] HEMATOLOGY RBC 4.43 M/CMM 4.20 - 12/16 [facility] 5.40 /2015 [facility] HEMATOLOGY Hct 44.5 % 36.0 - 12/16 [facility] 48.0 /2015 [facility] HEMATOLOGY Hgb 15.0 g/dL 12.0 - 12/16 16.0 [facility] HEMATOLOGY MCH 33.9 pg 27.0 - 12/16 [facility] 31.0 [facility] HEMATOLOGY MCV 100.4 fL 80.0 - 12/16 [facility] 98.0 /2015 [facility] HEMATOLOGY MCHC 33.7 g/dL 32.0 - 12/16 [facility] 36.0 /2015 [facility] HEMATOLOGY RDW 14.5 % 11.5 - 12/16 [facility] 14.5 [facility] HEMATOLOGY WBC 10.3 K/CMM 3.7 - 10.4 12/16 [facility] HEMATOLOGY MPV 12.2 fL 7.4 - 10.4 12/16 [facility] HEMATOLOGY Platelet 172 K/CMM 133 - 450 12/16 [facility] Esophagus Esophagus BA EXAM: FLUOROSCOPY MODIFIED BARIUM SWALLOW 12/15 - [facility] BA swallow swallow - Medical function function This report was dictated by a Food Packer/ Fellow. I have personally reviewed the images [...] pathology. IMMUNOLOGY Varicella null <=0.8 AI 12/12 [facility] IgG /2015 [facility] Abdomen AP Abdomen AP EXAM: XR ABDOMEN 1 VIEW 12/12 - [facility] DX DX /2015 - [facility] DATE: 12/13/2015 9:25 PM CDT Read [...] CSF 7 % 0 - 6 12/12 [facility] /2015 [facility] BODY Monocyte CSF 2 % 15 - 45 12/12 [facility] /2016 [facility] BODY Lymph CSF 91 % 40 - 80 12/12 [facility] /2015 [facility] BODY WBC CSF 30 /mm3 0 - 53 12/12 [facility] /2015 [facility] BODY RBC CSF 10 /mm3 0 - 03 12/12 [facility] /2016 [facility] BODY Supernat CSF Colorless Colorless 12/12 [facility] FLUIDS /2015 Medical (12/13/15 3:38 PM) Center BODY Color CSF Colorless Colorless 12/12 [facility] /2015 [facility] (12/13/15 3:38 PM) Center BODY Tube Num CSF 4 12/12 [facility] FLUIDS [facility] BODY Clarity CSF Clear Clear 12/12 [facility] FLUIDS Medical (12/13/15 3:38 PM) [place] CHEM PANEL HSV 1 IgM NEGATIVE 12/12 [facility] CHEM PANEL HSV 2 IgM POSITIVE 12/12 Result Comment: REFERENCE RANGE: NEGATIVE Medical The IFA procedure for measuring IgM antibodies to [place] HSV 1 and HSV 2 detects both type-common and type- specific HSV antibodies. Thus, IgM reactivity to both HSV 1 and HSV 2 may represent crossreactive HSV antibodies rather than exposure to both HSV 1 and HSV 2. This test was developed and its analytical performance characteristics have been determined by [employer]. It has not been cleared or approved by FDA. This assay has been validated pursuant to the CLIA regulations and is used for clinical purposes. Test Performed at: [address] [place] [phone] Vangie Malagon MD CHEM PANEL HSV 2 IgM 1:20 12/12 Result Comment: REFERENCE RANGE: <1:20 [facility] Medical Test Performed at: [place] [address] [place] [phone] Vangie Malagon MD FUNGAL - Histoplasma NONE 12/12 Result Comment: REF. RANGE: NONE DETECTED [facility] SEROLOGY Ag DETECTED INTERPRETATION: NEGATIVE [facility] TESTING PERFORMED AT [employer] IMMUNOLOGY Aspergillus NEGATIVE 12/12 Result Comment: REFERENCE RANGE: NEGATIVE [facility] fumigatus Medical INTERPRETIVE CRITERIA: Center Negative: Antibody not detected Positive: Antibody detected A positive result is represented by 1 or more precipitin bands, and may indicate fungus ball, allergic bronchopulmonary aspergillosis (KARLEY) or invasive aspergillosis. Generally, the appearance of 3-4 bands indicates either fungus ball or KARLEY. Test Performed at: [address] [place] [phone] Vangie Malagon MD IMMUNOLOGY Aspergillus NEGATIVE 12/12 [facility] flavus [facility] IMMUNOLOGY Aspergillus NEGATIVE 12/12 [facility] niger [facility] IMMUNOLOGY IgG Lvl 1030 mg/dL 694 - 1618 12/12 [facility] IMMUNOLOGY SCL- 70 Ab null <=0.9 AI 12/12 [facility] IMMUNOLOGY HSV 2 IgG 0.9 AI <=0.8 AI 12/12 [facility] IMMUNOLOGY HSV 1 IgG null <=0.8 AI 12/12 [facility] BODY Protein CSF 32 mg/dL 15 - 45 12/11 [facility] FLUIDS /2015 [facility] BODY Glucose CSF 77 mg/dL 45 - 80 12/11 [facility] FLUIDS [facility] IMMUNOLOGY Source CEREBROSPI 12/11 [facility] FLUID [facility] IMMUNOLOGY VZV PCR NOT 12/11 Result Comment: REFERENCE RANGE: NOT DETECTED [facility] DETECTED [facility] This test was developed and its analytical Center performance characteristics have been determined by [employer]. It has not been cleared or approved by FDA. This assay has been validated pursuant to the CLIA regulations and is used for clinical purposes. Test Performed at: [employer] [address] [place] [phone] Vangie Malagon MD IMMUNOLOGY Source CEREBROSPI 12/11 [facility] FLUID [facility] IMMUNOLOGY EBV PCR Ql NOT 12/11 Result Comment: REFERENCE RANGE: NOT DETECTED [facility] DETECTED [facility] This test was developed and its analytical Center performance characteristics have been determined by [employer]. It has not been cleared or approved by the U.S. Food and Drug Administration. The FDA has determined that such clearance or approval is not necessary. This assay has been validated pursuant to the CLIA regulations and is used for clinical purposes. Test Performed at: [employer] [address] [place] [phone] Vangie Malagon MD IMMUNOLOGY IgG Lvl CSF 3.0 mg/dL 2.0 - 4.0 12/11 [facility] IMMUNOLOGY Description The gel 12/11 [facility] CSF demonstrat [facility] appropriat e resolution of the main protein bands. The gamma region shows continuous distributi on of proteins both in the CSF and in the serum. No oligoclona l bands are detected. IMMUNOLOGY PE Interp CSF 12/11 [facility] protein /2015 [facility] electropho Center resis did not reveal evidence of an oligoclona l process in the COM[employer] TR[employer]ER. The CSF IgG index is within the reference range indicating that there is no elevation in intracereb ral IgG synthesis. There is also no evidence of increased permeabili ty of the blood brain barrier based on the CSF/serum albumin ratio.The electronic medical record has been reviewed for relevant history.I have personally reviewed the test results and concur with the resident's interpreta tion.CPT: 24402-SB IMMUNOLOGY IgG (CPE) 1000 mg/dL 694 - 1618 12/11 [facility] IMMUNOLOGY IgG Lvl CSF 3.0 mg/dL 2.0 - 4.0 12/11 [facility] IMMUNOLOGY IgG Index 0.7 mg/dL 0.3 - 0.7 12/11 [facility] IMMUNOLOGY Alb (CPE) 2800.0 3400.0 - 12/11 [place] mg/dL 5000. [facility] IMMUNOLOGY Alb CSF 12.2 mg/dL 14.0 - 12/11 [facility] (CPE) 25.0 [facility] MOLECULAR HSV 2 by PCR Negative 2 Negative 12/11 Result Comment: This sample was NON DETECTED or BELOW THE LOWER LIMITS OF DETECTION [facility] for HSV 1/2 DNA by real-time PCR using hybridization probe and Medical (12/12/15 5:00 PM) melting curve analysis. [place] MOLECULAR HSV 1 by PCR Negative 1 Negative 12/11 Result Comment: This sample was NON DETECTED or BELOW THE LOWER LIMITS OF DETECTION [facility] for HSV 1/2 DNA by real-time PCR using hybridization probe and Medical (12/12/15 5:00 PM) melting curve analysis. [place] MOLECULAR Source HSV Cerebral 12/11 [facility] DIAGNOSTIC Spinal /2015 [facility] Fluid [place] Spine Spine lumbar EXAM: Lumbar Puncture with fluoroscopic guidance. - [facility] lumbar puncture w - Medical puncture w fluoro DX This report was dictated by a Food Packer /Fellow. I have personally reviewed the images [...] FUNGAL - Crypto Ag Negative Negative 12/11 [facility] SEROLOGY CSF /2015 Medical (12/12/15 10:38 AM) [place] Neck soft Neck soft EXAM: CT NECK WITH CONTRAST 12/11 - [facility] tissue w tissue w - [facility] contrast contrast CT This report was dictated by a Food Packer /Fellow. I have personally reviewed the images as [place] [facility] well as the Resident's interpretation and [...] appeared. IMMUNOLOGY Treponemal Non Reactive Non 12/11 [facility] Scr Reactive Medical *NA* Center (12/11/15 11:15 PM) IMMUNOLOGY HSV 2 IgG 0.7 AI <=0.8 AI 12/11 [facility] IMMUNOLOGY HSV 1 IgG null <=0.8 AI 12/11 [facility] MOLECULAR CMV PCR Qnt null 12/11 [facility] DIAGNOSTIC (log) [facility] MOLECULAR CMV PCR Qnt Not Detected 12/11 [facility] DIAGNOSTIC /2015 [facility] (12/11/15 11:15 PM) Center MOLECULAR EBV PCR Qnt null 12/11 [facility] DIAGNOSTIC (log) [facility] MOLECULAR EBV PCR Qnt Not Detected 12/11 [facility] DIAGNOSTIC [facility] (12/11/15 11:15 PM) [place] Abdomen AP Abdomen AP EXAM: XR ABDOMEN 1 VIEW 12/10 - [facility] DX DX /2015 - [facility] DATE: 12/11/2015 1:14 PM CDT Read [...] Lvl 88 ng/mL 5 - 204 12/10 [facility] STUDY [facility] ANEMIA % Satur Fe 31 % 12 - 57 12/10 [facility] STUDY /2015 [facility] ANEMIA UIBC 198 ug/dl 110 - 370 12/10 [facility] ANEMIA TIBC 288 ug/dl 228 - 428 12/10 [facility] STUDY /2015 [facility] ANEMIA Iron 90 ug/dl 30 - 160 12/10 [facility] /2015 [facility] TUMOR AFP TM 1.4 ng/mL 0.0 - 11.0 12/10 [facility] Brain w/wo Brain w/wo EXAM: MRI OF THE BRAIN WITH AND WITHOUT CONTRAST - [facility] contrast contrast MRI /2016 - Medical MRI EXAM: MRI OF THE IAC WITH AND WITHOUT CONTRAST This report was dictated by a Food Packer/Fellow. I have personally reviewed the images as [...] CONTRAST This report was dictated by a Food Packer/Fellow. I have personally reviewed the images as [...] abnormality. HEMATOLOGY Macrocyte 1+ None Seen 12/09 [facility] *ABN* [place] (12/10/15 5:47 AM) IMMUNOLOGY ADVERTISING CLERK Ab 0.5 AI <=0.9 AI 12/09 [facility] IMMUNOLOGY Sm Ab null <=0.9 AI 12/09 [facility] IMMUNOLOGY JANET Interp Pattern 12/09 [facility] speckledCy Center toplasmic staining present IMMUNOLOGY JANET Titer 1:40 Negative 12/09 [facility] *ABN* [place] (12/10/15 5:47 AM) IMMUNOLOGY C-ANCA Negative Negative 12/09 [facility] (12/10/15 5:47 AM) Center IMMUNOLOGY P-ANCA Negative Negative 12/09 [facility] (12/10/15 5:47 AM) Center IMMUNOLOGY C4 29 mg/dL 16 - 47 12/09 [facility] IMMUNOLOGY C3 112 mg/dL 88 - 201 12/09 [facility] IMMUNOLOGY SS-B (La) Ab null <=0.9 AI 12/09 [facility] IMMUNOLOGY SS-A (Ro) Ab 0.8 AI <=0.9 AI 12/09 [facility] IMMUNOLOGY DNA Ab (DS) Negative Negative 12/09 [facility] (12/10/15 5:47 AM) [place] IMMUNOLOGY JANET Positive Negative 12/09 [facility] (12/10/15 5:47 AM) IMMUNOLOGY JANET Positive Negative 12/09 [facility] (12/10/15 5:47 AM) IMMUNOLOGY AMA Ab Titer 1:40 Negative 12/09 [facility] (12/10/15 5:47 AM) IMMUNOLOGY SMA Screen Negative Negative 12/09 [facility] (12/10/15 5:47 AM) [place] IMMUNOLOGY AMA Ab Scr Positive Negative 12/09 [facility] (12/10/15 5:47 AM) IMMUNOLOGY IgG Lvl 1060 mg/dL 694 - 1618 12/09 [facility] IMMUNOLOGY ADVERTISING CLERK Ab 0.5 AI <=0.9 AI 12/09 [facility] IMMUNOLOGY Sm Ab null <=0.9 AI 12/09 [facility] SPECIAL ALL 27 unit/L 8 - 52 12/09 [facility] CHEMISTRY [facility] Esophagus Esophagus BA EXAM: FLUOROSCOPY MODIFIED BARIUM SWALLOW 12/09 - [facility] swallow swallow - Medical function function This report was dictated by a Food Packer/ Fellow. I have personally reviewed the images [...] the patient's head turned to the left. [facility] barium: Asymptomatic aspiration was seen with contrast [...] LIVER WITH LIVER VESSELS DOPPLER 12/08 - [facility] Liver Liver /2015 - Medical vessels vessels This report was dictated by a Food Packer/ Fellow. I have personally reviewed the images [...] B12 1132 pg/mL 254 - 1320 12/07 [facility] STUDY Lvl /2015 [facility] ANEMIA Vitamin B12 1171 pg/mL 254 - 1320 12/06 [facility] ANEMIA Folate Lvl 10.8 ng/mL >=3.0 12/06 [facility] ng/mL /2015 [facility] HEMATOLOGY Sed Rate 52 mm/h 0 - 20 12/06 [facility]2015 [facility] CHEM PANEL Alk Phos 134 unit/L 39 - 136 12/[address] CHEM PANEL Bili Total 0.6 mg/dL 0.2 - 1.3 12/[address] CHEM PANEL B/C Ratio 17 6 - 25 12/[address] CHEM PANEL A/G Ratio 0.6 0.7 - 1.6 12/[address] CHEM PANEL Globulin 4.5 g/dL 2.7 - 4.2 12/[address] CHEM PANEL AST 26 unit/L 0 - 37 12/[address] CHEM PANEL Albumin Lvl 2.8 g/dL 3.5 - 5.0 12/[address] CHEM PANEL ALT 22 unit/L 0 - 65 12/[address] CHEM PANEL Total 7.3 g/dL 6.4 - 8.4 12/06 [facility] Protein [facility] IMMUNOLOGY Hep Bs Ag Negative Negative 12/06 [facility] (12/07/15 3:56 AM) [place] IMMUNOLOGY Hep C Ab Negative [facility] [place] (12/07/15 3:56 AM) IMMUNOLOGY Hep A IgM Negative Negative 12/06 [facility] [place] (12/07/15 3:56 AM) IMMUNOLOGY Hep B Core Negative Negative 12/06 [facility] IgM /[facility] [place] (12/07/15 3:56 AM) Brain wo Brain wo EXAM: MRI BRAIN WITHOUT CONTRAST 12/06 - [facility] contrast contrast MRI /2016 - Medical MRI [...] Eosinophils 0.2 K/CMM 0.0 - 0.5 12/06 [facility]2016 [facility] CHEM PANEL Lactic Acid 1.2 mmol/L 0.5 - 2.2 12/[address] HEMATOLOGY Macrocyte 1+ None Seen 12/05 [facility] /[address] [place], [place] [address]ABN* Center (12/06/15 6:30 PM) HEMATOLOGY Basophils # 0.1 K/CMM 0.0 - 0.2 12/[address] Brain wo Brain wo EXAM: CT BRAIN WITHOUT CONTRAST 12/05 [facility] contrast contrast CT /2015 - [facility] CT [place] DATE: 12/06/2015 Read by: Lit Garnett MD [...] EXAM: CT CHEST WITH CONTRAST 12/05 [facility] contrast contrast CT /2015 - [facility] CT Center DATE: 12/06/2015 Read by: [...] with the preliminary report issued by the doctor of radiology resourcing consultant when this examination was performed, Dr. Amparo Craig. Neck soft Neck soft EXAM: CT OF THE NECK WITH CONTRAST 12/05 - [facility] tissue w tissue - [facility] contrast contrast CT Center CT DATE: [...] calcifications. TOXICOLOGY Vanco Tr 15.3 ug/ml 11/30 [facility] TOXICOLOGY Vanco Tr TND 1130 11/30 [facility] ELECTROLYT AGAP 10.8 meq/L 10.0 - 11/29 [facility] 20.0 [facility] ELECTROLYT Calcium Lvl 7.7 mg/dL 8.5 - 10.5 11/29 [facility] ELECTROLYT CO2 24 meq/L 24 - 32 11/29 [facility] ELECTROLYT eGFR 95 11/29 Result Comment: The eGFR is calculated using the CKD-EPI formula. In most young, healthy individuals the eGFR will be >90 mL/ min/1.73m2. The eGFR declines with age. An eGFR of 60-89 may be normal in [facility] mL/min/1. /2015 some populations, particularly the elderly, for whom the CKD-EPI formula has not been extensively validated. Use of the eGFR is not recommended in the following populations: [place] [address] Center Individuals with unstable creatinine concentrations, including [...] Lvl 107 meq/L 95 - 109 11/29 [facility] ELECTROLYT Potassium 3.8 meq/L 3.5 - 5.1 11/29 [facility] Lvl [facility] ELECTROLYT Sodium Lvl 138 meq/L 135 - 145 11/29 [facility] ELECTROLYT Creatinine 0.61 mg/dL 0.50 - 11/29 [facility] Lvl 1.40 [facility] ELECTROLYT BUN 10 mg/dL 7 - 22 11/29 [facility] ELECTROLYT Glucose Lvl 83 mg/dL 70 - 99 11/29 [facility] HEMATOLOGY RDW 13.8 % 11.5 - 11/29 [facility] 14.5 [facility] HEMATOLOGY MCHC 34.0 g/dL 32.0 - 11/29 [facility] 36.0 [facility] HEMATOLOGY Hct 44.7 % 36.0 - 11/29 [place] 48.0 [facility] HEMATOLOGY MCH 33.4 pg 27.0 - 11/29 [place] 31.0 [facility] HEMATOLOGY MCV 98.0 fL 80.0 - 11/29 [facility] 98.0 /2015 [facility] HEMATOLOGY MPV 9.4 fL 7.4 - 10.4 11/29 [facility] HEMATOLOGY Platelet 260 K/CMM 133 - 450 11/29 [facility] HEMATOLOGY RBC 4.56 M/CMM 4.20 - 09 [place] 5.40 [facility] HEMATOLOGY Hgb 15.2 g/dL 12.0 - 11/29 [place] 16.0 [facility] HEMATOLOGY WBC 11.0 K/CMM 3.7 - 10.4 11/29 [facility] HEMATOLOGY Eosinophils 0.2 K/CMM 0.0 - 0.5 11/29 [place] # /2015 [facility] HEMATOLOGY Basophils # 0.1 K/CMM 0.0 - 0.2 11/29 [facility] HEMATOLOGY Segs-Bands # 6.2 K/CMM 1.5 - 8.1 11/29 [facility] HEMATOLOGY Monocytes # 1.9 K/CMM 0.0 - 0.8 11/29 [facility] HEMATOLOGY Lymphocytes 2.5 K/CMM 1.0 - 5.5 11/29 [facility] # [facility] HEMATOLOGY Segs 57.0 % 45.0 - 11/29 75.0 /2015 [facility] HEMATOLOGY Lymphocytes 23.2 % 20.0 - 11/29 [facility] 40.0 [facility] HEMATOLOGY Basophils 0.7 % 0.0 - 1.0 11/29 [facility] HEMATOLOGY Monocytes 17.4 % 2.0 - 12.0 11/29 [facility] HEMATOLOGY Eosinophils 1.7 % 0.0 - 4.0 11/29 [facility] Neck w/wo Neck w/wo EXAM: MRI OF THE NECK WITH CONTRAST 11/29 - [facility] contrast contrast - [facility] DATE: 11/29/2015 9:37 PM CDT Read [...] lesion. TOXICOLOGY Vanco Tr TND 1100 11/28 [facility] TOXICOLOGY Vanco Tr 23.9 ug/ml 11/28 [facility] HEMATOLOGY Hct 45.8 % 36.0 - 11/28 [place] 48.0 /2015 [facility] HEMATOLOGY MCV 99.4 fL 80.0 - 11/28 98.0 /2015 [facility] HEMATOLOGY Hgb 15.5 g/dL 12.0 - 11/28 [place] 16.0 /2015 [facility] HEMATOLOGY RBC 4.61 M/CMM 4.20 - 11/28 [place] 5.40 /2015 [facility] HEMATOLOGY WBC 11.3 K/CMM 3.7 - 10.4 11/28 [facility] HEMATOLOGY MPV 10.0 fL 7.4 - 10.4 11/28 [facility] HEMATOLOGY Platelet 247 K/CMM 133 - 450 11/28 [facility] HEMATOLOGY RDW 14.1 % 11.5 - 11/28 14.5 [facility] HEMATOLOGY MCHC 33.9 g/dL 32.0 - 11/28 36.0 [facility] HEMATOLOGY MCH 33.7 pg 27.0 - 11/28 31.0 [facility] HEMATOLOGY Lymphocytes 18.5 % 20.0 - 11/28 [place] 40.0 [facility] HEMATOLOGY Eosinophils 0.1 % 0.0 - 4.0 11/28 [facility] HEMATOLOGY Monocytes 12.7 % 2.0 - 12.0 11/28 [facility] HEMATOLOGY Basophils 0.3 % 0.0 - 1.0 11/28 [facility] HEMATOLOGY Segs-Bands # 7.7 K/CMM 1.5 - 8.1 11/28 [facility] HEMATOLOGY Monocytes # 1.4 K/CMM 0.0 - 0.8 11/28 [facility] HEMATOLOGY Lymphocytes 2.1 K/CMM 1.0 - 5.5 11/28 [place] # /2015 [facility] HEMATOLOGY Segs 68.4 % 45.0 - 11/28 [facility] 75.0 [facility] Ext Upper Ext Upper Correction: Exam is of the left upper extremity 11/27 - [facility] Venous Venous /2015 - Medical Doppler Doppler EXAM: US RIGHT UPPER EXTREMITY VENOUS DOPPLER This report was dictated by a Food Packer/Fellow. I have personally reviewed the images as [...] (DVT). TOXICOLOGY Vanco Tr TND 2300 11/27 [facility] TOXICOLOGY Vanco Tr 10.4 ug/ml 11/27 Result Comment: [facility] Moderately Hemolyzed. CHEM PANEL Calcium Lvl 8.1 mg/dL 8.5 - 10.5 11/27 2015 [facility] CHEM PANEL CO2 25 meq/L 24 - 32 11/27 2015 [facility] CHEM PANEL Chloride Lvl 110 meq/L 95 - 109 11/27 [facility]2015 [facility] CHEM PANEL Potassium 3.8 meq/L 3.5 - 5.1 11/27 [facility] CHEM PANEL eGFR 93 11/27 Result Comment: The eGFR is calculated using the CKD-EPI formula. In most young, healthy individuals the eGFR will be >90 mL/ min/1.73m2. The eGFR declines with age. An eGFR of 60-89 may be normal in [facility] mL/min/1. some populations, particularly the elderly, for whom the CKD-EPI formula has not been extensively validated. Use of the eGFR is not recommended in the following populations: [address] Individuals with unstable creatinine concentrations, including [...] BUN 21 mg/dL 7 - 22 11/27 [facility] CHEM PANEL Sodium Lvl 144 meq/L 135 - 145 11/27 [facility] CHEM PANEL Creatinine 0.66 mg/dL 0.50 - 09 [place] Lvl 1.40 [facility] CHEM PANEL Glucose Lvl 115 mg/dL 70 - 99 09 [facility] CHEM PANEL AGAP 12.8 meq/L 10.0 - 09 [place] 20.0 [facility] HEMATOLOGY MPV 9.9 fL 7.4 - 10.4 11/27 [facility] HEMATOLOGY Platelet 242 K/CMM 133 - 450 11/27 [facility] HEMATOLOGY RDW 13.5 % 11.5 - 09 14.5 [facility] HEMATOLOGY MCH 33.0 pg 27.0 - 11/27 31.0 [facility] HEMATOLOGY MCHC 33.2 g/dL 32.0 - 11/27 [place] 36.0 [facility] HEMATOLOGY MCV 99.2 fL 80.0 - 11/27 [facility] 98.0 /2015 [facility] HEMATOLOGY Hct 42.9 % 36.0 - 11/27 48.0 [facility] HEMATOLOGY RBC 4.33 M/CMM 4.20 - 09 [place] 5.40 [facility] HEMATOLOGY Hgb 14.3 g/dL 12.0 - 11/27 16.0 [facility] HEMATOLOGY WBC 16.9 K/CMM 3.7 - 10.4 11/27 [facility] HEMATOLOGY Lymphocytes 1.5 K/CMM 1.0 - 5.5 11/27 [place] # /2015 [facility] HEMATOLOGY Basophils # 0.1 K/CMM 0.0 - 0.2 11/27 [facility] HEMATOLOGY Monocytes # 1.7 K/CMM 0.0 - 0.8 11/27 [facility] HEMATOLOGY Segs-Bands # 13.7 K/CMM 1.5 - 8.1 11/27 [facility] HEMATOLOGY Monocytes 10.0 % 2.0 - 12.0 11/27 [facility] HEMATOLOGY Segs 80.7 % 45.0 - 11/27 [facility] 75.0 [facility] HEMATOLOGY Basophils 0.4 % 0.0 - 1.0 11/27 [facility] HEMATOLOGY Lymphocytes 8.9 % 20.0 - 11/27 [facility] 40.0 [facility] Neck soft Neck soft EXAM: CT NECK WITH CONTRAST 11/26 - [facility] tissue w tissue - [facility] contrast contrast CT Center CT DATE: [...] IMMUNOLOGY HIV 1/2 Ab Negative Negative 11/26 [facility] [place] (11/27/15 2:22 PM) CHEM PANEL eGFR 94 11/26 Result Comment: The eGFR is calculated using the CKD-EPI formula. In most young, healthy individuals the eGFR will be >90 mL/ min/1.73m2. The eGFR declines with age. An eGFR of 60-89 may be normal in [facility] mL/min/1. some populations, particularly the elderly, for whom the CKD-EPI formula has not been extensively validated. Use of the eGFR is not recommended in the following populations: [address] Individuals with unstable creatinine concentrations, including [...] Lvl 110 meq/L 95 - 109 11/26 [facility] CHEM PANEL CO2 24 meq/L 24 - 32 11/[address] CHEM PANEL Calcium Lvl 8.6 mg/dL 8.5 - 10.5 11/[address] CHEM PANEL Creatinine 0.62 mg/dL 0.50 - 11/26 [facility] CHEM PANEL Sodium Lvl 142 meq/L 135 - 145 11/26 [facility]2015 [facility] CHEM PANEL Potassium 3.8 meq/L 3.5 - 5.1 11/26 [facility] CHEM PANEL Glucose Lvl 139 mg/dL 70 - 99 11/26 [facility]2015 [facility] CHEM PANEL BUN 13 mg/dL 7 - 22 11/26 [facility]2015 [facility] CHEM PANEL AGAP 11.8 meq/L 10.0 - 11/26 [facility] .0 [facility] CHEM PANEL Magnesium 2.1 mg/dL 1.8 - 2.4 11/26 [facility]2015 [facility] CHEM PANEL Phosphorus 3.2 mg/dL 2.5 - 4.5 11/26 [facility]2015 [facility] CHEM PANEL Lactic Acid 1.4 mMol/L 0.5 - 2.2 11/25 [facility] Lvl /2015 [facility] CHEM PANEL Lactic Acid 2.5 mMol/L 0.5 - 2.2 11/25 [facility] Lvl /2015 [facility] HEMATOLOGY Eosinophils 0.9 % 0.0 - 4.0 11/25 [place] /2015 [facility] HEMATOLOGY Basophils # 0.1 K/CMM 0.0 - 0.2 11/25 /2015 [facility] HEMATOLOGY Eosinophils 0.1 K/CMM 0.0 - 0.5 11/25 [facility] # /2015 [facility] TOXICOLOGY Vanco Lvl 3.8 ug/ml 11/25 [facility] /2015 [facility] Chest 2 Chest 2 EXAM: XR CHEST 2 VIEWS 11/25 - [facility] views DX views DX - [facility] This report was dictated by a Food Packer/Fellow. I have personally reviewed the images as [...] excluded. BLOOD BANK ABO/Rh O POS 11/25 [facility] RESULTS /2015 [facility] BLOOD BANK Antibody Negative 11/25 [facility] RESULTS [facility] (11/25/15 8:24 PM) Center CHEM PANEL Lactic Acid 3.5 mMol/L 0.5 - 2.2 11/25 [facility] Lvl /2015 [facility] HEMATOLOGY PT 14.9 s 12.0 - 11/25 [place] 14.7 /2015 [facility] HEMATOLOGY INR 1.14 0.85 - 11/25 [facility] 1.17 2016 [facility] HEMATOLOGY PTT 27.7 s 22.9 - 09 [facility] 35.8 /2016 [facility] Vital Signs Vital Sign Value Date Comments Source BMI Calculated 19.81 05/06/2016 [facility] Weight 59.091 05/06/2016 [facility] Height 172.72 cm 05/06/2016 [facility] Systolic (mm Hg) 143 05/06/2016 [facility] Diastolic (mm Hg) 67 05/06/2016 [facility] Heart Rate 63 05/06/2016 [facility] Temperature Oral (F) 98 F 12/19/2015 [facility] Respitory Rate 18 12/19/2015 [facility] Heart Rate 69 12/19/2015 [facility] Systolic (mm Hg) 129 12/19/2015 [facility] Diastolic (mm Hg) 72 12/19/2015 [facility] Heart Rate 60 12/19/2015 [facility] Temperature Oral (F) 98.2 F 12/19/2015 [facility] Respitory Rate 18 12/19/2015 [facility] Systolic (mm Hg) 138 12/19/2015 [facility] Diastolic (mm Hg) 75 12/19/2015 [facility] Systolic (mm Hg) 106 12/19/2015 [facility] Diastolic (mm Hg) 78 12/19/2015 [facility] Respitory Rate 18 12/19/2015 [facility] Heart Rate 63 12/19/2015 [facility] Temperature Oral (F) 97.9 F 12/19/2015 [facility] Weight 68.182 12/07/2015 [facility] Height 172.72 cm 12/07/2015 [facility] BMI Calculated 22.86 12/07/2015 [facility] Weight 68.182 12/06/2015 [facility] BMI Calculated 22.86 12/06/2015 [facility] Height 172.72 cm 12/06/2015 [facility] Temperature Oral (F) 98.2 F 12/01/2015 [facility] Heart Rate 76 12/01/2015 [facility] Respitory Rate 18 12/01/2015 [facility] Systolic (mm Hg) 133 12/01/2015 [facility] Diastolic (mm Hg) 78 12/01/2015 [facility] Respitory Rate 18 12/01/2015 [facility] Systolic (mm Hg) 112 12/01/2015 [facility] Diastolic (mm Hg) 75 12/01/2015 [facility] Heart Rate 91 12/01/2015 [facility] Temperature Oral (F) 98.1 F 12/01/2015 [facility] Heart Rate 78 12/01/2015 [facility] Temperature Oral (F) 98.2 F 12/01/2015 [facility] Systolic (mm Hg) 125 12/01/2015 [facility] Diastolic (mm Hg) 72 12/01/2015 [facility] Respitory Rate 18 12/01/2015 [facility] Height 172.72 cm 11/28/2015 [facility] BMI Calculated 23.16 11/28/2015 [facility] Weight 69.1 11/28/2015 [facility] Height 172.72 cm 11/27/2015 [facility] Weight 69.1 11/27/2015 [facility] Weight 69.1 11/26/2015 [facility] Height 172.72 cm 11/26/2015 [facility] BMI Calculated 23.16 11/26/2015 [facility] BMI Calculated 22.86 11/26/2015 [facility] Encounters Location Location Encounter Encounter Reason Attending ADM DC Status Source Details Type Number For Provider Date Date Visit [facility] [id number] Andrea 11/25 11/30 [facility] Alexander /2015 [facility] Inpatient [id number] Myla 12/05 12/18 [facility] Delma /2015 [facility] Outpatient [id number] Michelle 02/19 02/20 [facility] Bud Lucas /2015 [facility] Outpatient [id number] Michelle 02/25 02/26 [employer] Lance /2015 [facility] OP Therapy [id number] Michelle 03/05 03/21 [facility] OP Therapy [id number] Michelle 03/26 04/25 [facility] Outpatient [id number] Michelle 04/23 04/24 Bud Lucas /2016 [facility] Bedded [id number] Michelle 05/06 05/06 [facility] Outpatient /2016 [facility] Procedures Procedure Code Date Perfomer Comments Source Spinal puncture, [address] 12/12/2015 [id number] Biopsy of vocal [id number] [facility] Splenectomy [id number] [facility] Appendectomy [id number] [facility] Biopsy of vocal [id number] [facility] Splenectomy [id number] [facility] Appendectomy [id number] [facility] Biopsy of vocal [id number] [facility] Splenectomy [id number] [facility]
[2018-08-25 12:30] LABS: Protime INR 1.08
--- NOTE | 2018-08-25 12:37 | RAD REPORT ---
EXAM DESCRIPTION: [place] Single View08/25/2018 12:29 pm CLINICAL HISTORY: Chest pain COMPARISON: 2017 FINDINGS: The lungs appear clear of acute infiltrate. The heart is normal size IMPRESSION: No acute abnormalities displayed
[2018-08-25 12:44] LABS: ALT/SGPT 23 U/L (12-78); AST/SGOT 26 U/L (15-37); Albumin 3.2 g/dL (3.4-5.0); Alkaline Phosphatase 205 U/L (45-117); BUN Blood Urea Nitrogen 11 mg/dL (7-18); Bicarbonate 27 mmol/L (21-32); Bilirubin Direct < 0.1 mg/dL (0-0.2); Bilirubin Total 0.3 mg/dL (0.2-1.0); Glucose Level 99 mg/dL (74-106); Protein, Total 7.3 g/dL (6.4-8.2); Sodium Level 139 mmol/L (136-145)
--- NOTE | 2018-08-25 12:57 | RAD REPORT ---
EXAM DESCRIPTION: RAD - Hip Left 2 View - 08/25/2018 12:51 pm CLINICAL HISTORY: PAIN Fall, left-sided hip pain COMPARISON: No comparisons FINDINGS: Intratrochanteric fracture of the proximal left femur with varus angulation noted. No disl ocation.
--- NOTE | 2018-08-25 13:27 | EDPHYS ---
Physician Documentation [facility] Name: Ana Victor Age: 68 yrs Sex: Female : 1950 Arrival Date: 08/25/2018 Time: 11:52 Bed 16 Private MD: ED Physician Dariusz Giang HPI: 08/25 12:00 This 68 yrs old Female presents to ER via EMS with complaints of Fall Injury. pm1 12:00 Details of fall: The patient fell from an upright position, while standing. Onset: The pm1 symptoms/episode began/occurred just prior to arrival. Associated injuries: The patient sustained left hip. The patient has not experienced similar symptoms in the past. The patient has not recently seen a physician. Patient was attempting to sit down on her stool in the bathroom and she missed it. Landed on her left hip area. No head injury, headache, neck pain, or LOC. No back pain. Historical: - Allergies: 11:45 Iodinated Contrast Media - IV Dye; rb1 - Home Meds: 11:45 alprazolam 2 mg Oral tab 1 tab twice a day [Active]; ursodiol 300 mg Oral cap 3 times rb1 per day [Active]; - PMHx: 11:45 bells palsy; Cirrhosis; dysphonia; Hypothyroidism; rb1 - Immunization history:: Adult Immunizations up to date. - Social history:: Smoking status: Patient/guardian denies using tobacco. - Ebola Screening: : Patient negative for fever greater than or equal to 101.5 degrees Fahrenheit, and additional compatible Ebola Virus Disease symptoms. ROS: 12:00 Constitutional: Negative for fever, chills, and weight loss, Eyes: Negative for injury, pm1 pain, redness, and discharge, ENT: Negative for injury, pain, and discharge, Neck: Negative for injury, pain, and swelling, Cardiovascular: Negative for chest pain, palpitations, and edema, Respiratory: Negative for shortness of breath, cough, wheezing, and pleuritic chest pain, Abdomen/GI: Negative for abdominal pain, nausea, vomiting, diarrhea, and constipation, Back: Negative for injury and pain, : Negative for injury, bleeding, discharge, and swelling. 12:00 Skin: Negative for injury, rash, and discoloration, Neuro: Negative for headache, weakness, numbness, tingling, and seizure. 12:00 MS/extremity: Positive for pain, of the left hip, Negative for paresthesias, tenderness. Exam: 12:00 Constitutional: This is a well developed, well nourished patient who is awake, alert, pm1 and in no acute distress. Head/Face: Normocephalic, atraumatic. Eyes: Pupils equal round and reactive to light, extra-ocular motions intact. Lids and lashes normal. Conjunctiva and sclera are non-icteric and not injected. Cornea within normal limits. Periorbital areas with no swelling, redness, or edema. Neck: Trachea midline, no thyromegaly or masses palpated, and no cervical lymphadenopathy. Supple, full range of motion without nuchal rigidity, or vertebral point tenderness. No Meningismus. Chest/axilla: Normal chest wall appearance and motion. Nontender with no deformity. No lesions are appreciated. Cardiovascular: Regular rate and rhythm with a normal S1 and S2. No gallops, murmurs, or rubs. Normal PMI, no JVD. No pulse deficits. Respiratory: Lungs have equal breath sounds bilaterally, clear to auscultation and percussion. No rales, rhonchi or wheezes noted. No increased work of breathing, no retractions or nasal flaring. Abdomen/GI: Soft, non-tender, with normal bowel sounds. No distension or tympany. No guarding or rebound. No evidence of tenderness throughout. Back: No spinal tenderness. No costovertebral tenderness. Full range of motion. Skin: Warm, dry with normal turgor. Normal color with no rashes, no lesions, and no evidence of cellulitis. 12:00 Musculoskeletal/extremity: Extremities: grossly normal except: noted in the left hip: tenderness, shortening and external rotation of left leg, Pulses: noted to be 2+ in the left dorsalis pedis artery, pulse marked, Sensation intact. Vital Signs: 11:45 BP 135 / 73; Pulse 80; Resp 18; Temp 97.9(O); Pulse Ox 95% on R/A; Weight 58.97 kg (R); rb1 Height 5 ft. 8 in. (172.72 cm) (R); Pain 10/10; 12:44 BP 139 / 77; Pulse 79; Resp 17; Temp 98.1(O); Pulse Ox 95% on R/A; mh5 13:44 BP 149 / 77; Pulse 79; Resp 16; Temp 98.2(O); Pulse Ox 95% on R/A; Pain 5/10; rb1 14:48 BP 152 / 79; Pulse 93; Resp 17; Temp 98.1(O); Pulse Ox 93% on R/A; mh5 15:48 BP 140 / 76; Pulse 92; Resp 16; Temp 98.2(O); Pulse Ox 94% on 2 lpm NC; Pain 6/10; rb1 16:45 BP 156 / 76; Pulse 97; Resp 17; Temp 98.0(O); Pulse Ox 95% on 2.5 lpm NC; Pain 8/10; rb1 17:45 BP 151 / 89; Pulse 101; Resp 16; Temp 97.9(O); Pulse Ox 94% on 2.5 lpm NC; Pain 10/10; rb1 18:50 BP 162 / 95; Pulse 104; Resp 17; Temp 98.1(O); Pulse Ox 95% on 2.5 lpm NC; mh5 19:10 BP 158 / 95; Pulse 110; Resp 18; Pulse Ox 95% on 2 lpm NC; Pain 8/10; lp1 11:45 Body Mass Index 19.77 (58.97 kg, 172.72 cm) rb1 15:48 Increased O2 to 2.5 L rb1 MDM: 11:53 Patient medically screened. pm1 13:00 Counseling: I had a detailed discussion with the patient and/or guardian regarding: the pm1 historical points, exam findings, and any diagnostic results supporting the discharge/admit diagnosis, lab results, radiology results, the need for further work-up and treatment in the hospital, Patient requested Dr. Middleton if he performs surgery here.. 13:15 ED course: Informed patient that [facility] does not have privileges here, she requested pm1 Dr. Stephens. Contacted Kat and he said that he would have been happy to take care of her but he will be out of town for a week starting tonight. Informed the patient and she decided that she would like to go to [facility]. 13:19 Data reviewed: vital signs. Data interpreted: Pulse oximetry: on room air is 95 %. pm1 Interpretation: normal. 13:40 ED course: [facility] transfer center recommended transfer to another facility pm1 due to patient history of cirrhosis since they are a surgical hospital only. 13:45 ED course: Patient with preference for [facility]. Would like Dr. Lubin since pm1 referral from Dr. Middleton. Called his office, but Dr Lubin is out of town. Recommended Dr. Mullen. Left message with his office, pending call back. 14:58 ED course: Call back from office staff. Dr. Mullen is not available, will be out of 1 town tomorrow. Patient informed and she has a preference for [facility]. 16:50 Physician consultation: [facility] Orthopedic surgeon was contacted at 16:42, regarding pm1 regarding transfer, to [facility]. consult, patient's condition, and will see patient. 08/25 12:00 Order name: CBC with Diff; Complete Time: 12:46 pm1 08/25 12:00 Order name: PT-INR; Complete Time: 12:46 pm1 08/25 11:57 Order name: Hip Left 2 View XRAY; Complete Time: 12:58 pm1 08/25 12:00 Order name: BMP; Complete Time: 12:46 pm1 08/25 12:00 Order name: LFT's; Complete Time: 12:46 pm1 08/25 12:00 Order name: Chest Single View XRAY; Complete Time: 12:46 pm1 08/25 12:00 Order name: EKG; Complete Time: 12:01 pm1 08/25 12:00 Order name: IV Saline Lock; Complete Time: 12:31 pm1 08/25 12:00 Order name: EKG - Nurse/Tech; Complete Time: 14:02 pm1 Administered Medications: 12:15 Drug: fentaNYL (PF) 50 mcg Route: IVP; Site: right antecubital; rb1 13:00 Follow up: Response: No adverse reaction; Pain is decreased; pain 9/10, pt. was in rb1 X-ray at 1230. 12:15 Drug: Zofran 4 mg Route: IVP; Site: right antecubital; rb1 13:00 Follow up: Response: No adverse reaction; Nausea is decreased rb1 13:22 Drug: morphine 4 mg Route: IVP; Site: right antecubital; hb 13:40 Follow up: Response: No adverse reaction; Pain is decreased; 5/10 rb1 16:06 Drug: morphine 2 mg Route: IVP; Site: right antecubital; rb1 16:25 Follow up: Response: No adverse reaction; Pain is unchanged, physician notified rb1 18:16 Drug: morphine 2 mg Route: IVP; Site: right antecubital; hb 18:30 Follow up: Response: No adverse reaction; Pain is unchanged, physician notified rb1 19:15 Drug: Dilaudid 0.5 mg Route: IVP; Site: right antecubital; lp1 19:20 Follow up: Response: Medication administered at discharge. lp1 19:19 Drug: NS 0.9% 1000 ml Route: IV; Rate: 100 ml/hr; Site: right antecubital; lp1 19:19 Follow up: IV Status: Infusion continued upon transfer lp1 Disposition: 08/26 07:15 Co-signature as Attending Physician, Dariusz Giang MD I agree with the assessment and jean-pierre plan of care. Disposition: 08/25/18 13:26 Transfer ordered to Other Acute Care Facility. Diagnosis is Left intratrochanteric proximal femur fracture. - Reason for transfer: Patient request. - Accepting physician is [facility]. - Condition is Stable. - Problem is new. - Symptoms have improved. Signatures: Dispatcher [employer] EDMS Dariusz Giang MD MD cha Pena, Laura, RN RN lp1 Karon Esteves, RN RN rb1 Glenroy Brown, [employer] pm1 Ewa Hackett RN RN Corrections: (The following items were deleted from the chart) 08/25 14:28 13:15 ED course: Informed patient that [facility] does have privileges here, she requested pm1 Dr. Stephens. Contacted Kat and he said that he would have been happy to take care of her but [facility] Informed the patient and she decided that she would like to go to [facility]. pm1 19:39 13:26 08/25/2018 13:26 Transfer ordered to Other Acute Care Facility. Diagnosis is Left lp1 intratrochanteric proximal femur fracture. Reason for transfer: Patient request. Accepting physician is [facility]. Condition is Stable. Problem is new. Symptoms have improved. pm1
--- NOTE | 2018-08-25 13:27 | ER ---
Nurse's Notes [facility] Name: Ana Victor Age: 68 yrs Sex: Female : 1950 Arrival Date: 08/25/2018 Time: 11:52 Bed 16 Private MD: Diagnosis: Left intratrochanteric proximal femur fracture Presentation: 08/25 11:45 Presenting complaint: EMS states: 68 yr. old is A \T\ O x 4, went to sit on a stool in rb1 the bathroom and missed the stool, falling to the floor on her left hip. Pain 10/10 in the left hip. No obvious deformity. Not on blood thinners. History of neuropathy. Medications: Effexor, and Xanax. BP 126/68, P 86, 96% RA. 11:45 Transition of care: patient was not received from another setting of care. Onset of rb1 symptoms was August 25, 2018. Risk Assessment: Do you want to hurt yourself or someone else? Patient reports no desire to harm self or others. Initial Sepsis Screen: Does the patient meet any 2 criteria? No. Patient's initial sepsis screen is negative. Does the patient have a suspected source of infection? No. Patient's initial sepsis screen is negative. Care prior to arrival: None. 11:45 Method Of Arrival: EMS: [place] [id number] 11:45 Acuity: OPHELIA 3 rb1 Triage Assessment: 11:45 General: Appears uncomfortable, Behavior is calm, cooperative. Pain: Complains of pain rb1 in left hip Pain currently is 10 out of 10 on a pain scale. Neuro: Level of Consciousness is awake, alert, obeys commands, Oriented to person, place, time, situation. Cardiovascular: Capillary refill < 3 seconds is brisk in bilateral toes. Respiratory: Airway is patent Respiratory effort is even, unlabored, Respiratory pattern is regular, symmetrical. GI: No signs and/or symptoms were reported involving the gastrointestinal system. : No signs and/or symptoms were reported regarding the genitourinary system. Derm: Skin is pink, warm \T\ dry. Musculoskeletal: Range of motion: limited in left hip. Historical: - Allergies: 11:45 Iodinated Contrast Media - IV Dye; rb1 - Home Meds: 11:45 alprazolam 2 mg Oral tab 1 tab twice a day [Active]; ursodiol 300 mg Oral cap 3 times rb1 per day [Active]; - PMHx: 11:45 bells palsy; Cirrhosis; dysphonia; Hypothyroidism; rb1 - Immunization history:: Adult Immunizations up to date. - Social history:: Smoking status: Patient/guardian denies using tobacco. - Ebola Screening: : Patient negative for fever greater than or equal to 101.5 degrees Fahrenheit, and additional compatible Ebola Virus Disease symptoms. Screenin:45 Abuse screen: Denies threats or abuse. Nutritional screening: No deficits noted. rb1 Tuberculosis screening: No symptoms or risk factors identified. Fall Risk Fall in past 12 months (25 points). Secondary diagnosis (15 points) impaired mobility, IV access (20 points). Ambulatory Aid- None/Bed Rest/Nurse Assist (0 pts). Gait- Impaired (20 pts.). Mental Status- Oriented to own ability (0 pts). Total Rahman Fall Scale indicates High Risk Score (45 or more points). Fall prevention measures have been instituted. Side Rails Up X 2 Placed Close to Nursing Station 1:1 Attendant Assigned Frequent Obs/Assessments Occuring Family Present and informed to notify staff if the need to leave the bedside As available patient and family educated on Fall Prevention Program and Strategies. Assessment: 11:45 General: See triage assessment. rb1 13:44 Reassessment: Patient appears in no apparent distress at this time. Patient and/or rb1 family updated on plan of care and expected duration. Pain level reassessed. Patient is alert, oriented x 3, equal unlabored respirations, skin warm/dry/pink. Pain 5/10. 14:44 Reassessment: Patient appears in no apparent distress at this time. No changes from rb1 previously documented assessment. 15:43 Reassessment: Patient appears in no apparent distress at this time. Patient and/or rb1 family updated on plan of care and expected duration. Pain level reassessed. Patient is alert, oriented x 3, equal unlabored respirations, skin warm/dry/pink. Family at bedside. 16:07 Reassessment: Patient appears in no apparent distress at this time. Patient and/or rb1 family updated on plan of care and expected duration. Pain level reassessed. Patient is alert, oriented x 3, equal unlabored respirations, skin warm/dry/pink. 17:00 Reassessment: Patient appears in no apparent distress at this time. No changes from rb1 previously documented assessment. 17:27 Reassessment: Tried to call report but was told to call back due to them not having a rb1 Face Sheet for the pt. Notified Jazmine, [employer] and gave her the phone number [phone]. Jazmine will resend the Face Sheet. 18:00 Reassessment: Patient appears in no apparent distress at this time. Patient and/or rb1 family updated on plan of care and expected duration. Pain level reassessed. Patient is alert, oriented x 3, equal unlabored respirations, skin warm/dry/pink. C/o pain 12/29. 18:10 Reassessment: Called report to ANDRADE Trevino at [facility]. Information from the [facility] was rb1 given. All questions asked and answered. 19:10 Reassessment: Patient complaint of continued pain to Left hip; Provider notified; lp1 EMS at bedside for transfer. 19:10 Neuro: Level of Consciousness is awake, alert, obeys commands. Respiratory: Respiratory lp1 effort is even, unlabored. Derm: Skin is intact, Skin is dry, Skin is normal. Vital Signs: 11:45 BP 135 / 73; Pulse 80; Resp 18; Temp 97.9(O); Pulse Ox 95% on R/A; Weight 58.97 kg (R); rb1 Height 5 ft. 8 in. (172.72 cm) (R); Pain 10/; 12:44 BP 139 / 77; Pulse 79; Resp 17; Temp 98.1(O); Pulse Ox 95% on R/A; mh5 13:44 BP 149 / 77; Pulse 79; Resp 16; Temp 98.2(O); Pulse Ox 95% on R/A; Pain 5/10; rb1 14:48 BP 152 / 79; Pulse 93; Resp 17; Temp 98.1(O); Pulse Ox 93% on R/A; mh5 15:48 BP 140 / 76; Pulse 92; Resp 16; Temp 98.2(O); Pulse Ox 94% on 2 lpm NC; Pain 6/10; rb1 16:45 BP 156 / 76; Pulse 97; Resp 17; Temp 98.0(O); Pulse Ox 95% on 2.5 lpm NC; Pain 8/10; rb1 17:45 BP 151 / 89; Pulse 101; Resp 16; Temp 97.9(O); Pulse Ox 94% on 2.5 lpm NC; Pain 10/10; rb1 18:50 BP 162 / 95; Pulse 104; Resp 17; Temp 98.1(O); Pulse Ox 95% on 2.5 lpm NC; mh5 19:10 BP 158 / 95; Pulse 110; Resp 18; Pulse Ox 95% on 2 lpm NC; Pain 8/10; lp1 11:45 Body Mass Index 19.77 (58.97 kg, 172.72 cm) rb1 15:48 Increased O2 to 2.5 L rb1 ED Course: 11:45 Arm band placed on left wrist. rb1 11:45 Patient has correct armband on for positive identification. Bed in low position. Call rb1 light in reach. Side rails up X 1. Pulse ox on. NIBP on. Warm blanket given. 11:52 Patient arrived in ED. rb1 11:52 Glenroy Brown NP is PHCP. pm1 11:52 Dariusz Giang MD is Attending Physician. pm1 11:55 Triage completed. rb1 12:01 Karon Esteves RN is Primary Nurse. rb1 12:14 Inserted saline lock: 22 gauge in right antecubital area, using aseptic technique. rb1 Blood collected. 12:25 Radiology exam delayed due to CXR DONE. WAITING ON PAIN MEDS TO WORK BEFORE HIP XRAYS. jb2 12:28 Chest Single View XRAY In Process Unspecified. EDMS 12:50 X-ray completed. Patient tolerated procedure well. Patient moved back from radiology. jb2 12:51 Hip Left 2 View XRAY In Process Unspecified. EDMS 13:02 EKG done, by technology resource teacher. reviewed by Glenroy Brown NP. sm3 19:00 Report given to ANDRADE Arechiga. rb1 19:15 Patient transferred, IV remains in place. lp1 19:21 No provider procedures requiring assistance completed. lp1 Administered Medications: 12:15 Drug: fentaNYL (PF) 50 mcg Route: IVP; Site: right antecubital; rb1 13:00 Follow up: Response: No adverse reaction; Pain is decreased; pain 9/10, pt. was in rb1 X-ray at 1230. 12:15 Drug: Zofran 4 mg Route: IVP; Site: right antecubital; rb1 13:00 Follow up: Response: No adverse reaction; Nausea is decreased rb1 13:22 Drug: morphine 4 mg Route: IVP; Site: right antecubital; hb 13:40 Follow up: Response: No adverse reaction; Pain is decreased; 07/29 rb1 16:06 Drug: morphine 2 mg Route: IVP; Site: right antecubital; rb1 16:25 Follow up: Response: No adverse reaction; Pain is unchanged, physician notified rb1 18:16 Drug: morphine 2 mg Route: IVP; Site: right antecubital; hb 18:30 Follow up: Response: No adverse reaction; Pain is unchanged, physician notified rb1 19:15 Drug: Dilaudid 0.5 mg Route: IVP; Site: right antecubital; lp1 19:20 Follow up: Response: Medication administered at discharge. lp1 19:19 Drug: NS 0.9% 1000 ml Route: IV; Rate: 100 ml/hr; Site: right antecubital; lp1 19:19 Follow up: IV Status: Infusion continued upon transfer lp1 Intake: Outcome: 13:26 ER care complete, transfer ordered by MD. pm1 19:15 Transferred by ground EMS to [facility], Transfer form completed. X-rays lp1 sent w/ patient. 19:15 Condition: stable 19:15 Instructed on the need for transfer. 19:39 Patient left the ED. lp1 Signatures: Dispatcher [employer] EDRashaad Bajwa Laura, RN RN lp1 Karon Esteves RN RN rb1 Glenroy Brown, TOOL DESIGN ENGINEER TOOL DESIGN ENGINEER pm1 Ewa Hackett RN RN hb Martinez, Maria [facility] Agnieszka Pérez 3 Corrections: (The following items were deleted from the chart) 19:19 03/21 19:15 Dilaudid 0.5 mg IVP in right antecubital lp1 lp1 08/25 19:21 19:19 Reassessment: Patient complaint of continued pain to lp1 lp1
[2018-08-25] MEDS ORDERED: MORPHINE 4 MG/ML SYR ONE (13:35)
[2018-08-25] MEDS ORDERED: MORPHINE 2 MG/ML SYR ONE (16:17)
[2018-08-25] MEDS ORDERED: FAMOTIDINE 20 MG/2 ML VIAL IV ONE (18:45)
[2018-08-25] MEDS ORDERED: NA CHLORIDE 0.9% 1,000 ML ONE ×2 (18:45→19:26)
[2018-08-25] MEDS ORDERED: HYDROMORPHONE HCL 0.5 MG/0.5 ML INJ ONE (19:26)
[2018-08-25 21:35] VITALS: TEMP 98.1; O2SAT 95
[2018-08-25 21:36] VITALS: BP 158/95
--- NOTE | 2018-08-26 07:19 | EKG ---
Test Date: 2018-08-25 Test Time: 12:59:17 Foundry Engineer: DT/S MEASUREMENT RESULTS: Intervals: Rate: 73 GA: 144 QRSD: 62 QT: 374 QTc: 412 [place]: P: 63 GA: 144 QRS: 42 T: 62 INTERPRETIVE STATEMENTS: Normal sinus rhythm Nonspecific ST abnormality Abnormal ECG Compared to ECG 12/15/2016 09:37:23 ST (T wave) deviation now present Electronically Signed On 08-26-18 07:16:09 CDT by Laith Ashraf
== END 2018-08-25 19:39 ==
LOC: ER 11:50
DX: S72.102A Unspecified trochanteric fracture of left femur, initial encounter for closed fracture (principal); W01.0XXA Fall on same level from slipping, tripping and stumbling without subsequent striking against object, initial encounter
CPT/HCPCS: 93005; 85025; 80048; 36415; 85610; 80076; 71045; 73502; 96375; 96374; 99285; J3010; J2270; J1170; J7030 ×2; J2405

== ENCOUNTER 2019-07-11 15:14 | Emergency (ER) | payer OTHER ==
[2019-07-11] MEDS ORDERED: FENTANYL CITR 100 MCG/2 ML ONE (15:46)
--- NOTE | 2019-07-11 16:33 | RAD REPORT ---
EXAM DESCRIPTION: RAD - Knee Left 3 View - 07/11/2019 4:25 pm CLINICAL HISTORY: PAIN COMPARISON: Knee Left 3 View dated 01/05/2017 FINDINGS: Mildly displaced and depressed lateral tibial plateau fracture is noted. Small lipohemarth rosis seen. The bones are osteopenic. IMPRESSION: Lateral tibial plateau fracture.
[2019-07-11] MEDS ORDERED: HYDROCODONE/APAP 7.5/325 MG TAB ONE (17:31)
[2019-07-11] MEDS ORDERED: ONDANSETRON 4 MG (ODT) TAB ONE (17:31)
--- NOTE | 2019-07-11 18:31 | RAD REPORT ---
EXAM DESCRIPTION: CT - Knee Left Wo Con - 07/11/2019 6:04 pm CLINICAL HISTORY: lateral proximal tibia fracture Fall, pain COMPARISON: No comparisons FINDINGS: Fracture of the tibial plateau is seen. The lateral tibial plateau component is depressed approximately 5-6 millimeters. Lateral-most fracture segment is also slightly displaced approximately 3 millimeters laterally. The fracture line is seen extending across the tibial spine to involve the medial tibial plateau as well. Moderate lipoma hemarthrosis is present. IMPRESSION: Tibial plateau fracture as detailed above, with 5-6 mm of depression noted laterally. All CT scans are performed using dose optimization technique as appropriate and may include automated exposure control or mA/KV adjustment according to patient size.
--- NOTE | 2019-07-11 19:23 | ER ---
Nurse's Notes [facility] Name: Ana Victor Age: 69 yrs Sex: Female : 1950 Arrival Date: 07/11/2019 Time: 15:24 Bed 4 Private MD: Diagnosis: Left lateral tibial plateau fracture Presentation: 07/10 15:24 Chief complaint: EMS states: Tripped on rug, felt and heard a loud pop in left knee, hb c/o left knee pain 10/. Coronavirus screen: Proceed with normal triage. Ebola Screen: No symptoms or risks identified at this time. Initial Sepsis Screen: Does the patient meet any 2 criteria? No. Patient's initial sepsis screen is negative. Does the patient have a suspected source of infection? No. Patient's initial sepsis screen is negative. Risk Assessment: Do you want to hurt yourself or someone else? Patient reports no desire to harm self or others. Onset of symptoms was July 11, 2019. 15:24 Method Of Arrival: EMS: [facility] 15:24 Acuity: OPHELIA 4 hb Triage Assessment: 15:25 General: Appears in no apparent distress. uncomfortable, Behavior is calm, cooperative, sv appropriate for age. Pain: Complains of pain in left knee. Neuro: Level of Consciousness is awake, alert, obeys commands, Oriented to person, place, time, situation. Respiratory: Respiratory effort is even, unlabored, Respiratory pattern is regular, symmetrical. Derm: Skin is pink, warm \T\ dry. Musculoskeletal: Range of motion: limited in left knee Swelling present in left knee. Historical: - Allergies: 15:27 Iodinated Contrast Media - IV Dye; sv - PMHx: 15:27 bells palsy; Cirrhosis; dysphonia; Hypothyroidism; sv - Immunization history:: Adult Immunizations up to date. - Social history:: Smoking status: . Screenin:26 Abuse screen: Denies threats or abuse. Denies injuries from another. Nutritional sv screening: No deficits noted. Tuberculosis screening: No symptoms or risk factors identified. Fall Risk None identified. Assessment: 16:30 Reassessment: Patient appears in no apparent distress at this time. Patient and/or sv family updated on plan of care and expected duration. Pain level reassessed. Patient is alert, oriented x 3, equal unlabored respirations, skin warm/dry/pink. 17:40 Reassessment: Patient appears in no apparent distress at this time. Patient and/or ph family updated on plan of care and expected duration. Pain level reassessed. Patient is alert, oriented x 3, equal unlabored respirations, skin warm/dry/pink. Pt taken to CT via stretcher. 18:46 Reassessment: Patient appears in no apparent distress at this time. Patient and/or sv family updated on plan of care and expected duration. Pain level reassessed. Patient is alert, oriented x 3, equal unlabored respirations, skin warm/dry/pink. 19:35 General: Appears uncomfortable, Behavior is calm, cooperative, appropriate for age. ea Pain: Complains of pain in left leg. Neuro: Level of Consciousness is awake, alert, obeys commands, Oriented to person, place, time, situation. Cardiovascular: Patient's skin is warm and dry. Respiratory: Airway is patent Respiratory effort is even, unlabored, Respiratory pattern is regular, symmetrical. Derm: Skin is pink, warm \T\ dry. 20:21 Reassessment: Patient and/or family updated on plan of care and expected duration. Pain ea level reassessed. Patient is alert, oriented x 3, equal unlabored respirations, skin warm/dry/pink. Discharge instruction given to patient, verbalized the understanding of instruction. Pt left ED via wheelchair, assisted to private vehicle accompanied by family friend. Vital Signs: 15:24 BP 130 / 64; Pulse 72; Resp 16; Temp 97.8; Pulse Ox 100% ; Weight 61.23 kg; Height 5 hb ft. 6 in. (167.64 cm); Pain 10/10; 16:30 BP 179 / 85; Pulse 72; Resp 16; Pulse Ox 97% ; sv 17:20 BP 157 / 86; Pulse 74; Resp 16; Pulse Ox 97% ; sv 18:30 BP 187 / 84; Pulse 74; Resp 17; Pulse Ox 96% ; sv 19:36 BP 189 / 75; Pulse 77; Resp 18; Pulse Ox 98% ; ea 20:22 BP 180 / 70; Pulse 70; Resp 18; Pulse Ox 98% on R/A; ea 15:24 Body Mass Index 21.79 (61.23 kg, 167.64 cm) ED Course: 15:24 Patient arrived in ED. em1 15:25 Dafne Barney ANDRADE is Primary Nurse. sv 15:25 Arm band placed on Patient placed in an exam room, on a stretcher. sv 15:26 Triage completed. hb 15:26 Patient has correct armband on for positive identification. Bed in low position. Call sv light in reach. Side rails up X2. Pulse ox on. NIBP on. 15:31 Dariusz Jernigan PA is PHCP. cp 15:31 Andrea Muniz MD is Attending Physician. cp 15:45 Inserted saline lock: 20 gauge in right forearm, using aseptic technique. Flushed right sv forearm with 5 ml normal saline. 16:09 XRAY Knee LEFT 3 view Sent. sv 16:28 XRAY Knee LEFT 3 view In Process Unspecified. EDMS 18:04 Knee Left Wo Con In Process Unspecified. EDMS 18:09 No provider procedures requiring assistance completed. ph 18:46 Awaiting radiology results. sv 19:14 Report given to Elmer RN and Roxane RN. sv 19:16 Primary Nurse role handed off by Dafne Barney RN sv 19:20 Elmer Stephens MD is Referral Physician. cp 20:20 IV discontinued, intact, bleeding controlled, No redness/swelling at site. Pressure ea dressing applied. 20:21 Roxane Kovacs RN is Primary Nurse. ea Administered Medications: 15:49 Drug: fentaNYL (PF) 25 mcg Route: IVP; Site: right forearm; sv 18:09 Follow up: Response: No adverse reaction ph 17:45 Drug: Zofran (Ondansetron) 4 mg Route: PO; em 18:09 Follow up: Response: No adverse reaction ph 17:46 Drug: Hydrocodone-Acetaminophen (7.5 mg-325 mg) 1 tabs Route: PO; em 18:09 Follow up: Response: No adverse reaction ph 19:34 Drug: morphine 2 mg Route: IVP; Site: right forearm; ea 20:12 Drug: morphine 2 mg Route: IVP; Site: right forearm; ea 20:23 Follow up: Response: No adverse reaction; Pain is decreased ea Outcome: 19:22 Discharge ordered by . cp 20:21 Discharged to home ambulatory. ea 20:21 Condition: stable 20:21 Discharge instructions given to patient, Instructed on discharge instructions, follow up and referral plans. Demonstrated understanding of instructions, follow-up care. 20:28 Patient left the ED. ea Signatures: Dispatcher [employer] Dafne Thomas, RN Nii Altamirano, RN Ming Kilgore Patricia RN RN Dariusz Quiros PA PA cp Baxter, Heather, RN RN hb Antunez, Elena, RN RN ea
--- NOTE | 2019-07-11 19:24 | EDPHYS ---
Physician Documentation [facility] Name: Ana Victor Age: 69 yrs Sex: Female : 1950 Arrival Date: 07/11/2019 Time: 15:24 Bed 4 Private MD: ED Physician Andrea Muniz HPI: 07/10 16:00 This 69 yrs old Female presents to ER via EMS with complaints of Knee Pain. cp 16:00 The patient presents with pain, that is acute. The complaints affect the left knee. cp 16:00 Context: resulted from the patient tripping, carpet, the patient is not able to bear cp weight, the patient is not able to ambulate, patient denies fall and reports felt and heard a "pop". Onset: The symptoms/episode began/occurred just prior to arrival. Historical: - Allergies: 15:27 Iodinated Contrast Media - IV Dye; sv - PMHx: 15:27 bells palsy; Cirrhosis; dysphonia; Hypothyroidism; sv - Immunization history:: Adult Immunizations up to date. - Social history:: Smoking status: . ROS: 16:10 MS/extremity: Positive for decreased range of motion, pain, swelling, tenderness, of cp the left knee, Negative for deformity, paresthesias. 16:10 Constitutional: Negative for body aches, chills, fever, poor PO intake. cp 16:10 Cardiovascular: Negative for chest pain. 16:10 Respiratory: Negative for cough, shortness of breath, wheezing. 16:10 Abdomen/GI: Negative for abdominal pain. 16:10 Skin: Negative for cellulitis, rash. 16:10 Neuro: Negative for headache, weakness. 16:10 All other systems are negative. Exam: 16:15 Constitutional: The patient appears in no acute distress, alert, awake, non-toxic, well cp developed, well nourished, uncomfortable. 16:15 Head/Face: Normocephalic, atraumatic. cp 16:15 Eyes: Periorbital structures: appear normal, Conjunctiva: normal, no exudate, no injection, Lids and lashes: appear normal, bilaterally. 16:15 ENT: External ear(s): are unremarkable, Nose: is normal, Mouth: is normal, Posterior pharynx: Airway: no evidence of obstruction, patent. 16:15 Chest/axilla: Inspection: normal. 16:15 Cardiovascular: Rate: normal, Rhythm: regular. 16:15 Respiratory: the patient does not display signs of respiratory distress, Respirations: normal, no use of accessory muscles, labored breathing, is not present, Breath sounds: are clear throughout, no decreased breath sounds. 16:15 Abdomen/GI: Inspection: abdomen appears normal, Palpation: abdomen is soft and non-tender, in all quadrants. 16:15 Musculoskeletal/extremity: Extremities: grossly normal except: noted in the left knee: decreased ROM, pain, swelling, tenderness, There is no evidence of deformity, ROM: limited passive range of motion, in the left knee, limited passive range of motion due to pain, in the left knee, Perfusion: the extremity is normally perfused throughout, Severe pain noted. 16:15 Skin: cellulitis, is not appreciated, no rash present. 16:15 Neuro: Orientation: to person, place \\T\\ time. Mentation: is normal. Vital Signs: 15:24 BP 130 / 64; Pulse 72; Resp 16; Temp 97.8; Pulse Ox 100% ; Weight 61.23 kg; Height 5 hb ft. 6 in. (167.64 cm); Pain 10/10; 16:30 BP 179 / 85; Pulse 72; Resp 16; Pulse Ox 97% ; sv 17:20 BP 157 / 86; Pulse 74; Resp 16; Pulse Ox 97% ; sv 18:30 BP 187 / 84; Pulse 74; Resp 17; Pulse Ox 96% ; sv 19:36 BP 189 / 75; Pulse 77; Resp 18; Pulse Ox 98% ; ea 20:22 BP 180 / 70; Pulse 70; Resp 18; Pulse Ox 98% on R/A; ea 15:24 Body Mass Index 21.79 (61.23 kg, 167.64 cm) hb Procedures: 20:25 Splinting: Splint applied to left knee using knee immobilizer, applied by nurse. cp Examined by me, post splint application: neurovascular intact, Patient tolerated well. MDM: 15:40 Patient medically screened. cp 16:00 Differential diagnosis: dislocation, closed fracture, ligament injury, meniscus tear. cp 17:00 Physician consultation: Elmer Stephens MD was called at 16:55, was contacted at cp 16:55, regarding patient's condition, outpatient follow-up, in 2-3 days, and will see patient in office, would like further tests performed, CT scan. 19:21 Data reviewed: vital signs, nurses notes, radiologic studies, CT scan, plain films, I cp have discussed the patient's presentation/case with the attending Emergency Department Physician; and as a result, I will discharge patient. 19:21 Response to treatment: the patient's symptoms have markedly improved after treatment, cp and as a result, I will discharge patient. 07/10 15:35 Order name: XRAY Knee LEFT 3 view; Complete Time: 16:52 cp 07/10 16:54 Interpretation: Report reviewed. 07/10 17:51 Order name: Knee Left Wo Con; Complete Time: 18:37 EDMS 07/10 15:35 Order name: IV; Complete Time: 15:49 cp 07/10 16:53 Order name: Knee Immobilizer; Complete Time: 17:16 cp Administered Medications: 15:49 Drug: fentaNYL (PF) 25 mcg Route: IVP; Site: right forearm; sv 18:09 Follow up: Response: No adverse reaction ph 17:45 Drug: Zofran (Ondansetron) 4 mg Route: PO; em 18:09 Follow up: Response: No adverse reaction ph 17:46 Drug: Hydrocodone-Acetaminophen (7.5 mg-325 mg) 1 tabs Route: PO; em 18:09 Follow up: Response: No adverse reaction ph 19:34 Drug: morphine 2 mg Route: IVP; Site: right forearm; ea 20:12 Drug: morphine 2 mg Route: IVP; Site: right forearm; ea 20:23 Follow up: Response: No adverse reaction; Pain is decreased ea Disposition: 20:00 Chart complete. 07/11 11:59 Co-signature as Attending Physician, Andrea Muniz MD I agree with the assessment and kdr plan of care. Disposition: 07/11/19 19:22 Discharged to Home. Impression: Left lateral tibial plateau fracture. - Condition is Stable. - Discharge Instructions: Nondisplaced Tibial Plateau Fracture. - Medication Reconciliation Form, Thank You Letter, Antibiotic Education, Prescription Opioid Use form. - Follow up: Elmer Stephens MD; When: 1 - 2 days; Reason: Recheck today's complaints. - Problem is new. - Symptoms have improved. Signatures: Dispatcher [facility] Red RN RN Andrea Keller MD MD kdr Munoz, Edgar, RN RN Dariusz Wong PA PA cp Antunez, Elena, Haylee Negron RN, ea RN ph Corrections: (The following items were deleted from the chart) 07/10 17:51 17:33 CT LEFT KNEE WO CONTRAST ordered. EDMS EDMS 20:05 19:19 Crutches ordered. cp ea 20:28 19:22 07/11/2019 19:22 Discharged to Home. Impression: Left lateral tibial plateau ea fracture. Condition is Stable. Forms are Medication Reconciliation Form, Thank You Letter, Antibiotic Education, Prescription Opioid Use. Follow up: Elmer Stephens; When: 1 - 2 days; Reason: Recheck today's complaints. Problem is new. Symptoms have improved. cp
[2019-07-11] MEDS ORDERED: MORPHINE 2 MG/ML SYR ONE ×2 (19:30→20:11)
[2019-07-11 20:35] VITALS: TEMP 97.8
[2019-07-11 20:40] VITALS: O2SAT 98
[2019-07-11 20:41] VITALS: BP 180/70
== END 2019-07-11 20:28 | disposition home or self-care (01) ==
LOC: ER 15:14
DX: S82.142A Displaced bicondylar fracture of left tibia, initial encounter for closed fracture (principal); W01.0XXA Fall on same level from slipping, tripping and stumbling without subsequent striking against object, initial encounter; Y93.9 Activity, unspecified; Y92.9 Unspecified place or not applicable; Z91.041 Radiographic dye allergy status
CPT/HCPCS: 73700; 73562; J3010; J2270 ×2